=== PATIENT | female | born 1940 | race Caucasian/White ===

== ENCOUNTER → 2016-10-30 | Outpatient (CLI) | payer OTHER ==
[~2016-10-30] MED LIST: AMOX500C3 PO; CEPH500C2 PO; CHOL100027 PO; PENI-82 PO
[2016-10-30 16:42] LABS: MEAN CELL VOLUME 89.8 fL (80-100); MEAN CORPUSCULAR HEMOGLOBIN 30.1 pg (25-34); MEAN CORPUSCULAR HGB CONC 33.5 g/dl (32-36); MEAN PLATELET VOLUME 9.7 fL (7.4-10.4); PLATELET COUNT 282 K/uL (130-400); RED BLOOD COUNT 4.12 M/uL (4.2-5.4)
[2016-10-30 16:52] LABS: ALT/SGPT 29 U/L (12-78); BLOOD UREA NITROGEN 17 mg/dl (7-18); BUN/CREATININE RATIO 18.7 (10-20); CALCIUM 9.2 mg/dl (8.5-10.1); CARBON DIOXIDE 29 mmol/L (21-32); CHLORIDE 102 mmol/L (98-107); CHOLESTEROL 236 mg/dl (0-200); CREATININE 0.89 mg/dl (0.60-1.20); GLUCOSE 103 mg/dl (70-99); POTASSIUM 4.1 mmol/L (3.5-5.1); SODIUM 140 mmol/L (136-145); TRIGLYCERIDES 131 mg/dl (0-150); VERY LOW DENSITY LIPOPROT CALC 26 mg/dl
[2016-10-30 16:54] LABS: ALB/GLOB RATIO 0.9 (0.9-2); ALKALINE PHOSPHATASE 83 U/L (45-117); AST/SGOT 24 U/L (15-37); CHOLESTEROL/HDL RATIO 4.4; HDL CHOLESTEROL 54 mg/dl; LDL CHOLESTEROL CALCULATED 156 mg/dl
== END | disposition home or self-care (01) ==
LOC: C.LAB1850 15:43
PROVIDERS: ATTEND Physician Assistant
DX: E78.5 Hyperlipidemia, unspecified (principal); E55.9 Vitamin D deficiency, unspecified

== ENCOUNTER 2017-02-13 06:06 | Day surgery (SDC) | payer OTHER ==
[2017-02-07 09:35] LABS: HEMATOCRIT 38.9 % (37-47); MEAN CORPUSCULAR HEMOGLOBIN 29.2 pg (25-34); MEAN CORPUSCULAR HGB CONC 32.4 g/dl (32-36); PLATELET COUNT 261 K/uL (130-400); RED BLOOD COUNT 4.32 M/uL (4.2-5.4); WHITE BLOOD COUNT 4.82 K/uL (4.8-10.8)
[2017-02-07 09:50] LABS: BLOOD UREA NITROGEN 19 mg/dl (7-18); BUN/CREATININE RATIO 22.7 (10-20); CALCIUM 9.4 mg/dl (8.5-10.1); CARBON DIOXIDE 27 mmol/L (21-32); CHLORIDE 105 mmol/L (98-107); CREATININE 0.84 mg/dl (0.60-1.20); GLUCOSE 91 mg/dl (70-99); POTASSIUM 4.4 mmol/L (3.5-5.1); SODIUM 140 mmol/L (136-145)
[~2017-02-13] VITALS: Ht 160 cm; Wt 66.3 kg
[~2017-02-13 06:06] MED LIST changes: -AMOX500C3 PO; -CEPH500C2 PO; -PENI-82 PO; +SODIUM CHLORIDE 0.9% 1000ML 1,000 ML IV SCH
[2017-02-13 06:26] VITALS: BP 154/65; PULSE 88; TEMP 36.4; O2SAT 95; Ht 160 cm; Wt 66.3 kg
[2017-02-13] MEDS ORDERED: LIDOCAINE HCL 1% 20 ML VIAL ONE (07:28)
[2017-02-13] MEDS ORDERED: SODIUM BICARB 8.4% INJ 50 MEQ/50 ML SYR IV ONE (07:36)
[2017-02-13] MEDS ORDERED: LIDOCAINE/EPINEPHRINE 1% INJ 50 ML VIAL ONE (07:36)
[2017-02-13] MEDS ORDERED: FENTANYL CITRATE INJ 50 MCG/1 ML 2 ML VIAL ONE (07:37)
[2017-02-13] MEDS ORDERED: MIDAZOLAM HCL 1 MG/ML 2ML VIAL ONE (07:37)
[2017-02-13 07:39] VITALS: BP 154/65; PULSE 88; TEMP 36.4; O2SAT 96
--- NOTE | 2017-02-13 07:52 | Procedure Note ---
Pre-Mod Sedation Assessment General Date of Moderate Sedation: Feb 13, 2017. Vital Signs: Vital Signs Past 12 Hours Date Time Temp Pulse Resp B/P (MAP) Pulse Ox O2 Delivery O2 Flow Rate FiO2 02/13/17 07:39 36.4 88 18 154/65 96 Room Air 02/13/17 06:26 36.4 88 18 154/65 (94) 95 Room Air Review Cardiovascular: regular rate, rhythm, no JVD Abdomen: normal bowel sounds, soft Lungs: chest non-tender, lungs clear Airway Class: II Pre-Sedation Airway Assessment Oral Cavity: Dentures Short Thick Neck: No Hx of Sleep Apnea: No Smoking Status: Former Smoker Mallampati Classification: Class II ASA Classification: Class II Procedure Planning Contraindications-for Mod Sed: None Yes Notes The planned sedation has been discussed with the patient and consent obtained. I have identified the patient, determined the appropriateness of sedation and have assessed the patient immediately prior to the procedure. All medicine(s) and interventions are by my order.
--- NOTE | 2017-02-13 07:56 | History and Physical ---
History & Physical Date Feb 13, 2017. Chief Complaint Healing LE ulcer History of Present Illness Ms. Arriola is a 76-year-old woman with a history of recently diagnosed chronic venous insufficiency with venous ulcerations here for Left GSV RF ablation. The patient has had venous ulcerations for months which have been slow healing but have been improved as of late. She reports longstanding mild lower extremity edema and has had no prior ulcerations, no history of prior blood clots, no history of ulcerations on her other extremity. Due to symptoms she recently had a lower extremity venous duplex ultrasound which showed a dilated right GSV with reflux, a left GSV that was dilated with reflux and superficial and varicose at the level of the knee. Past Medical/Surgical History Chronic venous insufficiency Additional History Hepatic Disease: No Endocrine Disorder: No Kidney Disease: No Hypertension: No Heart Disease: No Bleeding Tendencies: No Infectious Diseases: No Allergies Coded Allergies: BEE STING (Verified Allergy, Severe, SHORTNESS OF BREATH, 02/13/17) Swelling,tachycardia Home Medications Scheduled Cholecalciferol (Vitamin D 1000 Unit), 2,000 INTER.UNIT PO DAILY Physical Examination Skin: warm/dry Eyes: normal inspection ENT: normal ENT inspection Neck: supple Respiratory/Chest: lungs clear, normal breath sounds Cardiovascular: regular rate, rhythm, no murmur Abdomen / GI: normal bowel sounds Extremities: + pertinent finding (healed left LE ulceration) Neurologic/Psych: no motor/sensory deficits, alert Diagnosis Chronic venous insufficiency ASA Classification: ASA Class II Plan of Treatment Proceed with Left GSV ablation
[2017-02-13] MEDS ORDERED: ORM MISCELLANEOUS MED XX ONE (09:12)
[2017-02-13] MEDS ORDERED: LIDOCAINE HCL 1% 20 ML VIAL SQ ONE (09:12)
[2017-02-13 09:25] VITALS: BP 172/74; PULSE 67; TEMP 36.8; O2SAT 95
--- NOTE | 2017-02-13 09:26 | Procedure Note ---
Post-Mod Sedation Assessment General Date of Moderate Sedation Feb 13, 2017. Vital Signs: Vital Signs Past 12 Hours Date Time Temp Pulse Resp B/P (MAP) Pulse Ox O2 Delivery O2 Flow Rate FiO2 02/13/17 07:39 36.4 88 18 154/65 96 Room Air 02/13/17 06:26 36.4 88 18 154/65 (94) 95 Room Air Review - Discharge Criteria Vital Signs Stable: Yes Alert/Oriented/Conversant: Yes Returned to Baseline Mental St: Yes Nausea Absent/Minimal: Yes Pain/Discomfort/Absent/Minimal: Yes Normal/Baseline Respirations: Yes Active Bleeding?: No Pt Received D/C Instructions: Yes Prescriptions Given: None Specific Proced. D/C Criteria Distal Pulses Present (Cardiac: Yes Groin site assessed-Card Cath: N/A Voided Prior To Discharge: N/A Discharged Patients Adult Escort/Transportation: Yes
--- NOTE | 2017-02-13 09:32 | [facility] Operative Report ---
Operative Report Operative Date Feb 13, 2017. Pre-Operative Diagnosis Venous Insufficiency Post-Operative Diagnosis Same Procedure(s) Performed Left Leg Greater Saphenous Vein Radiofrequency Ablation Surgeon Dr. Brunner Marketing Strategist Surgeon(s) None Estimated Blood Loss 4 Findings Dilated Left GSV with varicosities Specimens None Anesthesia Local lidocaine Complication(s) None Disposition Recovery Room / PACU Description of Procedure US guided access Left GSV below the knee. Catheter inserted to knee varicosities US guided access of Left GSV above the knee Tumescent injected to segment below the knee First treatment 1:40 min for 5 cycles Sheath/catheter placed in above knee segment US confirmed not in deep system. Catheter inserted, 2.75 cm from SFJ. Tumescent injected to segment above the knee 2:20, 7 cycles of LFA right GSV. No complications. Patient tolerated well. US confirmed no DVT post procedure. I attest to the content of the Intraoperative Record and any orders documented therein. Any exceptions are noted below.
--- NOTE | 2017-02-13 09:34 | Discharge Instructions ---
Discharge Instructions Procedure Procedure Date: Feb 13, 2017. Reason for Visit: Venous Insufficiency. Discharge Discharge Date: Feb 13, 2017. Discharge Diagnosis: Venous insufficiency Last Recorded Wt (Kilograms): 66.3 Anesthesia Post Anesthesia Instructions: If you have had General Anesthesia or IV Sedation: * Do not drive today. * Resume driving when surgeon permits. * Do not make important decisions or sign legal documents today. * Call surgeon for: 1. Temperature elevations greater than 101 degrees F. 2. Uncontrollable pain. 3. Excessive bleeding. 4. Persistent nausea and vomiting. 5. Medication intolerance (nausea, vomiting or rash). * For nausea and vomiting use only clear liquids such as: tea, soda, bouillon until nausea subsides, then gradually increase diet as tolerated. * If you have any concerns or questions, call your surgeon's office. If physician is unavailable and it is an emergency, call 911 or go to the nearest emergency room. Instructions Activity Recommendations: limitations as noted below (As discussed on paperwork from office) Recommended Home Diet: resume previous diet Allergies: Coded Allergies: BEE STING (Verified Allergy, Severe, SHORTNESS OF BREATH, 02/13/17) Swelling,tachycardia Follow Up Follow-up with: As scheduled Rebecca Dorsey Recommendations: Call your doctor if: * Temperature above 101 degrees * Pain not relieved by pain medicine ordered * There is increased drainage or redness from any incision * You have any unanswered questions or concerns. Your Doctors Instructions noted above were prepared by provider Manolo Brunner. Patient Signature Section: Patient Instructions Signature Page Ghazal Arriola Patient (or Guardian) Signature/Date: I have read and understand the instructions given to me by my caregivers. Caregiver/RN/Doctor Signature/Date: The above-named patient and/or guardian has received patient instructions on this date. + Original Patient Signature Page (only) stays with chart. Please make copy for patient.
[2017-02-13 09:55] VITALS: BP 145/66; PULSE 70; TEMP 36.8; O2SAT 96
== END 2017-02-13 09:55 | disposition home or self-care (01) ==
LOC: C.ACU 06:06
PROVIDERS: ATTEND Internal Medicine Interventional Cardiology
DX: L97.909 Non-pressure chronic ulcer of unspecified part of unspecified lower leg with unspecified severity (principal); I87.2 Venous insufficiency (chronic) (peripheral)

== ENCOUNTER → 2017-08-12 | Outpatient (CLI) | payer OTHER ==
[~2017-08-12] MED LIST changes: +PENI-82 PO; -SODIUM CHLORIDE 0.9% 1000ML 1,000 ML IV SCH
[2017-08-12 10:17] LABS: HEMATOCRIT 38.9 % (37-47); HEMOGLOBIN 12.7 g/dL (12.0-16.0); MEAN CELL VOLUME 92.2 fL (80-100); MEAN CORPUSCULAR HEMOGLOBIN 30.1 pg (25-34); MEAN CORPUSCULAR HGB CONC 32.6 g/dl (32-36); MEAN PLATELET VOLUME 9.6 fL (7.4-10.4); PLATELET COUNT 281 K/uL (130-400); RED CELL DISTRIBUTION WIDTH CV 14.4 % (11.5-14.5); RED CELL DISTRIBUTION WIDTH SD 48.6 fL (36.4-46.3); WHITE BLOOD COUNT 4.85 K/uL (4.8-10.8)
[2017-08-12 10:23] LABS: PTT PATIENT 23.6 SECONDS (21.0-31.0)
[2017-08-12 10:48] LABS: BLOOD UREA NITROGEN 15 mg/dl (7-18); CALCIUM 9.4 mg/dl (8.5-10.1); CARBON DIOXIDE 29 mmol/L (21-32); GLUCOSE 85 mg/dl (70-99); SODIUM 139 mmol/L (136-145)
== END | disposition home or self-care (01) ==
LOC: C.LAB1850 09:35
PROVIDERS: ATTEND Internal Medicine Interventional Cardiology
DX: Z01.818 Encounter for other preprocedural examination (principal)

== ENCOUNTER → 2017-09-05 | Day surgery (SDC) | payer OTHER ==
[~2017-09-05] VITALS: Ht 162.6 cm; Wt 66.5 kg
[~2017-09-05] MED LIST changes: +FENTANYL CITRATE INJ 50 MCG/1 ML 2 ML VIAL ONE; +LIDOCAINE HCL 1% 20 ML VIAL INJ ONE; +LIDOCAINE/EPINEPHRINE 1% 20 ML VIAL ONE; +LIDOCAINE/EPINEPHRINE 1% INJ 50 ML VIAL ONE; +MIDAZOLAM HCL 1 MG/ML 2ML VIAL ONE; +ORM MISCELLANEOUS MED XX ONE; +SODIUM BICARB 8.4% INJ 50 MEQ/50 ML SYR IV ONE
[2017-09-05 07:39] VITALS: BP 179/80; PULSE 92; TEMP 36.6; O2SAT 97; Ht 162.6 cm; Wt 66.5 kg
--- NOTE | 2017-09-05 09:03 | History and Physical ---
History & Physical Date Sep 05, 2017. Chief Complaint Venous insufficiency History of Present Illness Ms. Arriola is a 76-year-old woman with a history of chronic venous insufficiency and venous ulcerations post left GSV radiofrequency ablation back in January 2017, who returned to the wound care center in May of 2016 in the setting of right lower extremity ulceration. The patient had done well following successful left GSV radiofrequency ablation with improvement in symptoms and wound healing, has been wearing compression stockings. Right lower extremity wound slow to heal despite standard wound care and compressive therapy with Unna boot in place. Previous ultrasound has demonstrated right GSV reflux and dilation. Additional History Hepatic Disease: No Endocrine Disorder: No Kidney Disease: No Hypertension: No Heart Disease: No Bleeding Tendencies: No Infectious Diseases: No Allergies Coded Allergies: BEE STING (Verified Allergy, Severe, SHORTNESS OF BREATH, 09/05/17) Swelling,tachycardia Home Medications Scheduled Cholecalciferol (Vitamin D 1000 Unit), 2,000 INTER.UNIT PO DAILY Physical Examination Skin: warm/dry Eyes: normal inspection ENT: normal ENT inspection Respiratory/Chest: lungs clear, normal breath sounds Cardiovascular: regular rate, rhythm, no edema Abdomen / GI: normal bowel sounds Extremities: + pertinent finding (edema, healed prior ulcerations) Neurologic/Psych: no motor/sensory deficits, alert Diagnosis Chronic venous insufficiency ASA Classification: ASA Class II Plan of Treatment Right GSV RF ablation.
--- NOTE | 2017-09-05 09:04 | Pre Sedation Assessment ---
Pre Sedation Assessment General Date of Sedation: Sep 05, 2017. Vital Signs Past 12 Hours Date Time Temp Pulse Resp B/P (MAP) Pulse Ox O2 Delivery O2 Flow Rate FiO2 09/05/17 07:39 36.6 92 20 179/80 (113) 97 Room Air Review Cardiovascular: regular rate, rhythm, no edema Lungs: chest non-tender, lungs clear Pre-Sedation Airway Assessment Smoking Status: Former Smoker Hx of Sleep Apnea: No Hx of difficult intubation: No Short Thick Neck: No Thyro-mental Distance: > 3 Finger Breadths Oral Cavity: Dentures Mallampati Classification: Class II ASA Classification: Class II NPO Status Date of Last Intake of Fluids: Sep 05, 2017 Time of Last Intake of Fluids: 0500 Date of Last Intake of Solids: Sep 05, 2017 Time of Last Intake of Solids: 0600 Procedure Planning Contraindications for Sedation: None Current Medications Reviewed: Yes Notes The planned sedation has been discussed with the patient. Informed Consent was obtained. I have identified the patient, determined the appropriateness of sedation and have assessed the patient immediately prior to the procedure. All medicine(s) and interventions are by my order.
--- NOTE | 2017-09-05 09:59 | Post Sedation Assessment ---
Post Sedation Assessment General Date of Sedation Sep 05, 2017. Vital Signs: Vital Signs Past 12 Hours Date Time Temp Pulse Resp B/P (MAP) Pulse Ox O2 Delivery O2 Flow Rate FiO2 09/05/17 07:39 36.6 92 20 179/80 (113) 97 Room Air Post Procedure Recovery Score Activity: (2) Moves 4 extremities * Respiration: (2) Deep breath/cough Circulation: (2) +/-20% PreAnes Value Consciousness: (2) Fully Awake Oxygen Saturation: (2) > 92% On Room Air Discharge Sedation Level of Care: Phase I Post Sedation Plan On clinical assessment, the patient appears to have tolerated the sedation without complications. Patient is recovering as anticipated. Patient will continue to be monitored by nursing and may be discharged when sedation discharge criteria are met per below protocol. Upon Completions of procedure and additional 15 minutes continue every 5 minute vital signs and the P.A.R. score; then discharge to a Phase I or Fast Track to Phase II per the following guidelines: * Discharge Patient to appropriate Phase II area if PAR is 8 or greater or return to pre- procedure baseline. The post - procedure orders will be as directed. * If PAR score is less than 8 or not return to pre-procedure baseline then patient will follow Phase I monitoring till PAR is reached for Phase II. The Phase I may be done in procedure room or may call to secure a Phase I area. * If naloxone or flumazenil are used for reversal, hold in Phase I for an additional 60 -120 minutes before discharge to Phase II. Please call the Sedation Physician to re-evaluate and complete post-note for discharge to Phase II area. Do NOT discharge from procedure sedation or Phase 1 until post- sedation evaluation note is complete by procedure /sedation MD Sedation Discharge Instructions to be given to the patient at discharge to home.
--- NOTE | 2017-09-05 10:01 | [facility] Operative Report ---
Operative Report Operative Date Sep 05, 2017. Pre-Operative Diagnosis Chronic venous insufficiency Post-Operative Diagnosis Chronic venous insufficiency Procedure(s) Performed Right GSV Radiofrequency Ablation Surgeon Kannan [employer] System Engineer Surgeon(s) Mylene Estimated Blood Loss 5 Findings Dilated right GSV Fluids None Specimens None Drains None Anesthesia Type Local Complication(s) none Disposition yes Recovery Room / PACU Indications CVI (CEAP class 5 disease) Description of Procedure US guided access Right GSV below the knee. Catheter inserted, 2.5 cm from SFJ. Tumescent injected. US confirmed not in deep system. 3:40, 11 cycles of RFA right GSV. No complications. Patient tolerated well. US confirmed no DVT post procedure. I attest to the content of the Intraoperative Record and any orders documented therein. Any exceptions are noted below.
--- NOTE | 2017-09-05 10:05 | Discharge Instructions ---
Discharge Instructions Procedure Procedure Date: Sep 05, 2017. Reason for Visit: Chronic Venous Insufficiency. Discharge Discharge Date: Sep 05, 2017. Discharge Diagnosis: Chronic venous insufficiency Last Recorded Wt (Kilograms): 66.5 Anesthesia Post Anesthesia Instructions: If you have had General Anesthesia or IV Sedation: * Do not drive today. * Resume driving when surgeon permits. * Do not make important decisions or sign legal documents today. * Call surgeon for: 1. Temperature elevations greater than 101 degrees F. 2. Uncontrollable pain. 3. Excessive bleeding. 4. Persistent nausea and vomiting. 5. Medication intolerance (nausea, vomiting or rash). * For nausea and vomiting use only clear liquids such as: tea, soda, bouillon until nausea subsides, then gradually increase diet as tolerated. * If you have any concerns or questions, call your surgeon's office. If physician is unavailable and it is an emergency, call 911 or go to the nearest emergency room. Instructions Activity Recommendations: limitations as noted below Recommended Home Diet: resume previous diet Allergies: Coded Allergies: BEE STING (Verified Allergy, Severe, SHORTNESS OF BREATH, 09/05/17) Swelling,tachycardia Follow Up Additional Instructions: Follow instructions as outlined in paperwork from Dr. Brunner' office. Up walking today. Follow up Ultrasound as scheduled. TAIWO wrap until scheduled ultrasound Post ultrasound wear compression stockings indefinitely. Any severe pain, present to the emergency room for evaluation for DVT. Follow-up with: As scheduled Rebecca Dorsey Recommendations: Call your doctor if: * Temperature above 101 degrees * Pain not relieved by pain medicine ordered * There is increased drainage or redness from any incision * You have any unanswered questions or concerns. Your Doctors Instructions noted above were prepared by provider Manolo Brunner. Patient Signature Section: Patient Instructions Signature Page Ghazal Arriola Patient (or Guardian) Signature/Date: I have read and understand the instructions given to me by my caregivers. Caregiver/RN/Doctor Signature/Date: The above-named patient and/or guardian has received patient instructions on this date. + Original Patient Signature Page (only) stays with chart. Please make copy for patient.
[2017-09-05 10:12] VITALS: BP 173/62; PULSE 76; TEMP 36.9; O2SAT 98
[2017-09-05 10:40] VITALS: BP 131/82; PULSE 75; TEMP 36.9; O2SAT 98
== END | disposition home or self-care (01) ==
LOC: C.ACU 07:20
PROVIDERS: ATTEND Internal Medicine Interventional Cardiology
DX: I87.2 Venous insufficiency (chronic) (peripheral) (principal); Z91.030 Bee allergy status

== ENCOUNTER → 2018-03-05 | Outpatient (CLI) | payer OTHER ==
[~2018-03-05] MED LIST changes: -FENTANYL CITRATE INJ 50 MCG/1 ML 2 ML VIAL ONE; -LIDOCAINE HCL 1% 20 ML VIAL INJ ONE; -LIDOCAINE/EPINEPHRINE 1% 20 ML VIAL ONE; -LIDOCAINE/EPINEPHRINE 1% INJ 50 ML VIAL ONE; -MIDAZOLAM HCL 1 MG/ML 2ML VIAL ONE; -ORM MISCELLANEOUS MED XX ONE; -PENI-82 PO; -SODIUM BICARB 8.4% INJ 50 MEQ/50 ML SYR IV ONE
== END | disposition home or self-care (01) ==
LOC: C.LAB1850 07:53
PROVIDERS: ATTEND Physician Assistant
DX: Z13.220 Encounter for screening for lipoid disorders (principal); E55.9 Vitamin D deficiency, unspecified

== ENCOUNTER 2022-11-21 18:07 | Inpatient (IN) ==
--- NOTE | 2022-11-21 18:19 | Emergency Department Note ---
Impression & Plan Status epilepticus ED Provider Note INFORMANT: EMS ED PROVIDER(S): Anthony Valdivia DO CHIEF COMPLAINT: Stroke/status epilepticus PLAN: Disposition: Admission Outpatient prescription management: none Discussion with: I spoke with the hospitalist, who will see the patient for admission/observation and further evaluation and consultation. I spoke with Dr. Schwarz from [facility]. Patient does not need to be evaluated by him as the patient is on Xarelto and had a seizure and therefore does not qualify for thrombolytics MEDICAL DECISION MAKING: This is a 82-year-old female who presents to the ED via ambulance. The patient's last known well was 4 PM. She was seen by family around that time. About 6 PM today the patient briefly had an unresponsive episode and was flaccid on the right side. She had a brief seizure as well. The patient was flaccid for EMS on the right arm and right leg. She would not answer any questions or speak but she does track with her eyes. 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 Some mild residual right-sided weakness. Her vital signs for EMS showed a blood sugar of 117, blood pressure 152/62, heart rate of 77, respiratory rate of 24 and a saturation of 94% on room air. She is chronically on Eliquis and aspirin. On my exam the patient has a flexed right arm that might be contractured. She seems to have weakness in both lower extremities and does not follow any commands. The left arm localizes pain. The patient does have a small amount of foaming at the mouth. Seems to have a preferred gaze to the right. Not following any commands at this time. EKG shows sinus rhythm. The patient CBC did not show leukocytosis or concerning anemia. Chemistry panel showed no severe electrolyte abnormalities. Kidney function was normal. COVID test was negative. CT scan of the head did not show intracranial hemorrhage. CT angio of the head showed no significant vessel occlusion. CT scan of the carotids and neck shows a 80% stenosis of the proximal right internal carotid artery. A chest x-ray shows no acute disease. During the patient's ED stay, the patient did have a brief hypoxic episode. This was likely related to a seizure. A short while later, the patient had a tonic-clonic seizure that I visualized. She was hypoxic with this. She was loaded with IV Keppra 3 g. The patient had another seizure a couple of hours into her stay after the Keppra and she was given IV Ativan. 2 mg IV Ativan was given. After extensive discussion with the family, the state the patient would not want to be a placed on a ventilator and the patient is DNR. She was DNR after her previous stroke as well. The patient was on facemask oxygen to maintain saturations. This was especially pertinent during the seizures at which time the saturation dropped about 80% briefly during the 1 to 2-minute seizures. The patient will be seen by the hospitalist for further evaluation and care Triage Nursing notes reviewed. Vital Signs: reviewed Prior /Outside records reviewed: none Differential diagnosis: Stroke, hemorrhage, other Diagnostics, as interpreted by me: 12 lead ECG: Normal sinus rhythm rate of 75. No ST elevation. T wave inversions laterally. No segment change from previous Cardiac Monitoring ordered: Sinus rhythm in the 70s to 80s. Medical decision rules: [none] Imaging studies: Chest x-ray: No acute disease. CT scan of the brain: No acute hemorrhage. Procedures: none. Critical care: I have personally spent 60 minutes of critical care time in the direct management of this patient. This includes bedside care, interpretation of diagnostic studies, and testing, discussion with consultants, patient, and family members, and other required patient management activities. This 30 minutes is in excess of all separately billable procedures. HPI: See MDM above. PAST MEDICAL HISTORY: See Below PAST SURGICAL HISTORY: See Below SOCIAL HISTORY: See Below HOME MEDICATIONS: See Below ALLERGIES: See Below VITALS: See Below PHYSICAL EXAMINATION: See MDM for positive findings otherwise unremarkable. CONSTITUTIONAL/VITAL SIGNS: Reviewed GENERAL:done as appropriate INTEGUMENTARY: done as appropriate HEAD: done as appropriate EYES: done as appropriate RESPIRATORY: done as appropriate CARDIOVASCULAR:done as appropriate GI/ABDOMEN:done as appropriate EXTREMITIES: done as appropriate NEUROLOGICAL: done as appropriate PSYCHIATRIC:done as appropriate MUSCULOSKELETAL:done as appropriate TRIAGE NURSING DOCUMENTATION REVIEWED. Past Med/Surg History Medical History Cataract Chronic venous insufficiency Elevated BP without diagnosis of hypertension Hemangioma Herpes zoster Hyperlipidemia Seborrheic keratosis Venous ulcer Vitamin D deficiency Surgical History S/P tooth extraction Family History Sister Atrial fibrillation Stroke Muscular dystrophy Mother Diabetes Father Lung cancer Denies family history of Ovarian cancer Prostate cancer Myocardial infarction Breast cancer Colorectal cancer Social History Smoking Status: Unknown if ever smoked Tobacco Type: Cigarettes Age Started Using Tobacco: 22; Age Quit Using Tobacco: 53; packs per day: 0.5; Second Hand Exposure: No; Hx Alcohol Use: No Hx Substance Use: No Preferred Language: Algerian Visual Impairment: No Limitations Hearing Ability: Normal Beliefs That Will Affect Care: Spiritual marital status: / Current Living Situation: Alone and Spouse current occupational status: retired Feels Safe at Home: Yes Childhood Exposure to Second-Hand Smoke: No Dental Care, Regularly: No Physical Activity Frequency: Daily Physical Activity Frequency Comment: bird watching, puzzles and walking Seatbelt Use: always Sunscreen Use: No Allergies Allergies Allergy/AdvReac Type Severity Reaction Status Date / Time bee venom protein (honey bee) Allergy Severe SHORTNESS Verified 11/21/22 21:23 OF BREATH No Known Drug Allergies Allergy NKDA Verified 11/21/22 21:23 Home Meds Home Medications Medication Instructions Recorded Confirmed cholecalciferol (vitamin D3) 50 2,000 mcg PO DAILY 01/13/19 11/21/22 mcg (2,000 unit) tablet Previous Rx's Medication Instructions Recorded epinephrine 0.3 mg/0.3 mL 0.3 mg (0.3 mL) subcut ONCE PRN 03/16/21 injection, auto-injector anaphylaxis #1 ea apixaban 2.5 mg tablet (Eliquis) 2.5 mg PO BID #180 tabs 08/30/22 aspirin 81 mg tablet,delayed 81 mg PO DAILY #90 tabs 08/30/22 release atorvastatin 20 mg tablet 20 mg PO DAILY #90 tabs 08/30/22 metoprolol tartrate 37.5 mg tablet 37.5 mg PO BID #180 tabs 08/30/22 Results & Data (ED) Vital Signs Vital Signs - 24 hr 11/21/22 18:34 11/21/22 18:34 11/21/22 18:48 Temperature 36.4 C L Temperature Source Axillary Pulse Rate 77 65 Pulse Rate [Apical] 77 Pulse Rhythm Regular Pulse Rhythm [Apical] Regular Pulse Strength Normal Pulse Strength [Apical] Normal Respiratory Rate 22 22 Respiratory Effort / Characteristics Non-Labored Non-Labored Respiratory Depth Normal Normal Respiratory Pattern Regular Regular Blood Pressure 152/107 H Blood Pressure [Left Arm] 152/107 H Blood Pressure Mean 122 Blood Pressure Mean [Left Arm] 122 Pulse Oximetry 97 97 Oxygen Delivery Method Room Air Room Air Oxygen Flow Rate Sepsis Recent Fever Within 48 Hours No Sepsis New/Unexplained Change in Mental Status N/A Sepsis Action Taken by Nursing No Action Required 11/21/22 18:49 11/21/22 18:50 11/21/22 19:00 Temperature Temperature Source Pulse Rate 73 69 69 Pulse Rate [Apical] Pulse Rhythm Pulse Rhythm [Apical] Pulse Strength Pulse Strength [Apical] Respiratory Rate 20 21 22 Respiratory Effort / Characteristics Respiratory Depth Respiratory Pattern Blood Pressure 133/88 Blood Pressure [Left Arm] Blood Pressure Mean 103 Blood Pressure Mean [Left Arm] Pulse Oximetry 100 Oxygen Delivery Method Non-rebreather Oxygen Flow Rate 15 15 15 Sepsis Recent Fever Within 48 Hours Sepsis New/Unexplained Change in Mental Status Sepsis Action Taken by Nursing 11/21/22 19:10 11/21/22 19:20 11/21/22 19:30 Temperature Temperature Source Pulse Rate 69 84 88 Pulse Rate [Apical] Pulse Rhythm Pulse Rhythm [Apical] Pulse Strength Pulse Strength [Apical] Respiratory Rate 19 21 21 Respiratory Effort / Characteristics Respiratory Depth Respiratory Pattern Blood Pressure Blood Pressure [Left Arm] Blood Pressure Mean Blood Pressure Mean [Left Arm] Pulse Oximetry 100 100 100 Oxygen Delivery Method Non-rebreather Non-rebreather Non-rebreather Oxygen Flow Rate 15 15 15 Sepsis Recent Fever Within 48 Hours Sepsis New/Unexplained Change in Mental Status Sepsis Action Taken by Nursing 11/21/22 19:40 11/21/22 19:43 11/21/22 19:45 Temperature Temperature Source Pulse Rate 86 86 85 Pulse Rate [Apical] Pulse Rhythm Pulse Rhythm [Apical] Pulse Strength Pulse Strength [Apical] Respiratory Rate 21 19 20 Respiratory Effort / Characteristics Respiratory Depth Respiratory Pattern Blood Pressure 181/109 H 176/128 H Blood Pressure [Left Arm] Blood Pressure Mean 133 144 Blood Pressure Mean [Left Arm] Pulse Oximetry 100 100 100 Oxygen Delivery Method Non-rebreather Non-rebreather Non-rebreather Oxygen Flow Rate 15 15 15 Sepsis Recent Fever Within 48 Hours Sepsis New/Unexplained Change in Mental Status Sepsis Action Taken by Nursing 11/21/22 19:50 11/21/22 20:00 11/21/22 20:02 Temperature Temperature Source Pulse Rate 86 87 90 Pulse Rate [Apical] Pulse Rhythm Pulse Rhythm [Apical] Pulse Strength Pulse Strength [Apical] Respiratory Rate 20 19 30 H Respiratory Effort / Characteristics Respiratory Depth Respiratory Pattern Blood Pressure 214/88 H Blood Pressure [Left Arm] Blood Pressure Mean 130 Blood Pressure Mean [Left Arm] Pulse Oximetry 100 96 95 Oxygen Delivery Method Non-rebreather Non-rebreather Non-rebreather Oxygen Flow Rate 15 15 15 Sepsis Recent Fever Within 48 Hours Sepsis New/Unexplained Change in Mental Status Sepsis Action Taken by Nursing 11/21/22 20:10 11/21/22 20:17 11/21/22 20:20 Temperature Temperature Source Pulse Rate 92 H 86 84 Pulse Rate [Apical] Pulse Rhythm Pulse Rhythm [Apical] Pulse Strength Pulse Strength [Apical] Respiratory Rate 19 21 17 Respiratory Effort / Characteristics Respiratory Depth Respiratory Pattern Blood Pressure 196/71 H Blood Pressure [Left Arm] Blood Pressure Mean 112 Blood Pressure Mean [Left Arm] Pulse Oximetry 100 100 97 Oxygen Delivery Method Non-rebreather Non-rebreather Non-rebreather Oxygen Flow Rate 15 15 15 Sepsis Recent Fever Within 48 Hours Sepsis New/Unexplained Change in Mental Status Sepsis Action Taken by Nursing 11/21/22 20:30 11/21/22 20:31 11/21/22 20:40 Temperature Temperature Source Pulse Rate 82 88 84 Pulse Rate [Apical] Pulse Rhythm Pulse Rhythm [Apical] Pulse Strength Pulse Strength [Apical] Respiratory Rate 20 22 28 H Respiratory Effort / Characteristics Respiratory Depth Respiratory Pattern Blood Pressure 175/133 H Blood Pressure [Left Arm] Blood Pressure Mean 147 Blood Pressure Mean [Left Arm] Pulse Oximetry 100 100 94 Oxygen Delivery Method Non-rebreather Non-rebreather Non-rebreather Oxygen Flow Rate 15 15 15 Sepsis Recent Fever Within 48 Hours Sepsis New/Unexplained Change in Mental Status Sepsis Action Taken by Nursing 11/21/22 20:46 11/21/22 20:50 11/21/22 21:00 Temperature Temperature Source Pulse Rate 85 84 85 Pulse Rate [Apical] Pulse Rhythm Pulse Rhythm [Apical] Pulse Strength Pulse Strength [Apical] Respiratory Rate 20 19 20 Respiratory Effort / Characteristics Respiratory Depth Respiratory Pattern Blood Pressure 170/91 H 189/95 H Blood Pressure [Left Arm] Blood Pressure Mean 117 126 Blood Pressure Mean [Left Arm] Pulse Oximetry 100 100 100 Oxygen Delivery Method Non-rebreather Non-rebreather Non-rebreather Oxygen Flow Rate 15 15 15 Sepsis Recent Fever Within 48 Hours Sepsis New/Unexplained Change in Mental Status Sepsis Action Taken by Nursing 11/21/22 21:10 11/21/22 21:15 11/21/22 21:20 Temperature Temperature Source Pulse Rate 88 89 89 Pulse Rate [Apical] Pulse Rhythm Pulse Rhythm [Apical] Pulse Strength Pulse Strength [Apical] Respiratory Rate 22 22 22 Respiratory Effort / Characteristics Respiratory Depth Respiratory Pattern Blood Pressure 187/89 H Blood Pressure [Left Arm] Blood Pressure Mean 121 Blood Pressure Mean [Left Arm] Pulse Oximetry 100 100 100 Oxygen Delivery Method Non-rebreather Non-rebreather Non-rebreather Oxygen Flow Rate 15 15 15 Sepsis Recent Fever Within 48 Hours Sepsis New/Unexplained Change in Mental Status Sepsis Action Taken by Nursing 11/21/22 21:30 Temperature Temperature Source Pulse Rate 86 Pulse Rate [Apical] Pulse Rhythm Pulse Rhythm [Apical] Pulse Strength Pulse Strength [Apical] Respiratory Rate 20 Respiratory Effort / Characteristics Respiratory Depth Respiratory Pattern Blood Pressure 185/81 H Blood Pressure [Left Arm] Blood Pressure Mean 115 Blood Pressure Mean [Left Arm] Pulse Oximetry 100 Oxygen Delivery Method Non-rebreather Oxygen Flow Rate 15 Sepsis Recent Fever Within 48 Hours Sepsis New/Unexplained Change in Mental Status Sepsis Action Taken by Nursing Laboratory Data 11/21/22 18:43 11/21/22 18:43 Lab Results 11/21/22 11/21/22 11/21/22 Range/Units 18:43 18:43 18:43 WBC 6.02 (4.8-10.8) K/ul RBC 3.75 L (4.20-5.40) M/uL Hgb 11.3 L (12.0-16.0) g/dl Hct 34.2 L (37.0-47.0) % MCV 91.2 (80.0-100.0) fL MCH 30.1 (25.0-34.0) pg MCHC 33.0 (32.0-36.0) g/dL RDW Std Deviation 47.5 H (36.4-46.3) fL RDW Coeff of Rosa Elena 14.2 (11.5-14.5) % Plt Count 198 (130-400) K/uL MPV 9.8 (9.4-12.4) fL Immature Gran % (Auto) 0.3 % Neut % (Auto) 57.3 % Lymph % (Auto) 30.9 % [place] % (Auto) 8.0 % Eos % (Auto) 2.8 % Baso % (Auto) 0.7 % Neut # (Auto) 3.45 (1.40-6.50) K/uL Lymph # (Auto) 1.86 (1.2-3.4) K/uL [place] # (Auto) 0.48 (0.11-0.59) K/uL Eos # (Auto) 0.17 (0-0.50) K/uL Baso # (Auto) 0.04 (0-0.2) K/uL Immature Gran # (Auto) 0.02 (0.01-0.20) K/uL PT 11.6 (9.0-12.0) Seconds INR 1.1 (0.9-1.1) APTT 24.5 (21.0-31.0) Seconds PTT Ratio 0.9 Sodium (136-145) mmol/L Potassium (3.5-5.1) mmol/L Chloride (98-107) mmol/L Carbon Dioxide (21-32) mmol/L Anion Gap (3-11) BUN (6-23) mg/dl Creatinine (0.6-1.2) mg/dl Est Cr Clr Drug Dosing ml/min Est GFR ( Amer) ml/min Est GFR (Non-Af Amer) ml/min BUN/Creatinine Ratio (10-20) Glucose (70-99(Fasting)) mg/dl Calcium (8.6-10.3) mg/dl Magnesium (1.7-2.4) mg/dl Total Bilirubin (0.2-1.0) mg/dl AST (13-39) U/L ALT (7-52) U/L Alkaline Phosphatase (34-104) U/L Troponin I High Sens (0-14) pg/ml Total Protein (6.0-8.3) gm/dl Albumin (3.4-5.0) gm/dl Globulin (2.5-4.0) gm/dl Albumin/Globulin Ratio (0.9-2) SARS-CoV-2, RNA, NAAT (NEGATIVE) Blood Type A Positive Antibody Screen NEGATIVE 11/21/22 11/21/22 Range/Units 18:43 20:35 WBC (4.8-10.8) K/ul RBC (4.20-5.40) M/uL Hgb (12.0-16.0) g/dl Hct (37.0-47.0) % MCV (80.0-100.0) fL MCH (25.0-34.0) pg MCHC (32.0-36.0) g/dL RDW Std Deviation (36.4-46.3) fL RDW Coeff of Rosa Elena (11.5-14.5) % Plt Count (130-400) K/uL MPV (9.4-12.4) fL Immature Gran % (Auto) % Neut % (Auto) % Lymph % (Auto) % [place] % (Auto) % Eos % (Auto) % Baso % (Auto) % Neut # (Auto) (1.40-6.50) K/uL Lymph # (Auto) (1.2-3.4) K/uL [place] # (Auto) (0.11-0.59) K/uL Eos # (Auto) (0-0.50) K/uL Baso # (Auto) (0-0.2) K/uL Immature Gran # (Auto) (0.01-0.20) K/uL PT (9.0-12.0) Seconds INR (0.9-1.1) APTT (21.0-31.0) Seconds PTT Ratio Sodium 135 L (136-145) mmol/L Potassium 4.4 (3.5-5.1) mmol/L Chloride 104 (98-107) mmol/L Carbon Dioxide 23 (21-32) mmol/L Anion Gap 8 (3-11) BUN 19 (6-23) mg/dl Creatinine 0.79 (0.6-1.2) mg/dl Est Cr Clr Drug Dosing 52.7 ml/min Est GFR ( Amer) 81.9 ml/min Est GFR (Non-Af Amer) 70.7 ml/min BUN/Creatinine Ratio 24.1 H (10-20) Glucose 116 H (70-99(Fasting)) mg/dl Calcium 8.6 (8.6-10.3) mg/dl Magnesium 1.9 (1.7-2.4) mg/dl Total Bilirubin 0.5 (0.2-1.0) mg/dl AST 21 (13-39) U/L ALT 15 (7-52) U/L Alkaline Phosphatase 66 (34-104) U/L Troponin I High Sens 7.5 (0-14) pg/ml Total Protein 6.6 (6.0-8.3) gm/dl Albumin 3.3 L (3.4-5.0) gm/dl Globulin 3.3 (2.5-4.0) gm/dl Albumin/Globulin Ratio 1.0 (0.9-2) SARS-CoV-2, RNA, NAAT NEGATIVE (NEGATIVE) Blood Type Antibody Screen Administered Medications Discontinued Medications Levetiracetam 2,000 mg/ Sodium (Chloride) 270 mls @ 999 mls/hr IV NOW STA Stop: 11/21/22 18:47 Last Infusion: 11/21/22 19:32 Dose: 0 mls/hr Documented By: Admin: 11/21/22 19:10 Dose: 999 mls/hr Documented By: ELIZABET Levetiracetam 1,000 mg/ Sodium (Chloride) 110 mls @ 440 mls/hr IV NOW STA Stop: 11/21/22 19:05 Last Infusion: 11/21/22 19:48 Dose: 0 mls/hr Documented By: Admin: 11/21/22 19:32 Dose: 440 mls/hr Documented By: ELIZABET Ioversol (Optiray 320 500ml) 105 ml IV ONCE ONE Stop: 11/21/22 18:32 Last Admin: 11/21/22 18:31 Dose: 105 ml Documented By: KELLY Lorazepam (Lorazepam 2 Mg/1 Ml Vial) Confirm Administered Dose 2 mg .ROUTE .STK- MED ONE Stop: 11/21/22 19:15 Last Admin: 11/21/22 19:23 Dose: Not Given Documented By: ELIZABET Lorazepam (Lorazepam 2 Mg/1 Ml Vial) Confirm Administered Dose 2 mg .ROUTE .STK- MED ONE Stop: 11/21/22 20:05 Last Admin: 11/21/22 20:10 Dose: 2 mg Documented By: ELIZABET Lorazepam (Lorazepam 2 Mg/1 Ml Vial) 2 mg IV NOW STA Stop: 11/21/22 20:10 Last Admin: 11/21/22 20:10 Dose: Not Given Documented By: KMB Imaging Data Radiologist's Impression: Chest X-Ray 11/21/22 18:10 XR chest 1V portable CLINICAL HISTORY: neuro deficit, acute stroke suspected COMPARISON STUDY: No previous studies for comparison. FINDINGS: There is mild elevation of the right hemidiaphragm. Cardiomegaly is noted. Interstitial thickening is present. This may be chronic. There is suspected biapical scarring. There is no definite consolidation. IMPRESSION: No definite acute cardiopulmonary findings. Cardiomegaly. Interstitial thickening, likely chronic. ACT 112: Negative or not required by law. Electronically signed by: Kehinde Brewer M.D. 11/21/2022 6:[address] 11/21/22 18:10 CT OF THE HEAD WITHOUT CONTRAST CLINICAL HISTORY: neuro deficit, acute stroke suspected COMPARISON STUDY: Head CT, CTA of the head and MRI of the brain September 28, 2022. CT DOSE: 1704.21 mGy.cm TECHNIQUE: Helical axial images of the head were obtained without IV contrast. Automated exposure control was utilized for the study. A dose lowering technique was utilized adhering to the principles of ALARA. FINDINGS: No acute intracranial hemorrhage, midline shift or mass effect is present. The ventricular system is stable. Encephalomalacia within left MCA distribution is unchanged and represents an old infarct. The appearance of the brain is unchanged. The basal cisterns are patent. No extra-axial collections are present. There are no findings to suggest acute dural sinus thrombosis or acute territorial infarct. No significant calvarial abnormalities are present. Visualized portions of the sinuses and mastoid air cells are clear. IMPRESSION: 1. No acute intracranial findings. 2. No change in appearance of the brain. Old left MCA territory infarct. ACT 112: Negative or not required by law. Electronically signed by: Kehinde Brewer M.D. 11/21/2022 6:33 PM Head CTA 11/21/22 18:10 CTA ANGIOGRAPHY OF THE HEAD CLINICAL HISTORY: neuro deficit, acute stroke suspected COMPARISON STUDY: CTA of the head September 28, 2022. TECHNIQUE: Helical axial images of the head were obtained following uneventful intravenous administration of 105 cc of Optiray. Sagittal and coronal reconstructions were viewed as well as maximal intensity projections on an independent 3-D workstation. Automated exposure control was utilized for the study. A dose lowering technique was utilized adhering to the principles of ALARA. FINDINGS: No acute intracranial hemorrhage was identified on the head CT which will be reported separately. Old left MCA territory infarct is again noted. The appearance of the brain is unchanged. The bilateral M1, M2, A1 and A2 segments are patent. There is slight asymmetric decreased caliber of the left cavernous carotid which is unchanged. No central vessel occlusion is identified. There is no intracranial aneurysm. The posterior circulation is intact. IMPRESSION: 1. No central vessel occlusion. No intracranial aneurysm. No significant change since CTA of September 28, 2022. 2. Old left MCA territory infarct. ACT 112: Negative or not required by law. Electronically signed by: Kehinde Brewer M.D. 11/21/2022 6:48 PM Neck CTA 11/21/22 18:10 CT ANGIOGRAPHY OF THE NECK WITH CONTRAST CLINICAL HISTORY: neuro deficit, acute stroke suspected COMPARISON STUDY: CTA of the neck September 28, 2022. Technique: CT angiography of the carotid and vertebral arteries was obtained using Optiray and 3D reconstruction on an independent workstation. NASCET criteria was utilized. Automated exposure control was utilized for the study. A dose lowering technique was utilized adhering to the principles of ALARA. Findings: Biapical scarring is noted. A 9 mm left upper lobe nodule on axial image [address] of July 04, 2022. There is no cervical lymphadenopathy. There is no cervical spine fracture. Extensive calcified plaque within the proximal right internal carotid artery results in severe stenosis of approximately 80%. There is moderate plaque within the left common carotid artery without stenosis. There is no stenosis within the left internal carotid artery. Vertebral arteries are patent. IMPRESSION: 1. Severe (80%) stenosis of the proximal right internal carotid artery due to extensive calcified plaque. 2. No additional stenoses within the major vessels of the neck. ACT 112: Negative or not required by law. Electronically signed by: Kehinde Brewer M.D. 11/21/2022 6:42 PM Discharge Plan Visit Data Chief Complaint: Stroke Alert ED Provider: Anthony Valdivia Discharge Problem: Status epilepticus Patient Disposition: Being Evaluated by Hospitalist Forms Stand Alone Forms: [facility] [employer] Prescriptions Prescriptions: No Action Eliquis 2.5 mg tablet 2.5 mg PO BID Qty: 180 3RF aspirin 81 mg tablet,delayed release (DR/EC) 81 mg PO DAILY Qty: 90 3RF atorvastatin 20 mg tablet 20 mg PO DAILY Qty: 90 3RF metoprolol tartrate 37.5 mg tablet 37.5 mg PO BID Qty: 180 3RF epinephrine 0.3 mg/0.3 mL auto-injector 0.3 mg subcut ONCE PRN (Reason: anaphylaxis) Qty: 1 3RF cholecalciferol (vitamin D3) 2,000 unit tablet 2,000 mcg PO DAILY Referrals Referrals: Pro,Kevin Lyn MD [Primary Care Provider] -
[2022-11-21] MEDS ORDERED: OPTIRAY 320 500ml IV ONE (18:31)
--- NOTE | 2022-11-21 18:35 | CT Scan Report ---
CT OF THE HEAD WITHOUT CONTRAST CLINICAL HISTORY: neuro deficit, acute stroke suspected COMPARISON STUDY: Head CT, CTA of the head and MRI of the brain September 28, 2022. CT DOSE: 1704.21 mGy.cm TECHNIQUE: Helical axial images of the head were obtained without IV contrast. Automated exposure con trol was utilized for the study. A dose lowering technique was utilized adhering to the principles o f ALARA. FINDINGS: No acute intracranial hemorrhage, midline shift or mass effect is present. The ventricular system is stable. Encephalomalacia within left MCA distribution is unchanged and represents an old in farct. The appearance of the brain is unchanged. The basal cisterns are patent. No extra-axial collec tions are present. There are no findings to suggest acute dural sinus thrombosis or acute territorial infarct. No significant calvarial abnormalities are present. Visualized portions of the sinuses and mastoid air cells are clear. IMPRESSION: 1. No acute intracranial findings. 2. No change in appearance of the brain. Old left MCA territory infarct. ACT 112: Negative or not required by law. Electronically signed by: Kehinde Brewer M.D. 11/21/2022 6:33 PM
--- NOTE | 2022-11-21 18:45 | CT Scan Report ---
CT ANGIOGRAPHY OF THE NECK WITH CONTRAST CLINICAL HISTORY: neuro deficit, acute stroke suspected COMPARISON STUDY: CTA of the neck September 28, 2022. Technique: CT angiography of the carotid and vertebral arteries was obtained using Optiray and 3D rec onstruction on an independent workstation. NASCET criteria was utilized. Automated exposure control was utilized for the study. A dose lowering technique was utilized adhering to the principles of ALA RA. Findings: Biapical scarring is noted. A 9 mm left upper lobe nodule on axial image 120 435 is unchang ed since CT of July 04, 2022. There is no cervical lymphadenopathy. There is no cervical spine fra cture. Extensive calcified plaque within the proximal right internal carotid artery results in severe stenosis of approximately 80%. There is moderate plaque within the left common carotid artery withou t stenosis. There is no stenosis within the left internal carotid artery. Vertebral arteries are diallo nt. IMPRESSION: 1. Severe (80%) stenosis of the proximal right internal carotid artery due to extensive calcified ja que. 2. No additional stenoses within the major vessels of the neck. ACT 112: Negative or not required by law. Electronically signed by: Kehinde Brewer M.D. 11/21/2022 6:42 PM
--- NOTE | 2022-11-21 18:49 | CT Scan Report ---
CTA ANGIOGRAPHY OF THE HEAD CLINICAL HISTORY: neuro deficit, acute stroke suspected COMPARISON STUDY: CTA of the head September 28, 2022. TECHNIQUE: Helical axial images of the head were obtained following uneventful intravenous administr ation of 105 cc of Optiray. Sagittal and coronal reconstructions were viewed as well as maximal inten sity projections on an independent 3-D workstation. Automated exposure control was utilized for the study. A dose lowering technique was utilized adhering to the principles of ALARA. FINDINGS: No acute intracranial hemorrhage was identified on the head CT which will be reported separ ately. Old left MCA territory infarct is again noted. The appearance of the brain is unchanged. The b ilateral M1, M2, A1 and A2 segments are patent. There is slight asymmetric decreased caliber of the l eft cavernous carotid which is unchanged. No central vessel occlusion is identified. There is no intr acranial aneurysm. The posterior circulation is intact. IMPRESSION: 1. No central vessel occlusion. No intracranial aneurysm. No significant change since CTA of September 28, 2022. 2. Old left MCA territory infarct. ACT 112: Negative or not required by law. Electronically signed by: Kehinde Brewer M.D. 11/21/2022 6:48 PM
[2022-11-21] MEDS ORDERED: levETIRAcetam 1,000 MG in 0.9 % SODIUM CHLORIDE 100 ML IV STA (18:51)
--- NOTE | 2022-11-21 18:59 | XRay Report ---
XR chest 1V portable CLINICAL HISTORY: neuro deficit, acute stroke suspected COMPARISON STUDY: No previous studies for comparison. FINDINGS: There is mild elevation of the right hemidiaphragm. Cardiomegaly is noted. Interstitial thi ckening is present. This may be chronic. There is suspected biapical scarring. There is no definite c onsolidation. IMPRESSION: No definite acute cardiopulmonary findings. Cardiomegaly. Interstitial thickening, likely chronic. ACT 112: Negative or not required by law. Electronically signed by: Kehinde Brewer M.D. 11/21/2022 6:57 PM
[2022-11-21 19:12] LABS: Basophils # (auto) 0.04 K/uL (0-0.2); Basophils % (auto) 0.7 %; Eosinophils # (auto) 0.17 K/uL (0-0.50); Eosinophils % (auto) 2.8 %; Hematocrit (blood only) 34.2 % (37.0-47.0); Hemoglobin 11.3 g/dl (12.0-16.0); Immature Granulocytes # (auto) 0.02 K/uL (0.01-0.20); Immature Granulocytes % (auto) 0.3 %; Lymphocytes # (auto) 1.86 K/uL (1.2-3.4); Lymphocytes % (auto) 30.9 %; Mean Corpuscular Hemoglobin 30.1 pg (25.0-34.0); Mean Corpuscular Volume 91.2 fL (80.0-100.0); Mean Platelet Volume 9.8 fL (9.4-12.4); Monocytes # (auto) 0.48 K/uL (0.11-0.59); Neutrophils # (auto) 3.45 K/uL (1.40-6.50); Neutrophils % (auto) 57.3 %; Platelet Count 198 K/uL (130-400); RDW Coefficient of Variation 14.2 % (11.5-14.5); RDW Standard Deviation 47.5 fL (36.4-46.3); Red Blood Count 3.75 M/uL (4.20-5.40); White Blood Count 6.02 K/ul (4.8-10.8)
[2022-11-21] MEDS ORDERED: LORazepam 2 MG/1 ML VIAL ONE ×2 (19:14→20:04)
[2022-11-21 19:22] LABS: Albumin Level 3.3 gm/dl (3.4-5.0); BUN Creatinine Ratio 24.1 (10-20); Bilirubin,Total 0.5 mg/dl (0.2-1.0); Calcium 8.6 mg/dl (8.6-10.3); Creatinine Clr Calc Pharmacy 52.7 ml/min; Est GFR (African American) 81.9 ml/min; Est GFR (Non-African American) 70.7 ml/min; Globulin 3.3 gm/dl (2.5-4.0); Magnesium 1.9 mg/dl (1.7-2.4); Potassium 4.4 mmol/L (3.5-5.1); Total Protein 6.6 gm/dl (6.0-8.3)
[2022-11-21 19:28] LABS: Troponin I High Sensitivity 7.5 pg/ml (0-14)
[2022-11-21 19:33] LABS: INR 1.1 (0.9-1.1); Partial Thromboplastin Ratio 0.9; Partial Thromboplastin Time 24.5 Seconds (21.0-31.0); Prothrombin Time 11.6 Seconds (9.0-12.0)
[2022-11-21] MEDS ORDERED: LORazepam 2 MG/1 ML VIAL IV STA (20:09)
--- NOTE | 2022-11-21 21:26 | History & Physical Report ---
Date of Service November 21, 2022 Assessment & Plan (1) Seizure-like activity: Plan: 82 y/o F w/ PmHx notable for recent L MCA territory stroke in June of 2022 admitted for new onset seizure like activity and stroke like symptoms. Seizure-like activity/Concern for stroke: -New onset seizure-like activity without prior history of seizures. -Prior to MCA stroke in June patient was not on any medications per family. -CT head, CTA head without acute findings. CTA neck with 80% stenosis R proximal internal carotid artery. -CBC, CMP, troponin unremarkable. -Given 3g Keppra in ED, 2mg IV ativan to break seizure. -Ordered 2mg IV Ativan PRN for seizure like activity. -Ordered Brain MRI w/o contrast, EEG. -Consulted neurology, appreciate recs. -Holding anticoagulation at current time given new stroke and seizure like activity. -Continue to monitor on PCU with q2h neuro checks. A fib: -Hx a fib from hospitalization in June. -Holding oral metoprolol while unconscious/unable to swallow. -Holding Eliquis, SCDs for DVT prophylaxis. HLD: -Holding atorvastatin while unable to swallow. F/E/N/GI: NPO. DVT Prophylaxis: SCDs. Code status: DNR/DNI. Dispo: PCU. (2) Acute ischemic left MCA stroke: (3) Atrial fibrillation: (4) Hyperlipidemia: History of Present Illness Chief Complaint: New stroke symptoms and new seizures Primary Care Provider: Kevin Fitzgerald MD Ghazal (Mya) is a 82 year old female w/ PmHx Acute ischemic L MCA stroke in June of 2022, HLD, chronic venous insufficiency coming to the ED after an episode of seizure like activity at home. Patient is unable to respond, family members at the bedside relay events. Patient perviously had a stroke in June for which she went to [facility] for and had been [facility] and PT at home, which she "graduated" per family. At the time of stroke her dysfunction was mainly with R sided weakness, dysphagia. She had been recovering pretty well up to this point. She had an episode of dizziness and gait imbalance in early September for which she was evaluated with MRI with no significant changes from prior L MCA stroke. Earlier in the day patient had not been herself with family saying around noon she started to become more irritable, seemed off, and had more difficulty with using her computer. Around 5 or 6PM today she had an unresponsive episode where she was found on the couch unresponsive. She had a witnessed seizure like activity episode followed by unresponsiveness and family said she had been clenching her jaw as well. She was brought to the hospital by EMS, in hospital she had 3 seizure like activity episodes of tonic clonic behavior half hour to hour apart. Family denies patient having any fevers, upper respiratory symptoms, urinary symptom complaints, or diarrhea prior to events. Over the course of her ED visit today since talking with family she has had slightly increased activity with some movements of the head or eyelids. In the ED she was given 3g Keppra IV as well as 2mg IV Ativan to break a seizure. Her last seizure broke before Ativan was able to be given. EKG was NSR without acute changes, CBC, CMP, troponin unremarkable. CXR negative for acute cardiopulmonary findings. Head CT, head CTA did not show any new changes, just old L MCA territory infarct. 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 Allergies Allergy/AdvReac Type Severity Reaction Status Date / Time bee venom protein (honey bee) Allergy Severe SHORTNESS Verified 11/21/22 21:23 OF BREATH No Known Drug Allergies Allergy NKDA Verified 11/21/22 21:23 Home Medications Medication Instructions Recorded Confirmed Type cholecalciferol (vitamin D3) 50 2,000 mcg PO DAILY 01/13/19 11/21/22 History mcg (2,000 unit) tablet epinephrine 0.3 mg/0.3 mL 0.3 mg (0.3 mL) subcut ONCE PRN 03/16/21 11/21/22 Rx injection, auto-injector anaphylaxis #1 ea aspirin 81 mg tablet,delayed 81 mg PO DAILY #90 tabs 08/30/22 11/21/22 Rx release atorvastatin 20 mg tablet 20 mg PO DAILY #90 tabs 08/30/22 11/21/22 Rx metoprolol tartrate 37.5 mg tablet 37.5 mg PO BID #180 tabs 08/30/22 11/21/22 Rx apixaban 5 mg tablet (Eliquis) 5 mg PO BID 11/21/22 11/21/22 History Past Med/Surg History Medical History Cataract Chronic venous insufficiency Elevated BP without diagnosis of hypertension Hemangioma Herpes zoster Hyperlipidemia Seborrheic keratosis Venous ulcer Vitamin D deficiency Surgical History S/P tooth extraction Family History Sister Atrial fibrillation Stroke Muscular dystrophy Mother Diabetes Father Lung cancer Denies family history of Ovarian cancer Prostate cancer Myocardial infarction Breast cancer Colorectal cancer Social History Smoking Status: Former smoker Tobacco Type: Cigarettes Age Started Using Tobacco: 22; Age Quit Using Tobacco: 53; packs per day: 0.5; Second Hand Exposure: No; Do You Dip or Chew Tobacco: No; Tobacco Cessation Education Requested by Patient: No Hx Alcohol Use: No Hx Substance Use: No Preferred Language: Guatemalan Communication Ability: Impaired Visual Impairment: No Limitations Hearing Ability: Normal Beliefs That Will Affect Care: None marital status: / Current Living Situation: Family current occupational status: retired Other Information That Helps Us Care for You: No Feels Safe at Home: Yes Safety Concerns: Feels Safe At This Time Childhood Exposure to Second-Hand Smoke: No Dental Care, Regularly: No Physical Activity Frequency: Daily Physical Activity Frequency Comment: bird watching, puzzles and walking Seatbelt Use: always Sunscreen Use: No Assistive Devices: Walker Review of Systems Review of Systems: As per HPI. Physical Exam Constitutional: Patient lying in bed unresponsive to verbal stimuli. Eyes: Pupils constricted, R deviated gaze. ENMT: external ear and nose normal, oropharynx normal Respiratory: CTA bilaterally. Cardiovascular: Rate/Rhythm: + tachycardic Heart Sounds: normal S1 and normal S2 No peripheral edema. Gastrointestinal (Abdomen): normal bowel sounds, soft, nontender, no hepatosplenomegaly Musculoskeletal: R arm contracted and stiff, L arm with no difficulty to passive movement. Neurologic: Patellar reflexes 1+ bilaterally. Unable to asses for cranial nerves 2-12. Psychiatric: Unresponsive to verbal stimuli. Results & Data Results & Data Vital Signs (Past 12 Hours) Vital Signs Temp Pulse Pulse Resp BP BP Pulse Ox 11/21/22 21:15 89 22 187/89 H 100 11/21/22 21:10 88 22 100 11/21/22 21:00 85 20 189/95 H 100 11/21/22 20:50 84 19 100 11/21/22 20:46 85 20 170/91 H 100 11/21/22 20:40 84 28 H 94 11/21/22 20:31 88 22 175/133 H 100 11/21/22 20:30 82 20 100 11/21/22 20:20 84 17 97 11/21/22 20:17 86 21 196/71 H 100 11/21/22 20:10 92 H 19 100 11/21/22 20:02 90 30 H 214/88 H 95 11/21/22 20:00 87 19 96 11/21/22 19:50 86 20 100 11/21/22 19:45 85 20 176/128 H 100 11/21/22 19:43 86 19 181/109 H 100 11/21/22 19:40 86 21 100 11/21/22 19:30 88 21 100 11/21/22 19:20 84 21 100 11/21/22 19:10 69 19 100 11/21/22 19:00 69 22 133/88 100 11/21/22 18:50 69 21 11/21/22 18:49 73 20 11/21/22 18:48 65 11/21/22 18:34 77 22 152/107 H 97 11/21/22 18:34 36.4 C L 77 22 152/107 H 97 O2 Del Method O2 Flow Rate 11/21/22 21:15 Non-rebreather 15 11/21/22 21:10 Non-rebreather 15 11/21/22 21:00 Non-rebreather 15 11/21/22 20:50 Non-rebreather 15 11/21/22 20:46 Non-rebreather 15 11/21/22 20:40 Non-rebreather 15 11/21/22 20:31 Non-rebreather 15 11/21/22 20:30 Non-rebreather 15 11/21/22 20:20 Non-rebreather 15 11/21/22 20:17 Non-rebreather 15 11/21/22 20:10 Non-rebreather 15 11/21/22 20:02 Non-rebreather 15 11/21/22 20:00 Non-rebreather 15 11/21/22 19:50 Non-rebreather 15 11/21/22 19:45 Non-rebreather 15 11/21/22 19:43 Non-rebreather 15 11/21/22 19:40 Non-rebreather 15 11/21/22 19:30 Non-rebreather 15 11/21/22 19:20 Non-rebreather 15 11/21/22 19:10 Non-rebreather 15 11/21/22 19:00 Non-rebreather 15 11/21/22 18:50 15 11/21/22 18:49 15 11/21/22 18:48 11/21/22 18:34 Room Air 11/21/22 18:34 Room Air Supervising Physician Co-Signing Physician Notes Attending addendum: I have physically seen this patient, have supervised the medical residents activities, and agree with the H&P unless as otherwise noted. Assessment and Plan: Seizure-like activity- New onset Admit to monitored bed Laboratories normal CT head with old left MCA infarct CTA head with old left MCA infarct CT angiography neck with 80% right ICA stenosis EKG with T wave inversions in V5 and 6 From the ED patient received Keppra 2000 mg then 1000 mg IV and lorazepam 2 mg IV Order MRI brain without contrast Order EEG Neurology consult Atrial fibrillation/hypertension- Continue metoprolol tartrate, aspirin and apixaban Hyperlipidemia- Continue atorvastatin Check a fasting lipid panel and hemoglobin A1c Remaining orders and notations as noted Resident Activity Tracking Resident Involvement: Resident Care Provided Care Provided: Adult [facility]
[2022-11-21] MEDS ORDERED: PHARMACIST DISCHARGE MED REC CONSULT PRN (22:58)
[2022-11-21] MEDS ORDERED: ACETAMINOPHEN 1,000 MG/100 ML VIAL IV PRN (22:58)
[2022-11-21] MEDS ORDERED: LORazepam 2 MG/1 ML VIAL IV PRN (23:08)
[2022-11-22 08:02] LABS: Basophils # (auto) 0.02 K/uL (0-0.2); Basophils % (auto) 0.2 %; Hematocrit (blood only) 36.5 % (37.0-47.0); Hemoglobin 12.1 g/dl (12.0-16.0); Immature Granulocytes # (auto) 0.05 K/uL (0.01-0.20); Immature Granulocytes % (auto) 0.5 %; Lymphocytes # (auto) 2.18 K/uL (1.2-3.4); Lymphocytes % (auto) 22.9 %; Mean Corpuscular Hgb Conc 33.2 g/dL (32.0-36.0); Mean Corpuscular Volume 90.6 fL (80.0-100.0); Mean Platelet Volume 10.3 fL (9.4-12.4); Monocytes # (auto) 0.94 K/uL (0.11-0.59); Monocytes % (auto) 9.9 %; Neutrophils # (auto) 6.34 K/uL (1.40-6.50); Neutrophils % (auto) 66.5 %; Platelet Count 197 K/uL (130-400); RDW Coefficient of Variation 14.5 % (11.5-14.5); RDW Standard Deviation 47.8 fL (36.4-46.3); Red Blood Count 4.03 M/uL (4.20-5.40); White Blood Count 9.53 K/ul (4.8-10.8)
[2022-11-22] MEDS: ASPIRIN 81 MG ECTAB PO SCH (08:06)
[2022-11-22 08:22] LABS: BUN Creatinine Ratio 20.5 (10-20); Chol HDL Ratio 2.4 (0-5); Creatinine Clr Calc Pharmacy 55.3 ml/min; Est GFR (African American) 90.2 ml/min; Est GFR (Non-African American) 77.8 ml/min
[2022-11-22] MEDS ORDERED: ATORVASTATIN 40 MG TAB PO SCH (09:00)
[2022-11-22 09:19] LABS: iSTAT Blood Urea Nitrogen 18 mg/dl (7-18); iSTAT Carbon Dioxide 24 mmol/L (24-31); iSTAT Chloride 101 mmol/L (101-112); iSTAT Creatinine 0.8 mg/dl (0.6-1.3); iSTAT Hematocrit 34 % (37-47); iSTAT Hemoglobin 11.6 g/dl (12.0-16.0); iSTAT Ionized Calcium 1.15 mmol/l (1.12-1.32); iSTAT Potassium 4.4 mmol/L (3.3-5.0); iSTAT Sodium 137 mmol/L (135-144)
--- NOTE | 2022-11-22 11:04 | Magnetic Resonance Report ---
Brain MRI WITHOUT CONTRAST HISTORY: New stroke symptoms, seizure TECHNIQUE: Multiplanar multisequence MRI of the brain was performed without the use of contrast. COMPARISON STUDY: Head CT 11/21/2022. Brain MRI 09/28/2022. FINDINGS: No areas of restricted diffusion to suggest acute infarction. Increased signal within the D WI sequences surrounding the old left MCA territory infarct favor T2 shine through. Foci susceptibili ty again noted within the old left MCA territory infarct consistent with old hemorrhage. No acute hem orrhage identified. The midline structures are intact. Mild ex vacuo dilatation of the left lateral v entricle, unchanged. The paranasal sinuses and mastoid air cells are clear. The major vascular flow-v oids at the skull base are well-maintained. Prior bilateral lens replacement. Serpiginous T1 hyperint ense foci within the old left MCA territory infarct have improved and favor cortical laminar necrosis . T2 hyperintensity surrounding the left MCA territory infarct likely represents gliosis/post infarct changes. This is similar to the prior study. IMPRESSION: 1. No acute infarct or intracranial hemorrhage. 2. Old left MCA territory infarct again noted. ACT 112: Negative or not required by law. Electronically signed by: Danie Mcneil M.D. 11/22/2022 11:03 AM
--- NOTE | 2022-11-22 11:26 | Neurology Consultation ---
Date of Consultation November 22, 2022 Assessment & Plan (1) Seizure: (2) Confusion: (3) H/O: stroke with residual effects: (4) Aphasia as late effect of cerebrovascular accident: (5) Hemiparesis affecting dominant side as late effect of cerebrovascular accident: Plan 82-year-old female with history of large left middle cerebral artery territory stroke diagnosed this past June, in the context of atrial fibrillation, associated proximal left MCA thrombus, transferred to [facility] for thrombectomy. Has residual aphasia and right hemiparesis. Patient now admitted with seizures likely related to her chronic infarct. No acute or subacute stroke identified on this morning's MRI. CT angiography of the head and neck completed yesterday revealed no new thrombus. She does have an 80% stenosis of the proximal right internal carotid artery that was identified on CT angiography done this past June as well. Patient has been loaded with 3 g of levetiracetam. She remains confused and modestly encephalopathic this morning, probably postictal. I would recommend continuing with anticonvulsant therapy going forward. She was given a relatively large loading dose of levetiracetam. Would recommend levetiracetam 750 mg IV every 12 hours for the time being, can restart tonight. When patient able to tolerate oral medications, would transition to tablets at that time, same dose. Because there is no evidence of hemorrhage on her recent CT of the head and brain MRI, she may continue with Eliquis in light of her history of atrial fibrillation. May continue with daily low-dose aspirin as well. I see that her dosage of atorvastatin was increased from 20 mg/day to 80 mg/day. This is a large dosage increase. I also see that her LDL was 66 on a lipid panel this morning. Her LDL does appear to be optimal, probably does not require the 80 mg atorvastatin dosage. Would not be unreasonable to reduce the dosage back down to 20 or 40 mg/day. Follow-up with results of EEG to be completed this morning. It may take a few days for patient's mental status to get back to baseline. Again, she is currently postictal. If, however, her mental status does not improve significantly over the next day, would consider obtaining a repeat noncontrast CT of the head to further exclude hemorrhage. History of Present Illness Reason for Consultation: Stroke symptoms, seizure activity Requesting Physician: Dr. Garcia Attending Physician: Bin Germain MD History of Present Illness The patient is an 82-year-old female with a history of left middle cerebral artery territory stroke occurring in June 2022 with associated proximal left MCA thrombus and element of stroke associated hemorrhage. Patient was transferred from [facility] to [facility] at that time. She underwent thrombectomy. She has a residual aphasia and right hemiparesis but has been able to ambulate with a walker. She was diagnosed with atrial fibrillation as well and is currently taking Eliquis and daily low-dose a spirin. She is also on atorvastatin. I had interpreted an EEG that was completed September 04, 2022 in the context of seizure-like activity at that time. The study revealed focal slowing localizing to the left temporal and left parietal regions but was otherwise negative for epileptiform abnormalities. She was seen in the emergency department on September 28, 2022 for difficulty with gait, balance, weakness, change in mentation. She presented again to the emergency department on November 21, 2022 after a probable seizure. She was apparently found unresponsive with right-sided flaccidity. She had an observed seizure episode as well. She does have chronic right hemiplegia, aphasia, dysphagia, related to her stroke. She was given 3 g of IV levetiracetam during her initial assessment in the emergency department. Her aspirin and atorvastatin have been continued although I see the atorvastatin dosage has been increased to 80 mg/day. Her metoprolol is on hold. The Eliquis is on hold as well currently. Initial CT of the head completed during her ED assessment was negative for hemorrhage or acute process, the chronic left MCA territory infarct was again observed. CT angiography of the neck revealed a severe 80% stenosis of the proximal right internal carotid artery. CTA of the head revealed no central vessel occlusion, no aneurysm. A follow-up brain MRI was completed this morning as well. I independently reviewed these images. No evidence for acute or subacute infarct. No evidence of hemorrhage. The chronic left MCA infarct was again noted. I independently reviewed the images pertaining to these tests. An EEG has been ordered, to be completed this morning. Patient is obtunded and is unable to provide any information pertaining to her history of present illness. Allergies Allergy/AdvReac Type Severity Reaction Status Date / Time bee venom protein (honey bee) Allergy Severe SHORTNESS Verified 11/21/22 21:23 OF BREATH No Known Drug Allergies Allergy NKDA Verified 11/21/22 21:23 Home Medications Medication Instructions Recorded Confirmed Type cholecalciferol (vitamin D3) 50 2,000 mcg PO DAILY 01/13/19 11/21/22 History mcg (2,000 unit) tablet epinephrine 0.3 mg/0.3 mL 0.3 mg (0.3 mL) subcut ONCE PRN 03/16/21 11/21/22 Rx injection, auto-injector anaphylaxis #1 ea aspirin 81 mg tablet,delayed 81 mg PO DAILY #90 tabs 08/30/22 11/21/22 Rx release atorvastatin 20 mg tablet 20 mg PO DAILY #90 tabs 08/30/22 11/21/22 Rx metoprolol tartrate 37.5 mg tablet 37.5 mg PO BID #180 tabs 08/30/22 11/21/22 Rx apixaban 5 mg tablet (Eliquis) 5 mg PO BID 11/21/22 11/21/22 History Patient History Medical History Cataract Chronic venous insufficiency Elevated BP without diagnosis of hypertension Hemangioma Herpes zoster Hyperlipidemia Seborrheic keratosis Venous ulcer Vitamin D deficiency Surgical History S/P tooth extraction Family History Sister Atrial fibrillation Stroke Muscular dystrophy Mother Diabetes Father Lung cancer Denies family history of Ovarian cancer Prostate cancer Myocardial infarction Breast cancer Colorectal cancer Social History Smoking Status: Former smoker Tobacco Type: Cigarettes Age Started Using Tobacco: 22; Age Quit Using Tobacco: 53; packs per day: 0.5; Second Hand Exposure: No; Do You Dip or Chew Tobacco: No; Tobacco Cessation Education Requested by Patient: No Hx Alcohol Use: No Hx Substance Use: No Preferred Language: Lithuanian Communication Ability: Unable Visual Impairment: No Limitations Hearing Ability: Normal Beliefs That Will Affect Care: None marital status: / Current Living Situation: Family current occupational status: retired Other Information That Helps Us Care for You: No Feels Safe at Home: Yes Safety Concerns: Feels Safe At This Time Childhood Exposure to Second-Hand Smoke: No Dental Care, Regularly: No Physical Activity Frequency: Daily Physical Activity Frequency Comment: bird watching, puzzles and walking Seatbelt Use: always Sunscreen Use: No Assistive Devices: None Review of Systems Review of Systems: Unobtainable due to cognitive status and Unobtainable due to reduced consciousness Exam (Neuro) Constitutional: well developed and + altered mental status Eyes: PERRL and EOM intact bilaterally; no nystagmus Cardiovascular: Vessels: no carotid bruit Neurologic: Oriented to:: negative Person, Place or Time Memory: negative Short Term Intact or Remote Intact Attention: negative Span Intact or Concentration Intact Language: negative Naming Objects or Repeating Phrases Speech Fluency: Other (Patient obtunded, nonverbal) Fund of Knowledge: negative Current Events, Past History or Vocabulary Cranial Nerves: Normal II, III, IV, , V, VIII, IX, X, XI and XII; Abnorm VII (Right lower facial droop noted) Motor Strength: Hemiplegia Laterality: Left; negative Normal Lower Extremities or Normal Upper Extremities Hypertonicity: Arms Laterality: Right Muscle Bulk/Involuntary Movements: No Involuntary Movements; negative Muscle Atrophy Sensation: negative Light Touch Intact, Pain/Temperature Intact, Vibration Intact or Proprioception Intact Coordination: Finger-Nose Abnormal Laterality: Right and Heel-Escalera Abnormal Deep Tendon Reflexes: Rt Triceps: 3+, Lt Triceps: 2+, Rt Biceps: 3+, Lt Biceps: 2+, Rt Brachioradialis: 3+, Lt Brachioradialis: 2+, Rt Patellar: 3+, Lt Patellar: 2+, Rt Ankle: 2+ and Lt Ankle: 1+ Special Tests: Babinski Present (Right) Details: Gait cannot be tested. Somewhat limited examination due to reduced alertness, aphasia, confusion. Results & Data Vital Signs (Past 12 Hours) Vital Signs Temp Pulse Pulse Resp BP Pulse Ox O2 Del Method 11/22/22 08:00 72 11/22/22 08:00 Nasal Cannula 11/22/22 07:30 36.7 C 76 18 136/51 L 97 Nasal Cannula 11/22/22 03:32 37.7 C H 78 19 130/64 98 Nasal Cannula 11/22/22 00:41 94 H 11/21/22 23:16 36.3 C L 86 22 172/88 H 98 Non-rebreather O2 Flow Rate 11/22/22 08:00 11/22/22 08:00 2 11/22/22 07:30 2.0 11/22/22 03:32 11/22/22 00:41 11/21/22 23:16 15 Laboratory Results WBC 9.53, hemoglobin 12.1, hematocrit 36.5, platelet count 197, sodium 140, potassium 4.0, BUN 15, creatinine 0.73, glucose 93, AST 21, ALT 15, triglycerides 55, cholesterol 134, LDL 66, VLDL 11, HDL [address] of the head, CTA of the head and neck, and brain MRI are as described in the HPI, I independently reviewed these images. Electrocardiogram completed yesterday revealed a normal sinus rhythm, possible left atrial enlargement. PG Care Time/CCT Total # of Minutes Spent Total Time Spent with Patient: Total time spent is greater than 50% in coordination of care (as documented) at patient's floor/unit and/or counseling patient: 80 minutes Coding Level of Care Code 06023 INT INP/OBS CARE 3/75MIN Diagnoses Seizure R56.9 Confusion R41.0 H/O: stroke with residual effects I69.30 Aphasia as late effect of cerebrovascular accident I69.320 Hemiparesis affecting dominant side as late effect of cerebrovascular accident I69.359
[2022-11-22 11:34] LABS: Estimated Average Glucose 128 mg/dl; Hemoglobin A1C 6.1 % (4.5-5.6)
--- NOTE | 2022-11-22 12:02 | Electroencephalogram ---
EEG Procedure Note Date of Service November 22, 2022 Start / End Times Start Time: 11:28 AM End Time: 11:[address] Garcia History New onset seizures, history of left MCA stroke Home Medication List Medication Instructions Recorded Confirmed Type cholecalciferol (vitamin D3) 50 2,000 mcg PO DAILY 01/13/19 11/21/22 History mcg (2,000 unit) tablet epinephrine 0.3 mg/0.3 mL 0.3 mg (0.3 mL) subcut ONCE PRN 03/16/21 11/21/22 Rx injection, auto-injector anaphylaxis #1 ea aspirin 81 mg tablet,delayed 81 mg PO DAILY #90 tabs 08/30/22 11/21/22 Rx release atorvastatin 20 mg tablet 20 mg PO DAILY #90 tabs 08/30/22 11/21/22 Rx metoprolol tartrate 37.5 mg tablet 37.5 mg PO BID #180 tabs 08/30/22 11/21/22 Rx apixaban 5 mg tablet (Eliquis) 5 mg PO BID 11/21/22 11/21/22 History Inpatient Medication List Aspirin (Aspirin 81 Mg Ectab) 81 mg PO [facility] Stop: 12/22/22 08:59 Last Admin: 11/22/22 08:06 Dose: Not Given Documented By: GLORY Atorvastatin Calcium (Atorvastatin 40 Mg Tab) 80 mg PO [facility] Stop: 12/22/22 08:59 Last Admin: 11/22/22 08:06 Dose: Not Given Documented By: GOLRY Discontinued Medications Levetiracetam 2,000 mg/ Sodium (Chloride) 270 mls @ 999 mls/hr IV NOW STA Stop: 11/21/22 18:47 Last Infusion: 11/21/22 19:32 Dose: 0 mls/hr Documented By: Admin: 11/21/22 19:10 Dose: 999 mls/hr Documented By: ELIZABET Levetiracetam 1,000 mg/ Sodium (Chloride) 110 mls @ 440 mls/hr IV NOW STA Stop: 11/21/22 19:05 Last Infusion: 11/21/22 19:48 Dose: 0 mls/hr Documented By: Admin: 11/21/22 19:32 Dose: 440 mls/hr Documented By: ELIZABET Ioversol (Optiray 320 500ml) 105 ml IV ONCE ONE Stop: 11/21/22 18:32 Last Admin: 11/21/22 18:31 Dose: 105 ml Documented By: KELLY Lorazepam (Lorazepam 2 Mg/1 Ml Vial) Confirm Administered Dose 2 mg .ROUTE .STK- MED ONE Stop: 11/21/22 19:15 Last Admin: 11/21/22 19:23 Dose: Not Given Documented By: ELIZABET Lorazepam (Lorazepam 2 Mg/1 Ml Vial) Confirm Administered Dose 2 mg .ROUTE .STK- MED ONE Stop: 11/21/22 20:05 Last Admin: 11/21/22 20:10 Dose: 2 mg Documented By: ELIZABET Lorazepam (Lorazepam 2 Mg/1 Ml Vial) 2 mg IV NOW STA Stop: 11/21/22 20:10 Last Admin: 11/21/22 20:10 Dose: Not Given Documented By: ELIZABET Description This is a 21 electrode EEG with a single channel dedicated to limited EKG. The electrodes were placed in accordance with the International 10-20 system. There is a posterior dominant rhythm of 9 Hz which is symmetrically distributed and attenuates with eye opening. There is a normal anterior to posterior organization. Photic stimulation is unremarkable. Hyperventilation is not performed. There is a symmetric frontal beta rhythm. There is admixed generalized theta slowing throughout the study. No epileptiform abnormalities observed. No sleep changes. Interpretation Fairly normal-appearing awake/drowsy EEG. There is a minimal degree of admixed theta activity that may suggest a mild nonspecific encephalopathy. No epileptiform abnormalities observed. [facility] EEG Procedure Codes Indication for Procedure (1) Seizure: Neurology Neurology: [id number] EEG include record awake & drowsy
--- NOTE | 2022-11-22 12:25 | XRay Report ---
XR chest 1V portable HISTORY: LOW GRADE FEVER, hypoxia COMPARISON: Chest 11/21/2022. FINDINGS: There are low lung volumes with mild elevation the right hemidiaphragm. This remains unchan ged. The heart remains mildly enlarged. Mild diffuse interstitial thickening, unchanged. This is like ly chronic. No new focal lung consolidations to suggest a pneumonia. No evidence for pulmonary edema. IMPRESSION: No significant change compared to the prior study. No acute process. ACT 112: Negative or not required by law. Electronically signed by: Danie Mcneil M.D. 11/22/2022 12:23 PM
[2022-11-22 13:15] LABS: Appearance Urine Cloudy (Clear); Bacteria Urine Automated 4+ (Negative); Bilirubin Urine Negative (Negative); Blood Urine Trace (Negative); Color Urine Yellow; Epithelial Cell Urine Auto 0-5 /lpf (0-5); Glucose Urine UA Negative (Negative); Ketones Urine Trace (Negative); Leukocyte Esterase Urine 1+ (Negative); Nitrite Urine Negative (Negative); Protein Urine Negative (Negative); Specific Gravity Urine 1.041 (1.000-1.030); Urobilinogen Urine Negative (Negative); WBC Urine Automated >30 /hpf (0-5); pH Urine 5.5 (4.5-7.5)
[2022-11-22 13:36] LABS: RBC Urine Automated 0-4 /hpf (0-4)
[2022-11-22] MEDS ORDERED: ACETAMINOPHEN 325 MG TAB PO PRN (14:55)
[2022-11-22] MEDS: cefTRIAXone SODIUM 1,000 MG in DEXTROSE 5% AD-VAN 50 ML IV SCH (15:53)
[2022-11-22] MEDS ORDERED: SODIUM CHLORIDE 0.9% 1000ML 1,000 ML IV SCH (18:30)
--- NOTE | 2022-11-22 19:32 | Billing Data ---
Date of Service November 22, 2022 Coding Level of Care Code 93233 INT INP/OBS CARE
--- NOTE | 2022-11-22 19:42 | Hospitalist Progress Note ---
Date of Service November 22, 2022 Assessment & Plan (1) Seizure: Plan: History highly suggestive of seizure activity yesterday s/p ativan with keppra loading. No seizure activity since then. Seizure likely due to prior left sided MCA territory stroke. ?UTI may have lowered the seizure threshold as well. MRI brain without acute CVA or ICH. EEG without seizure focus. [id number] keppra to be continued. [place] [facility] [place] [facility] [place] keppra 750mg IV q12h starting this evening. Continue seizure precautions. Continue telemetry. (2) Atrial fibrillation: Plan: History of such. Was discovered about the time of her CVA in 06/2022. Presented in NSR yesterday, then converted to a.fib this afternoon. Resume metoprolol 25mg BID. If patient remains stable from [employer] standpoint over next 1-2 days then resume Eliquis 5mg BID. (3) Hyperlipidemia: Plan: Cont statin. (4) H/O: stroke with residual effects: Plan: Large left-sided MCA territory stroke 06/2022. Has made remarkable recovery per the pt's daughter. Prior to yesterday's events she was able to carry out most ADLS and speech was relatively normal (clear, fluent per daughter). Continue aspirin. See above re: Eliquis. (5) Acute metabolic encephalopathy: Plan: 2nd to #1, 2nd to #6. Supportive care. Can't rule out toxic effects from ativan/Keppra but less likely. (6) UTI (urinary tract infection): Plan: U/a suspicious for such. Start rocephin 1gm IV daily. Follow culture. Low-grade fevers likely due to such. CXR x 2 without pneumonia. COVID testing negative. Plan FEN - Resume fluids - 75cc/hr x 1 liter. BMP am. Daughter updated at bedside. Admission and Anticipated Discharge Date Admission Date: November 21, 2022 Subjective during my visit pt's daughter was at bedside pt's daughter reports that her mother had recovered very well from her large L sided MCA territory stroke in 06/2022 had regained the ability to speak, walk, and perform most ADLs since having the seizure(s) yesterday her mother's speech has gone back to a significant global aphasia throughout the day today patient has slept most of the time she was able to eat some lunch without difficulty able to take her pills without difficulty this afternoon converted from NSR to a.fib Review of Systems Review of Systems: Unobtainable due to cognitive status Physical Exam Physical Exam: gen - eyes open, significant aphasia (likely global) mouth - MM slightly dry neck - no JVD heart - irregularly irregular, s1 s2, no murmur lungs - CTA b/l abd - soft NT ND BS+ ext - no edema, pulses 2+ b/l psych - unable to assess due to aphasia Results & Data Results & Data Vital Signs (Past 12 Hours) Vital Signs Temp Pulse Pulse Resp BP Pulse Ox O2 Del Method 11/22/22 19:23 36.8 C 96 H 16 120/66 96 Room Air 11/22/22 16:26 37.6 C H 83 16 127/59 L 99 Nasal Cannula 11/22/22 11:00 37 C 68 15 148/68 H 96 Room Air 11/22/22 08:00 72 11/22/22 08:00 Nasal Cannula O2 Flow Rate 11/22/22 19:23 11/22/22 16:26 2 11/22/22 11:00 2 11/22/22 08:00 11/22/22 08:00 2 Laboratory Results Laboratory Results - last 24 hr 11/21/22 11/21/22 11/22/22 18:46 20:35 06:42 WBC 9.53 RBC 4.03 L Hgb 12.1 POC Hgb 11.6 L Hct 36.5 L POC Hct 34 L MCV 90.6 MCH 30.0 MCHC 33.2 RDW Std Deviation 47.8 H RDW Coeff of Rosa Elena 14.5 Plt Count 197 MPV 10.3 Immature Gran % (Auto) 0.5 Neut % (Auto) 66.5 Lymph % (Auto) 22.9 [place] % (Auto) 9.9 Eos % (Auto) 0.0 Baso % (Auto) 0.2 Neut # (Auto) 6.34 Lymph # (Auto) 2.18 [place] # (Auto) 0.94 H Eos # (Auto) 0.00 Baso # (Auto) 0.02 Immature Gran # (Auto) 0.05 POC Sodium 137 Sodium POC Potassium 4.4 Potassium POC Chloride 101 Chloride Carbon Dioxide POC Total CO2 24 Anion Gap POC Anion Gap 17.0 POC BUN 18 BUN Creatinine POC Creatinine 0.8 Est Cr Clr Drug Dosing Est GFR ( Amer) Est GFR (Non-Af Amer) BUN/Creatinine Ratio Glucose POC Glucose (other) TNP Estimat Average Glucose Hemoglobin A1c Calcium POC Ioniz Calcium Desirae 1.15 Triglycerides Cholesterol LDL Cholesterol, Calc VLDL Cholesterol, Calc HDL Cholesterol Cholesterol/HDL Ratio Urine Color Urine Appearance Urine pH Ur Specific [place] Urine Protein Urine Glucose (UA) Urine Ketones Urine Blood Urine Nitrite Urine Bilirubin Urine Urobilinogen Ur Leukocyte Esterase Urine WBC (Auto) Urine RBC (Auto) U Hyaline Cast (Auto) U Epithel Cells (Auto) Urine Bacteria (Auto) SARS-CoV-2, RNA, NAAT NEGATIVE 11/22/22 11/22/22 11/22/22 06:42 06:42 12:55 WBC RBC Hgb POC Hgb Hct POC Hct MCV MCH MCHC RDW Std Deviation RDW Coeff of Rosa Elena Plt Count MPV Immature Gran % (Auto) Neut % (Auto) Lymph % (Auto) [place] % (Auto) Eos % (Auto) Baso % (Auto) Neut # (Auto) Lymph # (Auto) [place] # (Auto) Eos # (Auto) Baso # (Auto) Immature Gran # (Auto) POC Sodium Sodium 140 POC Potassium Potassium 4.0 POC Chloride Chloride 104 Carbon Dioxide 28 POC Total CO2 Anion Gap 8 POC Anion Gap POC BUN BUN 15 Creatinine 0.73 POC Creatinine Est Cr Clr Drug Dosing 55.3 Est GFR ( Amer) 90.2 Est GFR (Non-Af Amer) 77.8 BUN/Creatinine Ratio 20.5 H Glucose 93 POC Glucose (other) Estimat Average Glucose 128 Hemoglobin A1c 6.1 H Calcium 9.0 POC Ioniz Calcium Desirae Triglycerides 55 Cholesterol 134 LDL Cholesterol, Calc 66 VLDL Cholesterol, Calc 11 HDL Cholesterol 57 Cholesterol/HDL Ratio 2.4 Urine Color Yellow Urine Appearance Cloudy A Urine pH 5.5 Ur Specific [place] 1.041 H Urine Protein Negative Urine Glucose (UA) Negative Urine Ketones Trace H Urine Blood Trace H Urine Nitrite Negative Urine Bilirubin Negative Urine Urobilinogen Negative Ur Leukocyte Esterase 1+ H Urine WBC (Auto) >30 H Urine RBC (Auto) 0-4 U Hyaline Cast (Auto) 1-5 U Epithel Cells (Auto) 0-5 Urine Bacteria (Auto) 4+ H SARS-CoV-2, RNA, NAAT Diagnostic Findings Brain MRI 11/22/22 00:40 Brain MRI WITHOUT CONTRAST HISTORY: New stroke symptoms, seizure TECHNIQUE: Multiplanar multisequence MRI of the brain was performed without the use of contrast. COMPARISON STUDY: Head CT 11/21/2022. Brain MRI 09/28/2022. FINDINGS: No areas of restricted diffusion to suggest acute infarction. Increased signal within the DWI sequences surrounding the old left MCA territory infarct favor T2 shine through. Foci susceptibility again noted within the old left MCA territory infarct consistent with old hemorrhage. No acute hemorrhage identified. The midline structures are intact. Mild ex vacuo dilatation of the left lateral ventricle, unchanged. The paranasal sinuses and mastoid air cells are clear. The major vascular flow-voids at the skull base are well-maintained. Prior bilateral lens replacement. Serpiginous T1 hyperintense foci within the old left MCA territory infarct have improved and favor cortical laminar necrosis. T2 hyperintensity surrounding the left MCA territory infarct likely represents gliosis/post infarct changes. This is similar to the prior study. IMPRESSION: 1. No acute infarct or intracranial hemorrhage. 2. Old left MCA territory infarct again noted. ACT 112: Negative or not required by law. Electronically signed by: Danie Mcneil M.D. 11/22/2022 11:03 AM Chest X-Ray 11/22/22 08:23 XR chest 1V portable HISTORY: LOW GRADE FEVER, hypoxia COMPARISON: Chest 11/21/2022. FINDINGS: There are low lung volumes with mild elevation the right hemidiaphragm. This remains unchanged. The heart remains mildly enlarged. Mild diffuse interstitial thickening, unchanged. This is likely chronic. No new focal lung consolidations to suggest a pneumonia. No evidence for pulmonary edema. IMPRESSION: No significant change compared to the prior study. No acute process. ACT 112: Negative or not required by law. Electronically signed by: Danie Mcneil M.D. 11/22/2022 12:23 PM EKG - my reading - a.fib, rate <100 PG Care Time/CCT Total # of Minutes Spent Total Time Spent with Patient: Total time spent is greater than 50% in coordination of care (as documented) at patient's floor/unit and/or counseling patient: Coding Level of Care Code 19410 SUB INP/OBS CARE 2/35MIN Diagnoses Seizure R56.9 Atrial fibrillation I48.91 Hyperlipidemia E78.5 H/O: stroke with residual effects I69.30 Acute metabolic encephalopathy G93.41 UTI (urinary tract infection) N39.0
[2022-11-22] MEDS: METOPROLOL TARTRATE 25 MG TAB PO SCH (20:03)
[2022-11-22] MEDS: levETIRAcetam 750 MG in 0.9 % SODIUM CHLORIDE 100 ML IV SCH (21:39)
--- NOTE | 2022-11-22 22:46 | Electrocardiogram Report ---
Test Reason : Blood Pressure : / mmHG Vent. Rate : 075 BPM Atrial Rate : 075 BPM P-R Int : 194 ms QRS Dur : 088 ms QT Int : 426 ms P-R-T Axes : 078 016 042 degrees QTc Int : 475 ms Normal sinus rhythm Possible Left atrial enlargement T wave abnormality, consider anterolateral ischemia Abnormal ECG When compared with ECG of 28-SEP-2022 10:08, T wave inversion no longer evident in Inferior leads T wave inversion more evident in Anterolateral leads QT has lengthened Confirmed by Osman Sepulveda ([id number]) on 11/22/2022 10:45:42 PM Referred By: REFERRED SELF Confirmed By:Osman Sepulveda
--- NOTE | 2022-11-23 05:32 | Electrocardiogram Report ---
Test Reason : Blood Pressure : / mmHG Vent. Rate : 092 BPM Atrial Rate : 068 BPM P-R Int : 000 ms QRS Dur : 084 ms QT Int : 380 ms P-R-T Axes : 000 005 025 degrees QTc Int : 469 ms Atrial fibrillation Abnormal ECG When compared with ECG of 21-NOV-2022 18:33, Atrial fibrillation has replaced Sinus rhythm T wave inversion no longer evident in Anterolateral leads Confirmed by Osman Sepulveda ([id number]) on 11/23/2022 5:32:16 AM Referred By: REFERRED SELF Confirmed By:Osman Sepulveda
[2022-11-23 06:33] LABS: BUN Creatinine Ratio 22.7 (10-20); Calcium 8.8 mg/dl (8.6-10.3); Creatinine Clr Calc Pharmacy 53.8 ml/min; Est GFR (African American) 87.3 ml/min; Est GFR (Non-African American) 75.3 ml/min; Potassium 3.8 mmol/L (3.5-5.1)
[2022-11-23] MEDS: METOPROLOL TARTRATE 25 MG TAB PO SCH ×2 (09:15→20:21)
[2022-11-23] MEDS: ASPIRIN 81 MG ECTAB PO SCH (09:15)
[2022-11-23] MEDS: ATORVASTATIN 20 MG TAB PO SCH (09:15)
[2022-11-23] MEDS: levETIRAcetam 750 MG in 0.9 % SODIUM CHLORIDE 100 ML IV SCH ×2 (10:29→23:00)
[2022-11-23] MEDS: cefTRIAXone SODIUM 1,000 MG in DEXTROSE 5% AD-VAN 50 ML IV SCH (15:19)
--- NOTE | 2022-11-23 19:25 | Hospitalist Progress Note ---
Date of Service November 23, 2022 Assessment & Plan (1) Seizure: Plan: History highly suggestive of seizure activity at her home. s/p ativan with keppra loading in the ER No seizure activity since then. Seizure likely due to prior left sided MCA territory stroke. ?UTI may have lowered the seizure threshold as well. Family also reports she was sleep deprived 1-2 nights prior to the seizure event. MRI brain without acute CVA or ICH. EEG without seizure focus. Wjnci-zgl-isor keppra to be continued. Cont keppra 750mg IV q12h; can convert to PO tomorrow. Continue seizure precautions. Continue telemetry. (2) Atrial fibrillation: Plan: History of such. Was discovered about the time of her CVA in 06/2022. Presented in NSR, then converted to a.fib yesterday. Remains in a.fib/flutter with good rate control. Cont metoprolol 25mg BID. Pt is stable from [employer] standpoint - thus, resume Eliquis 5mg BID. (3) Hyperlipidemia: Plan: Cont statin. (4) H/O: stroke with residual effects: Plan: Large left-sided MCA territory stroke 06/2022. Has made remarkable recovery per the pt's daughter. Prior to yesterday's events she was able to carry out most ADLS and speech was relatively normal (clear, fluent per daughter). Continue aspirin. See above re: Eliquis. Patient's current global aphasia should improve over the next few days. (5) Acute metabolic encephalopathy: Plan: 2nd to #1, 2nd to #6. IMPROVING> Cont supportive care. Can't rule out toxic effects from ativan/Keppra but less likely. (6) UTI (urinary tract infection): Plan: 2nd to GNR. Cont rocephin. Follow culture. CXR x 2 without pneumonia. COVID testing negative. Plan speech eval appreciated daughter updated at bedside once again today cont PT/OT Admission and Anticipated Discharge Date Admission Date: November 21, 2022 Subjective tele - remains in a.fib/flutter - rates <100 patient more awake/alert today speech - still with global aphasia but speaking a few more words today than yesterday eating well no dysphagia no seizures per staff worked with PT today patient able to feed herself today with right arm Review of Systems Review of Systems: Unobtainable due to cognitive status patient sneezed and a small amount of blood came out on her hand Physical Exam Physical Exam: gen - looks better today; awake, alert; global aphasia; NAD mouth - MMM; tongue bite nayeli tip of tongue nose/mouth - no bleeding noted neck - no JVD heart - irregularly irregular, s1 s2, no murmur lungs - CTA b/l abd - soft NT ND BS+ ext - no edema, pulses 2+ b/l Results & Data Results & Data Vital Signs (Past 12 Hours) Vital Signs Temp Pulse Pulse Resp BP Pulse Ox O2 Del Method 11/23/22 14:39 36.7 C 79 16 102/62 93 Room Air 11/23/22 14:55 73 11/23/22 11:50 36.9 C 88 16 125/62 97 Room Air 11/23/22 10:48 Room Air 11/23/22 08:02 36.8 C 85 22 122/72 94 Room Air Laboratory Results Laboratory Results - last 24 hr 11/23/22 05:52 Sodium 141 Potassium 3.8 Chloride 107 Carbon Dioxide 27 Anion Gap 7 BUN 17 Creatinine 0.75 Est Cr Clr Drug Dosing 53.8 Est GFR ( Amer) 87.3 Est GFR (Non-Af Amer) 75.3 BUN/Creatinine Ratio 22.7 H Glucose 98 Calcium 8.8 Diagnostic Findings Urine Cx - GNR, 100,000 PG Care Time/CCT Total # of Minutes Spent Total Time Spent with Patient: Total time spent is greater than 50% in coordination of care (as documented) at patient's floor/unit and/or counseling patient: Coding Level of Care Code 03530 SUB INP/OBS CARE 2/35MIN Diagnoses Seizure R56.9 Atrial fibrillation I48.91 Hyperlipidemia E78.5 H/O: stroke with residual effects I69.30 Acute metabolic encephalopathy G93.41 UTI (urinary tract infection) N39.0
[2022-11-23] MEDS: APIXABAN 5 MG TABLET PO SCH (20:21)
--- NOTE | 2022-11-24 08:57 | Neurology Progress Note ---
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 She went to [facility] and had a thrombectomy. Clinically she has residual expressive aphasia and right hemiparesis. She was admitted November 21 with seizures, likely secondary to the previous large stroke. She had some postictal encephalopathy / confusion from this this has largely improved. She also has a UTI which is being treated. 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 She was loaded with levetiracetam on the day of admission and placed on 750 mg twice a day. She has had no seizures since. EEG showed some postictal slowing but no other focal abnormalities or potentially epileptogenic discharges repeat MRI of the brain showed the old left middle cerebral artery territory infarct with no new changes. Apparently there is an interaction between levetiracetam and Eliquis which gives potential to decrease the effectiveness of Eliquis. Since there is no way to monitor Eliquis we will likely have to change anticonvulsants. After researching and speaking with pharmacy, lamotrigine and lacosamide have no interaction with Eliquis or other blood thinners. Recommendations: 1. initiate lamotrigine 25 mg p.o. twice daily. Increase lamotrigine by 25 mg twice a day each week until up to 100 mg twice daily. 2. decrease levetiracetam to 500 mg twice a day for 1 week, then 250 mg twice a day for 1 week, then discontinue. 3. call if worse otherwise follow-up with Dr. Crane in Neurology as an outpatient. This should be about 3-4 weeks after discharge. Overall, I spent a total of 35 minutes with this case, including review of records, review of MRI films, direct evaluation of the patient at bedside, and discussion of the case with Dr. Germain and the pharmacist regarding differential diagnosis and treatment options. Admission and Anticipated Discharge Date Admission Date: November 21, 2022 Subjective Patient has no complaint of pain or headache. she still has trouble expressing herself ( motor aphasia ) but seems to understand and follow one-step Commands. Apparently pharmacy has flagged interaction between levetiracetam and apixaban. Levetiracetam can, in some instances, lower the effectiveness of apixaban. Patient has had no seizures since admission. Chem profile yesterday was unremarkable. Today is pending. She has urinary tract infection being treated With ceftriaxone. Blood pressure is 138/58, she is afebrile, pulse is 70s and regular. Results & Data Vital Signs (Past 12 Hours) Vital Signs Temp Pulse Pulse Resp BP Pulse Ox O2 Del Method 11/24/22 07:36 36.5 C 77 17 138/58 L 92 Room Air 11/23/22 22:00 70 11/24/22 03:20 36.6 C 76 16 106/46 L 93 Room Air 11/23/22 23:12 36.5 C 85 16 111/58 L 93 Room Air Exam (Neuro) Physical Exam: Patient is awake and alert. She answers with yes and no but is not speaking in sentences or say much other words. She is attentive and cooperative and follows one-step commands. Extraocular eye muscles are intact without nystagmus. There is a very mild right lower facial droop noted. She has weakness in the right arm and leg with the left arm and leg being 5/diffusely. 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
[2022-11-24] MEDS ORDERED: levETIRAcetam 250 MG TAB PO SCH (09:00)
[2022-11-24] MEDS: CIPROFLOXACIN / D5W 400 MG/200 ML BAG IV SCH ×2 (09:26→20:30)
[2022-11-24] MEDS: METOPROLOL TARTRATE 25 MG TAB PO SCH ×2 (09:29→21:28)
[2022-11-24] MEDS: ASPIRIN 81 MG ECTAB PO SCH (09:29)
[2022-11-24] MEDS: APIXABAN 5 MG TABLET PO SCH ×2 (09:29→21:28)
[2022-11-24] MEDS: levETIRAcetam 500 MG TAB PO SCH ×2 (09:42→21:28)
[2022-11-24] MEDS: lamoTRIgine 25 MG TAB PO SCH ×2 (09:42→21:28)
[2022-11-24 10:47] LABS: Calcium 8.9 mg/dl (8.6-10.3); Potassium 4.1 mmol/L (3.5-5.1)
[2022-11-24 10:53] LABS: BUN Creatinine Ratio 24.6 (10-20); Creatinine Clr Calc Pharmacy 58.5 ml/min; Est GFR (African American) 95.3 ml/min; Est GFR (Non-African American) 82.2 ml/min
--- NOTE | 2022-11-24 15:31 | Hospitalist Progress Note ---
Date of Service November 24, 2022 Assessment & Plan (1) Seizure: Plan: Generalized tonic-clonic by report. s/p ativan with keppra loading in the ER No seizure activity since then. Seizure likely due to prior left sided MCA territory stroke. ?UTI may have lowered the seizure threshold as well. Family also reports she was sleep deprived 1-2 nights prior to the seizure event. MRI brain without acute CVA or ICH. EEG without seizure focus. Unfortunately keppra and Eliquis interact, with keppra potentially lowering the effectiveness of Eliquis. I spoke with pharmacy and neurology, Dr Jhonathan Epperson, re: this dilemma. Plan - * leave Eliquis as is * plan to wean Keppra off over 2 weeks - 500mg BID x 1 week, then 250mg BID x 1 week, then off * start lamictal 25mg BID x 1 week, then 50mg BID x 1 week, then 75mg BID x 1 week, then 100mg BID thereafter * lamictal does NOT interact with Eliquis Cont seizure precautions. (2) UTI (urinary tract infection): Plan: 2nd to e.coli. Unfortunately this pathogen is resistant to most PCN's and cephalosporins including rocephin. Stop rocephin. Start cipro 400mg IV BID. (3) Atrial fibrillation: Plan: History of such. Was discovered about the time of her CVA in 06/2022. Presented in NSR, then converted to a.fib early in the stay. Converted back to NSR late last pm. Cont metoprolol 25mg BID. Cont Eliquis 5mg BID. (4) Hyperlipidemia: Plan: Hold statin while on cipro. 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 Has made remarkable recovery per the pt's daughter. Prior to her seizure event she was able to carry out most ADLS and speech was relatively normal (clear, fluent per daughter). Continue aspirin. Continue Eliquis. Patient's current global aphasia should improve over the next few days as UTI clears and she gets further away from the seizures. (6) Acute metabolic encephalopathy: Plan: 2nd to UTI & Seizures - IMPROVING. Cont supportive care. Plan cont PT/OT making good progress overall care d/w pharmacy & neurology Admission and Anticipated Discharge Date Admission Date: November 21, 2022 Subjective patient converted from a.fib/flutter to NSR late last pm (2300) NSR since that time during the visit patient was resting comfortably in bed family was present at bedside patient was trying to verbalize her thoughts & needs more so than yesterday she apparently did say the name of her great grandson who was present she was putting words together a little better than yesterday still with significant global aphasia, however per staff eating well no seizures Review of Systems Review of Systems: Other (global aphasia ) Physical Exam Physical Exam: gen - looks well; talking a bit more than yesterday, but still with global aphasia; NAD mouth - MMM neck - no JVD heart - RRR, s1 s2, no murmur lungs - CTA b/l abd - soft NT ND BS+ ext - no edema, pulses 2+ b/l neuro - global aphasia, moving R arm/leg better than previous visits Results & Data Results & Data Vital Signs (Past 12 Hours) Vital Signs Temp Pulse Pulse Resp BP Pulse Ox O2 Del Method 11/24/22 15:26 71 11/24/22 15:13 36.8 C 66 16 111/47 L 94 Room Air 11/24/22 11:26 36.8 C 68 17 118/53 L 95 Room Air 11/24/22 08:00 Room Air 11/24/22 07:00 72 11/24/22 07:36 36.5 C 77 17 138/58 L 92 Room Air Laboratory Results Laboratory Results - last 24 hr 11/24/22 05:55 Sodium 141 Potassium 4.1 Chloride 105 Carbon Dioxide 26 Anion Gap 10 BUN 17 Creatinine 0.69 Est Cr Clr Drug Dosing 58.5 Est GFR ( Amer) 95.3 Est GFR (Non-Af Amer) 82.2 BUN/Creatinine Ratio 24.6 H Glucose 88 Calcium 8.9 Diagnostic Findings Urine Culture Final 11/24/22-1026 Organism 1 Escherichia coli Edson Count >100,000 CFU/ml Sens Sensitivities to Follow E coli RX M.I.C. --- --------- Amox/Clav R >16/8 Ampicillin R >16 Amp/Sul S <=8/4 Cefazolin R >16 Cefepime S <=2 Ceftriaxone R >2 Ciprofloxacin S <=0.25 Ertapenem S <=0.5 Gentamicin S <=4 Levofloxacin S <=0.5 Meropenem S <=1 Nitrofurantoin S <=32 Tobramycin S <=4 Trimeth/Sulfa S <=2/38 Pip/Tazo S <=16 S = SENSITIVE I = INTERMEDIATE R = RESISTANT PG Care Time/CCT Total # of Minutes Spent Total Time Spent with Patient: Total time spent is greater than 50% in coordination of care (as documented) at patient's floor/unit and/or counseling patient: Coding Level of Care Code 57674 SUB INP/OBS CARE 2/35MIN Diagnoses Seizure R56.9 UTI (urinary tract infection) N39.0 Atrial fibrillation I48.91 Hyperlipidemia E78.5 H/O: stroke with residual effects I69.30 Acute metabolic encephalopathy G93.41
[2022-11-24] MEDS ORDERED: HYDROCORTISONE 1% OINT 30 GM TUBE EXT PRN (19:59)
[2022-11-25] MEDS: CIPROFLOXACIN / D5W 400 MG/200 ML BAG IV SCH ×2 (08:06→20:08)
[2022-11-25] MEDS: ASPIRIN 81 MG ECTAB PO SCH (08:14)
[2022-11-25] MEDS: APIXABAN 5 MG TABLET PO SCH ×2 (08:14→20:09)
[2022-11-25] MEDS: lamoTRIgine 25 MG TAB PO SCH ×2 (08:14→20:10)
[2022-11-25] MEDS: levETIRAcetam 500 MG TAB PO SCH ×2 (08:14→20:10)
[2022-11-25] MEDS: METOPROLOL TARTRATE 25 MG TAB PO SCH ×2 (08:14→20:09)
--- NOTE | 2022-11-25 11:23 | Hospitalist Progress Note ---
Date of Service November 25, 2022 Assessment & Plan (1) Seizure: Plan: Present on admission. Generalized tonic-clonic by report. s/p ativan with keppra loading in the ER No seizure activity since then. Seizure likely due to prior left sided MCA territory stroke. ?UTI may have lowered the seizure threshold as well. Family also reports she was sleep deprived 1-2 nights prior to the seizure event. MRI brain without acute CVA or ICH. EEG without seizure focus. Unfortunately keppra and Eliquis interact, with keppra potentially lowering the effectiveness of Eliquis. I spoke with pharmacy and neurology, Dr Jhonathan Epperson, re: this dilemma. Plan - * leave Eliquis as is * plan to wean Keppra off over 2 weeks - 500mg BID x 1 week, then 250mg BID x 1 week, then off * start lamictal 25mg BID x 1 week, then 50mg BID x 1 week, then 75mg BID x 1 week, then 100mg BID thereafter * lamictal does NOT interact with Eliquis Thus far tolerating both seizure meds as above. Cont seizure precautions. (2) UTI (urinary tract infection): Plan: 2nd to e.coli. Unfortunately this pathogen is resistant to most PCN's and cephalosporins including rocephin. Stopped rocephin - started cipro 400mg IV BID on 11/24. Thus, day #2 of such. plan 7 day course of cipro. (3) Atrial fibrillation: Plan: History of such. Was discovered about the time of her CVA in 06/2022. Presented in NSR, then converted to a.fib early in the stay. Converted back to NSR 11/23/22. Cont metoprolol 25mg BID. Cont Eliquis 5mg BID. (4) Hyperlipidemia: Plan: Hold statin while on cipro. 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 Made remarkable recovery per the pt's daughter in the months following the stroke. Prior to her seizure event she was able to carry out most ADLS and speech was relatively normal (clear, fluent per daughter). Continue aspirin. Continue Eliquis. Patient's current global aphasia should cont to improve over the next few days as UTI clears and she gets further away from the seizures. (6) Acute metabolic encephalopathy: Plan: 2nd to UTI & Seizures - continues to IMPROVE. Cont supportive care. (7) Contact dermatitis: Plan: 2nd to exposure to medical tape, etc - left arm triamcinolone cream 0.1% TID in thin amounts claritin 10mg daily for itching (8) DVT prophylaxis: Plan: Eliquis BID Plan cont PT/OT inpatient rehab advised post-discharge making good progress however overall with mentation, aphasia, etc. will update family today check labs in am Admission and Anticipated Discharge Date Admission Date: November 21, 2022 Subjective no events overnight patient very awake/alert today following commands more easily comprehending our discussion more easily saying "thank you" she even asked a couple of questions tele wnl no seizures by report ate <50% of lunch Review of Systems Review of Systems: cv - denies chest pain (says "no") GI - denies abd pain and nausea (says "no") neuro - no seizures by report Physical Exam Physical Exam: gen - looks well; improvement in expressive AND receptive aphasia; NAD mouth - MMM; tongue bite ventura improving skin - contact dermatitis of left forearm - multiple areas of erythema/nearly urticarial like (raised) in linear fashion (where ever tape was placed on skin); right arm, both legs, torso, abd wall, back - no rash neck - no JVD heart - RRR, s1 s2, no murmur lungs - CTA b/l abd - soft NT ND BS+ ext - no edema, pulses 2+ b/l neuro - global aphasia improved; strength nearly normal RUE and RLE; strength normal LUE/LLE Results & Data Results & Data Vital Signs (Past 12 Hours) Vital Signs Temp Pulse Pulse Resp BP Pulse Ox O2 Del Method 11/25/22 07:45 Room Air 11/25/22 07:00 60 11/25/22 08:10 36 C L 68 18 138/64 94 Room Air 11/25/22 03:11 36.4 C L 60 16 124/59 L 94 Room Air PG Care Time/CCT Total # of Minutes Spent Total Time Spent with Patient: Total time spent is greater than 50% in coordination of care (as documented) at patient's floor/unit and/or counseling patient: Coding Level of Care Code 47506 SUB INP/OBS CARE 2/35MIN Diagnoses Seizure R56.9 UTI (urinary tract infection) N39.0 Atrial fibrillation I48.91 Hyperlipidemia E78.5 H/O: stroke with residual effects I69.30 Acute metabolic encephalopathy G93.41 Contact dermatitis L25.9 DVT prophylaxis Z29.9
[2022-11-25] MEDS: LORATADINE 10 MG TAB PO SCH (13:56)
[2022-11-25] MEDS: TRIAMCINOLONE ACET 0.1% CR 80 GM TUBE EXT SCH ×2 (13:57→20:10)
[2022-11-26 06:15] LABS: BUN Creatinine Ratio 22.4 (10-20); Creatinine Clr Calc Pharmacy 53.1 ml/min; Est GFR (African American) 85.9 ml/min; Est GFR (Non-African American) 74.1 ml/min; Potassium 4.5 mmol/L (3.5-5.1)
[2022-11-26] MEDS: CIPROFLOXACIN / D5W 400 MG/200 ML BAG IV SCH (07:52)
[2022-11-26] MEDS: TRIAMCINOLONE ACET 0.1% CR 80 GM TUBE EXT SCH ×3 (07:58→21:06)
[2022-11-26] MEDS: levETIRAcetam 500 MG TAB PO SCH ×2 (07:59→21:06)
[2022-11-26] MEDS: APIXABAN 5 MG TABLET PO SCH ×2 (08:00→21:04)
[2022-11-26] MEDS: ASPIRIN 81 MG ECTAB PO SCH (08:00)
[2022-11-26] MEDS: METOPROLOL TARTRATE 25 MG TAB PO SCH ×2 (08:00→21:06)
[2022-11-26] MEDS: lamoTRIgine 25 MG TAB PO SCH ×2 (08:01→21:05)
[2022-11-26] MEDS: LORATADINE 10 MG TAB PO SCH (08:01)
--- NOTE | 2022-11-26 10:38 | Hospitalist Progress Note ---
Date of Service November 26, 2022 Assessment & Plan (1) Seizure: Plan: Present on admission. Generalized tonic-clonic by report. s/p keppra loading in the ER No seizure activity since then. Seizure likely due to prior left sided MCA territory stroke. ?UTI may have lowered the seizure threshold as well. Family also reports she was sleep deprived 1-2 nights prior to the seizure event. MRI brain without acute CVA or ICH. EEG without seizure focus. Unfortunately keppra and Eliquis interact, with keppra potentially lowering the effectiveness of Eliquis. Thus, plan is as follows - * leave Eliquis as is * plan to wean Keppra off over 2 weeks - 500mg BID x 1 week, then 250mg BID x 1 week, then off * start lamictal 25mg BID x 1 week, then 50mg BID x 1 week, then 75mg BID x 1 week, then 100mg BID thereafter * lamictal does NOT interact with Eliquis Thus far tolerating both seizure meds as above. Cont seizure precautions. f/u [facility] 1 month post-discharge. (2) Seizure as late effect of cerebrovascular accident (CVA): Plan: seizure due to prior MCA territory stroke on left (3) UTI (urinary tract infection): Plan: 2nd to e.coli. Unfortunately this pathogen is resistant to most PCN's and cephalosporins including rocephin. Stopped rocephin - started cipro 400mg IV BID on 11/24. Thus, day #3 of cipro. plan 7 day course of cipro. Change to PO cipro later tonight. (4) Atrial fibrillation: Plan: History of such. Was discovered about the time of her CVA in 06/2022. Presented in NSR at time of admission, then converted to a.fib while here for about 24 hours, then converted back to NSR. Converted back to NSR 11/23/22. Cont metoprolol 25mg BID. Cont Eliquis 5mg BID. (5) Hyperlipidemia: Plan: Hold statin while on cipro. (6) H/O: stroke with residual effects: Plan: Large left-sided MCA territory stroke 06/2022. Made remarkable recovery per the pt's daughter in the months following the stro ke. Prior to her seizure event she was able to carry out most ADLS and speech was relatively normal (clear, fluent per daughter). Continue aspirin. Continue Eliquis. Patient's current global aphasia should cont to improve over the next few days as UTI clears and she gets further away from the seizures. (7) Acute metabolic encephalopathy: Plan: 2nd to UTI & Seizures - continues to IMPROVE. Cont supportive care. (8) Contact dermatitis: Plan: 2nd to exposure to medical tape, etc - left arm triamcinolone cream 0.1% TID in thin amounts claritin 10mg daily for itching (9) DVT prophylaxis: Plan: Eliquis BID (10) Constipation: Plan: cont miralax dulcolax x 1 by mouth Plan cont PT/OT inpatient rehab advised post-discharge to [facility] on Saturday? other date? daughter updated at bedside today Admission and Anticipated Discharge Date Admission Date: November 21, 2022 Subjective tele wnl overnight - NSR no seizure activity eating well ?had a BM today? during the visit the pt's daughter was at bedside patient was able to follow commands albeit with some difficulty expressive aphasia still present she gets easily frustrated when the words don't come out normally daughter asks about rehab finally, pt's daughter reports that when the patient first arrived to [facility] she was on a nonrebreather mask and she has sneezing the mask caused a red ring on her face that persisted for a period of time left arm rash improving Review of Systems Review of Systems: patient denies - neuro - headache cv - chest pain pulm - dyspnea GI - abd pain Physical Exam Physical Exam: gen - looks well; expressive and receptive aphasia similar to yesterday; NAD mouth - MMM skin - contact dermatitis of left forearm - multiple areas of erythema - improv ed neck - no JVD heart - RRR, s1 s2, no murmur lungs - CTA b/l abd - soft NT ND BS+ ext - no edema, pulses 2+ b/l neuro - global aphasia same as yesterday; strength 4/5 RUE/RLE; strength 5/5l LUE/LLE Results & Data Results & Data Vital Signs (Past 12 Hours) Vital Signs Temp Pulse Pulse Resp BP Pulse Ox O2 Del Method 11/26/22 08:58 69 11/26/22 07:15 36.7 C 75 18 107/57 L 91 Room Air 11/26/22 02:40 36.7 C 64 18 134/70 93 Room Air 11/26/22 00:55 66 11/25/22 22:51 36.7 C 64 18 142/71 H 94 Room Air Laboratory Results Laboratory Results - last 24 hr 11/26/22 05:45 Sodium 139 Potassium 4.5 Chloride 105 Carbon Dioxide 28 Anion Gap 6 BUN 17 Creatinine 0.76 Est Cr Clr Drug Dosing 53.1 Est GFR ( Amer) 85.9 Est GFR (Non-Af Amer) 74.1 BUN/Creatinine Ratio 22.4 H Glucose 95 Calcium 9.0 PG Care Time/CCT Total # of Minutes Spent Total Time Spent with Patient: Total time spent is greater than 50% in coordination of care (as documented) at patient's floor/unit and/or counseling patient: Coding Level of Care Code 88419 SUB INP/OBS CARE 2/35MIN Diagnoses Seizure R56.9 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
[2022-11-26] MEDS ORDERED: bisacodyL 10 MG SUPP PR STA (14:42)
[2022-11-26] MEDS ORDERED: bisacodyL 5 MG TABEC PO ONE (18:12)
[2022-11-26] MEDS: POLYETHYLENE (MIRALAX) 17 GM PACK PO SCH (19:15)
[2022-11-26] MEDS: CIPROFLOXACIN 500 MG TAB PO SCH (21:05)
[2022-11-27] MEDS: APIXABAN 5 MG TABLET PO SCH ×2 (09:06→20:01)
[2022-11-27] MEDS: ASPIRIN 81 MG ECTAB PO SCH (09:06)
[2022-11-27] MEDS: CIPROFLOXACIN 500 MG TAB PO SCH ×2 (09:06→20:02)
[2022-11-27] MEDS: levETIRAcetam 500 MG TAB PO SCH ×2 (09:07→20:02)
[2022-11-27] MEDS: LORATADINE 10 MG TAB PO SCH (09:07)
[2022-11-27] MEDS: lamoTRIgine 25 MG TAB PO SCH ×2 (09:07→20:02)
[2022-11-27] MEDS: METOPROLOL TARTRATE 25 MG TAB PO SCH ×2 (09:08→20:01)
[2022-11-27] MEDS: POLYETHYLENE (MIRALAX) 17 GM PACK PO SCH (09:08)
[2022-11-27] MEDS: TRIAMCINOLONE ACET 0.1% CR 80 GM TUBE EXT SCH ×3 (09:08→20:02)
--- NOTE | 2022-11-27 21:28 | Hospitalist Progress Note ---
Date of Service November 27, 2022 Assessment & Plan (1) Seizure: Plan: Present on admission. Generalized tonic-clonic by report. s/p keppra loading in the ER No seizure activity since then. Seizure likely due to prior left sided MCA territory stroke. ?UTI may have lowered the seizure threshold as well. Family also reports she was sleep deprived 1-2 nights prior to the seizure event. MRI brain without acute CVA or ICH. EEG without seizure focus. Unfortunately keppra and Eliquis interact, with keppra potentially lowering the effectiveness of Eliquis. Thus, plan is as follows - * leave Eliquis as is * plan to wean Keppra off over 2 weeks - 500mg BID x 1 week, then 250mg BID x 1 week, then off * start lamictal 25mg BID x 1 week, then 50mg BID x 1 week, then 75mg BID x 1 week, then 100mg BID thereafter * lamictal does NOT interact with Eliquis Thus far tolerating both seizure meds as above. Cont seizure precautions. f/[facility] 1 month post-discharge. (2) Seizure as late effect of cerebrovascular accident (CVA): Plan: seizure due to prior MCA territory stroke on left (3) UTI (urinary tract infection): Plan: 2nd to e.coli. Unfortunately this pathogen is resistant to most PCN's and cephalosporins including rocephin. Stopped rocephin - started cipro 400mg IV BID on 11/24. Thus, day #4 of cipro. plan 7 day course of cipro. Change to PO cipro later tonight. (4) Atrial fibrillation: Plan: History of such. Was discovered about the time of her CVA in 06/2022. Presented in NSR at time of admission, then converted to a.fib while here for about 24 hours, then converted back to NSR. Converted back to NSR 11/23/22. Cont metoprolol 25mg BID. Cont Eliquis 5mg BID. (5) Hyperlipidemia: Plan: Hold statin while on cipro. (6) H/O: stroke with residual effects: Plan: Large left-sided MCA territory stroke 06/2022. Made remarkable recovery per the pt's daughter in the months following the stro ke. Prior to her seizure event she was able to carry out most ADLS and speech was relatively normal (clear, fluent per daughter). Continue aspirin. Continue Eliquis. Patient's current global aphasia should cont to improve over the next few days as UTI clears and she gets further away from the seizures. (7) Acute metabolic encephalopathy: Plan: 2nd to UTI & Seizures - continues to IMPROVE. Cont supportive care. (8) Contact dermatitis: Plan: 2nd to exposure to medical tape, etc - left arm triamcinolone cream 0.1% TID in thin amounts claritin 10mg daily for itching (9) DVT prophylaxis: Plan: Eliquis BID (10) Constipation: Plan: cont miralax dulcolax x 1 by mouth Plan cont PT/OT inpatient rehab advised post-discharge awaiting placement. daughter updated at bedside today Admission and Anticipated Discharge Date Admission Date: November 21, 2022 Subjective Patient appears comfortable. Review of Systems Review of Systems: All systems reviewed & are unremarkable except as noted in HPI & below Physical Exam Physical Exam: gen - looks well; expressive and receptive aphasia similar to yesterday; NAD mouth - MMM skin - contact dermatitis of left forearm - multiple areas of erythema - improved neck - no JVD heart - RRR, s1 s2, no murmur lungs - CTA b/l abd - soft NT ND BS+ ext - no edema, pulses 2+ b/l neuro - global aphasia same as yesterday; strength 4/5 RUE/RLE; strength 5/5l LUE/LLE Results & Data Results & Data Vital Signs (Past 12 Hours) Vital Signs Temp Pulse Pulse Resp BP Pulse Ox O2 Del Method 11/27/22 19:57 Room Air 11/27/22 19:02 36.4 C L 69 18 135/61 97 Room Air 11/27/22 17:25 75 11/27/22 15:08 36.4 C L 77 19 100/74 92 Room Air 11/27/22 13:58 61 11/27/22 11:11 36.7 C 68 18 96/55 L 93 Room Air PG Care Time/CCT Total # of Minutes Spent Total Time Spent with Patient: Total time spent is greater than 50% in coordination of care (as documented) at patient's floor/unit and/or counseling patient: Coding Level of Care Code 82094 SUB INP/OBS CARE 2/35MIN Diagnoses Seizure R56.9 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
[2022-11-28 06:30] LABS: Hematocrit (blood only) 35.6 % (37.0-47.0); Hemoglobin 11.8 g/dl (12.0-16.0); Mean Corpuscular Hgb Conc 33.1 g/dL (32.0-36.0); Mean Corpuscular Volume 90.6 fL (80.0-100.0); Mean Platelet Volume 9.5 fL (9.4-12.4); Platelet Count 227 K/uL (130-400); RDW Coefficient of Variation 13.7 % (11.5-14.5); RDW Standard Deviation 46.1 fL (36.4-46.3); Red Blood Count 3.93 M/uL (4.20-5.40); White Blood Count 5.36 K/ul (4.8-10.8)
[2022-11-28 06:50] LABS: Creatinine Clr Calc Pharmacy 50.5 ml/min; Est GFR (African American) 80.7 ml/min; Est GFR (Non-African American) 69.6 ml/min; Potassium 4.6 mmol/L (3.5-5.1)
[2022-11-28] MEDS: levETIRAcetam 500 MG TAB PO SCH ×2 (07:57→20:06)
[2022-11-28] MEDS: lamoTRIgine 25 MG TAB PO SCH ×2 (07:57→20:06)
[2022-11-28] MEDS: METOPROLOL TARTRATE 25 MG TAB PO SCH ×2 (07:58→20:06)
[2022-11-28] MEDS: ASPIRIN 81 MG ECTAB PO SCH (07:58)
[2022-11-28] MEDS: APIXABAN 5 MG TABLET PO SCH ×2 (07:58→20:06)
[2022-11-28] MEDS: CIPROFLOXACIN 500 MG TAB PO SCH (07:58)
[2022-11-28] MEDS: LORATADINE 10 MG TAB PO SCH (07:58)
[2022-11-28] MEDS: POLYETHYLENE (MIRALAX) 17 GM PACK PO SCH (07:58)
[2022-11-28] MEDS: TRIAMCINOLONE ACET 0.1% CR 80 GM TUBE EXT SCH ×3 (07:58→20:07)
--- NOTE | 2022-11-28 18:40 | Hospitalist Progress Note ---
Date of Service November 28, 2022 Assessment & Plan (1) Seizure: Plan: Present on admission. Generalized tonic-clonic by report. s/p keppra loading in the ER No seizure activity since then. Seizure likely due to prior left sided MCA territory stroke. ?UTI may have lowered the seizure threshold as well. Family also reports she was sleep deprived 1-2 nights prior to the seizure event. MRI brain without acute CVA or ICH. EEG without seizure focus. Unfortunately keppra and Eliquis interact, with keppra potentially lowering the effectiveness of Eliquis. Thus, plan is as follows - * leave Eliquis as is * plan to wean Keppra off over 2 weeks - 500mg BID x 1 week, then 250mg BID x 1 week, then off * start lamictal 25mg BID x 1 week, then 50mg BID x 1 week, then 75mg BID x 1 week, then 100mg BID thereafter * lamictal does NOT interact with Eliquis Thus far tolerating both seizure meds as above. Cont seizure precautions. [place] [facility] 1 [place] post-dis[place]. (2) Seizure as late effect of cerebrovascular accident (CVA): Plan: seizure due to prior MCA territory stroke on left (3) UTI (urinary tract infection): Plan: 2nd to e.coli. Unfortunately this pathogen is resistant to most PCN's and cephalosporins including rocephin. Stopped rocephin - started cipro 400mg IV BID on 11/24. Thus, day #5 of cipro and can now STOP (4) Atrial fibrillation: Plan: History of such. Was discovered about the time of her CVA in 06/2022. Presented in NSR at time of admission, then converted to a.fib while here for about 24 hours, then converted back to NSR. Converted back to NSR 11/23/22. Cont metoprolol 25mg BID. Cont Eliquis 5mg BID. (5) Hyperlipidemia: Plan: restart statin (6) H/O: stroke with residual effects: Plan: Large left-sided MCA territory stroke 06/2022. Made remarkable recovery per the pt's daughter in the months following the stroke. Prior to her seizure event she was able to carry out most ADLS and speech was relatively normal (clear, fluent per daughter). Continue aspirin. Continue Eliquis. Patient's current global aphasia should cont to improve over the next few days as UTI clears and she gets further away from the seizures. (7) Acute metabolic encephalopathy: Plan: 2nd to UTI & Seizures - continues to IMPROVE. Cont supportive care. (8) Contact dermatitis: Plan: 2nd to exposure to medical tape, etc - left arm triamcinolone cream 0.1% TID in thin amounts claritin 10mg daily for itching (9) DVT prophylaxis: Plan: Eliquis BID (10) Constipation: Plan: cont miralax dulcolax x 1 given Plan cont PT/OT inpatient rehab advised post-discharge awaiting placement. Admission and Anticipated Discharge Date Admission Date: November 21, 2022 Subjective No complaints. Answers questions with yes and no answers, has trouble with speaking. Denies pain. Tele with NSR rates 60-70s Physical Exam Constitutional: WD/WN, vitals as above Respiratory: normal respiratory effort, lungs clear to auscultation Cardiovascular: RRR, no murmur, no edema Gastrointestinal (Abdomen): normal bowel sounds, soft, nontender, no hepatosplenomegaly Results & Data Results & Data Vital Signs (Past 12 Hours) Vital Signs Temp Pulse Pulse Resp BP Pulse Ox O2 Del Method 11/28/22 16:45 36.7 C 80 18 146/86 H 95 Room Air 11/28/22 15:47 67 11/28/22 08:30 Room Air 11/28/22 11:55 36.6 C 70 18 102/52 L 97 Room Air 11/28/22 08:00 60 11/28/22 07:56 36.6 C 71 18 124/60 97 Room Air Laboratory Results CBC, BMP reviewed PG Care Time/CCT Total # of Minutes Spent Total Time Spent with Patient: Total time spent is greater than 50% in coordination of care (as documented) at patient's floor/unit and/or counseling patient: Coding Level of Care Code 15144 SUB INP/OBS CARE 08/22MIN Diagnoses Seizure R56.9 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
[2022-11-29] MEDS: APIXABAN 5 MG TABLET PO SCH ×2 (09:12→21:29)
[2022-11-29] MEDS: LORATADINE 10 MG TAB PO SCH (09:12)
[2022-11-29] MEDS: METOPROLOL TARTRATE 25 MG TAB PO SCH ×2 (09:12→21:29)
[2022-11-29] MEDS: ASPIRIN 81 MG ECTAB PO SCH (09:12)
[2022-11-29] MEDS: ATORVASTATIN 20 MG TAB PO SCH (09:12)
[2022-11-29] MEDS: lamoTRIgine 25 MG TAB PO SCH ×2 (09:12→21:29)
[2022-11-29] MEDS: levETIRAcetam 500 MG TAB PO SCH ×2 (09:12→21:29)
[2022-11-29] MEDS: TRIAMCINOLONE ACET 0.1% CR 80 GM TUBE EXT SCH ×3 (09:13→21:29)
[2022-11-29] MEDS: POLYETHYLENE (MIRALAX) 17 GM PACK PO SCH (09:13)
--- NOTE | 2022-11-29 17:08 | Hospitalist Progress Note ---
Date of Service November 29, 2022 Assessment & Plan (1) Seizure: Plan: Present on admission. Generalized tonic-clonic by report. s/p keppra loading in the ER No seizure activity since then. Seizure likely due to prior left sided MCA territory stroke. ?UTI may have lowered the seizure threshold as well. Family also reports she was sleep deprived 1-2 nights prior to the seizure event. MRI brain without acute CVA or ICH. EEG without seizure focus. Unfortunately keppra and Eliquis interact, with keppra potentially lowering the effectiveness of Eliquis. Thus, plan is as follows - * leave Eliquis as is * plan to wean Keppra off over 2 weeks - 500mg BID x 1 week, then 250mg BID x 1 week, then off * start lamictal 25mg BID x 1 week, then 50mg BID x 1 week, then 75mg BID x 1 week, then 100mg BID thereafter * lamictal does NOT interact with Eliquis Thus far tolerating both seizure meds as above. Cont seizure precautions. f/u [facility] 1 month post-discharge. (2) Seizure as late effect of cerebrovascular accident (CVA): Plan: seizure due to prior MCA territory stroke on left (3) UTI (urinary tract infection): Plan: 2nd to e.coli. completed 5 days of Cipro (4) Atrial fibrillation: Plan: History of such. Was discovered about the time of her CVA in 06/2022. Presented in NSR at time of admission, then converted to a.fib while here for about 24 hours, then converted back to NSR. Converted back to NSR 11/23/22 and remains in such Cont metoprolol 25mg BID. Cont Eliquis 5mg BID. (5) Hyperlipidemia: Plan: continue statin (6) H/O: stroke with residual effects: Plan: Large left-sided MCA territory stroke 06/2022. Made remarkable recovery per the pt's daughter in the months following the stroke. Prior to her seizure event she was able to carry out most ADLS and speech was relatively normal (clear, fluent per daughter). Continue aspirin. Continue Eliquis. Patient's current global aphasia should cont to improve over the next few days as UTI clears and she gets further away from the seizures. Does seem a bit better today than previous (7) Acute metabolic encephalopathy: Plan: 2nd to UTI & Seizures - resolved (8) Contact dermatitis: Plan: 2nd to exposure to medical tape, etc - left arm triamcinolone cream 0.1% TID in thin amounts claritin 10mg daily for itching (9) DVT prophylaxis: Plan: Eliquis BID (10) Constipation: Plan: cont miralax dulcolax x 1 given now resolved Plan cont PT/OT inpatient rehab advised [id number] denied--> I called and left a on 11/29 for peer to peer review to call me back Admission and Anticipated Discharge Date Admission Date: November 21, 2022 Subjective No complaints. Says she does not want to go to rehab and prefers to go home. Family wants her to go to rehab so she is agreeable to try for this. No pain, no headache, no seizure activity. Is moving bowels and eating Tele with NSR and normal rates Physical Exam Constitutional: WD/WN, vitals as above Respiratory: normal respiratory effort, lungs clear to auscultation Cardiovascular: RRR, no murmur, no edema Gastrointestinal (Abdomen): normal bowel sounds, soft, nontender, no hepatosplenomegaly Neurologic: right hemiparesis-4/5 strength throughout, +expressive aphasia fairly significant Results & Data Results & Data Vital Signs (Past 12 Hours) Vital Signs Temp Pulse Pulse Resp BP Pulse Ox O2 Del Method 11/29/22 15:00 36.7 C 68 18 104/46 L 94 Room Air 11/29/22 11:29 36.8 C 56 L 18 117/55 L 96 Room Air 11/29/22 08:00 65 11/29/22 07:10 36.8 C 66 18 107/58 L 95 Room Air Laboratory Results no labs PG Care Time/CCT Total # of Minutes Spent Total Time Spent with Patient: Total time spent is greater than 50% in coordination of care (as documented) at patient's floor/unit and/or counseling patient: Coding Level of Care Code 50797 SUB INP/OBS CARE 1/MIN Diagnoses Seizure R56.9 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
[2022-11-30 06:55] LABS: Basophils # (auto) 0.04 K/uL (0-0.2); Basophils % (auto) 0.7 %; Eosinophils # (auto) 0.24 K/uL (0-0.50); Eosinophils % (auto) 4.2 %; Hemoglobin 11.8 g/dl (12.0-16.0); Immature Granulocytes # (auto) 0.03 K/uL (0.01-0.20); Immature Granulocytes % (auto) 0.5 %; Lymphocytes # (auto) 2.08 K/uL (1.2-3.4); Mean Corpuscular Hemoglobin 29.7 pg (25.0-34.0); Mean Corpuscular Hgb Conc 32.8 g/dL (32.0-36.0); Mean Corpuscular Volume 90.7 fL (80.0-100.0); Mean Platelet Volume 9.3 fL (9.4-12.4); Monocytes # (auto) 0.61 K/uL (0.11-0.59); Monocytes % (auto) 10.6 %; Neutrophils # (auto) 2.77 K/uL (1.40-6.50); Platelet Count 246 K/uL (130-400); RDW Coefficient of Variation 13.9 % (11.5-14.5); RDW Standard Deviation 46.5 fL (36.4-46.3); Red Blood Count 3.97 M/uL (4.20-5.40); White Blood Count 5.77 K/ul (4.8-10.8)
[2022-11-30 07:18] LABS: BUN Creatinine Ratio 26.3 (10-20); Calcium 9.1 mg/dl (8.6-10.3); Creatinine Clr Calc Pharmacy 50.5 ml/min; Est GFR (African American) 80.7 ml/min; Est GFR (Non-African American) 69.6 ml/min; Potassium 4.6 mmol/L (3.5-5.1)
[2022-11-30] MEDS: levETIRAcetam 500 MG TAB PO SCH (09:45)
[2022-11-30] MEDS: ASPIRIN 81 MG ECTAB PO SCH (09:45)
[2022-11-30] MEDS: ATORVASTATIN 20 MG TAB PO SCH (09:45)
[2022-11-30] MEDS: METOPROLOL TARTRATE 25 MG TAB PO SCH (09:45)
[2022-11-30] MEDS: lamoTRIgine 25 MG TAB PO SCH (09:45)
[2022-11-30] MEDS: APIXABAN 5 MG TABLET PO SCH (09:45)
[2022-11-30] MEDS: POLYETHYLENE (MIRALAX) 17 GM PACK PO SCH (09:46)
[2022-11-30] MEDS: TRIAMCINOLONE ACET 0.1% CR 80 GM TUBE EXT SCH ×2 (09:46→15:32)
[2022-11-30] MEDS: LORATADINE 10 MG TAB PO SCH (09:46)
--- NOTE | 2022-11-30 14:37 | Discharge Summary ---
Date of Service November 30, 2022 Admission HPI Per Admitting Provider Ghazal Plascencia) is a 82 year old female w/ PmHx Acute ischemic L MCA stroke in June of 2022, HLD, chronic venous insufficiency coming to the ED after an episode of seizure like activity at home. Patient is unable to respond, family members at the bedside relay events. Patient perviously had a stroke in June for which she went to [place] [facility], which she "graduated" per family. At the time of stroke her dysfunction was mainly with R sided weakness, dysphagia. She had been recovering pretty well up to this point. She had an episode of dizziness and gait imbalance in early September for which she was evaluated with MRI with no significant changes from prior L MCA stroke. Earlier in the day patient had not been herself with family saying around noon she started to become more irritable, seemed off, and had more difficulty with using her computer. Around 5 or 6PM today she had an unresponsive episode where she was found on the couch unresponsive. She had a witnessed seizure like activity episode followed by unresponsiveness and family said she had been clenching her jaw as well. She was brought to the hospital by EMS, in hospital she had 3 seizure like activity episodes of tonic clonic behavior half hour to hour apart. Family denies patient having any fevers, upper respiratory symptoms, urinary symptom complaints, or diarrhea prior to events. Over the course of her ED visit today since talking with family she has had slightly increased activity with some movements of the head or eyelids. In the ED she was given 3g Keppra IV as well as 2mg IV Ativan to break a seizure. Her last seizure broke before Ativan was able to be given. EKG was NSR without acute changes, CBC, CMP, troponin unremarkable. CXR negative for acute cardiopulmonary findings. Head CT, head CTA did not show any new changes, just old L MCA territory infarct. 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 Principal Diagnosis Seizure UTI Acute metabolic encephalopthy Discharge Exam Constitutional WD/WN, vitals as above Respiratory normal respiratory effort, lungs clear to auscultation Cardiovascular RRR, no murmur, no edema Gastrointestinal (Abdomen) normal bowel sounds, soft, nontender, no hepatosplenomegaly Neurologic right hemiparesis 4/5, +expressive aphasia Discharge Data Allergies Allergy/AdvReac Type Severity Reaction Status Date / Time bee venom protein (honey bee) Allergy Severe SHORTNESS Verified 11/21/22 21:23 OF BREATH No Known Drug Allergies Allergy NKDA Verified 11/21/22 21:23 Consultations 11/21/22 20:38 ED Decision to Admit Stat 11/21/22 22:58 Consult Neurology Routine Ordered Studies 11/21/22 18:10 CT angio head w con Stat CT angio neck with con Stat CT head/brain wo con Stat 11/22/22 00:40 MR brain wo con Routine Hospital Course (1) Seizure: Present on admission. Generalized tonic-clonic by report. s/p keppra loading in the ER No seizure activity since then. Seizure likely due to prior left sided MCA territory stroke. ?UTI may have lowered the seizure threshold as well. Family also reports she was sleep deprived 1-2 nights prior to the seizure event. MRI brain without acute CVA or ICH. EEG without seizure focus. Unfortunately keppra and Eliquis interact, with keppra potentially lowering the effectiveness of Eliquis. Thus, plan is as follows - * leave Eliquis as is * plan to wean Keppra off over 2 weeks - 500mg BID x 1 week, then 250mg BID x 1 week, then off * start lamictal 25mg BID x 1 week, then 50mg BID x 1 week, then 75mg BID x 1 week, then 100mg BID thereafter * lamictal does NOT interact with Eliquis Thus far tolerating both seizure meds as above. Cont seizure precautions. f/u [facility] 1 month post-discharge. (2) Seizure as late effect of cerebrovascular accident (CVA): seizure due to prior MCA territory stroke on left (3) UTI (urinary tract infection): 2nd to e.coli. completed 5 days of Cipro (4) Atrial fibrillation: History of such. Was discovered about the time of her CVA in 06/2022. Presented in NSR at time of admission, then converted to a.fib while here for about 24 hours, then converted back to NSR. Converted back to NSR 11/23/22 and remains in such Cont metoprolol 25mg BID. Cont Eliquis 5mg BID. (5) Hyperlipidemia: continue statin (6) H/O: stroke with residual effects: Large left-sided MCA territory stroke 06/2022. Made remarkable recovery per the pt's daughter in the months following the stroke. Prior to her seizure event she was able to carry out most ADLS and speech was relatively normal (clear, fluent per daughter). Continue aspirin. Continue Eliquis. Patient's current global aphasia should cont to improve over the next few days as UTI clears and she gets further away from the seizures. Does seem a bit better today than previous (7) Acute metabolic encephalopathy: 2nd to UTI & Seizures - resolved (8) Contact dermatitis: 2nd to exposure to medical tape, etc - left arm triamcinolone cream 0.1% TID in thin amounts claritin 10mg daily for itching was given and this has resolved (9) DVT prophylaxis: Eliquis BID (10) Constipation: cont miralax dulcolax x 1 given now resolved Plan Dispo-dc to home with [facility], rehab denied, SNF approved but pt and family prefer to go home Discussed care with daughter Melvi on phone on day of discharge Total Time Total Time Spent Total Time Spent (In Minutes): 35 min Discharge Plan Discharge Items Patient Disposition: Home - Home Health Services Reason For Visit: STROKE LIKE SYMPTOMS, SEIZURES Discharge Diagnosis: Seizure UTI Condition on Discharge: Fair Activity: Resume your previous activity Non-emergency contact: Primary Care Provider and Neurologist Call non-emergency contact if: you have any medication questions and your symptoms worsen Follow-up/Referrals: Mohit Crane MD [Physician] - (Follow up in 3-4 weeks.) Kevin Fitzgerald MD [Primary Care Provider] - (Follow up within 1-2 weeks.) Diet: Heart Healthy Addtl Attending Provider Instructions: You were admitted with a seizure and started on seizure medications. You are being transitioned to Lamictal after starting on Keppra. Please take the Lamictal 25mg twice a day for 1 more day, then increase to 50mg twice a day x 1 week, then increase to 75mg twice a day x 1 week, then increase to 100mg twice a day. The Keppra can be taken at 250mg twice a day x 7 days and then STOP. Please follow up with the neurologist in 3-4 weeks. You were treated for a UTI and have already finished out all the antibiotics. Your metoprolol dose was lowered to 25mg twice a day because of some lower blood pressures. Pending Studies at Discharge: No Stand-Alone Forms: My [facility] [address], Smoking Cessation Medications and DC Order Prescriptions: New metoprolol tartrate 25 mg Tablet 25 mg PO BID Qty: 60 0RF lamotrigine [Lamictal] 25 mg Tablet 25 mg PO BID Qty: 128 0RF Rx Instructions: x 1 day then increase to 50mg bid x 1 week,then 75mg po bid x 1 week, then 100mg po bid levetiracetam 250 mg tablet 250 mg PO BID 7 Days Qty: 14 0RF Continued aspirin 81 mg tablet,delayed release (DR/EC) 81 mg PO DAILY Qty: 90 3RF atorvastatin 20 mg tablet 20 mg PO DAILY Qty: 90 3RF epinephrine 0.3 mg/0.3 mL auto-injector 0.3 mg subcut ONCE PRN (Reason: anaphylaxis) Qty: 1 3RF cholecalciferol (vitamin D3) 2,000 unit tablet 2,000 mcg PO DAILY Eliquis 5 mg tablet 5 mg PO BID Discontinued metoprolol tartrate 37.5 mg tablet 37.5 mg PO BID Qty: 180 3RF Discharge Orders: Discharge Order (Routine); Ordered 11/30/22 Ordered By: Helene Phan Admission Data Admit Date/Time: 11/21/22 21:25 Attending Provider: Helene Phan Admit Provider: Jorge Garcia Primary Care Provider: Kevin Fitzgerald Other Providers: Tariq West ; Mohit Crane ; [facility] Coding Level of Care Code 60022 INP/OBS DISCH >30 MIN Diagnoses Seizure R56.9 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
== END 2022-11-30 17:32 | disposition home health service (06) | DRG 56 ==
LOC: ED 18:07 → 2E 21:25 → SUATTDRO 21:25 → 2E 22:38

== ENCOUNTER 2023-08-02 17:11 | Inpatient (IN) ==
--- NOTE | 2023-08-02 17:26 | ED Triage Note ---
Date of Service August 02, 2023 Provider in Triage Author: Bere Blum History of Present Illness This patient was briefly evaluated while in triage. An abbreviated physical exam was performed. This patient is a 82-year-old Female who presents to the ED for evaluation of a low hemoglobin. She was seen by Dr. Fitzgerald today and had blood work done which showed a low hemoglobin. She has had balance problems, pallor, vomiting, and diarrhea. She has been weak. Physical Exam VITALS: Vitals are noted on the nurse's note and reviewed by myself. GENERAL: This is an 82-year-old female, sitting up in a wheelchair in triage, pale HEART: Regular rate and rhythm without murmurs gallops or rubs. LUNGS: Clear to auscultation bilaterally without wheezes, rales or rhonchi. NEURO: Patient was alert and oriented to person place and time. Initial orders for labs and / or imaging were placed and patient was placed in the waiting area until a bed is available. Please see further documentation for the full ED course.
[2023-08-02] MEDS ORDERED: SODIUM CHLORIDE 0.9% 250 ML IV PRN ×2 (17:27→18:53)
--- NOTE | 2023-08-02 17:42 | Emergency Department Note ---
Impression & Plan Symptomatic anemia, Weakness ED Provider Note NAME: CORNELL DE PAZ AGE: 82 SEX: F : 1940 ARRIVES VIA: Walk-In INFORMANT: Patient, the patient's family member ED PROVIDER(S): Kevin Pate DO CHIEF COMPLAINT: Weakness HPI: The patient is an 82-year-old female who presented to the emergency department for weakness. The patient has been having problems over the course of the last few weeks. Over the holiday she was noted to have some nausea vomiting and diarrhea. She seemed to recover from this but her family thought that she looked very pale. She was having trouble ambulating. She also was noted to have some shortness of breath with exertion. She went to see her family doctor today. She was found to have laboratory studies which revealed significant anemia. She was sent to the emergency department for further evaluation. ROS: See above HPI for pertinent positives & negatives. A total of 10 systems reviewed and were otherwise negative. PAST MEDICAL HISTORY: See Below PAST SURGICAL HISTORY: See Below FAMILY HISTORY: See Below SOCIAL HISTORY: See Below HOME MEDICATIONS: See Below ALLERGIES: See Below VITALS: See Below PHYSICAL EXAMINATION: GENERAL: Patient is awake alert in no acute distress patient is resting comfortably and showing no signs of anxiety EYES: The conjunctivae are pale. The pupils are round and reactive. EARS, NOSE, MOUTH AND THROAT: The nose is without any evidence of any deformity. NECK: The neck is nontender and supple. RESPIRATORY: Normal respiratory effort is noted there is no evidence of wheezing rhonchi or rales CARDIOVASCULAR: Regular rate and rhythm noted there no murmurs rubs or gallops normal S1 normal S2. GASTROINTESTINAL: The abdomen is soft. Abdomen is nontender. Rectal exam revealed brown stool which was heme-negative. d MUSCULOSKELETAL/EXTREMITIES: There is no evidence of gross deformity full range of motion is noted in the hips and shoulders. SKIN: Skin is warm and dry. There is trace pedal edema bilaterally. NEUROLOGIC: Patient is awake alert and oriented to person place and situation. The patient recognize her family member. MEDICAL DECISION MAKING: The patient is an 82-year-old female who presented to the emergency department at the request of her primary care physician who did outpatient laboratory studies and found the patient to be anemic. The patient's been complaining of symptoms over the last few weeks. She has been weak and appears to be off balance. The patient's primary care physician ordered laboratory studies and told her to go to the emergency department after hemoglobin was found to be very low. I discussed the patient's laboratory and radiographic studies with her. I discussed this case with the on-call [facility]. They have agreed to evaluate the patient in the emergency department for further management and disposition. Triage Nursing notes reviewed. Prior medical records reviewed Vital Signs: reviewed and remarkable for elevated blood pressure. Differential diagnosis: Infection, dehydration, metabolic abnormality, hypo/hyperglycemia, electrolyte disturbance, anemia, hypoxia, cardiac sources, intracerebral event, toxicologic, neurologic, as well as other pathologies. ER treatment provided: See below Diagnostics interpreted by me: ECG: EKG was obtained in the emergency department. My interpretation is normal sinus rhythm at 78 bpm. There is no ectopy. There is no acute ST segment abnormalities noted. This was compared to a tracing from April 21, 2023. No changes were noted Cardiac Monitoring: An order was placed for continuous cardiac monitoring. The monitor shows a rate of 71 bpm with sinus rhythm. Laboratory studies: As stated above and show below. Imaging studies: See below. Radiographic imaging was reviewed by myself Consultation(s): I discussed this case with Dr. Claros who is on-call for the [facility] group ED COURSE: Procedures: none Critical Care: I have personally spent greater than 35 minutes of critical care time in the direct management of this patient. This includes bedside care, interpretation of diagnostic studies, and testing, discussion with consultants, patient, and family members, and other required patient management activities. This 35 minutes is in excess of all separately billable procedures. 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 per neuro, likely 2/2 previous CVA. no recurrence since. Follows with [facility]. 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 s/p mechanical thrombectomy (cause felt to be cardioembolic and pt had newly dx afib at the time). imaging of carotids at this time found R ICA stenosis Atrial fibrillation dx at time of CVA 06/2022; follows with Dr. Guajardo; on Eliquis and BB Vitamin D deficiency Hyperlipidemia Chronic venous insufficiency Surgical History History of [place] [facility] [place]A History of eye surgery laser eye surgery BL S/P tooth extraction Family History Sister Atrial fibrillation Stroke Muscular dystrophy Mother Diabetes Father Lung cancer Denies family history of Ovarian cancer Prostate cancer Myocardial infarction Breast cancer Colorectal cancer Social History Smoking Status: Former smoker Tobacco Type: Cigarettes Age Started Using Tobacco: 22; Age Quit Using Tobacco: 53; packs per day: 0.5; Second Hand Exposure: No; Do You Dip or Chew Tobacco: No; Hx Alcohol Use: No Hx Substance Use: No Preferred Language: Syriac Communication Ability: Effective Communication Ability Comment: expressive asphasia Visual Impairment: No Limitations Hearing Ability: Normal Technology Analyst Required: No Beliefs That Will Affect Care: None marital status: / Current Living Situation: Family Current Living Situation Comment: lives with her son and DIL current occupational status: retired Feels Safe at Home: Yes Childhood Exposure to Second-Hand Smoke: Yes Diet: regular caffeine: Yes Dental Care, Regularly: No Physical Activity Frequency: 1-2 Times per Week Physical Activity Frequency Comment: bird watching, puzzles and walking Seatbelt Use: always Sunscreen Use: No Assistive Devices: Cane and Walker Allergies Allergies Allergy/AdvReac Type Severity Reaction Status Date / Time bee venom protein (honey bee) Allergy Severe SHORTNESS Verified 08/02/23 18:27 OF BREATH latex Allergy Mild Redness of Verified 08/02/23 18:27 Skin Home Meds Home Medications Medication Instructions Recorded Confirmed aspirin 81 mg tablet,delayed 81 mg PO QAM 04/04/23 08/02/23 release cholecalciferol (vitamin D3) 125 125 mcg PO QAM 04/04/23 08/02/23 mcg (5,000 unit) tablet (Vitamin D3) clopidogrel 75 mg tablet (Plavix) 75 mg PO QDL 04/04/23 08/02/23 Uqora-Part 2 Tablets 2 tab PO QAM 08/02/23 08/02/23 Uqora-Part 3 Tablet 10 billion cells PO QAM 08/02/23 08/02/23 atorvastatin 20 mg tablet 20 mg PO DAILY 08/02/23 08/02/23 Previous Rx's Medication Instructions Recorded lamotrigine 100 mg tablet 100 mg PO BID #60 tabs 06/17/23 amlodipine 2.5 mg tablet 2.5 mg PO DAILY #90 tabs 08/02/23 apixaban 5 mg tablet (Eliquis) 5 mg PO BID #180 tabs 08/02/23 duloxetine 30 mg capsule,delayed 30 mg PO QAM #90 caps 08/02/23 release (Cymbalta) epinephrine 0.3 mg/0.3 mL 0.3 mg (0.3 mL) subcut ONCE PRN 08/02/23 injection, auto-injector anaphylaxis #1 ea metoprolol tartrate 25 mg tablet 25 mg PO BID #180 tabs 08/02/23 omeprazole 20 mg capsule,delayed 20 mg PO DAILY #30 caps 08/02/23 release Results & Data (ED) Vital Signs Vital Signs - 24 hr 08/02/23 17:22 08/02/23 17:58 08/02/23 18:00 Temperature 36.6 C Temperature Source Temporal Artery Scan Pulse Rate 88 75 Pulse Rate [Apical] 75 Respiratory Rate 18 20 Respiratory Effort / Characteristics Non-Labored Spontaneous Non-Labored Respiratory Depth Normal Normal Respiratory Pattern Regular Blood Pressure 125/55 L Blood Pressure [Left Arm] 116/94 Blood Pressure Mean 78 Blood Pressure Mean [Left Arm] 101 Blood Pressure Position Blood Pressure Position [Left Arm] Semi-fowlers Pulse Oximetry 97 99 Oxygen Delivery Method Room Air Room Air Sepsis Recent Fever Within 48 Hours No Sepsis New/Unexplained Change in Mental Status No Sepsis Action Taken by Nursing No Action Required 08/02/23 19:25 08/02/23 19:40 08/02/23 19:55 Temperature 36.8 C 36.8 C 36.9 C Temperature Source Oral Oral Oral Pulse Rate 69 69 66 Pulse Rate [Apical] Respiratory Rate 18 18 18 Respiratory Effort / Characteristics Respiratory Depth Respiratory Pattern Blood Pressure 144/64 H 159/72 H 126/71 Blood Pressure [Left Arm] Blood Pressure Mean 90 101 89 Blood Pressure Mean [Left Arm] Blood Pressure Position Lying Blood Pressure Position [Left Arm] Pulse Oximetry 100 98 97 Oxygen Delivery Method Sepsis Recent Fever Within 48 Hours Sepsis New/Unexplained Change in Mental Status Sepsis Action Taken by Nursing 08/02/23 20:25 Temperature 36.8 C Temperature Source Oral Pulse Rate 71 Pulse Rate [Apical] Respiratory Rate 18 Respiratory Effort / Characteristics Respiratory Depth Respiratory Pattern Blood Pressure 169/95 H Blood Pressure [Left Arm] Blood Pressure Mean 119 Blood Pressure Mean [Left Arm] Blood Pressure Position Blood Pressure Position [Left Arm] Pulse Oximetry 96 Oxygen Delivery Method Sepsis Recent Fever Within 48 Hours Sepsis New/Unexplained Change in Mental Status Sepsis Action Taken by Jail Medications Current Medication List: was personally reviewed by me Laboratory Data Attestation: I reviewed the patient's lab results. 08/02/23 22:37 08/02/23 17:45 Lab Results 08/02/23 08/02/23 Range/Units 17:45 17:46 WBC 5.83 (4.8-10.8) K/ul RBC 2.84 L (4.20-5.40) M/uL Hgb 6.4 L* (12.0-16.0) g/dl Hct 21.3 L (37.0-47.0) % MCV 75.0 L (80.0-100.0) fL MCH 22.5 L (25.0-34.0) pg MCHC 30.0 L (32.0-36.0) g/dL RDW Std Deviation 55.4 H (36.4-46.3) fL RDW Coeff of Rosa Elena 20.2 H (11.5-14.5) % Plt Count 468 H (130-400) K/uL MPV 9.3 L (9.4-12.4) fL Immature Gran % (Auto) 1.9 % Neut % (Auto) 57.0 % Lymph % (Auto) 25.9 % [place] % (Auto) 11.7 % Eos % (Auto) 2.6 % Baso % (Auto) 0.9 % Reticulocyte % (Auto) 1.2 (0.5-2.0) % Neut # (Auto) 3.33 (1.40-6.50) K/uL Lymph # (Auto) 1.51 (1.20-3.40) K/uL [place] # (Auto) 0.68 H (0.11-0.59) K/uL Eos # (Auto) 0.15 (0.00-0.50) K/uL Baso # (Auto) 0.05 (0.00-0.20) K/uL Reticulocyte # 0.03 (0.02-0.10) 10^6/uL Immature Gran # (Auto) 0.11 (0.01-0.20) K/uL Absolute Nucleated RBC 0.02 (0.00-0.12) K/uL Nucleated RBC % (auto) 0.3 % Polychromasia 1+ Hypochromasia Present Tear Drop Cells 1+ Ovalocytes 1+ PT 11.4 (9.0-12.0) Seconds INR 1.0 (0.9-1.1) APTT 25 (21-31) Seconds PTT Ratio 0.9 Sodium 136 (136-145) mmol/L Potassium 4.9 (3.5-5.1) mmol/L Chloride 100 (98-107) mmol/L Carbon Dioxide 28 (21-32) mmol/L Anion Gap 8 (3-11) BUN 21 (6-23) mg/dl Creatinine 1.14 (0.6-1.2) mg/dl Est Cr Clr Drug Dosing 35.4 ml/min Est GFR ( Amer) 52.6 ml/min Est GFR (Non-Af Amer) 45.4 ml/min BUN/Creatinine Ratio 18.4 (10-20) Glucose 112 H (70-99(Fasting)) mg/dl Calcium 9.5 (8.6-10.3) mg/dl Iron 17 L (35-150) mcg/dl TIBC 402 (250-450) mcg/dl Unsaturated IBC 385 H (155-355) mcg/dl Transferrin % Sat 4 L (15-50) % Total Bilirubin 0.2 (0.2-1.0) mg/dl AST 20 (13-39) U/L ALT 14 (7-52) U/L Alkaline Phosphatase 85 (34-104) U/L Total Protein 7.3 (6.0-8.3) gm/dl Albumin 3.9 (3.4-5.0) gm/dl Globulin 3.4 (2.5-4.0) gm/dl Albumin/Globulin Ratio 1.1 (0.9-2) Folate 20.95 (>5.38) ng/ml Blood Type A Positive Antibody Screen NEGATIVE Crossmatch See Detail Imaging Data Attestation: I personally reviewed and interpreted this imaging study as follows: My Impression: 1 view chest x-ray was obtained in the emergency department. My interpretation is no free air or definite infiltrate, final report below Radiologist's Impression: Chest X-Ray 08/02/23 19:03 SINGLE VIEW CHEST CLINICAL HISTORY: Generalized weakness. FINDINGS: An AP, portable, upright chest radiograph is compared to study dated 04/21/2023 correlation is made with chest CT performed the same day 08/02/2023.. The heart is mildly enlarged but noting atherosclerotic calcification of the thoracic aorta. The pulmonary vasculature is noncongested. There is chronic elevation of the right hemidiaphragm. Scarring/atelectasis is noted at both lung bases. Chronic interstitial thickening and nodularity is similar to previous. No airspace consolidation or pleural effusion is identified. No pneumothorax is seen. The skeletal structures are osteopenic. The bony thorax is grossly intact. IMPRESSION: Cardiomegaly with no active disease in the chest. ACT 112: Negative or not required by law. Electronically signed by: Ramesh Price M.D. 08/02/2023 8:05 PM Discharge Plan Visit Data Chief Complaint: Abnormal Labs/Diagnostic Testing Stated Complaint: RED BLOOD COUNT CRIT LOW ED Provider: Kevin Pate Discharge Problem: Symptomatic anemia, Weakness Patient Disposition: Admitted As Inpatient Discharge Instructions Interventions: ED Discharge Assessment Last Done: 08/02/23 22:43
[2023-08-02 18:15] LABS: Hematocrit (blood only) 21.3 % (37.0-47.0); Hemoglobin 6.4 g/dl (12.0-16.0); Mean Corpuscular Hemoglobin 22.5 pg (25.0-34.0); Mean Platelet Volume 9.3 fL (9.4-12.4); Nucleated RBC # (auto) 0.02 K/uL (0.00-0.12); Nucleated RBC % (auto) 0.3 %; Platelet Count 468 K/uL (130-400); RDW Coefficient of Variation 20.2 % (11.5-14.5); RDW Standard Deviation 55.4 fL (36.4-46.3); Red Blood Count 2.84 M/uL (4.20-5.40); White Blood Count 5.83 K/ul (4.8-10.8)
[2023-08-02 18:20] LABS: Albumin Globulin Ratio 1.1 (0.9-2); Albumin Level 3.9 gm/dl (3.4-5.0); BUN Creatinine Ratio 18.4 (10-20); Bilirubin,Total 0.2 mg/dl (0.2-1.0); Calcium 9.5 mg/dl (8.6-10.3); Creatinine Clr Calc Pharmacy 35.4 ml/min; Est GFR (African American) 52.6 ml/min; Est GFR (Non-African American) 45.4 ml/min; Globulin 3.4 gm/dl (2.5-4.0); Potassium 4.9 mmol/L (3.5-5.1); Total Protein 7.3 gm/dl (6.0-8.3)
[2023-08-02 18:43] LABS: Basophils # (auto) 0.05 K/uL (0.00-0.20); Basophils % (auto) 0.9 %; Eosinophils # (auto) 0.15 K/uL (0.00-0.50); Eosinophils % (auto) 2.6 %; Hypochromasia Present; Immature Granulocytes # (auto) 0.11 K/uL (0.01-0.20); Immature Granulocytes % (auto) 1.9 %; Lymphocytes # (auto) 1.51 K/uL (1.20-3.40); Lymphocytes % (auto) 25.9 %; Monocytes # (auto) 0.68 K/uL (0.11-0.59); Monocytes % (auto) 11.7 %; Neutrophils # (auto) 3.33 K/uL (1.40-6.50); Ovalocytes 1+; Polychromasia 1+; Tear Drop Cells 1+
[2023-08-02 18:58] LABS: Partial Thromboplastin Ratio 0.9; Partial Thromboplastin Time 25 Seconds (21-31); Prothrombin Time 11.4 Seconds (9.0-12.0)
--- NOTE | 2023-08-02 19:04 | History & Physical Report ---
Date of Service August 02, 2023 Assessment & Plan (1) Anemia: Plan: Unsteady gait, SOSA, and weakness x 2 weeks Hgb 6.4 and HCT 21.3 on arrival No signs of active bleeding on physical exam Patient denies any recent falls or trauma Patient denies hemoptysis, blood in urine or stool, or melena MCV 75.0 Vitamin B12 WNL Folate ordered, pending Iron panel ordered, pending Reticulocyte count ordered, pending Fecal occult blood ordered, pending Unclear etiology, but may be chronic; ?nutritional Recommend outpatient colonoscopy 4 units of PRBCs ordered in the ED; 2 units ordered to be transfused H&H ordered for 1 hour after first unit transfused Monitor for signs of transfusion reaction A.m. 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 Seizure-like activity at [facility] on 11/21/2022 Residual expressive aphasia and difficulty with word finding (3) Atrial fibrillation: Plan: EKG revealed NSR at 78 bpm; QTc 428 Continue metoprolol, Eliquis (4) Aphasia as late effect of cerebrovascular accident: Plan Disposition: Admit to [facility] telemetry DNR/DNI AHA diet VTE PPx: On Eliquis History of Present Illness Chief Complaint: Weakness, unsteady gait, SOSA Primary Care Provider: Kevin Fitzgerald MD Ghazal is an 82-year-old female with PMH of HLD, CVA (with residual effects), at [facility] fibrillation, HTN. Patient presented at the behest of her PCP for unsteady gait, SOSA, and weakness over the last 2 weeks. She also exhibited N/V/D during the holidays. History of anemia. Of note, patient had a left MCA CVA in June 2022, and has had residual symptoms including right arm and leg weakness, as well as expressive aphasia; she was also at [facility] for seizure-like activity on 11/21/2022. Patient has some difficulty providing an accurate history given her expressive aphasia and word finding difficulty. She was also recently ill with a holiday season with N/V/D, however this resolved prior to new years. Patient took all of her regular morning medications; she is on Eliquis. No sick contacts. She denies alcohol, tobacco, and recreational drug use. She denies recent change in medications. She denies any recent injuries, falls, or traumas; she denies any recent head strikes. No fainting. She ambulates with a walker at baseline. Vital stable at time of admission. ED course: NSS 250 mL x 2 4 units pRBCs ordered with 1st unit started in the ED ROS: Patient endorses fatigue, dry cough (x2 weeks), amb dysfunction, nausea, and SOSA (ongoing x 2weeks). Patient denies fever ,chills, nightsweats, CHOWDARY, rashes, brusing on body, hemoptysis, dizziness, lightheadedness, chest pain, SOB, abd pain, vomiting, diarrhea, dysuria, burning with urination, blood in the urine or stool, dark/tarry stools, or numbness/tingling going down arms or legs. Allergies Allergy/AdvReac Type Severity Reaction Status Date / Time bee venom protein (honey bee) Allergy Severe SHORTNESS Verified 08/02/23 18:27 OF BREATH latex Allergy Mild Redness of Verified 08/02/23 18:27 Skin Home Medications Medication Instructions Recorded Confirmed Type aspirin 81 mg tablet,delayed 81 mg PO QAM 04/04/23 08/02/23 History release cholecalciferol (vitamin D3) 125 125 mcg PO QAM 04/04/23 08/02/23 History mcg (5,000 unit) tablet (Vitamin D3) clopidogrel 75 mg tablet (Plavix) 75 mg PO QDL 04/04/23 08/02/23 History lamotrigine 100 mg tablet 100 mg PO BID #60 tabs 06/17/23 08/02/23 Rx Uqora-Part 2 Tablets 2 tab PO QAM 08/02/23 08/02/23 History Uqora-Part 3 Tablet 10 billion cells PO QAM 08/02/23 08/02/23 History amlodipine 2.5 mg tablet 2.5 mg PO DAILY #90 tabs 08/02/23 08/02/23 Rx apixaban 5 mg tablet (Eliquis) 5 mg PO BID #180 tabs 08/02/23 08/02/23 Rx atorvastatin 20 mg tablet 20 mg PO DAILY 08/02/23 08/02/23 History duloxetine 30 mg capsule,delayed 30 mg PO QAM #90 caps 01/05/24 01/05/24 Rx release (Cymbalta) epinephrine 0.3 mg/0.3 mL 0.3 mg (0.3 mL) subcut ONCE PRN 08/02/23 08/02/23 Rx injection, auto-injector anaphylaxis #1 ea metoprolol tartrate 25 mg tablet 25 mg PO BID #180 tabs 08/02/23 08/02/23 Rx omeprazole 20 mg capsule,delayed 20 mg PO DAILY #30 caps 08/02/23 08/02/23 Rx release Past Med/Surg History Medical History 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 per neuro, likely 2/2 previous CVA. no recurrence since. Follows with [facility]. 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 s/p mechanical thrombectomy (cause felt to be cardioembolic and pt had newly dx afib at the time). imaging of carotids at this time found R ICA stenosis Atrial fibrillation dx at time of CVA 06/2022; follows with Dr. Guajardo; on Eliquis and BB Vitamin D deficiency Hyperlipidemia Chronic venous insufficiency Surgical History History of surgery thrombectomy [facility] [place] CVA History of eye surgery laser eye surgery BL S/P tooth extraction Family History Sister Atrial fibrillation Stroke Muscular dystrophy Mother Diabetes Father Lung cancer Denies family history of Ovarian cancer Prostate cancer Myocardial infarction Breast cancer Colorectal cancer Social History Smoking Status: Former smoker Tobacco Type: Cigarettes Age Started Using Tobacco: 22; Age Quit Using Tobacco: 53; packs per day: 0.5; Second Hand Exposure: No; Do You Dip or Chew Tobacco: No; Hx Alcohol Use: No Hx Substance Use: No Preferred Language: Liberian Communication Ability: Effective Communication Ability Comment: expressive asphasia Visual Impairment: No Limitations Hearing Ability: Normal Cotton Broker Required: No Beliefs That Will Affect Care: None marital status: / Current Living Situation: Family Current Living Situation Comment: lives with her son and DIL current occupational status: retired Feels Safe at Home: Yes Childhood Exposure to Second-Hand Smoke: Yes Diet: regular caffeine: Yes Dental Care, Regularly: No Physical Activity Frequency: 1-2 Times per Week Physical Activity Frequency Comment: bird watching, puzzles and walking Seatbelt Use: always Sunscreen Use: No Assistive Devices: Cane and Walker Review of Systems Review of Systems: See HPI above Physical Exam Physical Exam: General: no acute distress; anxious; pallor; non-toxic appearing; frail appearing; cooperative HEENT: normocephalic, atraumatic; no scleral icterus; PERRLA w/ EOMs intact; moist mucus membrane; vision and hearing grossly intact Neck: supple; no JVD; no lymphadenopathy; trachea midline Skin: warm, dry without signs of tenting; no cyanosis; no rashes, bruising, lesions, or erythema noted CV: chest wall NTP; RRR; split S1/S2 heart sounds; no murmurs/rubs/gallops; pulses intact and symmetric at radial, DP, and PT Lungs: no acute respiratory distress; symmetrical chest wall expansion; clear breath sounds across all lung z[place] w/o adventitious sounds; no wheezing ABD: Soft, NTP; BS present; no rebound/guarding; no ascites; no distention; negative CVA tenderness MSK: no tics or fasciculations; +1 pitting edema in LEs around the ankles B/L Neuro: Expressive aphasia; unable to provide name or date of , which patient believes is due to her word finding difficulty; normal mood and affect; fluent speech; CN2-12 intact; no focal deficits; sensation grossly intact in LEs B/L Results & Data Results & Data Vital Signs (Past 12 Hours) Vital Signs Temp Pulse Pulse Resp BP BP Pulse Ox 08/02/23 18:00 75 20 116/94 99 08/02/23 17:58 75 08/02/23 17:22 36.6 C 88 18 125/55 L 97 O2 Del Method 08/02/23 18:00 Room Air 08/02/23 17:58 08/02/23 17:22 Room Air Laboratory Results Abnormal lab results 08/02/23 Range/Units 17:45 RBC 2.84 L (4.20-5.40) M/uL Hgb 6.4 L* (12.0-16.0) g/dl Hct 21.3 L (37.0-47.0) % MCV 75.0 L (80.0-100.0) fL MCH 22.5 L (25.0-34.0) pg MCHC 30.0 L (32.0-36.0) g/dL RDW Std Deviation 55.4 H (36.4-46.3) fL RDW Coeff of Rosa Elena 20.2 H (11.5-14.5) % Plt Count 468 H (130-400) K/uL MPV 9.3 L (9.4-12.4) fL [place] # (Auto) 0.68 H (0.11-0.59) K/uL Glucose 112 H (70-99(Fasting)) mg/dl Crossmatch See Detail Code Status & VTE Plan Code Status DNR/DNI VTE Prophylaxis Plan VTE Prophylaxis will be ordered: Yes Supervising Physician Co-Signing Physician Notes Patient seen and examined, chart reviewed, case discussed with Danie Muro PA-C and I agree with the assessment and plan as above except as otherwise noted Labs and images reviewed Patient presents with global weakness and unsteady gait and lightheadedness for 2 weeks. Limited historian. Denies hx of colonoscpoy/colon cancer. She has microcytic and severely anemic with hemoglobin 6.4 on admission. Patient was ordered 2 units with H&H check after 1 unit. Second unit is to be determined based on repeat hemoglobin/symptoms. 2 additional units are on hold but not ordered for transfusion hx afib on apixaban. Hx of CVA on asa/plaavix. N/V/D 1 week ago, weakness pallor after. No melena/hematochezia. No epigastric pain. No hx of colonoscopy. BUN is not elevated and without acute gastric pain do not suspect upper GI source. She has not had large-volume bleeding enough to notice, colon cancer is not ruled can f/u colonoscopy as outpatient alternatively Cologuard. Iron panel is pending, she is microcytic and likely iron deficient. If iron deficiency is seen then can transfuse Venofer 300mg daily up to 1g total during hospitalization. Do not infuse same day as blood. No acute upper or lower bleed appreciated may be nutritional versus malignant. Eliquis and antiplatelet. Continue; if clinical evidence of bleeding develops hold this PG Care Time/CCT Total # of Minutes Spent Total Time Spent with Patient: Total time spent is greater than 50% in coordination of care (as documented) at patient's floor/unit and/or counseling patient: C[place] [address] INT INP/OBS CARE 2/55MIN Patient Type Established History Comprehensive Exam Comprehensive Medical Decision Making Moderate Complexity Diagnoses Anemia D64.9 History of stroke Z86.73 Atrial fibrillation I48.91 Aphasia as late effect of cerebrovascular accident I69.320
--- NOTE | 2023-08-02 20:06 | XRay Report ---
SINGLE VIEW CHEST CLINICAL HISTORY: Generalized weakness. FINDINGS: An AP, portable, upright chest radiograph is compared to study dated 04/21/2023 correlation is made with chest CT performed the same day 08/02/2023.. The heart is mildly enlarged but noting ather osclerotic calcification of the thoracic aorta. The pulmonary vasculature is noncongested. There is c hronic elevation of the right hemidiaphragm. Scarring/atelectasis is noted at both lung bases. Chroni c interstitial thickening and nodularity is similar to previous. No airspace consolidation or pleural effusion is identified. No pneumothorax is seen. The skeletal structures are osteopenic. The bony th orax is grossly intact. IMPRESSION: Cardiomegaly with no active disease in the chest. ACT 112: Negative or not required by law. Electronically signed by: Ramesh Price M.D. 08/02/2023 8:05 PM
[2023-08-02 21:24] LABS: Reticulocyte % 1.2 % (0.5-2.0); Reticulocytes # 0.03 10^6/uL (0.02-0.10)
[2023-08-02] MEDS ORDERED: ACETAMINOPHEN 325 MG TAB PO PRN (22:44)
[2023-08-02] MEDS ORDERED: EPINEPHrine INJ 1 MG/ML AMP IM PRN (22:52)
[2023-08-02 23:03] LABS: Hematocrit (blood only) 25.9 % (37.0-47.0); Hemoglobin 7.8 g/dl (12.0-16.0)
[2023-08-02] MEDS: lamoTRIgine 100 MG TAB PO SCH (23:44)
[2023-08-02] MEDS: METOPROLOL TARTRATE 25 MG TAB PO SCH (23:45)
[2023-08-03 07:19] LABS: Basophils # (auto) 0.04 K/uL (0.00-0.20); Basophils % (auto) 0.7 %; Eosinophils # (auto) 0.24 K/uL (0.00-0.50); Eosinophils % (auto) 4.3 %; Hemoglobin 7.6 g/dl (12.0-16.0); Immature Granulocytes # (auto) 0.06 K/uL (0.01-0.20); Immature Granulocytes % (auto) 1.1 %; Lymphocytes % (auto) 26.6 %; Mean Corpuscular Hemoglobin 23.2 pg (25.0-34.0); Mean Corpuscular Hgb Conc 30.4 g/dL (32.0-36.0); Mean Corpuscular Volume 76.2 fL (80.0-100.0); Monocytes # (auto) 0.63 K/uL (0.11-0.59); Monocytes % (auto) 11.2 %; Neutrophils # (auto) 3.17 K/uL (1.40-6.50); Neutrophils % (auto) 56.1 %; Platelet Count 425 K/uL (130-400); RDW Coefficient of Variation 18.9 % (11.5-14.5); RDW Standard Deviation 52.9 fL (36.4-46.3); Red Blood Count 3.28 M/uL (4.20-5.40); White Blood Count 5.64 K/ul (4.8-10.8)
[2023-08-03 07:34] LABS: BUN Creatinine Ratio 18.1 (10-20); Calcium 8.9 mg/dl (8.6-10.3); Creatinine Clr Calc Pharmacy 42.7 ml/min; Est GFR (African American) 66.4 ml/min; Est GFR (Non-African American) 57.3 ml/min
[2023-08-03 08:03] LABS: Microcytosis Present; Polychromasia 1+
[2023-08-03] MEDS ORDERED: APIXABAN 5 MG TABLET PO SCH (09:00)
[2023-08-03] MEDS: METOPROLOL TARTRATE 25 MG TAB PO SCH ×2 (10:20→19:48)
[2023-08-03] MEDS: lamoTRIgine 100 MG TAB PO SCH ×2 (10:21→19:47)
[2023-08-03] MEDS: ATORVASTATIN 20 MG TAB PO SCH (10:21)
[2023-08-03] MEDS: PANTOprazole 40 MG TAB PO SCH (10:22)
[2023-08-03] MEDS: amLODIPine BESYLATE 5 MG TAB PO SCH (10:22)
[2023-08-03] MEDS: ASPIRIN 81 MG ECTAB PO SCH (10:23)
[2023-08-03] MEDS: DULoxetine HCL 30 MG CAP PO SCH (10:24)
[2023-08-03] MEDS: CLOPIDOGREL BISULFATE 75 MG TAB PO SCH (12:43)
--- NOTE | 2023-08-03 13:41 | Hospitalist Progress Note ---
Date of Service August 03, 2023 Assessment & Plan (1) Anemia: Plan: Unsteady gait, SOSA, and weakness x 2 weeks Hgb 6.4 and HCT 21.3 on arrival No signs of active bleeding on physical exam Patient denies any recent falls or trauma Patient denies hemoptysis, blood in urine or stool, or melena MCV 75.0 Vitamin B12 WNL Folate normal Iron panel suggestive of iron deficiency anemia. Family states that she is a picky eater and does not have a balanced diet. Family did not notice any blood in stools or bloody vomiting even though lately she had nausea vomiting and diarrhea. Reticulocyte count was normal Fecal occult blood ordered, pending Unclear etiology, but may be chronic; ?nutritional Recommend outpatient colonoscopy Patient received blood transfusion H&H every 8 ordered Discontinue p.o. Eliquis for the time being A.m. 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 Denies chest pain or shortness of breath. She has not had any bowel movement since admission. Stool occult blood test has been ordered but was not collected since she has not had any bowel movement. I personally spoke to the son and his who stated that she had nausea, vomiting and diarrhea around [place]. They do not know if she had any blood in vomitus or stool. Since then, she has never recovered. Has been sleeping more, very fatigued, having balance issues. Review of Systems Review of Systems: All systems reviewed & are unremarkable except as noted in Subjective Physical Exam Physical Exam: Abnormal lab results 08/02/23 08/02/23 08/03/23 Range/Units 17:45 22:37 05:54 RBC 2.84 L 3.28 L (4.20-5.40) M/uL Hgb 6.4 L* 7.8 L 7.6 L (12.0-16.0) g/dl Hct 21.3 L 25.9 L 25.0 L (37.0-47.0) % MCV 75.0 L 76.2 L (80.0-100.0) fL MCH 22.5 L 23.2 L (25.0-34.0) pg MCHC 30.0 L 30.4 L (32.0-36.0) g/dL RDW Std Deviation 55.4 H 52.9 H (36.4-46.3) fL RDW Coeff of Rosa Elena 20.2 H 18.9 H (11.5-14.5) % Plt Count 468 H 425 H (130-400) K/uL MPV 9.3 L 9.0 L (9.4-12.4) fL [place] # (Auto) 0.68 H 0.63 H (0.11-0.59) K/uL Glucose 112 H (70-99(Fasting)) mg/dl Iron 17 L (35-150) mcg/dl Unsaturated IBC 385 H (155-355) mcg/dl Transferrin % Sat 4 L (15-50) % Crossmatch See Detail Results & Data Results & Data Vital Signs (Past 12 Hours) Vital Signs Temp Pulse Pulse Resp BP Pulse Ox O2 Del Method 08/03/23 11:46 36.6 C 58 L 18 118/62 93 Room Air 08/03/23 07:51 36.5 C 68 18 150/87 H 93 Room Air 08/03/23 07:13 68 08/03/23 04:00 36.6 C 63 18 112/65 95 Room Air Laboratory Results Abnormal lab results 08/02/23 08/02/23 08/03/23 Range/Units 17:45 22:37 05:54 RBC 2.84 L 3.28 L (4.20-5.40) M/uL Hgb 6.4 L* 7.8 L 7.6 L (12.0-16.0) g/dl Hct 21.3 L 25.9 L 25.0 L (37.0-47.0) % MCV 75.0 L 76.2 L (80.0-100.0) fL MCH 22.5 L 23.2 L (25.0-34.0) pg MCHC 30.0 L 30.4 L (32.0-36.0) g/dL RDW Std Deviation 55.4 H 52.9 H (36.4-46.3) fL RDW Coeff of Rosa Elena 20.2 H 18.9 H (11.5-14.5) % Plt Count 468 H 425 H (130-400) K/uL MPV 9.3 L 9.0 L (9.4-12.4) fL [place] # (Auto) 0.68 H 0.63 H (0.11-0.59) K/uL Glucose 112 H (70-99(Fasting)) mg/dl Iron 17 L (35-150) mcg/dl Unsaturated IBC 385 H (155-355) mcg/dl Transferrin % Sat 4 L (15-50) % Crossmatch See Detail Diagnostic Findings Chest X-Ray 08/02/23 19:03 SINGLE VIEW CHEST CLINICAL HISTORY: Generalized weakness. FINDINGS: An AP, portable, upright chest radiograph is compared to study dated 04/21/2023 correlation is made with chest CT performed the same day 08/02/2023.. The heart is mildly enlarged but noting atherosclerotic calcification of the thoracic aorta. The pulmonary vasculature is noncongested. There is chronic elevation of the right hemidiaphragm. Scarring/atelectasis is noted at both lung bases. Chronic interstitial thickening and nodularity is similar to previous. No airspace consolidation or pleural effusion is identified. No pneumothorax is seen. The skeletal structures are osteopenic. The bony thorax is grossly intact. IMPRESSION: Cardiomegaly with no active disease in the chest. ACT 112: Negative or not required by law. Electronically signed by: Ramesh Price M.D. 08/02/2023 8:05 PM PG Care Time/CCT Total # of Minutes Spent Total Time Spent with Patient: Total time spent is greater than 50% in coordination of care (as documented) at patient's floor/unit and/or counseling patient: Coding Level of Care Code 60335 SUB INP/OBS CARE 2/35MIN Diagnoses Anemia D64.9 History of stroke Z86.73 Atrial fibrillation I48.91 Aphasia as late effect of cerebrovascular accident I69.320
[2023-08-03 14:39] LABS: Hematocrit (blood only) 26.8 % (37.0-47.0); Hemoglobin 8.1 g/dl (12.0-16.0)
[2023-08-03 23:14] LABS: Hematocrit (blood only) 26.2 % (37.0-47.0); Hemoglobin 7.9 g/dl (12.0-16.0)
[2023-08-04 05:56] LABS: Basophils # (auto) 0.05 K/uL (0.00-0.20); Basophils % (auto) 0.8 %; Eosinophils # (auto) 0.28 K/uL (0.00-0.50); Eosinophils % (auto) 4.6 %; Hematocrit (blood only) 26.1 % (37.0-47.0); Hemoglobin 8.1 g/dl (12.0-16.0); Immature Granulocytes # (auto) 0.06 K/uL (0.01-0.20); Lymphocytes # (auto) 1.36 K/uL (1.20-3.40); Lymphocytes % (auto) 22.3 %; Mean Corpuscular Hemoglobin 23.7 pg (25.0-34.0); Mean Corpuscular Volume 76.3 fL (80.0-100.0); Mean Platelet Volume 8.7 fL (9.4-12.4); Monocytes # (auto) 0.65 K/uL (0.11-0.59); Monocytes % (auto) 10.6 %; Neutrophils # (auto) 3.71 K/uL (1.40-6.50); Neutrophils % (auto) 60.7 %; Platelet Count 429 K/uL (130-400); RDW Coefficient of Variation 19.4 % (11.5-14.5); RDW Standard Deviation 53.5 fL (36.4-46.3); Red Blood Count 3.42 M/uL (4.20-5.40); White Blood Count 6.11 K/ul (4.8-10.8)
[2023-08-04 06:07] LABS: BUN Creatinine Ratio 22.8 (10-20); Calcium 8.8 mg/dl (8.6-10.3); Creatinine Clr Calc Pharmacy 43.7 ml/min; Est GFR (African American) 68.2 ml/min; Est GFR (Non-African American) 58.8 ml/min; Potassium 4.3 mmol/L (3.5-5.1)
[2023-08-04] MEDS: PANTOprazole 40 MG TAB PO SCH (09:02)
[2023-08-04] MEDS: ASPIRIN 81 MG ECTAB PO SCH (09:02)
[2023-08-04] MEDS: METOPROLOL TARTRATE 25 MG TAB PO SCH ×2 (09:03→20:53)
[2023-08-04] MEDS: DULoxetine HCL 30 MG CAP PO SCH (09:03)
[2023-08-04] MEDS: amLODIPine BESYLATE 5 MG TAB PO SCH (09:03)
[2023-08-04] MEDS: ATORVASTATIN 20 MG TAB PO SCH (09:03)
[2023-08-04] MEDS: lamoTRIgine 100 MG TAB PO SCH ×2 (09:03→20:52)
[2023-08-04] MEDS: CLOPIDOGREL BISULFATE 75 MG TAB PO SCH (12:07)
--- NOTE | 2023-08-04 13:42 | Hospitalist Progress Note ---
Date of Service August 04, 2023 Assessment & Plan (1) Anemia: Plan: Unsteady gait, SOSA, and weakness x 2 weeks Hgb 6.4 and HCT 21.3 on arrival No signs of active bleeding on physical exam Patient denies any recent falls or trauma Patient denies hemoptysis, blood in urine or stool, or melena MCV 75.0 Vitamin B12 WNL Folate normal Iron panel suggestive of iron deficiency anemia. Family states that she is a picky eater and does not have a balanced diet. Family did not notice any blood in stools or bloody vomiting even though lately she had nausea vomiting and diarrhea. Reticulocyte count was normal Fecal occult blood was negative Unclear etiology, but may be chronic; ?nutritional Recommend outpatient colonoscopy Patient received blood transfusion H&H every 8 ordered Patient was on triple therapy with aspirin, Plavix, Eliquis. I decided to resume Eliquis now that I know that her fecal occult blood test was negative which means she is not actively bleeding at this time. But it remains unknown as to whether she bled previously. I will discontinue aspirin. Will continue Plavix and Eliquis Monitor H&H while on Plavix and Eliquis. If H&H stable and no bleeding, will discharge tomorrow. A.m. 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 Seizure-like activity at [facility] on 11/21/2022 Residual expressive aphasia and difficulty with word finding Continue Plavix and Eliquis Discontinue aspirin in the face of symptomatic anemia (3) Atrial fibrillation: Plan: EKG revealed NSR at 78 bpm; QTc 428 Continue metoprolol Resume Eliquis, now that we know stool guaiac is negative and she is not actively bleeding (4) Aphasia as late effect of cerebrovascular accident: Plan DNR/DNI AHA diet VTE PPx: On Eliquis Admission and Anticipated Discharge Date Admission Date: August 02, 2023 Subjective Patient had a few bowel movement today and finally had stool guaiac done. She denies chest pain or shortness of breath. Review of Systems Review of Systems: All systems reviewed & are unremarkable except as noted in Subjective Physical Exam Physical Exam: General: Awake. Unable to hold a conversation because of her significant exp ressive aphasia Heart: S1, S2/regular rate and rhythm, no murmur rubs or gallops Lungs: Clear to auscultation bilaterally. Normal effort Abdomen: Soft/nontender/nondistended. No hepatosplenomegaly Extremities: No clubbing/cyanosis. No edema Behavior: Appropriate, cooperative Results & Data Results & Data Vital Signs (Past 12 Hours) Vital Signs Temp Pulse Pulse Resp BP Pulse Ox O2 Del Method 08/04/23 11:28 36.5 C 61 18 123/64 94 Room Air 08/04/23 07:43 36.4 C L 64 18 124/72 95 Room Air 08/04/23 07:24 58 L 08/04/23 02:59 36.3 C L 59 L 16 123/72 95 Room Air Laboratory Results Abnormal lab results 08/03/23 08/03/23 08/04/23 Range/Units 14:24 22:38 05:30 RBC 3.42 L (4.20-5.40) M/uL Hgb 8.1 L 7.9 L 8.1 L (12.0-16.0) g/dl Hct 26.8 L 26.2 L 26.1 L (37.0-47.0) % MCV 76.3 L (80.0-100.0) fL MCH 23.7 L (25.0-34.0) pg MCHC 31.0 L (32.0-36.0) g/dL RDW Std Deviation 53.5 H (36.4-46.3) fL RDW Coeff of Rosa Elena 19.4 H (11.5-14.5) % Plt Count 429 H (130-400) K/uL MPV 8.7 L (9.4-12.4) fL [place] # (Auto) 0.65 H (0.11-0.59) K/uL BUN/Creatinine Ratio 22.8 H (10-20) Glucose 101 H (70-99(Fasting)) mg/dl PG Care Time/CCT Total # of Minutes Spent Total Time Spent with Patient: Total time spent is greater than 50% in coordination of care (as documented) at patient's floor/unit and/or counseling patient: Coding Level of Care Code 57168 SUB INP/OBS CARE 2/35MIN Diagnoses Anemia D64.9 History of stroke Z86.73 Atrial fibrillation I48.91 Aphasia as late effect of cerebrovascular accident I69.320
[2023-08-04] MEDS: APIXABAN 5 MG TABLET PO SCH (21:10)
--- NOTE | 2023-08-04 21:25 | Electrocardiogram Report ---
Test Reason : Blood Pressure : / mmHG Vent. Rate : 078 BPM Atrial Rate : 078 BPM P-R Int : 168 ms QRS Dur : 082 ms QT Int : 376 ms P-R-T Axes : 075 030 056 degrees QTc Int : 428 ms Normal sinus rhythm Normal ECG When compared with ECG of 21-APR-2023 11:02, T wave inversion no longer evident in Anterolateral leads Confirmed by Osman Sepulveda ([id number]) on 08/04/2023 9:25:10 PM Referred By: Kevin Fitzgerald Confirmed By:Osman Sepulveda
[2023-08-05 06:22] LABS: Basophils # (auto) 0.05 K/uL (0.00-0.20); Eosinophils # (auto) 0.28 K/uL (0.00-0.50); Eosinophils % (auto) 5.7 %; Hematocrit (blood only) 26.8 % (37.0-47.0); Hemoglobin 8.2 g/dl (12.0-16.0); Immature Granulocytes # (auto) 0.04 K/uL (0.01-0.20); Immature Granulocytes % (auto) 0.8 %; Lymphocytes # (auto) 1.43 K/uL (1.20-3.40); Lymphocytes % (auto) 28.9 %; Mean Corpuscular Hemoglobin 23.2 pg (25.0-34.0); Mean Corpuscular Hgb Conc 30.6 g/dL (32.0-36.0); Mean Corpuscular Volume 75.7 fL (80.0-100.0); Mean Platelet Volume 8.8 fL (9.4-12.4); Monocytes # (auto) 0.52 K/uL (0.11-0.59); Monocytes % (auto) 10.5 %; Neutrophils # (auto) 2.63 K/uL (1.40-6.50); Neutrophils % (auto) 53.1 %; Platelet Count 476 K/uL (130-400); RDW Coefficient of Variation 19.6 % (11.5-14.5); RDW Standard Deviation 54.1 fL (36.4-46.3); Red Blood Count 3.54 M/uL (4.20-5.40); White Blood Count 4.95 K/ul (4.8-10.8)
[2023-08-05 06:45] LABS: BUN Creatinine Ratio 16.5 (10-20); Calcium 9.2 mg/dl (8.6-10.3); Creatinine Clr Calc Pharmacy 32.3 ml/min; Est GFR (Non-African American) 44.9 ml/min; Potassium 4.3 mmol/L (3.5-5.1)
[2023-08-05] MEDS: amLODIPine BESYLATE 5 MG TAB PO SCH (08:02)
[2023-08-05] MEDS: DULoxetine HCL 30 MG CAP PO SCH (08:02)
[2023-08-05] MEDS: PANTOprazole 40 MG TAB PO SCH (08:02)
[2023-08-05] MEDS: lamoTRIgine 100 MG TAB PO SCH (08:03)
[2023-08-05] MEDS: METOPROLOL TARTRATE 25 MG TAB PO SCH (08:03)
[2023-08-05] MEDS: ATORVASTATIN 20 MG TAB PO SCH (08:03)
[2023-08-05] MEDS: APIXABAN 5 MG TABLET PO SCH (08:04)
[2023-08-05] MEDS: CLOPIDOGREL BISULFATE 75 MG TAB PO SCH (10:45)
--- NOTE | 2023-08-05 13:21 | Discharge Summary ---
Date of Service August 05, 2023 Admission HPI Per Admitting Provider Ghazal is an 82-year-old female with PMH of HLD, CVA (with residual effects), atrial fibrillation, HTN. Patient presented at the behest of her PCP for unsteady gait, SOSA, and weakness over the last 2 weeks. She also exhibited N/V/D during the holidays. History of anemia. Of note, patient had a left MCA CVA in June 2022, and has had residual symptoms including right arm and leg weakness, as well as expressive aphasia; she was also at [facility] for seizure-like activity on 11/21/2022. Patient has some difficulty providing an accurate history given her expressive aphasia and word finding difficulty. She was also recently ill with a holiday season with N/V/D, however this resolved prior to new years. Patient took all of her regular morning medications; she is on Eliquis. No sick contacts. She denies alcohol, tobacco, and recreational drug use. She denies recent change in medications. She denies any recent injuries, falls, or traumas; she denies any recent head strikes. No fainting. She ambulates with a walker at baseline. Vital stable at time of admission. ED course: NSS 250 mL x 2 4 units pRBCs ordered with 1st unit started in the ED ROS: Patient endorses fatigue, dry cough (x2 weeks), amb dysfunction, nausea, and SOSA (ongoing x 2weeks). Patient denies fever ,chills, nightsweats, CHODWARY, rashes, brusing on body, hemoptysis, dizziness, lightheadedness, chest pain, SOB, abd pain, vomiting, diarrhea, dysuria, burning with urination, blood in the urine or stool, dark/tarry stools, or numbness/tingling going down arms or legs. Admission Exam Per Admitting Provider General: no acute distress; anxious; pallor; non-toxic appearing; frail appearing; cooperative HEENT: normocephalic, atraumatic; no scleral icterus; PERRLA w/ EOMs intact; moist mucus membrane; vision and hearing grossly intact Neck: supple; no JVD; no lymphadenopathy; trachea midline Skin: warm, dry without signs of tenting; no cyanosis; no rashes, bruising, lesions, or erythema noted CV: chest wall NTP; RRR; split S1/S2 heart sounds; no murmurs/rubs/gallops; pulses intact and symmetric at radial, DP, and PT Lungs: no acute respiratory distress; symmetrical chest wall expansion; clear breath sounds across all lung [place] w/o adventitious sounds; no wheezing ABD: Soft, NTP; BS present; no rebound/guarding; no ascites; no distention; nega tive CVA tenderness MSK: no tics or fasciculations; +1 pitting edema in LEs around the ankles B/L Neuro: Expressive aphasia; unable to provide name or date of , which patient believes is due to her word finding difficulty; normal mood and affect; fluent speech; CN2-12 intact; no focal deficits; sensation grossly intact in LEs B/L Principal Diagnosis Profound symptomatic anemia Likely iron deficiency anemia Probable recent blood loss with vomiting and diarrhea versus nutritional deficiencies Discharge Exam General: Awake. Unable to hold a conversation because of her significant expressive aphasia Heart: S1, S2/regular rate and rhythm, no murmur rubs or gallops Lungs: Clear to auscultation bilaterally. Normal effort Abdomen: Soft/nontender/nondistended. No hepatosplenomegaly Extremities: No clubbing/cyanosis. No edema Behavior: Appropriate, cooperative Discharge Data Allergies Allergy/AdvReac Type Severity Reaction Status Date / Time bee venom protein (honey bee) Allergy Severe SHORTNESS Verified 08/02/23 18:27 OF BREATH latex Allergy Mild Redness of Verified 08/02/23 18:27 Skin Consultations 08/02/23 18:53 ED Decision to Admit Stat Hospital Course (1) Anemia: Unsteady gait, SOSA, and weakness x 2 weeks Hgb 6.4 and HCT 21.3 on arrival No signs of active bleeding on physical exam Patient denies any recent falls or trauma Patient denies hemoptysis, blood in urine or stool, or melena MCV 75.0 Vitamin B12 WNL Folate normal Iron panel suggestive of iron deficiency anemia. Family states that she is a picky eater and does not have a balanced diet. Family did not notice any blood in stools or bloody vomiting even though lately she had nausea vomiting and diarrhea. Reticulocyte count was normal Fecal occult blood was negative Unclear etiology, but may be chronic; ?nutritional Recommend outpatient colonoscopy Patient received blood transfusion H&H stable on Plavix and Eliquis Patient was on triple therapy with aspirin, Plavix, Eliquis. I decided to resume Eliquis now that I know that her fecal occult blood test was negative which means she is not actively bleeding at this time. But it remains unknown as to whether she bled previously. I will discontinue aspirin. 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 Seizure-like activity at [facility] on 11/21/2022 Residual expressive aphasia and difficulty with word finding Continue Plavix and Eliquis Discontinue aspirin in the face of symptomatic anemia (3) Atrial fibrillation: EKG revealed NSR at 78 bpm; QTc 428 Continue metoprolol Resume Eliquis, now that we know stool guaiac is negative and she is not actively bleeding (4) Aphasia as late effect of cerebrovascular accident: Plan DNR/DNI AHA diet VTE PPx: On Eliquis Total Time Total Time Spent Total Time Spent (In Minutes): 35 Discharge Plan Discharge Items Patient Disposition: Home - Self-Care Reason For Visit: ANEMIA, SOSA, WEAKNESS Discharge Diagnosis: Profound symptomatic anemia Likely iron deficiency anemia Probable recent blood loss with vomiting and diarrhea versus nutritional deficiencies Activity: Resume your previous activity Non-emergency contact: Primary Care Provider Call non-emergency contact if: you have any medication questions and your symptoms worsen Follow-up/Referrals: Kevin Fitzgerald MD [Primary Care Provider] - 08/14/23 3:00 pm Diet: Heart Healthy Addtl Attending Provider Instructions: Advised to follow-up with PCP in 1 week Advised to note that you were on triple blood thinners including aspirin, Plavix, Eliquis and you came with severe symptomatic anemia. Your stool occult blood test was negative which tells me that you are not actively bleeding from your gut. However, with being on 3 blood thinners, you are at risk of GI bleeding. I thus decided to stop the aspirin. You can continue the Plavix and Eliquis for now. You may also have some nutritional deficiencies with iron deficiency leading to the anemia. Pending Studies at Discharge: No Stand-Alone Forms: My [facility] AskforTask, Smoking Cessation Medications and DC Order Prescriptions: New ferrous sulfate [FeroSul] 325 mg (65 mg iron) tablet 325 mg PO DAILY Qty: 30 0RF Continued lamotrigine 100 mg tablet 100 mg PO BID Qty: 60 2RF duloxetine [Cymbalta] 30 mg capsule,delayed release(DR/EC) 30 mg PO QAM Qty: 90 1RF amlodipine 2.5 mg tablet 2.5 mg PO DAILY Qty: 90 3RF Eliquis 5 mg tablet 5 mg PO BID Qty: 180 1RF epinephrine 0.3 mg/0.3 mL auto-injector 0.3 mg subcut ONCE PRN (Reason: anaphylaxis) Qty: 1 3RF metoprolol tartrate 25 mg tablet 25 mg PO BID Qty: 180 1RF omeprazole 20 mg capsule,delayed release(DR/EC) 20 mg PO DAILY Qty: 30 2RF clopidogrel [Plavix] 75 mg Tablet 75 mg PO QDL cholecalciferol (vitamin D3) [Vitamin D3] 125 mcg (5,000 unit) Tablet 125 mcg PO QAM [place]-Part 2 Tablets 2 tab PO QAM Rx Instructions: EACH TABLET CONTAINS--VITAMIN D-1,500 UNITS, E-GGXFAED-610 MG, TURMERIC ROOT- 200 MG, GREEEN LEAF-200 MG, & BLACK PEPPER FRUIT POWDER-10 MG. [place]-Part 3 Tablet 10 billion cells PO QAM Rx Instructions: PROBIOTIC-LACTOBACILLUS atorvastatin 20 mg tablet 20 mg PO DAILY Rx Instructions: TAKE 1 TABLET BY MOUTH ONCE DAILY Discontinued aspirin 81 mg tablet,delayed release (DR/EC) 81 mg PO QAM Discharge Orders: Discharge Order (Routine); Ordered 08/05/23 Ordered By: Yeimy Greene Admission Data Admit Date/Time: 08/02/23 20:52 Attending Provider: Yeimy Greene Admit Provider: Charlie Cardenas Primary Care Provider: Kevin Fitzgerald Other Providers: Charlie Cardenas Other Interventions: Discharge Summary Assessment (RN) Last Done: 08/05/23 14:39 Coding Level of Care Code 50381 INP/OBS DISCH >30 MIN Diagnoses Anemia D64.9 History of stroke Z86.73 Atrial fibrillation I48.91 Aphasia as late effect of cerebrovascular accident I69.320
== END 2023-08-05 18:36 | disposition home or self-care (01) | DRG 812 ==
LOC: ED 17:11 → SUATTDRO 20:52 → EDINP 20:52 → 2N 22:43

== ENCOUNTER 2023-09-16 10:56 | Inpatient (IN) ==
[2023-09-16 12:55] LABS: Basophils # (auto) 0.03 K/uL (0.00-0.20); Basophils % (auto) 0.4 %; Eosinophils # (auto) 0.02 K/uL (0.00-0.50); Eosinophils % (auto) 0.3 %; Hemoglobin 11.1 g/dl (12.0-16.0); Immature Granulocytes # (auto) 0.04 K/uL (0.01-0.20); Immature Granulocytes % (auto) 0.6 %; Lymphocytes # (auto) 1.12 K/uL (1.20-3.40); Lymphocytes % (auto) 15.9 %; Mean Corpuscular Hemoglobin 24.2 pg (25.0-34.0); Mean Corpuscular Hgb Conc 31.7 g/dL (32.0-36.0); Mean Corpuscular Volume 76.3 fL (80.0-100.0); Mean Platelet Volume 8.8 fL (9.4-12.4); Monocytes # (auto) 0.67 K/uL (0.11-0.59); Monocytes % (auto) 9.5 %; Neutrophils # (auto) 5.17 K/uL (1.40-6.50); Neutrophils % (auto) 73.3 %; Platelet Count 420 K/uL (130-400); RDW Coefficient of Variation 24.1 % (11.5-14.5); RDW Standard Deviation 66.2 fL (36.4-46.3); Red Blood Count 4.59 M/uL (4.20-5.40); White Blood Count 7.05 K/ul (4.8-10.8)
[2023-09-16 13:10] LABS: Alanine Aminotransferase 13 U/L (7-52); Albumin Globulin Ratio 0.9 (0.9-2); Albumin Level 3.8 gm/dl (3.4-5.0); Alkaline Phosphatase 85 U/L (34-104); Anion Gap 9 (3-11); Aspartate Aminotransferase 19 U/L (13-39); BUN Creatinine Ratio 10.1 (10-20); Bilirubin,Total 0.5 mg/dl (0.2-1.0); Blood Urea Nitrogen 11 mg/dl (6-23); Calcium 9.6 mg/dl (8.6-10.3); Carbon Dioxide 28 mmol/L (21-32); Chloride 97 mmol/L (98-107); Est GFR (African American) 55.5 ml/min; Est GFR (Non-African American) 47.9 ml/min; Globulin 4.1 gm/dl (2.5-4.0); Glucose 111 mg/dl (70-99(Fasting)); Potassium 3.9 mmol/L (3.5-5.1); Sodium 134 mmol/L (136-145); Total Protein 7.9 gm/dl (6.0-8.3)
[2023-09-16 13:11] LABS: INR 1.1 (0.9-1.1); Partial Thromboplastin Ratio 1.1; Partial Thromboplastin Time 31 Seconds (21-31); Prothrombin Time 11.9 Seconds (9.0-12.0)
--- NOTE | 2023-09-16 13:19 | CT Scan Report ---
CT cervical spine wo con CLINICAL HISTORY: fall TECHNIQUE: Multidetector row helical CT of the cervical spine was performed without administration of intravenous contrast. Coronal and sagittal reformations were obtained. Automated dose lowering techn iques and/or adjustment according to patient size were utilized for this exam. Comparison: Comparison is made to CTA neck 04/21/2023 FINDINGS: No acute fractures or subluxations are identified. Degenerative changes are seen in the visualized sp ine. The alignment is normal. Biapical scarring is seen in the lungs. Partial visualization of a righ t carotid stent. IMPRESSION: Degenerative changes without evidence of acute bony injury. ACT 112: Negative or not required by law. Electronically signed by: Desean Alanis M.D. 09/16/2023 1:17 PM
--- NOTE | 2023-09-16 13:24 | CT Scan Report ---
HEAD CT NONCONTRAST CT DOSE: HISTORY: fall TECHNIQUE: Multiaxial CT images of the head were performed without the use of intravenous contrast. A utomated exposure control was utilized for this study. A dose lowering technique was utilized adheri ng to the principles of ALARA. Comparison: Head CT 04/21/2023. Findings: The paranasal sinuses and mastoid air cells are clear. The calvarium and skull base are int act. There is no mass, hematoma, midline shift, acute infarct. White matter hypodensity is nonspecifi c but suggestive of microvascular ischemic change. The ventricles and sulci demonstrate mild age-rela gustavo involutional changes. There is an old left MCA territory infarct again noted. This remains unchan ged. Impression: No significant change compared to the prior study. No acute intracranial abnormality. ACT 112: Negative or not required by law. Electronically signed by: Danie Mcneil M.D. 09/16/2023 1:23 PM
[2023-09-16 13:35] LABS: Anisocytosis Present
--- NOTE | 2023-09-16 13:59 | Emergency Department Note ---
Impression & Plan Weakness, Fall, Vomiting, Acute UTI, Atrial fibrillation ED Provider Note NAME: CORNELL DE PAZ AGE: 82 SEX: F : 1940 ARRIVES VIA: Walk-In INFORMANT: [Patient][family] ED PROVIDER(S): [Raemsh Freeman MD] CHIEF COMPLAINT: Fall HISTORY OF PRESENT ILLNESS: The patient is an 82-year-old female who had an unwitnessed fall today in the bathroom. As per family, the patient has been unwell for around a week and a 1/2 to 2 weeks. She has been nauseated with a poor appetite. She has been weaker. She has had a cough. She has vomited a few times. Today, she fell in the bathroom, this was not witnessed. There has been no documented fever. The urine has been darker in color but there has been no burning to urinate. No diarrhea. She has complained occasionally of some upper abdominal pain. Of note, patient has a history of A-fib and is on Eliquis. PMHx/PSHx/Social Hx: See Below PHYSICAL EXAM: GENERAL: Patient is in no acute distress. HEENT: No acute trauma, normocephalic atraumatic, mucous membranes moist, no nasal congestion. NECK: No stridor, no adenopathy, no meningismus, trachea is midline. LUNGS: Clear to auscultation bilaterally, no wheeze, no rhonchi, breath sounds equal. HEART: Normal rate, no obvious murmur, irregular rhythm. ABDOMEN: Soft, nontender, no peritonitis. EXTREMITIES: No cyanosis, full range of motion of all the joints without pain or difficulty. NEUROLOGIC: Awake and alert, no acute motor or sensory deficits, no focal weakness. SKIN: No jaundice, no diaphoresis. DIFFERENTIAL DIAGNOSIS: Dehydration, ulcer, gastritis, pancreatitis, biliary colic, UTI, intracranial bleeding, cervical spine injury, viral illness, among others. EMERGENCY DEPARTMENT PROCEDURES: MEDICAL DECISION MAKING: There is no leukocytosis or worrisome anemia. Platelet count slightly elevated. No coagulopathy. No renal failure or significant electrolyte abnormality. No concerning liver enzyme elevation. The patient appears to be in a euthyroid state. ECG shows atrial fibrillation, no obvious acute ischemia. Cardiac enzyme testing x 1 is not consistent with acute cardiac injury. COVID, influenza and RSV test were negative. Urinalysis result is pending. Chest x- ray did not show pneumonia or CHF. Brain CT showed no acute bleed or mass effect. C-spine CT showed no acute fracture. Abdominal and pelvis CT did not show any obvious acute solid organ injury, pyelonephritis was suspected. On exam the patient was awake and interactive. She was not febrile or toxic. The patient received IV saline, 500 cc. She received IV cefepime as empiric antibiotic coverage. She was given IV Zofran. I did speak with the patient and the family. The patient is weak and not doing well and is not able to be discharged home. She has fallen. She very well may require a rehab stay. For now, the patient will be hospitalized at our facility. We will treat for the possibility of UTI/pyelonephritis. We await the urinalysis and urine culture results. I did speak with case management, the on-call hospitalist was consulted. Prior/Outside records/notes reviewed: Family practice note from 09/04/2023 discussing her presentation for acute bronchitis and the plan moving forward. ECG per my interpretation: Indication was weakness. The ECG shows atrial fibrillation with a rate of 74. There is some diffuse nonspecific ST change. No ST elevation, no PVCs. Continuous Cardiac Monitoring per my interpretation: An order was placed for continuous cardiac monitoring. The monitor shows a rate of 79 with atrial fibrillation. Imaging/x-ray results per my interpretation: Chest x-ray does not show mediastinal widening, pneumonia or pneumothorax. Chronic Medical/Social conditions affecting care: Advanced age. Care/Management discussed with: Case management, the on-call hospitalist. 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 per neuro, likely 2/2 previous CVA. no recurrence since. Follows with [facility]. 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 s/p mechanical thrombectomy (cause felt to be cardioembolic and pt had newly dx afib at the time). imaging of carotids at this time found R ICA stenosis Atrial fibrillation dx at time of CVA 06/2022; follows with Dr. Guajardo; on Eliquis and BB Vitamin D deficiency Hyperlipidemia Chronic venous insufficiency Surgical History History of surgery History of eye surgery S/P tooth extraction Family History Sister Atrial fibrillation Stroke Muscular dystrophy Mother Diabetes Father Lung cancer Denies family history of Ovarian cancer Prostate cancer Myocardial infarction Breast cancer Colorectal cancer Social History Smoking Status: Former smoker Tobacco Type: Cigarettes Age Started Using Tobacco: 22; Age Quit Using Tobacco: 53; packs per day: 0.5; Second Hand Exposure: No; Do You Dip or Chew Tobacco: No; Hx Alcohol Use: No Hx Substance Use: No Preferred Language: Guinean Communication Ability: Effective Communication Ability Comment: stroke defecits Visual Impairment: No Limitations Hearing Ability: Normal Supervisor Fine Grading Required: No Beliefs That Will Affect Care: None marital status: / Current Living Situation: Family Current Living Situation Comment: lives with her son and DIL current occupational status: retired Feels Safe at Home: Yes Childhood Exposure to Second-Hand Smoke: Yes Diet: regular caffeine: Yes Dental Care, Regularly: No Physical Activity Frequency: 1-2 Times per Week Physical Activity Frequency Comment: bird watching, puzzles and walking Seatbelt Use: always Sunscreen Use: No Assistive Devices: Cane and Walker Allergies Allergies Allergy/AdvReac Type Severity Reaction Status Date / Time bee venom protein (honey bee) Allergy Severe SHORTNESS Verified 09/16/23 15:48 OF BREATH latex Allergy Mild Redness of Verified 09/16/23 15:48 Skin Home Meds Home Medications Medication Instructions Recorded Confirmed cholecalciferol (vitamin D3) 125 125 mcg PO QAM 04/04/23 09/16/23 mcg (5,000 unit) tablet (Vitamin D3) clopidogrel 75 mg tablet (Plavix) 75 mg PO QDL 04/04/23 09/16/23 Uqora-Part 2 Tablets 2 tab PO QAM 08/02/23 09/16/23 Uqora-Part 3 Tablet 10 billion cells PO QAM 08/02/23 09/16/23 atorvastatin 20 mg tablet 20 mg PO DAILY 08/02/23 09/16/23 Previous Rx's Medication Instructions Recorded apixaban 5 mg tablet (Eliquis) 5 mg PO BID #180 tabs 08/02/23 duloxetine 30 mg capsule,delayed 30 mg PO QAM #90 caps 08/02/23 release (Cymbalta) epinephrine 0.3 mg/0.3 mL 0.3 mg (0.3 mL) subcut ONCE PRN 08/02/23 injection, auto-injector anaphylaxis #1 ea metoprolol tartrate 25 mg tablet 25 mg PO BID #180 tabs 08/02/23 amlodipine 2.5 mg tablet 2.5 mg PO DAILY #90 tabs 08/22/23 ferrous sulfate 325 mg (65 mg 650 mg (2 x 325 mg (65 mg iron)) 08/22/23 iron) tablet (FeroSul) PO DAILY #180 tabs lamotrigine 100 mg tablet 100 mg PO BID 90 days #180 tabs 08/22/23 omeprazole 20 mg capsule,delayed 20 mg PO DAILY #90 caps 08/22/23 release Results & Data (ED) Vital Signs Vital Signs - 24 hr 09/16/23 11:26 09/16/23 14:12 09/16/23 14:40 Temperature 36.1 C L Temperature Source Temporal Artery Scan Pulse Rate 94 H 79 Pulse Rate [Apical] 79 Respiratory Rate 18 17 Respiratory Effort / Characteristics Non-Labored Respiratory Depth Normal Respiratory Pattern Regular Blood Pressure 150/113 H Blood Pressure [Right Arm] 156/70 H Blood Pressure Mean 125 Blood Pressure Mean [Right Arm] 98 Pulse Oximetry 97 97 Oxygen Delivery Method Room Air Room Air Sepsis New/Unexplained Change in Mental Status No Sepsis Action Taken by Nursing No Action Required Home Medications Current Medication List: was personally reviewed by me Laboratory Data Attestation: I reviewed the patient's lab results. 09/16/23 12:25 09/16/23 12:25 Lab Results 09/16/23 09/16/23 Range/Units 12:25 14:19 WBC 7.05 (4.8-10.8) K/ul RBC 4.59 (4.20-5.40) M/uL Hgb 11.1 L (12.0-16.0) g/dl Hct 35.0 L (37.0-47.0) % MCV 76.3 L (80.0-100.0) fL MCH 24.2 L (25.0-34.0) pg MCHC 31.7 L (32.0-36.0) g/dL RDW Std Deviation 66.2 H (36.4-46.3) fL RDW Coeff of Rosa Elena 24.1 H (11.5-14.5) % Plt Count 420 H (130-400) K/uL MPV 8.8 L (9.4-12.4) fL Immature Gran % (Auto) 0.6 % Neut % (Auto) 73.3 % Lymph % (Auto) 15.9 % Noble % (Auto) 9.5 % Eos % (Auto) 0.3 % Baso % (Auto) 0.4 % Neut # (Auto) 5.17 (1.40-6.50) K/uL Lymph # (Auto) 1.12 L (1.20-3.40) K/uL Noble # (Auto) 0.67 H (0.11-0.59) K/uL Eos # (Auto) 0.02 (0.00-0.50) K/uL Baso # (Auto) 0.03 (0.00-0.20) K/uL Immature Gran # (Auto) 0.04 (0.01-0.20) K/uL Anisocytosis Present PT 11.9 (9.0-12.0) Seconds INR 1.1 (0.9-1.1) APTT 31 (21-31) Seconds PTT Ratio 1.1 Sodium 134 L (136-145) mmol/L Potassium 3.9 (3.5-5.1) mmol/L Chloride 97 L (98-107) mmol/L Carbon Dioxide 28 (21-32) mmol/L Anion Gap 9 (3-11) BUN 11 (6-23) mg/dl Creatinine 1.09 (0.6-1.2) mg/dl Est Cr Clr Drug Dosing Not Reportable Est GFR ( Amer) 55.5 ml/min Est GFR (Non-Af Amer) 47.9 ml/min BUN/Creatinine Ratio 10.1 (10-20) Glucose 111 H (70-99(Fasting)) mg/dl Calcium 9.6 (8.6-10.3) mg/dl Magnesium 1.9 (1.7-2.4) mg/dl Total Bilirubin 0.5 (0.2-1.0) mg/dl AST 19 (13-39) U/L ALT 13 (7-52) U/L Alkaline Phosphatase 85 (34-104) U/L Creatine Kinase Cancelled Total Creatine Kinase 60 (26-192) U/L CK-MM (CK-3) Cancelled CK-MB (CK-2) Cancelled CK-BB (CK-1) Cancelled Creatine Kinase Interp Cancelled Troponin I High Sens 9.1 (0-14) pg/ml Total Protein 7.9 (6.0-8.3) gm/dl Albumin 3.8 (3.4-5.0) gm/dl Globulin 4.1 H (2.5-4.0) gm/dl Albumin/Globulin Ratio 0.9 (0.9-2) TSH 1.615 (0.300-4.500) uIu/ml SARS-CoV-2 (PCR) NEGATIVE (Negative) Influenza Type A (PCR) Negative (Neg) Influenza Type B (PCR) Negative (Neg) RSV (RT-PCR) Negative (Neg) Administered Medications Discontinued Medications Sodium Chloride (Nss) 500 mls @ 999 mls/hr IV .Q31M ONE Stop: 09/16/23 14:10 Last Infusion: 09/16/23 14:50 Dose: Infused Documented By: Admin: 09/16/23 14:16 Dose: 999 mls/hr Documented By: KYLEIGH Cefepime HCl (Maxipime) 2,000 mg in 20 mls @ 5 mls/min IV NOW STA; Protocol Stop: 09/16/23 15:36 Last Admin: 09/16/23 15:57 Dose: 5 mls/min Documented By: DONAVAN Ioversol (Optiray 320 500ml) 88 ml IV ONCE ONE Stop: 09/16/23 15:02 Last Admin: 09/16/23 15:02 Dose: 88 ml Documented By: MIKE Ondansetron HCl (Ondansetron Inj 2 Mg/Ml 2 Ml Vial) 4 mg IV NOW STA Stop: 09/16/23 13:49 Last Admin: 09/16/23 14:17 Dose: Not Given Documented By: KYLEIGH Imaging Data Radiologist's Impression: Cervical Spine CT 09/16/23 11:38 CT cervical spine wo con CLINICAL HISTORY: fall TECHNIQUE: Multidetector row helical CT of the cervical spine was performed without administration of intravenous contrast. Coronal and sagittal reformations were obtained. Automated dose lowering techniques and/or adjustment according to patient size were utilized for this exam. Comparison: Comparison is made to CTA neck 04/21/2023 FINDINGS: No acute fractures or subluxations are identified. Degenerative changes are seen in the visualized spine. The alignment is normal. Biapical scarring is seen in the lungs. Partial visualization of a right carotid stent. IMPRESSION: Degenerative changes without evidence of acute bony injury. ACT 112: Negative or not required by law. Electronically signed by: Dseean Alanis M.D. 09/16/2023 1:[address] 09/16/23 11:[address] DOSE: HISTORY: fall TECHNIQUE: Multiaxial CT images of the head were performed without the use of intravenous contrast. Automated exposure control was utilized for this study. A dose lowering technique was utilized adhering to the principles of ALARA. Comparison: Head CT 04/21/2023. Findings: The paranasal sinuses and mastoid air cells are clear. The calvarium and skull base are intact. There is no mass, hematoma, midline shift, acute infarct. White matter hypodensity is nonspecific but suggestive of microvascular ischemic change. The ventricles and sulci demonstrate mild age-related involutional changes. There is an old left MCA territory infarct again noted. This remains unchanged. Impression: No significant change compared to the prior study. No acute intracranial abnormality. ACT 112: Negative or not required by law. Electronically signed by: Danie Mcneil M.D. 09/16/2023 1:23 PM Abdomen/Pelvis CT 09/16/23 13:[address] WITH IV CONTRAST CT DOSE: 840.02 mGy.cm HISTORY: upper pain, vomiting TECHNIQUE: Multiaxial CT images of the abdomen and pelvis were performed following the use of intravenous contrast. A dose lowering technique was utilized adhering to the principles of ALARA. COMPARISON STUDY: None. FINDINGS: Patchy densities within the lungs posteriorly favor dependent change/atelectasis. A pneumonia is considered less likely but not entirely excluded. No pneumoperitoneum. No pneumatosis. There is an old mild superior endplate compression deformity at L2. No acute fractures identified. The heart is mildly enlarged. Coronary artery calcifications are noted. A few mildly enlarged periportal lymph nodes are noted. The main portal vein is patent. The gallbladder, pancreas, spleen, adrenal glands, liver unremarkable. Calcified plaque within the normal caliber abdominal aorta. No retroperitoneal or pelvic lymphadenopathy. No pelvic free fluid. Uterus and bilateral adnexa are unremarkable. Colonic diverticulosis. No evidence for acute diverticulitis. No bowel wall thickening or obstruction. Visualized appendix appears unremarkable. There is mild bladder wall thickening and mild urothelial thickening within the bilateral renal collecting systems. There is heterogeneous enhancement within the kidneys with mild right perinephric fat stranding. This favors a bilateral pyelonephritis/pyelitis. No hydronephrosis. IMPRESSION: 1. Heterogeneous enhancement within the bilateral kidneys with mild right perinephric fat stranding. There is also mild urothelial thickening within the bilateral renal collecting systems. Therefore, this favors a bilateral pyelonephritis/pyelitis. 2. Mild bladder wall thickening which favors a cystitis. 3. No bowel wall thickening or obstruction. 4. Colonic diverticulosis. No evidence for acute diverticulitis. 5. Additional findings as described above. ACT 112: Negative or not required by law. Electronically signed by: Danie Mcneil M.D. 09/16/2023 3:27 PM Chest X-Ray 09/16/23 14:24 XR chest 1V portable CLINICAL HISTORY: weakness TECHNIQUE: Single frontal radiograph of the chest was obtained. Comparison: Comparison is made to chest radiograph 09/05/2023 FINDINGS: No lines and tubes are seen. Calcified aortic knob is seen. The lungs are clear. No evidence of pleural effusion or pneumothorax. IMPRESSION: No acute chest disease. ACT 112: Negative or not required by law. Electronically signed by: Desean Alanis M.D. 09/16/2023 3:03 PM Discharge Plan Visit Data Chief Complaint: Fall Stated Complaint: FELL/NOT FILLING WELL ED Provider: Ramesh Freeman Discharge Problem: Weakness, Fall, Vomiting, Acute UTI, Atrial fibrillation Patient Disposition: Admitted As Inpatient Condition: Fair Forms Stand Alone Forms: [facility] Prescriptions Prescriptions: No Action duloxetine [Cymbalta] 30 mg capsule,delayed release(DR/EC) 30 mg PO QAM Qty: 90 1RF omeprazole 20 mg capsule,delayed release(DR/EC) 20 mg PO DAILY Qty: 90 3RF amlodipine 2.5 mg tablet 2.5 mg PO DAILY Qty: 90 3RF ferrous sulfate [FeroSul] 325 mg (65 mg iron) tablet 650 mg PO DAILY Qty: 180 3RF lamotrigine 100 mg tablet 100 mg PO BID 90 Days Qty: 180 3RF Eliquis 5 mg tablet 5 mg PO BID Qty: 180 1RF epinephrine 0.3 mg/0.3 mL auto-injector 0.3 mg subcut ONCE PRN (Reason: anaphylaxis) Qty: 1 3RF metoprolol tartrate 25 mg tablet 25 mg PO BID Qty: 180 1RF clopidogrel [Plavix] 75 mg Tablet 75 mg PO QDL cholecalciferol (vitamin D3) [Vitamin D3] 125 mcg (5,000 unit) Tablet 125 mcg PO QAM Uqora-Part 2 Tablets 2 tab PO QAM Rx Instructions: EACH TABLET CONTAINS--VITAMIN D-1,500 UNITS, J-[id number]-114 MG, TURMERIC ROOT- 200 MG, GREEEN LEAF-200 MG, & BLACK PEPPER FRUIT POWDER-10 MG. Uqora-Part 3 Tablet 10 billion cells PO QAM Rx Instructions: PROBIOTIC-LACTOBACILLUS atorvastatin 20 mg tablet 20 mg PO DAILY Rx Instructions: TAKE 1 TABLET BY MOUTH ONCE DAILY Referrals Referrals: ProKevin MD [Primary Care Provider] - Discharge Problem: Fall Qualifiers: Encounter type: initial encounter Qualified Code(s): W19.XXXA - Unspecified fall, initial encounter Vomiting Qualifiers: Vomiting type: unspecified Nausea presence: with nausea Qualified Code(s): R 11.2 - Nausea with vomiting, unspecified Atrial fibrillation Qualifiers: Atrial fibrillation type: unspecified Qualified Code(s): I48.91 - Unspecified atrial fibrillation
--- NOTE | 2023-09-16 14:09 | Electrocardiogram Report ---
Test Reason : Blood Pressure : / mmHG Vent. Rate : 074 BPM Atrial Rate : 000 BPM P-R Int : 000 ms QRS Dur : 084 ms QT Int : 382 ms P-R-T Axes : 000 190 185 degrees QTc Int : 424 ms Atrial fibrillation Right superior axis deviation T wave abnormality, consider inferior ischemia T wave abnormality, consider anterolateral ischemia Abnormal ECG When compared with ECG of 02-AUG-2023 17:41, Atrial fibrillation has replaced Sinus rhythm Non-specific change in ST segment in Inferior leads T wave inversion now evident in Inferior leads Confirmed by Michael Nevarez ([id number]) on 09/16/2023 2:09:02 PM Referred By: Kevin Fitzgerald Confirmed By:Medardo Nevarez
[2023-09-16] MEDS: SODIUM CHLORIDE 0.9% 500 ML IV ONE (14:16)
[2023-09-16] MEDS: ONDANSETRON INJ 2 MG/ML 2 ML VIAL IV STA (14:17)
[2023-09-16 14:25] LABS: Creatine Kinase 60 U/L (26-192); Magnesium 1.9 mg/dl (1.7-2.4)
[2023-09-16 14:32] LABS: Troponin I High Sensitivity 9.1 pg/ml (0-14)
[2023-09-16 14:41] LABS: Thyroid Stimulating Hormone 1.615 uIu/ml (0.300-4.500)
[2023-09-16] MEDS: OPTIRAY 320 500ml IV ONE (15:02)
--- NOTE | 2023-09-16 15:05 | XRay Report ---
XR chest 1V portable CLINICAL HISTORY: weakness TECHNIQUE: Single frontal radiograph of the chest was obtained. Comparison: Comparison is made to chest radiograph 09/05/2023 FINDINGS: No lines and tubes are seen. Calcified aortic knob is seen. The lungs are clear. No evidence of pleur al effusion or pneumothorax. IMPRESSION: No acute chest disease. ACT 112: Negative or not required by law. Electronically signed by: Desean Alanis M.D. 09/16/2023 3:03 PM
[2023-09-16 15:15] LABS: Influenza A virus by PCR Negative (Neg); Influenza B virus by PCR Negative (Neg); RSV by PCR Negative (Neg); SARS CoV2 RNA(COVID-19) Ceph NEGATIVE (Negative)
--- NOTE | 2023-09-16 15:29 | CT Scan Report ---
ABDOMEN AND PELVIS CT WITH IV CONTRAST CT DOSE: 840.02 mGy.cm HISTORY: upper pain, vomiting TECHNIQUE: Multiaxial CT images of the abdomen and pelvis were performed following the use of intrave nous contrast. A dose lowering technique was utilized adhering to the principles of ALARA. COMPARISON STUDY: None. FINDINGS: Patchy densities within the lungs posteriorly favor dependent change/atelectasis. A pneumon ia is considered less likely but not entirely excluded. No pneumoperitoneum. No pneumatosis. There is an old mild superior endplate compression deformity at L2. No acute fractures identified. The heart is mildly enlarged. Coronary artery calcifications are noted. A few mildly enlarged periportal lymph nodes are noted. The main portal vein is patent. The gallbladder, pancreas, spleen, adrenal glands, l iver unremarkable. Calcified plaque within the normal caliber abdominal aorta. No retroperitoneal or pelvic lymphadenopathy. No pelvic free fluid. Uterus and bilateral adnexa are unremarkable. Colonic d iverticulosis. No evidence for acute diverticulitis. No bowel wall thickening or obstruction. Visuali zed appendix appears unremarkable. There is mild bladder wall thickening and mild urothelial thickeni ng within the bilateral renal collecting systems. There is heterogeneous enhancement within the kidne ys with mild right perinephric fat stranding. This favors a bilateral pyelonephritis/pyelitis. No hyd ronephrosis. IMPRESSION: 1. Heterogeneous enhancement within the bilateral kidneys with mild right perinephric fat stranding. There is also mild urothelial thickening within the bilateral renal collecting systems. Therefore, th is favors a bilateral pyelonephritis/pyelitis. 2. Mild bladder wall thickening which favors a cystitis. 3. No bowel wall thickening or obstruction. 4. Colonic diverticulosis. No evidence for acute diverticulitis. 5. Additional findings as described above. ACT 112: Negative or not required by law. Electronically signed by: Danie Mcneil M.D. 09/16/2023 3:27 PM
[2023-09-16] MEDS: CEFEPIME 2,000 MG/20 ML VIAL IV STA (15:57)
--- NOTE | 2023-09-16 15:57 | History & Physical Report ---
Date of Service September 16, 2023 Assessment & Plan (1) Acute UTI: Plan: Complicated UTI - CT-A/P with evidence of bilateral pyelo - UA infected appearing. UC pending. Pt volume contracted and with difficulty voiding. - s/p NSS 500cc in the ER. No leukocytosis. No history of CHF. Clinically volume contracted, additional 500 cc LR + maintenance until PO improves ordered. Patient does not appear septic on admitting assessment - Cefepime continued, narrow based on cx (2) Atrial fibrillation: Plan: History of A-fib Rate controlled A-fib on admission Continue apixaban/Plavix Continue MTP (3) Anemia: Plan: History of iron deficiency anemia Hemoglobin 11.1 without active bleeding on admission Remains microcytic at 76.3 Venofer deferred in the setting of acute infection Hemoglobin trended, no signs of hemodynamic instability Apixaban continued for A-fib stroke prophylaxis (4) H/O: stroke with residual effects: Plan: History of CVA, weakness - Rehab candidate once infectious concerns are addressed. CM following - PT/OT pending Continues to have residual right arm >> right leg weakness compared to the left without focal change, globally has been more weak with multiple falls. Denies new strokelike symptoms Plavix continued Plan DVT PPx: Eliquis CODE:" DNR Diet: HH Dispo: M/S History of Present Illness Primary Care Provider: Kevin Fitzgerald MD Ghazal is an 82-year-old female with a past medical history of hyperlipidemia, CVA with right arm and right leg residual weakness and some aphasia, unsteady gait, A-fib, hypertension who was last admitted 08/02/2023 - 08/05/2023 due to worsened gait and weakness and he was found to have iron deficiency anemia with hemoglobin less than 7 did not show evidence of active GI bleed and was transition from aspirin/Plavix/Eliquis to Plavix/Eliquis on discharge who presents to the ER after she had a fall while in the bathroom. Family reports that she has been more weak, with poor appetite, nauseous for 1-2 weeks, has had upper abdominal pain, and was seen approximately 10 days ago for suspected viral bronchitis with wheezing which was treated with low-dose prednisone for 5 days. On ER evaluation she is with no leukocytosis, hemoglobin is 11.1 and microcytic, she does not have an PAM, TSH is normal, quad screen is normal. Chest x-ray is with no acute finding, CTA/P is with evidence of acute bilateral pyelonephritis and with bladder wall thickening consistent with cystitis. CThead is without acute findings, and CT of the C-spine does not show any fracture or subluxation. UA is pending, with evidence of bilateral Tim on CT patient has been admitted on empiric cefepime. Past urine cultures for E. coli with ampicillin and Unasyn resistance, cephalosporin sensitive. Due to increased risk factors including recent hospitalization, recurrent illness, and bilateral hydro will continue cefepime until cultures are available. Pt seen with her daughter present. Weak and fatigued last week or two. Was seen as outpatient and had felt slightly short of breath, was not put on Abx but was trialed on steroids for the shortness of breath. History somewhat limited by confusion and attention. Denies chest pain or chest pressure. Denies dyspnea. Endorses nonfocal abdominal discomfort. Endorses nausea, denies vomiting. No diarrhea/constipatoin. Medical History: Reviewed Medications: Reviewed Surgical History: Reviewed Family history: Reviewed Allergies: Reviewed Social History: Reviewed Code Status: DNR/DNI Allergies Allergy/AdvReac Type Severity Reaction Status Date / Time bee venom protein (honey bee) Allergy Severe SHORTNESS Verified 09/16/23 15:48 OF BREATH latex Allergy Mild Redness of Verified 09/16/23 15:48 Skin Home Medications Medication Instructions Recorded Confirmed Type cholecalciferol (vitamin D3) 125 125 mcg PO QAM 04/04/23 09/16/23 History mcg (5,000 unit) tablet (Vitamin D3) clopidogrel 75 mg tablet (Plavix) 75 mg PO QDL 04/04/23 09/16/23 History Uqora-Part 2 Tablets 2 tab PO QAM 08/02/23 09/16/23 History Uqora-Part 3 Tablet 10 billion cells PO QAM 08/02/23 09/16/23 History apixaban 5 mg tablet (Eliquis) 5 mg PO BID #180 tabs 08/02/23 09/16/23 Rx atorvastatin 20 mg tablet 20 mg PO DAILY 08/02/23 09/16/23 History duloxetine 30 mg capsule,delayed 30 mg PO QAM #90 caps 08/02/23 09/16/23 Rx release (Cymbalta) epinephrine 0.3 mg/0.3 mL 0.3 mg (0.3 mL) subcut ONCE PRN 08/02/23 09/16/23 Rx injection, auto-injector anaphylaxis #1 ea metoprolol tartrate 25 mg tablet 25 mg PO BID #180 tabs 08/02/23 09/16/23 Rx amlodipine 2.5 mg tablet 2.5 mg PO DAILY #90 tabs 08/22/23 09/16/23 Rx ferrous sulfate 325 mg (65 mg 650 mg (2 x 325 mg (65 mg iron)) 08/22/23 09/16/23 Rx iron) tablet (FeroSul) PO DAILY #180 tabs lamotrigine 100 mg tablet 100 mg PO BID 90 days #180 tabs 08/22/23 09/16/23 Rx omeprazole 20 mg capsule,delayed 20 mg PO DAILY #90 caps 08/22/23 09/16/23 Rx release Past Med/Surg History Medical History Heart valve disease Smoking greater than 40 pack years Carotid stenosis, right Expressive aphasia Receptive aphasia History of bladder infections HTN (hypertension) History of seizures History of TIA (transient ischemic attack) History of CVA (cerebrovascular accident) Atrial fibrillation Vitamin D deficiency Hyperlipidemia Chronic venous insufficiency Surgical History History of surgery History of eye surgery S/P tooth extraction Family History Sister Atrial fibrillation Stroke Muscular dystrophy Mother Diabetes Father Lung cancer Denies family history of Ovarian cancer Prostate cancer Myocardial infarction Breast cancer Colorectal cancer Social History (Updated 09/05/23 @ 10:14 by Alison Escoto) Smoking Status: Former smoker Tobacco Type: Cigarettes Age Started Using Tobacco: 22; Age Quit Using Tobacco: 53; packs per day: 0.5; Second Hand Exposure: No; Do You Dip or Chew Tobacco: No; Hx Alcohol Use: No Hx Substance Use: No Preferred Language: Indonesian Communication Ability: Effective Communication Ability Comment: stroke defecits Visual Impairment: No Limitations Hearing Ability: Normal 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 Intermittently confused and somewhat limited her story HEENT: Atraumatic, normocephalic. Vision and hearing grossly intact Pulm: CTAB A&P. -wheezes, -rales, -rhonchi. Symmetrical chest rise. No increased work of breathing. No respiratory distress. Cardiac: RRR, -mrg. Radial pulses intact and symmetrical. Abdominal: Denies CVA tenderness on exam, endorses nonfocal abdominal tenderness without rebound/guarding Extremities: Warm, dry. RUE 3/5 shoulder flexion and abduction, 4 -/5 elbow flexion and manager battery strength, right lower extremity with 4 -/5 hip flexion. 5/5 manager battery strength, elbow flexion, left hip flexion at the bedside. Sensation testing somewhat limited by attention but endorses in response to soft touch in the hands and feet bilaterally Results & Data Results & Data Vital Signs (Past 12 Hours) Vital Signs Temp Pulse Pulse Resp BP BP Pulse Ox 09/16/23 14:40 79 09/16/23 14:12 79 17 156/70 H 97 09/16/23 11:26 36.1 C L 94 H 18 150/113 H 97 O2 Del Method 09/16/23 14:40 09/16/23 14:12 Room Air 09/16/23 11:26 Room Air PG Care Time/CCT Total # of Minutes Spent Total Time Spent with Patient: Total time spent is greater than 50% in coordination of care (as documented) at patient's floor/unit and/or counseling patient: Coding Level of Care Code 88752 INT INP/OBS CARE 3/75MIN Diagnoses Acute UTI N39.0 Atrial fibrillation I48.91 Atrial fibrillation type: unspecified Iron deficiency anemia, unspecified iron deficiency anemia type D50.9 Anemia type: iron deficiency Iron deficiency anemia type: unspecified iron deficiency H/O: stroke with residual effects I69.30 (2) Atrial fibrillation Atrial fibrillation type: unspecified Qualified Code(s): I48.91 - Unspecified atrial fibrillation (3) Anemia Anemia type: iron deficiency Iron deficiency anemia type: unspecified iron deficiency Qualified Code(s): D50.9 - Iron deficiency anemia, unspecified
[2023-09-16 16:14] LABS: Appearance Urine Cloudy (Clear); Bacteria Urine Automated 4+ (Negative); Bilirubin Urine Negative (Negative); Blood Urine 3+ (Negative); Color Urine Yellow; Epithelial Cell Urine Auto 0-5 /lpf (0-5); Glucose Urine UA Negative (Negative); Ketones Urine Trace (Negative); Leukocyte Esterase Urine 1+ (Negative); Nitrite Urine Positive (Negative); Protein Urine 1+ (Negative); RBC Urine Automated >30 /hpf (0-4); Specific Gravity Urine 1.033 (1.000-1.030); Urobilinogen Urine Negative (Negative); WBC Urine Automated >30 /hpf (0-5)
[2023-09-16] MEDS: LACTATED RINGER'S 500 ML IV ONE (17:06)
[2023-09-16] MEDS ORDERED: ONDANSETRON INJ 2 MG/ML 2 ML VIAL IV PRN (17:27)
[2023-09-16] MEDS: LACTATED RINGER'S 1,000 ML IV SCH (17:48)
[2023-09-16] MEDS: APIXABAN 5 MG TABLET PO SCH (19:58)
[2023-09-16] MEDS: lamoTRIgine 100 MG TAB PO SCH (19:58)
[2023-09-16] MEDS: METOPROLOL TARTRATE 25 MG TAB PO SCH (19:58)
[2023-09-16] MEDS: CLOPIDOGREL BISULFATE 75 MG TAB PO SCH (19:58)
[2023-09-16] MEDS: amLODIPine BESYLATE 5 MG TAB PO SCH (19:59)
[2023-09-16] MEDS: PANTOprazole 40 MG TAB PO SCH (19:59)
[2023-09-16] MEDS: DULoxetine HCL 30 MG CAP PO SCH (22:24)
[2023-09-17] MEDS: CEFEPIME 1,000 MG in SYRINGE 0 ML IV SCH (04:58)
--- NOTE | 2023-09-17 07:29 | Hospitalist Progress Note ---
Date of Service September 17, 2023 Assessment & Plan (1) Acute UTI: Plan: Complicated UTI, metabolic encephalopathy poa with mechanical fall, no injury negative CT head and neck - CT-A/P with evidence of bilateral pyelo - UA infected appearing. UC pending. Pt volume contracted and with difficulty voiding. - volume resuscitated with crystalloid - Cefepime continued, narrow based on cx, curently gram neg bacilli (2) Atrial fibrillation: Plan: History of A-fib Rate controlled A-fib on admission Continue apixaban/Plavix Continue Metoprolol (3) Anemia: Plan: History of iron deficiency anemia Hemoglobin 11.1 without active bleeding on admission Remains microcytic at 76.3 Apixaban continued for A-fib stroke prophylaxis (4) H/O: stroke with residual effects: Plan: History of CVA, remains on plavix - Rehab candidate once infectious concerns are addressed. CM following - PT/OT pending Continues to have residual right arm >> right leg weakness compared to the left without focal change, globally has been more weak with multiple falls. De nies new strokelike symptoms Plavix continued Plan DVT PPx: Eliquis CODE:" DNR Admission and Anticipated Discharge Date Admission Date: September 16, 2023 Subjective pt is with pre existing hemiparesis and expressive aphasia clinically has non complaints family concerned about need for more supportive enviornment Physical Exam Physical Exam: Pleasant one word answers cardiac is irreg rate controlled lungs are clear right hemiplegia Results & Data Results & Data Vital Signs (Past 12 Hours) Vital Signs Pulse Pulse Resp BP BP Pulse Ox O2 Del Method 09/17/23 04:00 69 24 133/78 93 09/17/23 03:55 Room Air 09/17/23 02:00 70 14 137/96 96 09/17/23 01:03 70 10 L 98 09/17/23 00:20 75 18 158/71 H 96 Room Air 09/16/23 23:30 72 09/16/23 22:50 70 94 09/16/23 22:40 69 24 96 09/16/23 22:30 71 99 09/16/23 22:20 69 96 09/16/23 22:10 70 96 09/16/23 22:00 70 99 09/16/23 22:00 157/90 H 09/16/23 21:50 70 93 09/16/23 21:40 70 96 09/16/23 21:30 70 23 95 09/16/23 21:20 70 94 09/16/23 21:10 69 93 09/16/23 21:00 69 94 09/16/23 21:00 160/71 H 09/16/23 20:50 69 20 95 09/16/23 20:40 72 23 93 09/16/23 20:30 75 15 100 09/16/23 20:20 78 99 09/16/23 20:10 80 98 09/16/23 20:00 82 100 09/16/23 20:00 176/91 H 09/16/23 19:50 84 17 100 09/16/23 19:40 79 19 98 09/16/23 19:30 80 24 99 PG Care Time/CCT Total # of Minutes Spent Total Time Spent with Patient: Total time spent is greater than 50% in coordination of care (as documented) at patient's floor/unit and/or counseling patient: Coding Level of Care Code 10453 SUB INP/OBS CARE 3/50MIN Diagnoses Acute UTI N39.0 Atrial fibrillation I48.91 Atrial fibrillation type: unspecified Iron deficiency anemia, unspecified iron deficiency anemia type D50.9 Anemia type: iron deficiency Iron deficiency anemia type: unspecified iron deficiency H/O: stroke with residual effects I69.30 (2) Atrial fibrillation Atrial fibrillation type: unspecified Qualified Code(s): I48.91 - Unspecified atrial fibrillation (3) Anemia Anemia type: iron deficiency Iron deficiency anemia type: unspecified iron deficiency Qualified Code(s): D50.9 - Iron deficiency anemia, unspecified
[2023-09-17] MEDS: ATORVASTATIN 20 MG TAB PO SCH (08:38)
--- NOTE | 2023-09-18 08:10 | Hospitalist Progress Note ---
Date of Service September 18, 2023 Assessment & Plan (1) Acute UTI: Plan: Complicated UTI, metabolic encephalopathy poa with mechanical fall, no injury negative CT head and neck - CT-A/P with evidence of bilateral pyelo - UA infected appearing. UCx shows E coli, can downgrade to ceftrixone - volume resuscitated with crystalloid Encephalopathy is improved with treatment of urinary tract infection (2) Atrial fibrillation: Plan: History of A-fib Rate controlled A-fib on admission Continue apixaban/Plavix Continue Metoprolol (3) Anemia: Plan: History of iron deficiency anemia Hemoglobin 11.1 without active bleeding on admission Remains microcytic at 76.3 Apixaban continued for A-fib stroke prophylaxis (4) H/O: stroke with residual effects: Plan: History of CVA, remains on plavix - Rehab candidate. CM following - PT/OT pending Continues to have residual but improved right arm >> right leg weakness compared to the left without focal change, globally has been more weak with multiple falls. Denies new strokelike symptoms Plavix continued Plan DVT PPx: Eliquis CODE:" DNR Admission and Anticipated Discharge Date Admission Date: September 16, 2023 Subjective Patient looks much improved and actually has increased movement of her right arm despite her persistent hemiplegia. She still has expressive aphasia only can offer short words for answers to questions. She appears to be in no particular focal distress Physical Exam Physical Exam: Awake smiling at times to be conversant Right arm is much stronger than it was 1 day prior Cardiac exam is regular Lungs are clear without wheezes or crackles Results & Data Results & Data Vital Signs (Past 12 Hours) Vital Signs Temp Pulse Resp BP Pulse Ox O2 Del Method 09/18/23 07:17 98.2 F 65 18 126/68 97 Room Air 09/17/23 20:09 98.4 F 69 18 127/80 96 Room Air Laboratory Results Ordered CBC and PRP for 09/19/2023 PG Care Time/CCT Total # of Minutes Spent Total Time Spent with Patient: Total time spent is greater than 50% in coordination of care (as documented) at patient's floor/unit and/or counseling patient: Coding Level of Care Code 16324 SUB INP/OBS CARE 3/50MIN Diagnoses Acute UTI N39.0 Atrial fibrillation I48.91 Atrial fibrillation type: unspecified Iron deficiency anemia, unspecified iron deficiency anemia type D50.9 Anemia type: iron deficiency Iron deficiency anemia type: unspecified iron deficiency H/O: stroke with residual effects I69.30 (2) Atrial fibrillation Atrial fibrillation type: unspecified Qualified Code(s): I48.91 - Unspecified atrial fibrillation (3) Anemia Anemia type: iron deficiency Iron deficiency anemia type: unspecified iron deficiency Qualified Code(s): D50.9 - Iron deficiency anemia, unspecified
[2023-09-18] MEDS: cefTRIAXone SODIUM 2,000 MG in DEXTROSE 5 % MINI-B 50 ML IV SCH (09:44)
[2023-09-19 06:07] LABS: Hematocrit (blood only) 31.6 % (37.0-47.0); Hemoglobin 9.7 g/dl (12.0-16.0); Mean Corpuscular Hemoglobin 23.8 pg (25.0-34.0); Mean Corpuscular Hgb Conc 30.7 g/dL (32.0-36.0); Mean Corpuscular Volume 77.5 fL (80.0-100.0); Mean Platelet Volume 8.7 fL (9.4-12.4); Platelet Count 369 K/uL (130-400); RDW Standard Deviation 67.2 fL (36.4-46.3); Red Blood Count 4.08 M/uL (4.20-5.40); White Blood Count 5.41 K/ul (4.8-10.8)
[2023-09-19 06:22] LABS: Creatinine Clr Calc Pharmacy 50.5 ml/min; Est GFR (African American) 80.7 ml/min; Est GFR (Non-African American) 69.6 ml/min; Potassium 3.9 mmol/L (3.5-5.1)
--- NOTE | 2023-09-19 11:24 | Hospitalist Progress Note ---
Date of Service September 19, 2023 Assessment & Plan (1) Acute UTI: Plan: Complicated UTI, metabolic encephalopathy poa with mechanical fall, no injury negative CT head and neck - CT-A/P with evidence of bilateral pyelo - UA infected appearing. UCx shows E coli, can downgrade to ceftriaxone - volume resuscitated with crystalloid Encephalopathy appears improved with treatment of urinary tract infection howevr, this is difficult to ascertain given this is my first meeting with her. She was calm during the visit. (2) Atrial fibrillation: Plan: History of A-fib Rate controlled A-fib on admission Continue apixaban/Plavix Continue Metoprolol (3) Anemia: Plan: History of iron deficiency anemia Hemoglobin 11.1 without active bleeding on admission Remains microcytic at 76.3 Apixaban continued for A-fib stroke prophylaxis (4) H/O: stroke with residual effects: Plan: History of CVA, remains on plavix - Rehab candidate. CM following - PT/OT pending Continues to have residual but improved right arm >> right leg weakness compared to the left without focal change, globally has been more weak with multiple falls. Denies new strokelike symptoms Plavix continued Plan DVT PPx: Eliquis CODE:" DNR Admission and Anticipated Discharge Date Admission Date: September 16, 2023 Subjective Patient with expressive aphasia, ablle to answer questions with yes and no. She did report no pain. Patient though having difficulty with orientation, are you home, she responded y es. Review of Systems Review of Systems: All systems reviewed & are unremarkable except as noted in HPI & below Physical Exam Physical Exam: Awake Right arm is much stronger than it was 1 day prior Cardiac exam is regular Lungs are clear without wheezes or crackles Results & Data Results & Data Vital Signs (Past 12 Hours) Vital Signs Temp Pulse Resp BP Pulse Ox O2 Del Method 09/19/23 07:02 36.8 C 67 16 115/59 L 93 Room Air PG Care Time/CCT Total # of Minutes Spent Total Time Spent with Patient: Total time spent is greater than 50% in coordination of care (as documented) at patient's floor/unit and/or counseling patient: Coding Level of Care Code 09161 SUB INP/OBS CARE 2/35MIN Diagnoses Acute UTI N39.0 Atrial fibrillation I48.91 Atrial fibrillation type: unspecified Iron deficiency anemia, unspecified iron deficiency anemia type D50.9 Anemia type: iron deficiency Iron deficiency anemia type: unspecified iron deficiency H/O: stroke with residual effects I69.30 (2) Atrial fibrillation Atrial fibrillation type: unspecified Qualified Code(s): I48.91 - Unspecified atrial fibrillation (3) Anemia Anemia type: iron deficiency Iron deficiency anemia type: unspecified iron deficiency Qualified Code(s): D50.9 - Iron deficiency anemia, unspecified
[2023-09-20 06:26] LABS: BUN Creatinine Ratio 9.9 (10-20); Creatinine Clr Calc Pharmacy 49.8 ml/min; Est GFR (African American) 79.5 ml/min; Est GFR (Non-African American) 68.6 ml/min; Potassium 3.9 mmol/L (3.5-5.1)
[2023-09-20 06:28] LABS: Hematocrit (blood only) 30.6 % (37.0-47.0); Hemoglobin 9.7 g/dl (12.0-16.0); Mean Corpuscular Hemoglobin 24.2 pg (25.0-34.0); Mean Corpuscular Hgb Conc 31.7 g/dL (32.0-36.0); Mean Corpuscular Volume 76.3 fL (80.0-100.0); Mean Platelet Volume 8.5 fL (9.4-12.4); Platelet Count 379 K/uL (130-400); RDW Coefficient of Variation 23.6 % (11.5-14.5); Red Blood Count 4.01 M/uL (4.20-5.40); White Blood Count 4.93 K/ul (4.8-10.8)
[2023-09-20] MEDS: POLYETHYLENE (MIRALAX) 17 GM PACK PO PRN (09:01)
[2023-09-20] MEDS: ACETAMINOPHEN 325 MG TAB PO PRN (20:11)
--- NOTE | 2023-09-20 21:54 | Hospitalist Progress Note ---
Date of Service September 20, 2023 Assessment & Plan (1) Acute UTI: Plan: Complicated UTI, metabolic encephalopathy poa with mechanical fall, no injury negative CT head and neck - CT-A/P with evidence of bilateral pyelo - UA infected appearing. UCx shows E coli, can downgrade to ceftriaxone - volume resuscitated with crystalloid Encephalopathy appears improved with treatment of urinary tract infection howevr, this is difficult to ascertain given this is my first meeting with her. She was calm during the visit. (2) Atrial fibrillation: Plan: History of A-fib Rate controlled A-fib on admission Continue apixaban/Plavix Continue Metoprolol (3) Anemia: Plan: History of iron deficiency anemia Hemoglobin 11.1 without active bleeding on admission Remains microcytic at 76.3 Apixaban continued for A-fib stroke prophylaxis (4) H/O: stroke with residual effects: Plan: History of CVA, remains on plavix - Rehab candidate. CM following - PT/OT pending Continues to have residual but improved right arm >> right leg weakness compared to the left without focal change, globally has been more weak with multiple falls. Denies new strokelike symptoms Plavix continued Plan DVT PPx: Eliquis CODE:" DNR Admission and Anticipated Discharge Date Admission Date: September 16, 2023 Subjective Patient is smiling. Review of Systems Review of Systems: All systems reviewed & are unremarkable except as noted in HPI & below Physical Exam Physical Exam: Awake Right arm is much stronger than it was 1 day prior Cardiac exam is regular Lungs are clear without wheezes or crackles Results & Data Results & Data Vital Signs (Past 12 Hours) Vital Signs Temp Pulse Pulse Resp BP Pulse Ox O2 Del Method 09/20/23 19:39 36.7 C 66 16 120/69 94 Room Air 09/20/23 14:39 36.5 C 68 16 111/58 L 93 Room Air 09/20/23 11:43 36.8 C 62 16 137/80 95 PG Care Time/CCT Total # of Minutes Spent Total Time Spent with Patient: Total time spent is greater than 50% in coordination of care (as documented) at patient's floor/unit and/or counseling patient: Coding Level of Care Code 28907 SUB INP/OBS CARE 08/22MIN Diagnoses Acute UTI N39.0 Atrial fibrillation I48.91 Atrial fibrillation type: unspecified Iron deficiency anemia, unspecified iron deficiency anemia type D50.9 Anemia type: iron deficiency Iron deficiency anemia type: unspecified iron deficiency H/O: stroke with residual effects I69.30 (2) Atrial fibrillation Atrial fibrillation type: unspecified Qualified Code(s): I48.91 - Unspecified atrial fibrillation (3) Anemia Anemia type: iron deficiency Iron deficiency anemia type: unspecified iron deficiency Qualified Code(s): D50.9 - Iron deficiency anemia, unspecified
--- NOTE | 2023-09-21 21:55 | Hospitalist Progress Note ---
Date of Service September 21, 2023 Assessment & Plan (1) Acute UTI: Plan: Complicated UTI, metabolic encephalopathy poa with mechanical fall, no injury negative CT head and neck - CT-A/P with evidence of bilateral pyelo - UA infected appearing. UCx shows E coli, can downgrade to ceftriaxone - volume resuscitated with crystalloid Encephalopathy appears improved with treatment of urinary tract infection howevr, this is difficult to ascertain given this is my first meeting with her. She was calm during the visit. (2) Atrial fibrillation: Plan: History of A-fib Rate controlled A-fib on admission Continue apixaban/Plavix Continue Metoprolol (3) Anemia: Plan: History of iron deficiency anemia Hemoglobin 11.1 without active bleeding on admission Remains microcytic at 76.3 Apixaban continued for A-fib stroke prophylaxis (4) H/O: stroke with residual effects: Plan: History of CVA, remains on plavix - Rehab candidate. CM following - PT/OT pending Continues to have residual but improved right arm >> right leg weakness compared to the left without focal change, globally has been more weak with multiple falls. Denies new strokelike symptoms Plavix continued Plan DVT PPx: Eliquis CODE:" DNR Admission and Anticipated Discharge Date Admission Date: September 16, 2023 Subjective Patient reports no new symptoms. Review of Systems Review of Systems: All systems reviewed & are unremarkable except as noted in HPI & below Physical Exam Physical Exam: Awake Right arm is much stronger than it was 1 day prior Cardiac exam is regular Lungs are clear without wheezes or crackles Results & Data Results & Data Vital Signs (Past 12 Hours) Vital Signs Temp Pulse Resp BP Pulse Ox O2 Del Method 09/21/23 20:48 36.7 C 70 18 167/65 H 95 Room Air 09/21/23 20:40 Room Air 09/21/23 15:24 37.2 C 70 18 134/67 97 Room Air PG Care Time/CCT Total # of Minutes Spent Total Time Spent with Patient: Total time spent is greater than 50% in coordination of care (as documented) at patient's floor/unit and/or counseling patient: Coding Level of Care Code 84274 SUB INP/OBS CARE 1/25MIN Diagnoses Acute UTI N39.0 Atrial fibrillation I48.91 Atrial fibrillation type: unspecified Iron deficiency anemia, unspecified iron deficiency anemia type D50.9 Anemia type: iron deficiency Iron deficiency anemia type: unspecified iron deficiency H/O: stroke with residual effects I69.30 (2) Atrial fibrillation Atrial fibrillation type: unspecified Qualified Code(s): I48.91 - Unspecified atrial fibrillation (3) Anemia Anemia type: iron deficiency Iron deficiency anemia type: unspecified iron deficiency Qualified Code(s): D50.9 - Iron deficiency anemia, unspecified
[2023-09-22 06:36] LABS: Hematocrit (blood only) 31.6 % (37.0-47.0); Hemoglobin 9.8 g/dl (12.0-16.0); Mean Corpuscular Volume 77.5 fL (80.0-100.0); Mean Platelet Volume 8.7 fL (9.4-12.4); Platelet Count 385 K/uL (130-400); RDW Coefficient of Variation 24.2 % (11.5-14.5); RDW Standard Deviation 67.6 fL (36.4-46.3); Red Blood Count 4.08 M/uL (4.20-5.40); White Blood Count 4.45 K/ul (4.8-10.8)
[2023-09-22 06:53] LABS: BUN Creatinine Ratio 14.5 (10-20); Calcium 9.4 mg/dl (8.6-10.3); Creatinine Clr Calc Pharmacy 53.1 ml/min; Est GFR (African American) 85.9 ml/min; Est GFR (Non-African American) 74.1 ml/min; Potassium 4.1 mmol/L (3.5-5.1)
--- NOTE | 2023-09-22 22:57 | Hospitalist Progress Note ---
Date of Service September 22, 2023 Assessment & Plan (1) Acute UTI: Plan: Complicated UTI, metabolic encephalopathy poa with mechanical fall, no injury negative CT head and neck - CT-A/P with evidence of bilateral pyelo - UA infected appearing. UCx shows E coli, can downgrade to ceftriaxone - volume resuscitated with crystalloid Encephalopathy appears improved with treatment of urinary tract infection She was calm during the visit awaiting placement. (2) Atrial fibrillation: Plan: History of A-fib Rate controlled A-fib on admission Continue apixaban/Plavix Continue Metoprolol (3) Anemia: Plan: History of iron deficiency anemia Hemoglobin 11.1 without active bleeding on admission Remains microcytic at 76.3 Apixaban continued for A-fib stroke prophylaxis (4) H/O: stroke with residual effects: Plan: History of CVA, remains on plavix - Rehab candidate. CM following - PT/OT pending Continues to have residual but improved right arm >> right leg weakness compared to the left without focal change, globally has been more weak with multiple falls. Denies new strokelike symptoms Plavix continued Plan DVT PPx: Eliquis CODE:" DNR Admission and Anticipated Discharge Date Admission Date: September 16, 2023 Subjective 82 yo female reports no new symptoms. Review of Systems Review of Systems: All systems reviewed & are unremarkable except as noted in HPI & below Physical Exam Physical Exam: Awake Cardiac exam is regular Lungs are clear without wheezes or crackles Results & Data Results & Data Vital Signs (Past 12 Hours) Vital Signs Temp Pulse Resp BP Pulse Ox O2 Del Method 09/22/23 20:32 Room Air 09/22/23 19:51 36.5 C 66 14 126/64 97 Room Air 09/22/23 14:57 36.7 C 62 16 119/59 L 97 Room Air PG Care Time/CCT Total # of Minutes Spent Total Time Spent with Patient: Total time spent is greater than 50% in coordination of care (as documented) at patient's floor/unit and/or counseling patient: Coding Level of Care Code 57983 SUB INP/OBS CARE 08/22MIN Diagnoses Acute UTI N39.0 Atrial fibrillation I48.91 Atrial fibrillation type: unspecified Iron deficiency anemia, unspecified iron deficiency anemia type D50.9 Anemia type: iron deficiency Iron deficiency anemia type: unspecified iron deficiency H/O: stroke with residual effects I69.30 (2) Atrial fibrillation Atrial fibrillation type: unspecified Qualified Code(s): I48.91 - Unspecified atrial fibrillation (3) Anemia Anemia type: iron deficiency Iron deficiency anemia type: unspecified iron deficiency Qualified Code(s): D50.9 - Iron deficiency anemia, unspecified
[2023-09-23 07:27] LABS: Hematocrit (blood only) 34.8 % (37.0-47.0); Hemoglobin 10.5 g/dl (12.0-16.0); Mean Corpuscular Hemoglobin 23.9 pg (25.0-34.0); Mean Corpuscular Hgb Conc 30.2 g/dL (32.0-36.0); Mean Corpuscular Volume 79.3 fL (80.0-100.0); Mean Platelet Volume 8.6 fL (9.4-12.4); Platelet Count 390 K/uL (130-400); RDW Coefficient of Variation 24.5 % (11.5-14.5); RDW Standard Deviation 70.2 fL (36.4-46.3); Red Blood Count 4.39 M/uL (4.20-5.40); White Blood Count 4.88 K/ul (4.8-10.8)
[2023-09-23 07:45] LABS: BUN Creatinine Ratio 14.4 (10-20); Calcium 9.5 mg/dl (8.6-10.3); Creatinine Clr Calc Pharmacy 41.6 ml/min; Est GFR (African American) 63.9 ml/min; Est GFR (Non-African American) 55.2 ml/min; Potassium 4.3 mmol/L (3.5-5.1)
--- NOTE | 2023-09-23 20:49 | Hospitalist Progress Note ---
Date of Service September 23, 2023 Assessment & Plan (1) Acute UTI: Plan: Complicated UTI, metabolic encephalopathy poa with mechanical fall, no injury negative CT head and neck - CT-A/P with evidence of bilateral pyelo - UA infected appearing. UCx shows E coli, can downgrade to ceftriaxone - volume resuscitated with crystalloid Encephalopathy appears improved with treatment of urinary tract infection She was calm during the visit awaiting placement. reviewed blood work cbc and bmp on 09/23 (2) Atrial fibrillation: Plan: History of A-fib Rate controlled A-fib on admission Continue apixaban/Plavix Continue Metoprolol (3) Anemia: Plan: History of iron deficiency anemia Hemoglobin 11.1 without active bleeding on admission Remains microcytic at 76.3 Apixaban continued for A-fib stroke prophylaxis (4) H/O: stroke with residual effects: Plan: History of CVA, remains on plavix - Rehab candidate. CM following - PT/OT pending Continues to have residual but improved right arm >> right leg weakness compared to the left without focal change, globally has been more weak with multiple falls. Denies new strokelike symptoms Plavix continued Plan DVT PPx: Eliquis CODE:" DNR Admission and Anticipated Discharge Date Admission Date: September 16, 2023 Subjective Patient is non verbal, calm. Review of Systems Review of Systems: All systems reviewed & are unremarkable except as noted in HPI & below Physical Exam Physical Exam: Awake Cardiac exam is regular Lungs are clear without wheezes or crackles Results & Data Results & Data Vital Signs (Past 12 Hours) Vital Signs Temp Pulse Pulse Resp BP Pulse Ox O2 Del Method 09/23/23 15:09 36.4 C L 64 16 107/63 95 Room Air 09/23/23 11:58 36.7 C 82 14 138/70 96 Room Air 09/23/23 09:10 Room Air PG Care Time/CCT Total # of Minutes Spent Total Time Spent with Patient: Total time spent is greater than 50% in coordination of care (as documented) at patient's floor/unit and/or counseling patient: Coding Level of Care Code 65764 SUB INP/OBS CARE 2MIN Diagnoses Acute UTI N39.0 Atrial fibrillation I48.91 Atrial fibrillation type: unspecified Iron deficiency anemia, unspecified iron deficiency anemia type D50.9 Anemia type: iron deficiency Iron deficiency anemia type: unspecified iron deficiency H/O: stroke with residual effects I69.30 (2) Atrial fibrillation Atrial fibrillation type: unspecified Qualified Code(s): I48.91 - Unspecified atrial fibrillation (3) Anemia Anemia type: iron deficiency Iron deficiency anemia type: unspecified iron deficiency Qualified Code(s): D50.9 - Iron deficiency anemia, unspecified
[2023-09-24 06:05] LABS: Hematocrit (blood only) 32.9 % (37.0-47.0); Mean Corpuscular Hemoglobin 24.2 pg (25.0-34.0); Mean Corpuscular Hgb Conc 30.4 g/dL (32.0-36.0); Mean Corpuscular Volume 79.7 fL (80.0-100.0); Mean Platelet Volume 8.5 fL (9.4-12.4); Platelet Count 369 K/uL (130-400); RDW Coefficient of Variation 24.9 % (11.5-14.5); RDW Standard Deviation 71.7 fL (36.4-46.3); Red Blood Count 4.13 M/uL (4.20-5.40); White Blood Count 4.96 K/ul (4.8-10.8)
[2023-09-24 06:07] LABS: BUN Creatinine Ratio 16.2 (10-20); Calcium 9.6 mg/dl (8.6-10.3); Creatinine Clr Calc Pharmacy 36.4 ml/min; Est GFR (African American) 54.3 ml/min; Est GFR (Non-African American) 46.9 ml/min; Potassium 4.6 mmol/L (3.5-5.1)
[2023-09-24 07:13] VITALS: RESP 16
[2023-09-25 07:14] VITALS: BP 124/66; PULSE 65; TEMP 98.4; O2SAT 95
--- NOTE | 2023-09-25 07:33 | Hospitalist Progress Note ---
Date of Service September 24, 2023 Assessment & Plan (1) Acute UTI: Plan: Complicated UTI, metabolic encephalopathy poa with mechanical fall, no injury negative CT head and neck - CT-A/P with evidence of bilateral pyelo - UA infected appearing. UCx shows E coli, can downgrade to ceftriaxone - volume resuscitated with crystalloid Encephalopathy appears improved with treatment of urinary tract infection She was calm during the visit awaiting placement. reviewed blood work cbc and bmp on 09/24 (2) Atrial fibrillation: Plan: History of A-fib Rate controlled A-fib on admission Continue apixaban/Plavix Continue Metoprolol (3) Anemia: Plan: History of iron deficiency anemia Hemoglobin 11.1 without active bleeding on admission Remains microcytic at 76.3 Apixaban continued for A-fib stroke prophylaxis (4) H/O: stroke with residual effects: Plan: History of CVA, remains on plavix - Rehab candidate. CM following - PT/OT pending Continues to have residual but improved right arm >> right leg weakness compared to the left without focal change, globally has been more weak with multiple falls. Denies new strokelike symptoms Plavix continued Plan DVT PPx: Eliquis CODE:" DNR Admission and Anticipated Discharge Date Admission Date: September 16, 2023 Subjective Patient is calm. No agitation Review of Systems Review of Systems: All systems reviewed & are unremarkable except as noted in HPI & below Physical Exam Physical Exam: Awake Cardiac exam is regular Lungs are clear without wheezes or crackles Results & Data Results & Data Vital Signs (Past 12 Hours) Vital Signs Temp Pulse Resp BP Pulse Ox O2 Del Method 09/25/23 07:14 36.9 C 65 16 124/66 95 Room Air 09/24/23 20:10 Room Air 09/24/23 20:03 36.5 C 68 16 124/74 94 Room Air PG Care Time/CCT Total # of Minutes Spent Total Time Spent with Patient: Total time spent is greater than 50% in coordination of care (as documented) at patient's floor/unit and/or counseling patient: Coding Level of Care Code 54442 SUB INP/OBS CARE 2/35MIN Diagnoses Acute UTI N39.0 Atrial fibrillation I48.91 Atrial fibrillation type: unspecified Iron deficiency anemia, unspecified iron deficiency anemia type D50.9 Anemia type: iron deficiency Iron deficiency anemia type: unspecified iron deficiency H/O: stroke with residual effects I69.30 (2) Atrial fibrillation Atrial fibrillation type: unspecified Qualified Code(s): I48.91 - Unspecified atrial fibrillation (3) Anemia Anemia type: iron deficiency Iron deficiency anemia type: unspecified iron deficiency Qualified Code(s): D50.9 - Iron deficiency anemia, unspecified
--- NOTE | 2023-09-25 12:44 | Discharge Summary ---
Date of Service September 25, 2023 Admission HPI Per Admitting Provider Ghazal is an 82-year-old female with a past medical history of hyperlipidemia, CVA with right arm and right leg residual weakness and some aphasia, unsteady gait, A-fib, hypertension who was last admitted 08/02/2023 - 08/05/2023 due to worsened gait and weakness and he was found to have iron deficiency anemia with hemoglobin less than 7 did not show evidence of active GI bleed and was transition from aspirin/Plavix/Eliquis to Plavix/Eliquis on discharge who presents to the ER after she had a fall while in the bathroom. Family reports that she has been more weak, with poor appetite, nauseous for 1-2 weeks, has had upper abdominal pain, and was seen approximately 10 days ago for suspected viral bronchitis with wheezing which was treated with low-dose prednisone for 5 days. On ER evaluation she is with no leukocytosis, hemoglobin is 11.1 and microcytic, she does not have an PAM, TSH is normal, quad screen is normal. Chest x-ray is with no acute finding, CTA/P is with evidence of acute bilateral pyelonephritis and with bladder wall thickening consistent with cystitis. CThead is without acute findings, and CT of the C-spine does not show any fracture or subluxation. UA is pending, with evidence of bilateral Tim on CT patient has been admitted on empiric cefepime. Past urine cultures for E. coli with ampicillin and Unasyn resistance, cephalosporin sensitive. Due to increased risk factors including recent hospitalization, recurrent illness, and bilateral hydro will continue cefepime until cultures are available. Pt seen with her daughter present. Weak and fatigued last week or two. Was seen as outpatient and had felt slightly short of breath, was not put on Abx but was trialed on steroids for the shortness of breath. History somewhat limited by confusion and attention. Denies chest pain or chest pressure. Denies dyspnea. Endorses nonfocal abdominal discomfort. Endorses nausea, denies vomiting. No diarrhea/constipatoin. Medical History: Reviewed Medications: Reviewed Surgical History: Reviewed Family history: Reviewed Allergies: Reviewed Social History: Reviewed Code Status: DNR/DNI Principal Diagnosis acute UTI. Discharge Exam Awake Cardiac exam is regular Lungs are clear without wheezes or crackles Discharge Data Allergies Allergy/AdvReac Type Severity Reaction Status Date / Time bee venom protein (honey bee) Allergy Severe SHORTNESS Verified 09/16/23 15:48 OF BREATH latex Allergy Mild Redness of Verified 09/16/23 15:48 Skin Consultations 09/16/23 15:40 ED Decision to Admit Stat Ordered Studies 09/16/23 11:38 CT cervical spine wo con Stat CT head/brain wo con Stat 09/16/23 13:48 CT Abd and Pelvis [CT abd pelvis IV con only] Stat Hospital Course (1) Acute UTI: Complicated UTI, metabolic encephalopathy poa with mechanical fall, no injury negative CT head and neck - CT-A/P with evidence of bilateral pyelo - UA infected appearing. UCx shows E coli, can downgrade to ceftriaxone - volume resuscitated with crystalloid Encephalopathy appears improved with treatment of urinary tract infection She was calm during the visit. Updated family and patient. Patient completed 10 days of IV antibiotics. (2) Atrial fibrillation: History of A-fib Rate controlled A-fib on admission Continue apixaban/Plavix Continue Metoprolol (3) Anemia: History of iron deficiency anemia Hemoglobin 11.1 without active bleeding on admission Remains microcytic at 76.3 Apixaban continued for A-fib stroke prophylaxis (4) H/O: stroke with residual effects: History of CVA, remains on plavix - Rehab candidate. CM following - PT/OT pending Continues to have residual but improved right arm >> right leg weakness compared to the left without focal change, globally has been more weak with multiple falls. Denies new strokelike symptoms Plavix continued Plan \ Total Time Total Time Spent Total Time Spent (In Minutes): 32 Discharge Plan Discharge Items Patient Disposition: Transfer [facility] Fac Reason For Visit: PYELO, WEAKNESS, PLACEMENT Discharge Diagnosis: pyelo Condition on Discharge: Fair Activity: Resume your previous activity Non-emergency contact: Primary Care Provider Call non-emergency contact if: you have any medication questions Follow-up/Referrals: Pro,Kevin Lyn MD [Primary Care Provider] - Diet: Heart Healthy Diet Texture: Dental soft (bite-sized) Addtl Attending Provider Instructions: You were treated for confusion and a urinary tract infection. You were treated for 10 days worth of antibiotics. This eradicated your infection. Recommend followup with PCP in 1-2 weeks. Pending Studies at Discharge: No Stand-Alone Forms: My [facility] Skilled Items Patient informed of condition?: Yes DNR: No Discharge Level of Care: Skilled Communicable Disease: No Discharge Prognosis: Stable Lines: None Urinary Catheter: No Medications and DC Order Prescriptions: New acetaminophen 325 mg Tablet 650 mg PO Q4H PRN (Reason: fever or pain) Qty: 60 0RF polyethylene glycol 3350 [Miralax] 17 gram Powder In Packet 17 g PO DAILY PRN (Reason: constipation) Qty: 14 0RF pantoprazole 40 mg Tablet,Delayed Release (Dr/Ec) 40 mg PO DAILY 30 Days Qty: 30 0RF Continued duloxetine [Cymbalta] 30 mg capsule,delayed release(DR/EC) 30 mg PO QAM Qty: 90 1RF amlodipine 2.5 mg tablet 2.5 mg PO DAILY Qty: 90 3RF ferrous sulfate [FeroSul] 325 mg (65 mg iron) tablet 650 mg PO DAILY Qty: 180 3RF lamotrigine 100 mg tablet 100 mg PO BID 90 Days Qty: 180 3RF Eliquis 5 mg tablet 5 mg PO BID Qty: 180 1RF epinephrine 0.3 mg/0.3 mL auto-injector 0.3 mg subcut ONCE PRN (Reason: anaphylaxis) Qty: 1 3RF metoprolol tartrate 25 mg tablet 25 mg PO BID Qty: 180 1RF clopidogrel [Plavix] 75 mg Tablet 75 mg PO QDL cholecalciferol (vitamin D3) [Vitamin D3] 125 mcg (5,000 unit) Tablet 125 mcg PO QAM Uqora-Part 2 Tablets 2 tab PO QAM Rx Instructions: EACH TABLET CONTAINS--VITAMIN D-1,500 UNITS, W-FODZVEZ-030 MG, TURMERIC ROOT- 200 MG, GREEEN LEAF-200 MG, & BLACK PEPPER FRUIT POWDER-10 MG. Uqora-Part 3 Tablet 10 billion cells PO QAM Rx Instructions: PROBIOTIC-LACTOBACILLUS atorvastatin 20 mg tablet 20 mg PO DAILY Rx Instructions: TAKE 1 TABLET BY MOUTH ONCE DAILY Discontinued omeprazole 20 mg capsule,delayed release(DR/EC) 20 mg PO DAILY Qty: 90 3RF Discharge Orders: Discharge Order (Routine); Ordered 09/25/23 Ordered By: Clint Sales Admission Data Admit Date/Time: 09/16/23 16:20 Attending Provider: Clint Sales Admit Provider: Charlie Cardenas Primary Care Provider: Kevin Fitzgerald Other Providers: Charlie Cardenas; [facility]; [facility] Other Interventions: Discharge Summary Assessment (RN) Last Done: 09/25/23 12:48 Coding Level of Care Code 65456 INP/OBS DISCH >30 MIN Diagnoses Acute UTI N39.0 Atrial fibrillation I48.91 Atrial fibrillation type: unspecified Iron deficiency anemia, unspecified iron deficiency anemia type D50.9 Anemia type: iron deficiency Iron deficiency anemia type: unspecified iron deficiency H/O: stroke with residual effects I69.30
== END 2023-09-25 13:23 | DRG 689 ==
LOC: ED 10:56 → EDINP 16:20 → SUATTDRO 16:20 → 3E 17:28

== ENCOUNTER 2024-05-13 19:37 | Inpatient (IN) ==
--- NOTE | 2024-05-13 19:48 | Emergency Department Note ---
History of Present Illness General Chief complaint: TIA Symptoms Stated complaint: STROKE SYMTOMS Time Seen by Provider: 05/13/24 19:38 Source: EMS History of Present Illness Provider complaint: Strokelike symptoms 83-year-old female presents emergency department via EMS from [facility]. According to EMS the patient was last seen normal at 1730 and then when they checked up on her 1820 the patient was confused and had right-sided weakness. Patient is on Eliquis. No reported falls or traumas. Home Medications Medication Instructions Recorded Confirmed Type epinephrine 0.3 mg/0.3 mL 0.3 mg (0.3 mL) subcut ONCE PRN 08/02/23 05/13/24 Rx injection, auto-injector anaphylaxis #1 ea cholecalciferol (vitamin D3) 125 125 mcg PO QAM #30 tabs 10/21/23 05/13/24 Rx mcg (5,000 unit) tablet (Vitamin D3) acetaminophen 325 mg tablet 650 mg (2 x 325 mg) PO .COMPLEX 12/27/23 05/13/24 Rx PRN fever or pain #60 tabs apixaban 5 mg tablet (Eliquis) 5 mg PO BID #180 tabs 03/26/24 05/13/24 Rx clopidogrel 75 mg tablet (Plavix) 75 mg PO QDL #30 tabs 03/26/24 05/13/24 Rx lamotrigine 100 mg tablet 100 mg PO BID 90 days #180 tabs 03/26/24 05/13/24 Rx duloxetine 30 mg capsule,delayed 30 mg PO QAM #90 caps 04/30/24 05/13/24 Rx release (Cymbalta) Saccharomyces boulardii 250 mg 250 mg PO QAM 05/13/24 05/13/24 History capsule atorvastatin 20 mg tablet 20 mg PO HS 05/13/24 05/13/24 History cranberry extract 500 mg capsule 1,000 mg PO QAM 05/13/24 05/13/24 History (Cranberry Concentrate) ferrous sulfate 325 mg (65 mg 650 mg PO QAM 05/13/24 05/13/24 History iron) tablet (FeroSul) metoprolol succinate 25 mg 25 mg PO QAM 05/13/24 05/13/24 History tablet,extended release 24 hr mirtazapine 7.5 mg tablet 7.5 mg PO HS 05/13/24 05/13/24 History Allergies Allergy/AdvReac Type Severity Reaction Status Date / Time bee venom protein (honey bee) Allergy Severe SHORTNESS Verified 05/13/24 20:22 OF BREATH latex Allergy Mild Redness of Verified 05/13/24 20:22 Skin Past Med/Surg History Problem List (Updated 05/14/24 @ 00:56 by Theo Mckoy MD) Pneumonia (Acute) Stroke-like symptoms (Acute) Hypoxia (Acute) Elevated troponin Pneumonia Stroke-like symptoms Atrial fibrillation (Acute) Acute UTI (Acute) Vomiting (Acute) Fall (Acute) Weakness (Acute) Weakness (Acute) Symptomatic anemia (Acute) Anemia Current use of proton pump inhibitor Carotid stenosis, right R ICA stenosis Elevated BP without diagnosis of hypertension (Acute) Hemangioma (Acute) Seborrheic keratosis (Acute) Atrial fibrillation H/O: stroke with residual effects (Acute) Aphasia as late effect of cerebrovascular accident (Acute) Hemiparesis affecting dominant side as late effect of cerebrovascular accident Contact dermatitis Seizure as late effect of cerebrovascular accident (CVA) Constipation Hospital discharge follow-up History of stroke Multiple pulmonary nodules Hyperglycemia Chronic venous insufficiency (Acute) Hyperlipidemia (Acute) Vitamin D deficiency (Acute) Medical History 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 per neuro, likely 2/2 previous CVA. no recurrence since. Follows with [facility]. 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 s/p mechanical thrombectomy (cause felt to be cardioembolic and pt had newly dx afib at the time). imaging of carotids at this time found R ICA stenosis Atrial fibrillation dx at time of CVA 06/2022; follows with Dr. Guajardo; on Eliquis and BB Surgical History History of surgery thrombectomy [facility] [place] CVA History of eye surgery laser eye surgery BL S/P tooth extraction Family History Sister Atrial fibrillation Stroke Muscular dystrophy Mother Diabetes Father Lung cancer Denies family history of Ovarian cancer Prostate cancer Myocardial infarction Breast cancer Colorectal cancer Social History Smoking Status: Former smoker Tobacco Type: Cigarettes Age Started Using Tobacco: 22; Age Quit Using Tobacco: 53; packs per day: 0.5; Second Hand Exposure: No; Do You Dip or Chew Tobacco: No; Hx Alcohol Use: No Hx Substance Use: No Preferred Language: Estonian Communication Ability: Impaired Communication Ability Comment: stroke defecits Visual Impairment: No Limitations Hearing Ability: Normal Clerk Specialist Required: No Beliefs That Will Affect Care: None marital status: / Current Living Situation: Family Current Living Situation Comment: lives with her son and DIL current occupational status: retired Feels Safe at Home: Yes Childhood Exposure to Second-Hand Smoke: Yes Diet: regular caffeine: Yes Dental Care, Regularly: No Physical Activity Frequency: 1-2 Times per Week Physical Activity Frequency Comment: bird watching, puzzles and walking Seatbelt Use: always Sunscreen Use: No Assistive Devices: Walker Physical Exam Vital Signs Vital Signs - 24 hr 05/13/24 19:45 05/13/24 19:46 05/13/24 19:50 Pulse Rate 72 76 Pulse Rate [Apical] Respiratory Rate 31 H Respiratory Effort / Characteristics Blood Pressure [Right Arm] Blood Pressure Mean [Right Arm] Pulse Oximetry 94 84 L Oxygen Delivery Method Nasal Cannula Room Air Oxygen Flow Rate 4 Sepsis Recent Fever Within 48 Hours No Sepsis New/Unexplained Change in Mental Status N/A Sepsis Action Taken by Nursing No Action Required 05/13/24 20:00 05/13/24 21:13 05/13/24 23:00 Pulse Rate Pulse Rate [Apical] 68 66 Respiratory Rate 29 H Respiratory Effort / Characteristics Non-Labored Blood Pressure [Right Arm] 167/76 H 182/81 H 154/81 H Blood Pressure Mean [Right Arm] 106 114 105 Pulse Oximetry 94 94 Oxygen Delivery Method Nasal Cannula Nasal Cannula Oxygen Flow Rate 4 4 Sepsis Recent Fever Within 48 Hours Sepsis New/Unexplained Change in Mental Status Sepsis Action Taken by Nursing 05/13/24 23:49 05/14/24 00:13 Pulse Rate 66 Pulse Rate [Apical] 75 Respiratory Rate 22 Respiratory Effort / Characteristics Non-Labored Blood Pressure [Right Arm] 150/82 H Blood Pressure Mean [Right Arm] 104 Pulse Oximetry 96 Oxygen Delivery Method Nasal Cannula Oxygen Flow Rate 4 Sepsis Recent Fever Within 48 Hours Sepsis New/Unexplained Change in Mental Status Sepsis Action Taken by Nursing Physical Exam EYES: Conjunctivae and EOM are normal. Pupils are equal, round, and reactive to light. Right eye exhibits no discharge. Left eye exhibits no discharge. No scleral icterus. NECK: Normal range of motion. Neck supple. No JVD present. CV: Normal rate, regular rhythm, normal heart sounds and intact distal pulses. There is no peripheral edema. Palpable radial pulses bue. PULM/CHEST: Rhonchi bilaterally. ABD: The abdomen is soft. There is no tenderness. There is no rebound, no guarding NEURO: Patient is not oriented to person place or time. Right upper and lower extremity weakness. Right-sided facial droop. Course Course 1937: The patient was evaluated in room C5. A complete history and physical exam was performed Cardiac monitoring: An order was placed for continuous cardiac monitoring. The monitor shows a rate of 70 with sinus rhythm interpreted by me No code stroke was called as the patient is on Eliquis. 2113: Vital signs stable on supplemental oxygen via nasal cannula. On reassessment patient is now able to speak with family at bedside. She does have improvement of her strength but there is still some mild facial droop. Chest x- ray shows a right-sided infiltrate. Patient be treated with IV antibiotics. CT of the head viewed by me shows no ICH. Awaiting formal radiology results of CT scan. 2204:Vital signs stable on supplemental oxygen via nasal cannula. White blood cell count 12.68. Otherwise unremarkable. Lactic acid within normal limits. CT of the head and CT angio head and neck are unremarkable. Patient weakness significantly improved. Is unclear if the patient's neurological deficits were due to a CVA/TIA, seizure, or if her symptoms were more due to the hypoxia from her pneumonia. [facility]. Administered Medications Discontinued Medications Piperacillin Sod/Tazobactam Sod (Zosyn) 4.5 gm in 120 mls @ 240 mls/hr IV NOW ONE Stop: 05/13/24 21:37 Last Infusion: 05/13/24 22:00 Dose: Infused Documented By: Admin: 05/13/24 21:30 Dose: 240 mls/hr Documented By: GLORIA Vancomycin HCl 1,500 mg/ (Sodium Chloride) 530 mls @ 200 mls/hr IV NOW ONE Stop: 05/14/24 00:40 Last Admin: 05/13/24 23:12 Dose: 200 mls/hr Documented By: CASTRO Ioversol (Optiray 320 125ml) 117 ml IV ONCE ONE Stop: 05/13/24 20:22 Last Admin: 05/13/24 20:21 Dose: 117 ml Documented By: RONALD Critical Care Time Critical Care Time: Yes Total Critical Care Time: 53 I have personally spent greater than 53 minutes of critical care time in the direct management of this patient. This includes bedside care, interpretation of diagnostic studies, and testing, discussion with consultants, patient, and family members, and other required patient management activities. This 53 minutes is in excess of all separately billable procedures. Medical Decision Making Medical Records Attestation: I reviewed the patient's medical records. External medical records reviewed. Patient does follow with neurology at [facility]. According to the last note from neurology by Kiersten, the patient was alert and oriented x 1 and was only able to answer in short sentences. According to her note the patient had aphasia secondary to a CVA. Patient also has baseline weakness in her right side secondary to a CVA. Laboratory Data Attestation: I reviewed the patient's lab results. 05/13/24 19:55 05/13/24 21:11 Lab Results 05/13/24 05/13/24 05/13/24 Range/Units 19:55 19:57 20:01 WBC 8.45 (4.8-10.8) K/ul RBC 4.45 (4.20-5.40) M/uL Hgb 13.5 (12.0-16.0) g/dl POC Hgb 14.6 (12.0-16.0) g/dl Hct 42.2 (37.0-47.0) % POC Hct 43 (37-47) % MCV 94.8 (80.0-100.0) fL MCH 30.3 (25.0-34.0) pg MCHC 32.0 (32.0-36.0) g/dL RDW Std Deviation 48.4 H (36.4-46.3) fL RDW Coeff of Rosa Elena 13.9 (11.5-14.5) % Plt Count 207 (130-400) K/uL MPV 9.4 (9.4-12.4) fL Immature Gran % (Auto) 0.6 % Neut % (Auto) 80.7 % Lymph % (Auto) 12.3 % Roosevelt % (Auto) 4.5 % Eos % (Auto) 1.5 % Baso % (Auto) 0.4 % Neut # (Auto) 6.82 H (1.40-6.50) K/uL Lymph # (Auto) 1.04 L (1.20-3.40) K/uL [place] # (Auto) 0.38 (0.11-0.59) K/uL Eos # (Auto) 0.13 (0.00-0.50) K/uL Baso # (Auto) 0.03 (0.00-0.20) K/uL Immature Gran # (Auto) 0.05 (0.01-0.20) K/uL PT Cancelled INR Cancelled APTT Cancelled PTT Ratio Cancelled VBG pH 7.31 L (7.36-7.41) VBG pCO2 60 H (38-50) mmHg VBG pO2 21 mmHg VBG HCO3 30 mmol/L VBG O2 Saturation < 60.0 % VBG Base Excess 2.4 mEq/L POC Sodium 139 (135-144) mmol/L Sodium 138 (136-145) mmol/L POC Potassium 4.4 (3.3-5.0) mmol/L Potassium TNP POC Chloride 101 (101-112) mmol/L Chloride 102 (98-107) mmol/L Carbon Dioxide 29 (21-32) mmol/L POC Total CO2 28 (24-31) mmol/L Anion Gap 7 (3-11) POC Anion Gap 15.0 L (16-25) mmol/L POC BUN 34 H (7-18) mg/dl BUN 27 H (6-23) mg/dl Creatinine 1.12 (0.6-1.2) mg/dl POC Creatinine 1.2 (0.6-1.3) mg/dl Est Cr Clr Drug Dosing Not Reportable eGFR 49.40 BUN/Creatinine Ratio 24.1 H (10-20) Glucose 163 H (70-99(Fasting)) mg/dl POC Glucose (other) 163 H (70-99) mg/dl Lactate (0.4-2.0) mmol/L Calcium 9.5 (8.6-10.3) mg/dl POC Ioniz Calcium Desirae 1.20 (1.12-1.32) mmol/l Magnesium 2.0 (1.7-2.4) mg/dl Total Bilirubin 0.3 (0.2-1.0) mg/dl AST TNP ALT 27 (7-52) U/L Alkaline Phosphatase 89 (34-104) U/L Troponin I High Sens 29.2 H (0-14) pg/ml Total Protein 7.5 (6.0-8.3) gm/dl Albumin 4.3 (3.4-5.0) gm/dl Globulin 3.2 (2.5-4.0) gm/dl Albumin/Globulin Ratio 1.3 (0.9-2) Procalcitonin (0-0.5) ng/ml Blood Type A Positive Antibody Screen NEGATIVE 05/13/24 05/13/24 Range/Units 21:11 21:15 WBC (4.8-10.8) K/ul RBC (4.20-5.40) M/uL Hgb (12.0-16.0) g/dl POC Hgb (12.0-16.0) g/dl Hct (37.0-47.0) % POC Hct (37-47) % MCV (80.0-100.0) fL MCH (25.0-34.0) pg MCHC (32.0-36.0) g/dL RDW Std Deviation (36.4-46.3) fL RDW Coeff of Rosa Elena (11.5-14.5) % Plt Count (130-400) K/uL MPV (9.4-12.4) fL Immature Gran % (Auto) % Neut % (Auto) % Lymph % (Auto) % [place] % (Auto) % Eos % (Auto) % Baso % (Auto) % Neut # (Auto) (1.40-6.50) K/uL Lymph # (Auto) (1.20-3.40) K/uL [place] # (Auto) (0.11-0.59) K/uL Eos # (Auto) (0.00-0.50) K/uL Baso # (Auto) (0.00-0.20) K/uL Immature Gran # (Auto) (0.01-0.20) K/uL PT 10.7 INR 1.0 APTT 25 PTT Ratio 0.9 VBG pH (7.36-7.41) VBG pCO2 (38-50) mmHg VBG pO2 mmHg VBG HCO3 mmol/L VBG O2 Saturation % VBG Base Excess mEq/L POC Sodium (135-144) mmol/L Sodium (136-145) mmol/L POC Potassium (3.3-5.0) mmol/L Potassium 4.1 POC Chloride (101-112) mmol/L Chloride (98-107) mmol/L Carbon Dioxide (21-32) mmol/L POC Total CO2 (24-31) mmol/L Anion Gap (3-11) POC Anion Gap (16-25) mmol/L POC BUN (7-18) mg/dl BUN (6-23) mg/dl Creatinine (0.6-1.2) mg/dl POC Creatinine (0.6-1.3) mg/dl Est Cr Clr Drug Dosing eGFR BUN/Creatinine Ratio (10-20) Glucose (70-99(Fasting)) mg/dl POC Glucose (other) (70-99) mg/dl Lactate 1.7 (0.4-2.0) mmol/L Calcium (8.6-10.3) mg/dl POC Ioniz Calcium Desirae (1.12-1.32) mmol/l Magnesium (1.7-2.4) mg/dl Total Bilirubin (0.2-1.0) mg/dl AST 24 ALT (7-52) U/L Alkaline Phosphatase (34-104) U/L Troponin I High Sens 99.1 H* D (0-14) pg/ml Total Protein (6.0-8.3) gm/dl Albumin (3.4-5.0) gm/dl Globulin (2.5-4.0) gm/dl Albumin/Globulin Ratio (0.9-2) Procalcitonin < 0.02 (0-0.5) ng/ml Blood Type Antibody Screen Imaging Data Attestation: I personally reviewed and interpreted this imaging study as follows: My Impression: CT head: No ICH Chest x-ray: Right and left-sided infiltrate Radiologist's Impression: Head CT 05/13/24 19:39 CR Exam(s): CT HEAD Without Contrast EXAM: CT Head Without Intravenous Contrast CLINICAL HISTORY: Reason for exam: neuro deficit, acute stroke suspected. TECHNIQUE: Axial computed tomography images of the head/brain without intravenous contrast. CTDI is 30.6 mGy and DLP is 448.01 mGy-cm. Automated exposure control was utilized for the study. A dose lowering technique was utilized adhering to the principles of ALARA. COMPARISON: CT brain: 11/13/2023 FINDINGS: Motion-induced image degradation. Brain: There is no acute intracranial hemorrhage, mass-effect or midline shift. An old left MCA territory infarct again noted with a large size encephalomalacic area. Moderate cerebral atrophy with widening of the extra-axial spaces and ventricular dilatation. There are periventricular/subcortical areas of decreased attenuation, likely from chronic microvascular disease. Bones/joints: Unremarkable. No acute fracture. Soft tissues: Unremarkable. Sinuses: Unremarkable as visualized. No acute sinusitis. Mastoid air cells: Unremarkable as visualized. No mastoid effusion.. IMPRESSION: No definite acute intracranial abnormality evident Chronic involutional and ischemic changes of the brain. . Communications: Call Doctor Stroke Electronically signed by: Ирина Ventura MD, DABR 05/13/24 21:36 PM Head CTA 05/13/24 19:39 CR Exam(s): CTA HEAD With Contrast IV Amt: 117 ml optiray 320 EXAM: CT Angiography Head With Intravenous Contrast CLINICAL HISTORY: Reason for exam: neuro deficit, acute stroke suspected. TECHNIQUE: Axial computed tomographic angiography images of the head with intravenous contrast. CTDI is 30.6 mGy and DLP is 448.01 mGy-cm. Automated exposure control was utilized for the study. A dose lowering technique was utilized adhering to the principles of ALARA. MIP reconstructed images were created and reviewed. CONTRAST: Patient received 117 ml optiray 320 of IV contrast COMPARISON: CT brain: 05/13/2024 FINDINGS: Intracranial circulation: There are no large vessel occlusion. No significant stenosis or aneurysm. No vascular malformation. Diminutive right vertebral artery. Diminutive left vertebral artery. Basilar artery: Unremarkable. No occlusion or significant stenosis. No aneurysm. IMPRESSION: . [place] CTA does not demonstrate any aneurysm, significant large vessel stenosis or occlusion. Communications: Call Doctor Stroke Electronically signed by: Ирина Ventura MD, DABR 05/13/24 21:25 PM Neck CTA 05/13/24 19:39 CR Exam(s): CTA NECK With Contrast IV Amt: 117 ml optiray 320 EXAM: CT Angiography Neck With Intravenous Contrast CLINICAL HISTORY: Reason for exam: neuro deficit, acute stroke suspected. TECHNIQUE: Routine carotid CT angiography protocol was performed with intravenous contrast. NASCET criteria using the distal ICAs for comparison were used for evaluation of stenoses. CTDI is 30.6 mGy and DLP is 448.01 mGy-cm. Automated exposure control was utilized for the study. A dose lowering technique was utilized adhering to the principles of ALARA. MIP reconstructed images were created and reviewed. CONTRAST: Patient received 117 ml optiray 320 of IV contrast COMPARISON: None. FINDINGS: Motion-induced image degradation limits anatomical details. VASCULATURE: Diffusely atheromatous calcified aortic arch. Right common carotid artery: Distally mild/moderate calcified/noncalcified arterial atherosclerosis. Endovascular stent is placed at the distal right CCA, carotid bulb and proximal ICA. Right carotid bulb: High-grade/significant stenosis (series 7 image 194, series 700 image 35). No occlusion. No dissection. Right internal carotid artery: Unremarkable. Extracranial segment is patent with no occlusion or significant stenosis. No dissection. Right external carotid artery: Unremarkable. No occlusion. Right vertebral artery: Unremarkable. No occlusion or significant stenosis. No dissection. Left common carotid artery: Calcified/noncalcified atherosclerosis of the left CCA with< 50% luminal narrowing. No occlusion. No dissection. Left carotid bulb: Calcified atherosclerotic plaques. No significant stenosis. No occlusion. Left internal carotid artery: Unremarkable. Extracranial segment is patent with no occlusion or significant stenosis. No dissection. Left external carotid artery: Focal calcified plaque proximally. No occlusion. Left vertebral artery: Unremarkable. No occlusion or significant stenosis. No dissection. NECK: Bones/joints: Unremarkable. No acute fracture. Degenerative spondylitic changes of the spine. Soft tissues: Unremarkable. Lung apices: Pulmonary emphysema. Bilaterally extensive peribronchovascular patchy air space opacities are seen right side more than the left (: Series 9 image1- 6).. CAROTID STENOSIS REFERENCE USING NASCET CRITERIA: % ICA stenosis = (1 - narrowest ICA diameter/diameter of distal cervical ICA) x 100. Mild - <50% stenosis. Moderate - 50-69% stenosis. Severe - 70-94% stenosis. Near occlusion - 95-99% stenosis. Occluded - 100% stenosis. IMPRESSION: Calcified/noncalcified atherosclerosis of the distal right common carotid artery. Endovascular stent graft is seen at the distal right CCA, carotid bulb and proximal ICA. Right carotid bulb: High- grade/significant stenosis. Calcified/noncalcified atherosclerosis of the left common carotid artery with <50% luminal narrowing. Lung apices: Extensive bilateral peribronchovascular patchy air space disease, right side more than the left. Background pulmonary emphysema. Communications: 05/13/24 22:47 Call Doctor Regarding Stroke, called Dr. Mckoy on 05/13 22:47 (-04:00) Electronically signed by: Ирина Ventura MD, DABR 05/13/24 22:47 PM ECG Data Attestation: I personally reviewed and interpreted this ECG as follows: Rate (beats per minute): 74 Rhythm: + normal sinus ECG Intervals/blocks: + Normal QRS, + Normal OK and + Normal QT-c ECG ST segments: + Normal ST segments MDM Narrative 193: The patient was evaluated in room C5. A complete history and physical exam was performed Cardiac monitoring: An order was placed for continuous cardiac monitoring. The monitor shows a rate of 70 with sinus rhythm interpreted by me No code stroke was called as the patient is on Eliquis. 2113: Vital signs stable on supplemental oxygen via nasal cannula. On reassessment patient is now able to speak with family at bedside. She does have improvement of her strength but there is still some mild facial droop. Chest x- ray shows a right-sided infiltrate. Patient be treated with IV antibiotics. CT of the head viewed by me shows no ICH. Awaiting formal radiology results of CT scan. 2204:Vital signs stable on supplemental oxygen via nasal cannula. White blood cell count 12.68. Otherwise unremarkable. Lactic acid within normal limits. CT of the head and CT angio head and neck are unremarkable. Patient weakness significantly improved. Is unclear if the patient's neurological deficits were due to a CVA/TIA, seizure, or if her symptoms were more due to the hypoxia from her pneumonia. Patient will be admitted to the [place] hospitalist team. Impression & Plan Hypoxia, Stroke-like symptoms, Pneumonia Discharge Plan Visit Data Chief Complaint: TIA Symptoms Stated Complaint: STROKE SYMTOMS ED Provider: Theo Mckoy Discharge Problem: Hypoxia, Stroke-like symptoms, Pneumonia Patient Disposition: Being Evaluated by Hospitalist Forms Stand Alone Forms: [facility] Prescriptions Prescriptions: No Action cholecalciferol (vitamin D3) [Vitamin D3] 125 mcg (5,000 unit) tablet 125 mcg PO QAM Qty: 30 5RF lamotrigine 100 mg tablet 100 mg PO BID 90 Days Qty: 180 3RF Eliquis 5 mg tablet 5 mg PO BID Qty: 180 1RF clopidogrel [Plavix] 75 mg tablet 75 mg PO QDL Qty: 30 1RF Rx Instructions: take daily at lunch time duloxetine [Cymbalta] 30 mg capsule,delayed release(DR/EC) 30 mg PO QAM Qty: 90 1RF epinephrine 0.3 mg/0.3 mL auto-injector 0.3 mg subcut ONCE PRN (Reason: anaphylaxis) Qty: 1 3RF acetaminophen 325 mg tablet 650 mg PO .COMPLEX PRN (Reason: fever or pain) Qty: 60 0RF Rx Instructions: Take 2 tablets (650)mg by mouth every 6 hours as needed for temp greater than 100 or pain 1-10 Max 3GM APAP/24 HRS atorvastatin 20 mg tablet 20 mg PO HS ferrous sulfate [FeroSul] 325 mg (65 mg iron) tablet 650 mg PO QAM cranberry extract [Cranberry Concentrate] 500 mg Capsule 1,000 mg PO QAM Rx Instructions: administer with meals metoprolol succinate 25 mg tablet extended release 24 hr 25 mg PO QAM Rx Instructions: Take 1 tablet by mouth once daily for HTN Hold for SBP less than 100 or Diastolic blood pressure less than 50 Saccharomyces boulardii 250 mg capsule 250 mg PO QAM mirtazapine 7.5 mg tablet 7.5 mg PO HS Rx Instructions: Take one tablet by mouth at bedtime "mood disorder" Referrals Referrals: Kevin Fitzgerald MD [Primary Care Provider] - Discharge Problem: Pneumonia Qualifiers: Pneumonia type: due to unspecified organism Laterality: bilateral Lung location: unspecified part of lung Qualified Code(s): J18.9 - Pneumonia, unspecified organism
[2024-05-13 20:05] LABS: Base Excess VBG 2.4 mEq/L; HCO3 VBG 30 mmol/L; Oxygen Saturation VBG < 60.0 %; PCO2 VBG 60 mmHg (38-50); PO2 VBG 21 mmHg; pH VBG 7.31 (7.36-7.41)
[2024-05-13 20:12] LABS: Basophils # (auto) 0.03 K/uL (0.00-0.20); Basophils % (auto) 0.4 %; Eosinophils # (auto) 0.13 K/uL (0.00-0.50); Eosinophils % (auto) 1.5 %; Hematocrit (blood only) 42.2 % (37.0-47.0); Hemoglobin 13.5 g/dl (12.0-16.0); Immature Granulocytes # (auto) 0.05 K/uL (0.01-0.20); Immature Granulocytes % (auto) 0.6 %; Lymphocytes # (auto) 1.04 K/uL (1.20-3.40); Lymphocytes % (auto) 12.3 %; Mean Corpuscular Hemoglobin 30.3 pg (25.0-34.0); Mean Corpuscular Volume 94.8 fL (80.0-100.0); Mean Platelet Volume 9.4 fL (9.4-12.4); Monocytes # (auto) 0.38 K/uL (0.11-0.59); Monocytes % (auto) 4.5 %; Neutrophils # (auto) 6.82 K/uL (1.40-6.50); Neutrophils % (auto) 80.7 %; Platelet Count 207 K/uL (130-400); RDW Coefficient of Variation 13.9 % (11.5-14.5); RDW Standard Deviation 48.4 fL (36.4-46.3); Red Blood Count 4.45 M/uL (4.20-5.40); White Blood Count 8.45 K/ul (4.8-10.8)
[2024-05-13] MEDS: OPTIRAY 320 125ml IV ONE (20:21)
[2024-05-13 20:38] LABS: iSTAT Creatinine 1.2 mg/dl (0.6-1.3); iSTAT Hemoglobin 14.6 g/dl (12.0-16.0); iSTAT Ionized Calcium 1.2 mmol/l (1.12-1.32); iSTAT Potassium 4.4 mmol/L (3.3-5.0)
[2024-05-13 21:03] LABS: Alanine Aminotransferase 27 U/L (7-52); Albumin Globulin Ratio 1.3 (0.9-2); Albumin Level 4.3 gm/dl (3.4-5.0); Alkaline Phosphatase 89 U/L (34-104); Anion Gap 7 (3-11); BUN Creatinine Ratio 24.1 (10-20); Bilirubin,Total 0.3 mg/dl (0.2-1.0); Blood Urea Nitrogen 27 mg/dl (6-23); Calcium 9.5 mg/dl (8.6-10.3); Carbon Dioxide 29 mmol/L (21-32); Chloride 102 mmol/L (98-107); Globulin 3.2 gm/dl (2.5-4.0); Glucose 163 mg/dl (70-99(Fasting)); Sodium 138 mmol/L (136-145); Total Protein 7.5 gm/dl (6.0-8.3); Troponin I High Sensitivity 29.2 pg/ml (0-14)
--- NOTE | 2024-05-13 21:26 | CT Scan Report ---
Exam(s): CTA HEAD With Contrast IV Amt: 117 ml optiray 320 EXAM: CT Angiography Head With Intravenous Contrast CLINICAL HISTORY: Reason for exam: neuro deficit, acute stroke suspected. TECHNIQUE: Axial computed tomographic angiography images of the head with intravenous contrast. CTDI is 30.6 mGy and DLP is 448.01 mGy-cm. Automated exposure control was utilized for the study. A dose lowering technique was utilized adhering to the principles of ALARA. MIP reconstructed images were created and reviewed. CONTRAST: Patient received 117 ml optiray 320 of IV contrast COMPARISON: CT brain: 05/13/2024 FINDINGS: Intracranial circulation: There are no large vessel occlusion. No significant stenosis or aneurysm. No vascular malformation. Diminutive right vertebral artery. Diminutive left vertebral artery. Basilar artery: Unremarkable. No occlusion or significant stenosis. No aneurysm. IMPRESSION: . [place] CTA does not demonstrate any aneurysm, significant large vessel stenosis or occlusion. Communications: Call Doctor Stroke Electronically signed by: Ирина Ventura MD, DABR 05/13/24 21:25 PM
[2024-05-13] MEDS: PIPERACILLIN/TAZOBACTAM 4.5 GM/120 ML BAG IV ONE (21:30)
--- NOTE | 2024-05-13 21:38 | CT Scan Report ---
Exam(s): CT HEAD Without Contrast EXAM: CT Head Without Intravenous Contrast CLINICAL HISTORY: Reason for exam: neuro deficit, acute stroke suspected. TECHNIQUE: Axial computed tomography images of the head/brain without intravenous contrast. CTDI is 30.6 mGy and DLP is 448.01 mGy-cm. Automated exposure control was utilized for the study. A dose lowering technique was utilized adhering to the principles of ALARA. COMPARISON: CT brain: 11/13/2023 FINDINGS: Motion-induced image degradation. Brain: There is no acute intracranial hemorrhage, mass-effect or midline shift. An old left MCA territory infarct again noted with a large size encephalomalacic area. Moderate cerebral atrophy with widening of the extra-axial spaces and ventricular dilatation. There are periventricular/subcortical areas of decreased attenuation, likely from chronic microvascular disease. Bones/joints: Unremarkable. No acute fracture. Soft tissues: Unremarkable. Sinuses: Unremarkable as visualized. No acute sinusitis. Mastoid air cells: Unremarkable as visualized. No mastoid effusion.. IMPRESSION: No definite acute intracranial abnormality evident Chronic involutional and ischemic changes of the brain. . Communications: Call Doctor Stroke Electronically signed by: Ирина Ventura MD, DABR 05/13/24 21:36 PM
[2024-05-13 21:45] LABS: Potassium 4.1 mmol/L (3.5-5.1)
[2024-05-13 21:56] LABS: Partial Thromboplastin Ratio 0.9; Partial Thromboplastin Time 25 Seconds (21-31); Prothrombin Time 10.7 Seconds (9.0-12.0)
[2024-05-13] MEDS ORDERED: VANCOMYCIN CONSULT ACTIVE PRN (22:02)
[2024-05-13 22:47] LABS: Troponin I High Sensitivity 99.1 pg/ml (0-14)
--- NOTE | 2024-05-13 22:48 | CT Scan Report ---
Exam(s): CTA NECK With Contrast IV Amt: 117 ml optiray 320 EXAM: CT Angiography Neck With Intravenous Contrast CLINICAL HISTORY: Reason for exam: neuro deficit, acute stroke suspected. TECHNIQUE: Routine carotid CT angiography protocol was performed with intravenous contrast. NASCET criteria using the distal ICAs for comparison were used for evaluation of stenoses. CTDI is 30.6 mGy and DLP is 448.01 mGy-cm. Automated exposure control was utilized for the study. A dose lowering technique was utilized adhering to the principles of ALARA. MIP reconstructed images were created and reviewed. CONTRAST: Patient received 117 ml optiray 320 of IV contrast COMPARISON: None. FINDINGS: Motion-induced image degradation limits anatomical details. VASCULATURE: Diffusely atheromatous calcified aortic arch. Right common carotid artery: Distally mild/moderate calcified/noncalcified arterial atherosclerosis. Endovascular stent is placed at the distal right CCA, carotid bulb and proximal ICA. Right carotid bulb: High-grade/significant stenosis (series 7 image 194, series 700 image 35). No occlusion. No dissection. Right internal carotid artery: Unremarkable. Extracranial segment is patent with no occlusion or significant stenosis. No dissection. Right external carotid artery: Unremarkable. No occlusion. Right vertebral artery: Unremarkable. No occlusion or significant stenosis. No dissection. Left common carotid artery: Calcified/noncalcified atherosclerosis of the left CCA with< 50% luminal narrowing. No occlusion. No dissection. Left carotid bulb: Calcified atherosclerotic plaques. No significant stenosis. No occlusion. Left internal carotid artery: Unremarkable. Extracranial segment is patent with no occlusion or significant stenosis. No dissection. Left external carotid artery: Focal calcified plaque proximally. No occlusion. Left vertebral artery: Unremarkable. No occlusion or significant stenosis. No dissection. NECK: Bones/joints: Unremarkable. No acute fracture. Degenerative spondylitic changes of the spine. Soft tissues: Unremarkable. Lung apices: Pulmonary emphysema. Bilaterally extensive peribronchovascular patchy air space opacities are seen right side more than the left (: Series 9 image1- 6).. CAROTID STENOSIS REFERENCE USING NASCET CRITERIA: % ICA stenosis = (1 - narrowest ICA diameter/diameter of distal cervical ICA) x 100. Mild - <50% stenosis. Moderate - 50-69% stenosis. Severe - 70-94% stenosis. Near occlusion - 95-99% stenosis. Occluded - 100% stenosis. IMPRESSION: Calcified/noncalcified atherosclerosis of the distal right common carotid artery. Endovascular stent graft is seen at the distal right CCA, carotid bulb and proximal ICA. Right carotid bulb: High- grade/significant stenosis. Calcified/noncalcified atherosclerosis of the left common carotid artery with <50% luminal narrowing. Lung apices: Extensive bilateral peribronchovascular patchy air space disease, right side more than the left. Background pulmonary emphysema. Communications: 05/13/24 22:47 Call Doctor Regarding Stroke, called Dr. Mckoy on 05/13 22:47 (-04:00) Electronically signed by: Ирина Ventura MD, HERNÁN 05/13/24 22:47 PM
--- NOTE | 2024-05-13 22:51 | History & Physical Report ---
Date of Service May 13, 2024 Assessment & Plan (1) Stroke-like symptoms: (2) Pneumonia: (3) Atrial fibrillation: (4) Elevated troponin: Plan Ghazal Arriola is an 83yo F w PMH notable for afib on chronic DOAC and L MCA stroke (Jun 2023) w residual deficits, who presents from [facility] due to stroke-like symptoms. Stroke-like sx - LKWT 17:30. Pt found unresponsive and "foaming at the mouth" by nurse at 18:20 - Not candidate for thrombolytics d/t chronic Eliquis use - h/o CVA w residual R hemiparesis, expressive aphasia, and seizures (managed w lamictal) - Seizure vs stroke vs TIA vs recrudescence - CT and CTA head showed No definite acute intracranial abnormality [facility] w/o aneurysm, significant large vessel stenosis or occlusion Atherosclerosis of the distal b/l common carotid artery Evidence of past R TCAR Significant stenosis of R carotid bulb - MRI brain and TTE ordered - continue lamictal, plavix - permissive HTN; held home metoprolol - increased statin from 20 to 40mg - PT/OT/ST consulted - neuro checks q2h, NIHSS QS - aspiration and fall precautions, dysphagia assessment PNA - RR 31 and O2sat 84 on arrival; improved to 94% on 4L n.c. Does not req supplemental O2 at baseline - CXR showed extensive bilateral peribronchovascular patchy air space disease, R>L - Afebrile, no leukocytosis, coarse lung sounds on R, no cough or respiratory distress - Given 1500mg IV vanc & 4.5g IV Zosyn in ED - NPO, aspiration precautions, dysphagia assessment Elevated troponin - 29.2 on arrival; increased to 99.1 within 2h - trend q6h Afib - continue Eliquis - continuous cardiac monitoring Diet: NPO DVT ppx: home Eliquis Dispo: telemetry History of Present Illness Chief Complaint: stroke-like symptoms Primary Care Provider: Kevin Fitzgerald MD Staff at [facility] reported she ate dinner, was at her normal baseline at 17:30, and then they her unresponsive and "foaming at the mouth" when going to give her meds at 18:30. Son and [id number] are present at bedside. Patient does not remember what happened/cannot articulate due to expressive aphasia. Says "it" was "horrible" but cannot clarify further than she felt pain everywhere ("it happened to everybody"). DIL supplies that R leg felt tight, and provides verbal cues to prompt much of the history reported by patient. Patient denies CHOWDARY, vision or hearing changes, new weakness, abnormal sensation, SOB, chest pain, abd pain. 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 She uses a walker but is active. She has some confusion and difficulty speaking normally, and son reports she is currently at "about 70%" of her cognitive baseline. She has never required supplemental O2. She has no diet restrictions or trouble swallowing. No reported falls or trauma. Takes Eliquis regularly. Son and DIL deny any allergies other than bee venom. Patient reports feeling much better since being at the hospital. Allergies Allergy/AdvReac Type Severity Reaction Status Date / Time bee venom protein (honey bee) Allergy Severe SHORTNESS Verified 05/13/24 20:22 OF BREATH latex Allergy Mild Redness of Verified 05/13/24 20:22 Skin Home Medications Medication Instructions Recorded Confirmed Type epinephrine 0.3 mg/0.3 mL 0.3 mg (0.3 mL) subcut ONCE PRN 08/02/23 05/13/24 Rx injection, auto-injector anaphylaxis #1 ea cholecalciferol (vitamin D3) 125 125 mcg PO QAM #30 tabs 10/21/23 05/13/24 Rx mcg (5,000 unit) tablet (Vitamin D3) acetaminophen 325 mg tablet 650 mg (2 x 325 mg) PO .COMPLEX 12/27/23 05/13/24 Rx PRN fever or pain #60 tabs apixaban 5 mg tablet (Eliquis) 5 mg PO BID #180 tabs 03/26/24 05/13/24 Rx clopidogrel 75 mg tablet (Plavix) 75 mg PO QDL #30 tabs 03/26/24 05/13/24 Rx lamotrigine 100 mg tablet 100 mg PO BID 90 days #180 tabs 03/26/24 05/13/24 Rx duloxetine 30 mg capsule,delayed 30 mg PO QAM #90 caps 04/30/24 05/13/24 Rx release (Cymbalta) Saccharomyces boulardii 250 mg 250 mg PO QAM 05/13/24 05/13/24 History capsule atorvastatin 20 mg tablet 20 mg PO HS 05/13/24 05/13/24 History cranberry extract 500 mg capsule 1,000 mg PO QAM 05/13/24 05/13/24 History (Cranberry Concentrate) ferrous sulfate 325 mg (65 mg 650 mg PO QAM 05/13/24 05/13/24 History iron) tablet (FeroSul) metoprolol succinate 25 mg 25 mg PO QAM 05/13/24 05/13/24 History tablet,extended release 24 hr mirtazapine 7.5 mg tablet 7.5 mg PO HS 05/13/24 05/13/24 History Past Med/Surg History Problem List Pneumonia (Acute) Stroke-like symptoms (Acute) Hypoxia (Acute) Elevated troponin Pneumonia Stroke-like symptoms Atrial fibrillation (Acute) Acute UTI (Acute) Vomiting (Acute) Fall (Acute) Weakness (Acute) Weakness (Acute) Symptomatic anemia (Acute) Anemia Current use of proton pump inhibitor Carotid stenosis, right R ICA stenosis Elevated BP without diagnosis of hypertension (Acute) Hemangioma (Acute) Seborrheic keratosis (Acute) Atrial fibrillation H/O: stroke with residual effects (Acute) Aphasia as late effect of cerebrovascular accident (Acute) Hemiparesis affecting dominant side as late effect of cerebrovascular accident Contact dermatitis Seizure as late effect of cerebrovascular accident (CVA) Constipation Hospital discharge follow-up History of stroke Multiple pulmonary nodules Hyperglycemia Chronic venous insufficiency (Acute) Hyperlipidemia (Acute) Vitamin D deficiency (Acute) Medical History 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 per neuro, likely 2/2 previous CVA. no recurrence since. Follows with [place] [facility]. 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 s/p mechanical thrombectomy (cause felt to be cardioembolic and pt had newly dx afib at the time). imaging of carotids at this time found R ICA stenosis Atrial fibrillation dx at time of CVA 06/2022; follows with Dr. Guajardo; on Eliquis and BB Surgical History History of surgery thrombectomy [facility] [place] 06/2022 CVA History of eye surgery laser eye surgery [place] S/P tooth extraction Family History Sister Atrial fibrillation Stroke Muscular dystrophy Mother Diabetes Father Lung cancer Denies family history of Ovarian cancer Prostate cancer Myocardial infarction Breast cancer Colorectal cancer Social History Smoking Status: Former smoker Tobacco Type: Cigarettes Age Started Using Tobacco: 22; Age Quit Using Tobacco: 53; packs per day: 0.5; Second Hand Exposure: No; Do You Dip or Chew Tobacco: No; Hx Alcohol Use: No Hx Substance Use: No Preferred Language: Italian Communication Ability: Impaired Communication Ability Comment: stroke defecits Visual Impairment: No Limitations Hearing Ability: Normal [employer] Required: No Beliefs That Will Affect Care: None marital status: / Current Living Situation: Family Current Living Situation Comment: lives with her son and DIL current occupational status: retired Feels Safe at Home: Yes Childhood Exposure to Second-Hand Smoke: Yes Diet: regular caffeine: Yes Dental Care, Regularly: No Physical Activity Frequency: 1-2 Times per Week Physical Activity Frequency Comment: bird watching, puzzles and walking Seatbelt Use: always Sunscreen Use: No Assistive Devices: Walker Review of Systems Review of Systems: Constitutional: denies fever, chills HEENT: denies congestion, vision or hearing changes CV: denies chest pain, palpitations Resp: denies shortness of breath, cough GI: denies abd pain, n/v/c/d : denies dysuria Neuro: denies CHOWDARY or new or worsening numbness, tingling, weakness Physical Exam Physical Exam: Gen: Pleasant, cooperative but confused/struggling due to aphasia, NAD HEENT: NCAT, PERRL, oropharynx clear CV: RRR, no m/r/g Resp: Coarse lung sounds RUL, symmetrical chest rise, breathing non-labored Abd: Soft, NT/ND, +BS Skin: Warm, dry, pink, no rashes or lesions Neuro: Alert, oriented to person and place, PERRL, mild R lower facial droop, str equal bilaterally, further exam limited by pt's inability to follow commands Results & Data Results & Data Vital Signs (Past 12 Hours) Vital Signs Pulse Pulse Resp BP Pulse Ox O2 Del Method O2 Flow Rate 05/13/24 21:13 68 182/81 H 94 Nasal Cannula 4 05/13/24 20:00 167/76 H 05/13/24 19:50 76 05/13/24 19:46 72 31 H 84 L Room Air 05/13/24 19:45 94 Nasal Cannula 4 Laboratory Results Laboratory Results WBC 8.45 K/ul (4.8-10.8) 05/13/24 19:55 RBC 4.45 M/uL (4.20-5.40) 05/13/24 19:55 Hgb 13.5 g/dl (12.0-16.0) 05/13/24 19:55 POC Hgb 14.6 g/dl (12.0-16.0) 05/13/24 20:01 Hct 42.2 % (37.0-47.0) 05/13/24 19:55 POC Hct 43 % (37-47) 05/13/24 20:01 MCV 94.8 fL (80.0-100.0) 05/13/24 19:55 MCH 30.3 pg (25.0-34.0) 05/13/24 19:55 MCHC 32.0 g/dL (32.0-36.0) 05/13/24 19:55 RDW Std Deviation 48.4 fL (36.4-46.3) H 05/13/24 19:55 RDW Coeff of Rosa Elena 13.9 % (11.5-14.5) 05/13/24 19:55 Plt Count 207 K/uL (130-400) 05/13/24 19:55 MPV 9.4 fL (9.4-12.4) 05/13/24 19:55 Immature Gran % (Auto) 0.6 % 05/13/24 19:55 Neut % (Auto) 80.7 % 05/13/24 19:55 Lymph % (Auto) 12.3 % 05/13/24 19:55 [place] % (Auto) 4.5 % 05/13/24 19:55 Eos % (Auto) 1.5 % 05/13/24 19:55 Baso % (Auto) 0.4 % 05/13/24 19:55 Neut # (Auto) 6.82 K/uL (1.40-6.50) H 05/13/24 19:55 Lymph # (Auto) 1.04 K/uL (1.20-3.40) L 05/13/24 19:55 [place] # (Auto) 0.38 K/uL (0.11-0.59) 05/13/24 19:55 Eos # (Auto) 0.13 K/uL (0.00-0.50) 05/13/24 19:55 Baso # (Auto) 0.03 K/uL (0.00-0.20) 05/13/24 19:55 Immature Gran # (Auto) 0.05 K/uL (0.01-0.20) 05/13/24 19:55 PT 10.7 Seconds (9.0-12.0) 05/13/24 21:11 INR 1.0 (0.9-1.1) 05/13/24 21:11 APTT 25 Seconds (21-31) 05/13/24 21:11 PTT Ratio 0.9 05/13/24 21:11 VBG pH 7.31 (7.36-7.41) L 05/13/24 19:57 VBG pCO2 60 mmHg (38-50) H 05/13/24 19:57 VBG pO2 21 mmHg 05/13/24 19:57 VBG HCO3 30 mmol/L 05/13/24 19:57 VBG O2 Saturation < 60.0 % 05/13/24 19:57 VBG Base Excess 2.4 mEq/L 05/13/24 19:57 POC Sodium 139 mmol/L (135-144) 05/13/24 20:01 Sodium 138 mmol/L (136-145) 05/13/24 19:55 POC Potassium 4.4 mmol/L (3.3-5.0) 05/13/24 20:01 Potassium 4.1 mmol/L (3.5-5.1) 05/13/24 21:11 POC Chloride 101 mmol/L (101-112) 05/13/24 20:01 Chloride 102 mmol/L (98-107) 05/13/24 19:55 Carbon Dioxide 29 mmol/L (21-32) 05/13/24 19:55 POC Total CO2 28 mmol/L (24-31) 05/13/24 20:01 Anion Gap 7 (3-11) 05/13/24 19:55 POC Anion Gap 15.0 mmol/L (16-25) L 05/13/24 20:01 POC BUN 34 mg/dl (7-18) H 05/13/24 20:01 BUN 27 mg/dl (6-23) H 05/13/24 19:55 Creatinine 1.12 mg/dl (0.6-1.2) 05/13/24 19:55 POC Creatinine 1.2 mg/dl (0.6-1.3) 05/13/24 20:01 Est Cr Clr Drug Dosing Not Reportable 05/13/24 19:55 eGFR 49.40 05/13/24 19:55 BUN/Creatinine Ratio 24.1 (10-20) H 05/13/24 19:55 Glucose 163 mg/dl (70-99(Fasting)) H 05/13/24 19:55 POC Glucose (other) 163 mg/dl (70-99) H 05/13/24 20:01 Lactate 1.7 mmol/L (0.4-2.0) 05/13/24 21:15 Calcium 9.5 mg/dl (8.6-10.3) 05/13/24 19:55 POC Ioniz Calcium Desirae 1.20 mmol/l (1.12-1.32) 05/13/24 20:01 Magnesium 2.0 mg/dl (1.7-2.4) 05/13/24 19:55 Total Bilirubin 0.3 mg/dl (0.2-1.0) 05/13/24 19:55 AST 24 U/L (13-39) 05/13/24 21:11 ALT 27 U/L (7-52) 05/13/24 19:55 Alkaline Phosphatase 89 U/L (34-104) 05/13/24 19:55 Troponin I High Sens 99.1 pg/ml (0-14) H* D 05/13/24 21:11 Total Protein 7.5 gm/dl (6.0-8.3) 05/13/24 19:55 Albumin 4.3 gm/dl (3.4-5.0) 05/13/24 19:55 Globulin 3.2 gm/dl (2.5-4.0) 05/13/24 19:55 Albumin/Globulin Ratio 1.3 (0.9-2) 05/13/24 19:55 Procalcitonin < 0.02 ng/ml (0-0.5) 05/13/24 21:15 Blood Type A Positive 05/13/24 19:55 Antibody Screen NEGATIVE 05/13/24 19:[address] 05/13/24 19:39 CR Exam(s): CT HEAD Without Contrast EXAM: CT Head Without Intravenous Contrast CLINICAL HISTORY: Reason for exam: neuro deficit, acute stroke suspected. TECHNIQUE: Axial computed tomography images of the head/brain without intravenous contrast. CTDI is 30.6 mGy and DLP is 448.01 mGy-cm. Automated exposure control was utilized for the study. A dose lowering technique was utilized adhering to the principles of ALARA. COMPARISON: CT brain: 11/13/2023 FINDINGS: Motion-induced image degradation. Brain: There is no acute intracranial hemorrhage, mass-effect or midline shift. An old left MCA territory infarct again noted with a large size encephalomalacic area. Moderate cerebral atrophy with widening of the extra-axial spaces and ventricular dilatation. There are periventricular/subcortical areas of decreased attenuation, likely from chronic microvascular disease. Bones/joints: Unremarkable. No acute fracture. Soft tissues: Unremarkable. Sinuses: Unremarkable as visualized. No acute sinusitis. Mastoid air cells: Unremarkable as visualized. No mastoid effusion.. IMPRESSION: No definite acute intracranial abnormality evident Chronic involutional and ischemic changes of the brain. . Communications: Call Doctor Stroke Electronically signed by: Ирина Ventura MD, DABR 05/13/24 21:36 PM Head CTA 05/13/24 19:39 CR Exam(s): CTA HEAD With Contrast IV Amt: 117 ml optiray 320 EXAM: CT Angiography Head With Intravenous Contrast CLINICAL HISTORY: Reason for exam: neuro deficit, acute stroke suspected. TECHNIQUE: Axial computed tomographic angiography images of the head with intravenous contrast. CTDI is 30.6 mGy and DLP is 448.01 mGy-cm. Automated exposure control was utilized for the study. A dose lowering technique was utilized adhering to the principles of ALARA. MIP reconstructed images were created and reviewed. CONTRAST: Patient received 117 ml optiray 320 of IV contrast COMPARISON: CT brain: 05/13/2024 FINDINGS: Intracranial circulation: There are no large vessel occlusion. No significant stenosis or aneurysm. No vascular malformation. Diminutive right vertebral artery. Diminutive left vertebral artery. Basilar artery: Unremarkable. No occlusion or significant stenosis. No aneurysm. IMPRESSION: . [facility] CTA does not demonstrate any aneurysm, significant large vessel stenosis or occlusion. Electronically signed by: Ирина Ventura MD, DABR 05/13/24 21:25 PM Neck CTA 05/13/24 19:39 CR Exam(s): CTA NECK With Contrast IV Amt: 117 ml optiray 320 FINDINGS: Motion-induced image degradation limits anatomical details. VASCULATURE: Diffusely atheromatous calcified aortic arch. Right common carotid artery: Distally mild/moderate calcified/noncalcified arterial atherosclerosis. Endovascular stent is placed at the distal right CCA, carotid bulb and proximal ICA. Right carotid bulb: High-grade/significant stenosis (series 7 image 194, series 700 image 35). No occlusion. No dissection. Right internal carotid artery: Unremarkable. Extracranial segment is patent with no occlusion or significant stenosis. No dissection. Right external carotid artery: Unremarkable. No occlusion. Right vertebral artery: Unremarkable. No occlusion or significant stenosis. No dissection. Left common carotid artery: Calcified/noncalcified atherosclerosis of the left CCA with< 50% luminal narrowing. No occlusion. No dissection. Left carotid bulb: Calcified atherosclerotic plaques. No significant stenosis. No occlusion. Left internal carotid artery: Unremarkable. Extracranial segment is patent with no occlusion or significant stenosis. No dissection. Left external carotid artery: Focal calcified plaque proximally. No occlusion. Left vertebral artery: Unremarkable. No occlusion or significant stenosis. No dissection. NECK: Bones/joints: Unremarkable. No acute fracture. Degenerative spondylitic changes of the spine. Soft tissues: Unremarkable. Lung apices: Pulmonary emphysema. Bilaterally extensive peribronchovascular patchy air space opacities are seen right side more than the left (: Series 9 image1- 6).. CAROTID STENOSIS REFERENCE USING NASCET CRITERIA: % ICA stenosis = (1 - narrowest ICA diameter/diameter of distal cervical ICA) x 100. Mild - <50% stenosis. Moderate - 50-69% stenosis. Severe - 70-94% stenosis. Near occlusion - 95-99% stenosis. Occluded - 100% stenosis. IMPRESSION: Calcified/noncalcified atherosclerosis of the distal right common carotid artery. Endovascular stent graft is seen at the distal right CCA, carotid bulb and proximal ICA. Right carotid bulb: High- grade/significant stenosis. Calcified/noncalcified atherosclerosis of the left common carotid artery with <50% luminal narrowing. Lung apices: Extensive bilateral peribronchovascular patchy air space disease, right side more than the left. Background pulmonary emphysema. Electronically signed by: Ирина Ventura MD, DABR 05/13/24 22:47 PM Supervising Physician Co-Signing Physician Notes Patient seen and examined, chart reviewed, case discussed with Dr. Pretty and I agree with the assessment and plan as above. In brief, patient is an 83yo female with history of prior left MCA CVA with residual expressive aphasia, carotid artery disease s/p right carotid artery stenting presenting with concern for right sided weakness, facial droop. Patient last known well at 17:30, foaming at the mouth with right sided deficit noted at 18:20. Patient not a candidate for TNK given Eliquis use. Neurologic exam has improved. Still with mild right facial droop and worsening of her baseline expressive aphasia. On exam she is resting comfortably, NAD, answers questions with difficulty Skin - intact, no rash HEENT - MMM, neck supple, tongue midline, mild right facial droop Heart - +S1/S2, regular, no m/r/g Lungs - Coarse breath sounds in right lung, no wheeze Abd - +BS, soft, NT/ND Ext - no edema Labs and images reviewed CXR with diffuse airspace opacities R>L Assessment/Plan ?CVA vs seizure, likely aspiration. High grade stenosis noted at the right carotid bulb - likely present on prior imaging from 04/21/23 although imaging not as clear -Will obtain MRI brain and 2D echo -Continue home Eliquis and Plavix -Neuro checks and NIHSS per protocol -Continue Plavix -Increase Atorvastatin to 40mg po daily Likely aspiration - patient on NC at present, no respiratory distress -Will hold off on antibiotics for now. Should patient decompensate or become febrile will initiate Zosyn -Supplemental O2, wean as tolerated Elevated troponin - patient denies chest pain, unreliable historian however EKG with no acute ischemic changes -Trend troponin to peak -Check 2D echo as above as CVA workup Remainder as above Resident Activity Tracking Resident Involvement: Resident Care Provided Care Provided: Adult Hospital Medicine (3) Atrial fibrillation Atrial fibrillation type: unspecified Qualified Code(s): I48.91 - Unspecified atrial fibrillation
[2024-05-13] MEDS: VANCOMYCIN HCL 1,500 MG in SODIUM CHLORIDE 0.9% 500 ML IV ONE (23:12)
[2024-05-14] MEDS ORDERED: ONDANSETRON INJ 2 MG/ML 2 ML VIAL IV PRN (02:06)
[2024-05-14] MEDS ORDERED: ACETAMINOPHEN 325 MG TAB PO PRN (02:06)
[2024-05-14] MEDS ORDERED: PHARMACIST DISCHARGE MED REC CONSULT PRN (02:06)
--- NOTE | 2024-05-14 02:13 | Billing Data ---
Date of Service May 13, 2024 Coding Level of Care Code 87319 INT INP/OBS CARE
--- NOTE | 2024-05-14 07:05 | XRay Report ---
XR chest 1V portable CLINICAL HISTORY: neuro deficit, acute stroke suspected COMPARISON STUDY: Chest radiograph September 16, 2023. Chest CT August 02, 2023. FINDINGS: Lung volumes are mildly diminished. There is no pneumothorax. No definite pleural effusions are identified. Mild elevation of the right hemidiaphragm is unchanged. The heart is mildly enlarged . Diffuse interstitial thickening is noted. Extensive right upper lung airspace opacity is present. IMPRESSION: 1. Cardiomegaly with moderate interstitial pulmonary edema. 2. Extensive right upper lung airspace opacity. This could reflect alveolar pulmonary edema or superi mposed pneumonia. Radiographic follow-up to ensure resolution is recommended. ACT 112: Negative or not required by law. Electronically signed by: Kehinde Brewer M.D. 05/14/2024 7:04 AM
[2024-05-14 08:23] LABS: Basophils # (auto) 0.03 K/uL (0.00-0.20); Basophils % (auto) 0.3 %; Eosinophils # (auto) 0.01 K/uL (0.00-0.50); Eosinophils % (auto) 0.1 %; Hematocrit (blood only) 35.5 % (37.0-47.0); Hemoglobin 12.1 g/dl (12.0-16.0); Immature Granulocytes # (auto) 0.05 K/uL (0.01-0.20); Immature Granulocytes % (auto) 0.5 %; Lymphocytes # (auto) 0.92 K/uL (1.20-3.40); Lymphocytes % (auto) 8.7 %; Mean Corpuscular Hgb Conc 34.1 g/dL (32.0-36.0); Mean Platelet Volume 9.9 fL (9.4-12.4); Monocytes # (auto) 0.56 K/uL (0.11-0.59); Monocytes % (auto) 5.3 %; Neutrophils # (auto) 9.06 K/uL (1.40-6.50); Neutrophils % (auto) 85.1 %; Platelet Count 211 K/uL (130-400); RDW Coefficient of Variation 13.7 % (11.5-14.5); RDW Standard Deviation 45.6 fL (36.4-46.3); White Blood Count 10.63 K/ul (4.8-10.8)
[2024-05-14 08:34] LABS: BUN Creatinine Ratio 22.8 (10-20); Calcium 8.9 mg/dl (8.6-10.3); Chol HDL Ratio 2.4 (0-5); Creatinine Clr Calc Pharmacy 45.6 ml/min; Estimated Average Glucose 123 mg/dl; Hemoglobin A1C 5.9 % (4.5-5.6); Potassium 4.3 mmol/L (3.5-5.1)
--- NOTE | 2024-05-14 08:38 | Electrocardiogram Report ---
Test Reason : Blood Pressure : */* mmHG Vent. Rate : 74 BPM Atrial Rate : 74 BPM P-R Int : 180 ms QRS Dur : 84 ms QT Int : 390 ms P-R-T Axes : 75 13 68 degrees QTcB Int : 432 ms Normal sinus rhythm Left atrial enlargement Borderline ECG When compared with ECG of 13-Nov-2023 08:00, T wave inversion no longer evident in Inferior leads T wave inversion no longer evident in Lateral leads Confirmed by Nick Gonsales ([id number]) on 05/14/2024 8:38:15 AM Referred By: REFERRED SELF Confirmed By: Nick Gonsales
--- NOTE | 2024-05-14 09:04 | XCELERA ---
[id number]
[2024-05-14] MEDS ORDERED: Heparin IV Adult Wt-Based Low-Dose *NO* INITIAL Bolus Protocol IV SCH (09:19)
[2024-05-14] MEDS: APIXABAN 5 MG TABLET PO SCH (09:39)
[2024-05-14] MEDS: DULoxetine HCL 30 MG CAP PO SCH (10:23)
[2024-05-14] MEDS: lamoTRIgine 100 MG TAB PO SCH (10:23)
[2024-05-14] MEDS: ATORVASTATIN 40 MG TAB PO SCH (10:23)
[2024-05-14] MEDS: HEPARIN SODIUM/DEXTROSE 25,000 UNITS/500 ML BAG IV SCH (11:01)
--- NOTE | 2024-05-14 11:18 | Cardiology Consultation ---
Date of Consultation May 14, 2024 Assessment & Plan (1) Non-STEMI (non-ST elevated myocardial infarction): (2) Carotid stenosis, right: (3) Atrial fibrillation: (4) H/O: stroke with residual effects: (5) Seizure as late effect of cerebrovascular accident (CVA): (6) Aspiration pneumonia: Possible? Plan At this time I would continue the IV heparin that she is on not only for the non-STEMI with her troponin elevation but also because of the questionable carotid disease. I would consider consulting Dr. Duarte since she is well-known to him to review the CTA which was done to see if this questionable significant plaque seen in the right carotid bulb needs addressed. From a cardiac standpoint given her history of significant residual stroke I would consider treating her medically at this time and just for the next few days wait and see what pans out to see if she has recurrent discomfort or EKG changes or additional problems. I will treat her with aspirin beta-beto continue the heparin at this time until we can restart her NOAC for her paroxysmal atrial fibrillation. Conservative care is probably the best treatment at this time given her other comorbid medical conditions. In addition there is also concern that she may have suffered a seizure as the cause of her unresponsive episode and with that a aspiration pneumonia.. Thank you for allowing us to participate in the care of this very nice lady. We will follow-up with her in the hospital with you. If there are any other concerns please contact us. History of Present Illness Reason for Consultation: Evaluate abnormal troponin Attending Physician: Clint Sales History of Present Illness Ghazal is an 83-year-old woman, Known to Dr. Guajardo and Jyothi Lynch with a history of remote stroke back in 2021. She presented with atrial fibrillation which was thought to be the cause of her stroke however she was noted to have significant carotid artery disease as well. In the fall 2022 she underwent right carotid artery stenting with Dr. Duarte. Unfortunately from her stroke she was left with expressive aphasia. Prior to admission she was found on the floor frothing at the mouth at her personal prison and was found to be unresponsive and hypoxic. She was transported to the hospital. There was concern that she may have aspirated and potentially had a seizure. During the course of the admission her initial cardiac enzymes were normal but subsequent enzymes elevated significantly. It is difficult to get history from her and I asked her if she has had any chest pain and she says no in the front of her chest but that she has discomfort in the lateral parts of her chest bilaterally and pointing up into her shoulders. Interestingly her EKG seems to have normalized. Her prior EKG shows anterior lateral slight T wave inversions and these T waves are now upright and appear normal. She currently had no chest discomfort and appeared comfortable. She is on IV heparin. Initial evaluation included a CTA of her head and neck and there is concern about significant stenosis in the carotid bulb on the right which may be new and significant compared to when her right carotid stent was placed last year. There is also question of another stroke. Allergies Allergy/AdvReac Type Severity Reaction Status Date / Time bee venom protein (honey bee) Allergy Severe SHORTNESS Verified 05/13/24 20:22 OF BREATH latex Allergy Mild Redness of Verified 05/13/24 20:22 Skin Home Medications Medication Instructions Recorded Confirmed Type epinephrine 0.3 mg/0.3 mL 0.3 mg (0.3 mL) subcut ONCE PRN 08/02/23 05/13/24 Rx injection, auto-injector anaphylaxis #1 ea cholecalciferol (vitamin D3) 125 125 mcg PO QAM #30 tabs 10/21/23 05/13/24 Rx mcg (5,000 unit) tablet (Vitamin D3) acetaminophen 325 mg tablet 650 mg (2 x 325 mg) PO .COMPLEX 12/27/23 05/13/24 Rx PRN fever or pain #60 tabs apixaban 5 mg tablet (Eliquis) 5 mg PO BID #180 tabs 03/26/24 05/13/24 Rx clopidogrel 75 mg tablet (Plavix) 75 mg PO QDL #30 tabs 03/26/24 05/13/24 Rx lamotrigine 100 mg tablet 100 mg PO BID 90 days #180 tabs 03/26/24 05/13/24 Rx duloxetine 30 mg capsule,delayed 30 mg PO QAM #90 caps 04/30/24 05/13/24 Rx release (Cymbalta) Saccharomyces boulardii 250 mg 250 mg PO QAM 05/13/24 05/13/24 History capsule atorvastatin 20 mg tablet 20 mg PO HS 05/13/24 05/13/24 History cranberry extract 500 mg capsule 1,000 mg PO QAM 05/13/24 05/13/24 History (Cranberry Concentrate) ferrous sulfate 325 mg (65 mg 650 mg PO QAM 05/13/24 05/13/24 History iron) tablet (FeroSul) metoprolol succinate 25 mg 25 mg PO QAM 05/13/24 05/13/24 History tablet,extended release 24 hr mirtazapine 7.5 mg tablet 7.5 mg PO HS 05/13/24 05/13/24 History Patient History Medical History 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 per neuro, likely 2/2 previous CVA. no recurrence since. Follows with [place] [facility]. 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 s/p mechanical thrombectomy (cause felt to be cardioembolic and pt had newly dx afib at the time). imaging of carotids at this time found R ICA stenosis Atrial fibrillation dx at time of CVA 06/2022; follows with Dr. Guajardo; on Eliquis and BB Surgical History History of surgery thrombectomy [facility] 06/2022 CVA History of eye surgery laser eye surgery [place] S/P tooth extraction Family History Sister Atrial fibrillation Stroke Muscular dystrophy Mother Diabetes Father Lung cancer Denies family history of Ovarian cancer Prostate cancer Myocardial infarction Breast cancer Colorectal cancer Social History Smoking Status: Former smoker Tobacco Type: Cigarettes Age Started Using Tobacco: 22; Age Quit Using Tobacco: 53; packs per day: 0.5; Second Hand Exposure: No; Do You Dip or Chew Tobacco: No; Preferred Language: [place] Communication Ability: Impaired Communication Ability Comment: expressive aphasia Visual Impairment: No Limitations Hearing Ability: Normal Glazing Machine Operator Required: No Beliefs That Will Affect Care: None marital status: / Current Living Situation: Personal Care Facility Current Living Situation Comment: lives with her son and DIL current occupational status: retired Feels Safe at Home: Yes Childhood Exposure to Second-Hand Smoke: Yes Diet: regular caffeine: Yes Dental Care, Regularly: No Physical Activity Frequency: 1-2 Times per Week Physical Activity Frequency Comment: bird watching, puzzles and walking Seatbelt Use: always Sunscreen Use: No Assistive Devices: Walker Review of Systems Review of Systems: All systems reviewed & are unremarkable except as noted in HPI & below Patient has expressive aphasia which makes detailed system oriented to review difficult Physical Exam Physical Exam: Awake alert and oriented as far as I can tell in no distress Respiratory: Lungs are clear to auscultation bilaterally there are no rales Cardiovascular: Heart is regular there is a soft systolic ejection murmur at the base consistent with aortic sclerosis. There are bilateral soft bruits noted Results & Data Vital Signs (Past 12 Hours) Vital Signs Temp Pulse Pulse Pulse Resp BP BP 05/14/24 08:24 36.9 C 70 17 143/86 H 05/14/24 08:00 73 05/14/24 03:49 37.0 C 74 20 160/79 H 05/14/24 03:38 71 05/14/24 02:22 05/14/24 02:22 36.7 C 67 22 173/80 H 05/14/24 01:50 36.7 C 67 22 173/80 H 05/14/24 01:21 65 22 143/68 H 05/14/24 01:13 65 22 118/67 05/14/24 00:13 75 22 150/82 H 05/13/24 23:49 66 Pulse Ox O2 Del Method O2 Flow Rate 05/14/24 08:24 98 Nasal Cannula 4 05/14/24 08:00 05/14/24 03:49 96 Room Air 05/14/24 03:38 05/14/24 02:22 Nasal Cannula 4 05/14/24 02:22 97 Nasal Cannula 4 05/14/24 01:50 97 Nasal Cannula 4 05/14/24 01:21 98 Nasal Cannula 4 05/14/24 01:13 97 Nasal Cannula 4 05/14/24 00:13 96 Nasal Cannula 4 05/13/24 23:49 Laboratory Results Abnormal lab results 05/13/24 05/13/24 05/13/24 Range/Units 19:55 19:57 20:01 RBC (4.20-5.40) M/uL Hct (37.0-47.0) % RDW Std Deviation 48.4 H (36.4-46.3) fL Neut # (Auto) 6.82 H (1.40-6.50) K/uL Lymph # (Auto) 1.04 L (1.20-3.40) K/uL VBG pH 7.31 L (7.36-7.41) VBG pCO2 60 H (38-50) mmHg POC Anion Gap 15.0 L (16-25) mmol/L POC BUN 34 H (7-18) mg/dl BUN 27 H (6-23) mg/dl BUN/Creatinine Ratio 24.1 H (10-20) Glucose 163 H (70-99(Fasting)) mg/dl POC Glucose (other) 163 H (70-99) mg/dl Hemoglobin A1c (4.5-5.6) % Troponin I High Sens 29.2 H (0-14) pg/ml 05/13/24 05/14/24 Range/Units 21:11 07:47 RBC 3.90 L (4.20-5.40) M/uL Hct 35.5 L (37.0-47.0) % RDW Std Deviation (36.4-46.3) fL Neut # (Auto) 9.06 H (1.40-6.50) K/uL Lymph # (Auto) 0.92 L (1.20-3.40) K/uL VBG pH (7.36-7.41) VBG pCO2 (38-50) mmHg POC Anion Gap (16-25) mmol/L POC BUN (7-18) mg/dl BUN (6-23) mg/dl BUN/Creatinine Ratio 22.8 H (10-20) Glucose 125 H (70-99(Fasting)) mg/dl POC Glucose (other) (70-99) mg/dl Hemoglobin A1c 5.9 H (4.5-5.6) % Troponin I High Sens 99.1 H* D 461.4 H* D (0-14) pg/ml ECG Additional Comments: As noted above her EKG shows normal sinus rhythm at this time there is normalization of the T waves in the anterior and lateral leads which is changed compared to her prior EKG. Her EKGs from back in 2021 and 2022 did show atrial fibrillation.
[2024-05-14] MEDS: CLOPIDOGREL BISULFATE 75 MG TAB PO SCH (11:37)
[2024-05-14 12:05] LABS: Basophils # (auto) 0.02 K/uL (0.00-0.20); Basophils % (auto) 0.2 %; Eosinophils # (auto) 0.01 K/uL (0.00-0.50); Eosinophils % (auto) 0.1 %; Hematocrit (blood only) 35.6 % (37.0-47.0); Immature Granulocytes # (auto) 0.14 K/uL (0.01-0.20); Immature Granulocytes % (auto) 1.5 %; Lymphocytes # (auto) 1.36 K/uL (1.20-3.40); Lymphocytes % (auto) 14.4 %; Mean Corpuscular Hemoglobin 30.7 pg (25.0-34.0); Mean Corpuscular Hgb Conc 33.7 g/dL (32.0-36.0); Mean Platelet Volume 9.9 fL (9.4-12.4); Monocytes # (auto) 0.58 K/uL (0.11-0.59); Monocytes % (auto) 6.1 %; Neutrophils # (auto) 7.36 K/uL (1.40-6.50); Neutrophils % (auto) 77.7 %; Platelet Count 196 K/uL (130-400); RDW Coefficient of Variation 13.8 % (11.5-14.5); RDW Standard Deviation 46.2 fL (36.4-46.3); Red Blood Count 3.91 M/uL (4.20-5.40); White Blood Count 9.47 K/ul (4.8-10.8)
[2024-05-14 12:25] LABS: Partial Thromboplastin Ratio 0.9; Partial Thromboplastin Time 25 Seconds (21-31); Prothrombin Time 10.7 Seconds (9.0-12.0)
--- NOTE | 2024-05-14 14:07 | Electrocardiogram Report ---
Test Reason : Blood Pressure : */* mmHG Vent. Rate : 66 BPM Atrial Rate : 66 BPM P-R Int : 198 ms QRS Dur : 86 ms QT Int : 444 ms P-R-T Axes : 72 -13 38 degrees QTcB Int : 465 ms Normal sinus rhythm Possible Left atrial enlargement Borderline ECG When compared with ECG of 13-May-2024 19:45, Nonspecific T wave abnormality no longer evident in Lateral leads Confirmed by Veena Pino (Darrel) on 05/14/2024 2:07:17 PM Referred By: REFERRED SELF Confirmed By: Veena Pino
--- NOTE | 2024-05-14 14:07 | Electrocardiogram Report ---
Test Reason : Blood Pressure : */* mmHG Vent. Rate : 70 BPM Atrial Rate : 70 BPM P-R Int : 190 ms QRS Dur : 88 ms QT Int : 424 ms P-R-T Axes : 73 13 45 degrees QTcB Int : 457 ms Normal sinus rhythm Possible Left atrial enlargement Borderline ECG When compared with ECG of 14-May-2024 02:14, (unconfirmed) No significant change was found Confirmed by Veena Pino (Darrel) on 05/14/2024 2:07:31 PM Referred By: REFERRED SELF Confirmed By: Veena Pino
--- NOTE | 2024-05-14 14:43 | Hospitalist Progress Note ---
Date of Service May 14, 2024 Assessment & Plan (1) Stroke-like symptoms: Plan: Ghazal Arriola is an 83yo F w PMH notable for afib on chronic DOAC and L MCA stroke (Jun 2023) w residual deficits, who presents from [facility] due to stroke-like symptoms on 05/13/2024. Head CT 05/13: no definite acute intracranial abnormality evident. Chronic involutional and ischemic changes of brain. Head CTA 05/13: [place] [facility] [place] does not demonstrate any aneurysm, significant lg vessel stenosis or occlusion Neck CTA 05/13: calcified/noncalcified atherosclerosis of distal right common carotid artery. endovascular stent graft seen at distal right CCA, carotid bulb and proximal ICA. right carotid bulb high grade/significant stenosis. Calcified/noncalcified atherosclerosis of left common carotid artery with < 50% luminal narrowing. MRI brain pending BC pending Echo reviewed 05/14: LV systolic function normal. LVEF 65-70%. LV wall motion normal. RV normal in size & function. Mild mitral regurg. RV systolic pressure elevated at 40-50mmHg. Not candidate for thrombolytics due to chronic Eliquis use. Continue Lamictal and Plavix Hold Metoprolol, allow for permissive HTN. PT recommending rehab OT recommending rehab Speech cleared patient diet. Cardiology consulted for concern of NSTEMI due to elevated troponin of 461.4, recheck 427.8. Discussed case w/ Dr. Pino on phone who recommended to have vascular evaluate the high grade stenosis of right carotid artery. Consult placed. Appreciate recommendations. Continue Neurochecks. CBC/BMP reviewed 05/14: stable. AM CBC, BMP (2) Pneumonia: Plan: - RR 31 and O2sat 84 on arrival; improved to 94% on 4L n.c. Does not req supplemental O2 at baseline Likely aspiration pneumonia. - CXR showed extensive bilateral peribronchovascular patchy air space disease, R>L - Given 1500mg IV vanc & 4.5g IV Zosyn in ED. - Wean off O2 slowly as patient can tolerate back to room air. (3) Atrial fibrillation: Plan: Continue Eliquis continue cardiac monitoring (4) Elevated troponin: Plan: Troponin elevated to 461.4 --> 427.8 on 05/14 Cardiology consulted, remainder recommendations above. Plan Chronic conditions: Mental health: Cymbalta, Mirtazapine Seizure disorder: Lamictal HLD: statin Diet: easy to chew DVT ppx: home Eliquis Dispo: telemetry Code status: DNR/DNI Updated son via phone 05/14. Admission and Anticipated Discharge Date Admission Date: May 13, 2024 Subjective Patient seen and examined this afternoon at bedside. Patient w/ expressive aphasia. Patient denied any shortness of breath or chest pain. Physical Exam 2 Constitutional: WD/WN, vitals as above Eyes: PERRL, conjunctivae normal, anicteric sclerae Respiratory: normal respiratory effort, lungs clear to auscultation Cardiovascular: RRR, no murmur, no edema Psychiatric: A+Ox3, euthymic affect Results & Data Results & Data Vital Signs (Past 12 Hours) Vital Signs Temp Pulse Pulse Resp BP Pulse Ox O2 Del Method 05/14/24 11:24 36.6 C 67 17 136/59 L 98 Nasal Cannula 05/14/24 08:24 36.9 C 70 17 143/86 H 98 Nasal Cannula 05/14/24 08:00 73 05/14/24 03:49 37.0 C 74 20 160/79 H 96 Room Air 05/14/24 03:38 71 O2 Flow Rate 05/14/24 11:24 3 05/14/24 08:24 4 05/14/24 08:00 05/14/24 03:49 05/14/24 03:38 Laboratory Results 05/14/24 11:30 05/14/24 07:47 PG Care Time/CCT Total # of Minutes Spent Total Time Spent with Patient: Total time spent is greater than 50% in coordination of care (as documented) at patient's floor/unit and/or counseling patient: Coding Level of Care Code 11300 SUB INP/OBS CARE 3/50MIN Diagnoses Stroke-like symptoms R29.90 Aspiration pneumonia of right lung, unspecified aspiration pneumonia type, unspecified part of lung J69.0 Pneumonia type: aspiration pneumonia Aspiration pneumonia type: unspecified Laterality: right Lung location: unspecified part of lung Atrial fibrillation I48.91 Atrial fibrillation type: unspecified Elevated troponin R79.89 (2) Pneumonia Pneumonia type: aspiration pneumonia Aspiration pneumonia type: unspecified Laterality: right Lung location: unspecified part of lung Qualified Code(s): J 69.0 - Pneumonitis due to inhalation of food and vomit (3) Atrial fibrillation Atrial fibrillation type: unspecified Qualified Code(s): I48.91 - Unspecified atrial fibrillation
[2024-05-14 18:24] LABS: ANTI-Xa, UFH(UnfractionatedHep 0.59 IU/ml (0.3-0.7)
[2024-05-14] MEDS: MIRTAZAPINE TAB 15 MG TAB PO SCH (20:28)
[2024-05-15 04:35] LABS: Basophils # (auto) 0.02 K/uL (0.00-0.20); Basophils % (auto) 0.3 %; Eosinophils # (auto) 0.12 K/uL (0.00-0.50); Eosinophils % (auto) 1.7 %; Immature Granulocytes # (auto) 0.02 K/uL (0.01-0.20); Immature Granulocytes % (auto) 0.3 %; Lymphocytes # (auto) 1.75 K/uL (1.20-3.40); Lymphocytes % (auto) 24.4 %; Mean Corpuscular Hgb Conc 32.4 g/dL (32.0-36.0); Mean Corpuscular Volume 92.6 fL (80.0-100.0); Monocytes # (auto) 0.77 K/uL (0.11-0.59); Monocytes % (auto) 10.7 %; Neutrophils % (auto) 62.6 %; Platelet Count 177 K/uL (130-400); RDW Coefficient of Variation 13.9 % (11.5-14.5); RDW Standard Deviation 47.3 fL (36.4-46.3); Red Blood Count 3.67 M/uL (4.20-5.40); White Blood Count 7.18 K/ul (4.8-10.8)
[2024-05-15 04:53] LABS: Calcium 8.7 mg/dl (8.6-10.3); Creatinine Clr Calc Pharmacy 61.7 ml/min; Potassium 3.8 mmol/L (3.5-5.1)
[2024-05-15 05:08] LABS: ANTI-Xa, UFH(UnfractionatedHep 0.46 IU/ml (0.3-0.7)
[2024-05-15] MEDS: POTASSIUM CHLORIDE 20 MEQ/15 ML UDC PO STA (05:44)
[2024-05-15 06:08] LABS: Magnesium 1.7 mg/dl (1.7-2.4)
[2024-05-15] MEDS: MAGNESIUM SULFATE / D5W 1 GM/100 ML BAG IV SCH (08:48)
--- NOTE | 2024-05-15 09:02 | Cardiology Progress Note ---
Date of Service May 15, 2024 Assessment & Plan (1) Non-STEMI (non-ST elevated myocardial infarction): (2) Carotid stenosis, right: (3) Atrial fibrillation: (4) H/O: stroke with residual effects: (5) Seizure as late effect of cerebrovascular accident (CVA): (6) Aspiration pneumonia: Plan: Possible? Plan She continues on heparin at this time but given the downtrend in her troponin level and lack of ischemic symtpoms, her Eliquis can be resumed tonight as long as Dr. Duarte has no recommendations for impending surgery for her high grade stenosis of the right bulb. Her heart rate is a little high in afib. She has not yet taken metoprolol this morning. I don't think she will have room to increase the dose given her low normal blood pressures. Her cardiac event appears to have passed with downtrending HS troponins and no ischemic symptoms. Her echo did not show WMA or reduction in LVF. She should be continued on clopidogrel, statin and beta beto. She does not have blood pressure room for TAIWO/ARB. Conservative care is probably the best treatment at this time given her other comorbid medical conditions. In addition there is also concern that she may have suffered a seizure as the cause of her unresponsive episode and with that a aspiration pneumonia. She does have crackles to auscultation on the right but no symptoms of pneumonia. Treatment per hospitalists. Admission and Anticipated Discharge Date Admission Date: May 13, 2024 Subjective Ms. Arriola appears comfortable this morning. She has expressive aphasia but can communicate yes and no and seems to understand what I'm saying. She switched into afib on the monitor overnight. She does not feel being in afib at all. She is not having any chest pain or shortness of breath. Review of Systems Review of Systems: All systems reviewed & are unremarkable except as noted in HPI & below Physical Exam Constitutional: WD/WN, vitals as above Respiratory: normal respiratory effort Auscultation: + wheezes (right base) Cardiovascular: Rate/Rhythm: + abnormal rate and + abnormal rhythm Heart Sounds: normal S1 and normal S2 Extremities: no edema Skin: no rashes, warm and dry Neurologic: moves all extremities and awake Psychiatric: A+Ox3, euthymic affect Results & Data Vital Signs (Past 12 Hours) Vital Signs Temp Pulse Pulse Resp BP Pulse Ox O2 Del Method 05/15/24 08:04 Room Air 05/15/24 07:38 110 H 05/15/24 07:10 36.5 C 71 18 112/70 96 Nasal Cannula 05/15/24 05:08 90 05/15/24 02:07 37.1 C 69 18 113/66 94 Room Air 05/14/24 22:18 36.3 C L 69 18 157/72 H 96 Nasal Cannula O2 Flow Rate 05/15/24 08:04 05/15/24 07:38 05/15/24 07:10 2 05/15/24 05:08 05/15/24 02:07 05/14/24 22:18 2
[2024-05-15] MEDS: METOPROLOL SUCC 25MG EXT REL TAB PO SCH (09:49)
--- NOTE | 2024-05-15 10:08 | Consultation ---
Date of Consultation May 15, 2024 Assessment & Plan (1) Carotid stenosis, right: Pt is over 1 year s/p R TCAR. Post op US in office did not demonstrate any restenosis. Current admission CTA neck radiologist read indicates restenosis, however, measurements taken within the stent and the ICA distal to the stent indicate no significant stenosis. Images reviewed with Dr Duarte, no significant stenosis, therefore no indications for vascular surgical intervention. Will continue outpt surveillance as scheduled. Pt expresses understanding. Please call if needed. History of Present Illness Reason for Consultation: R ICA stenosis Attending Physician: Clint Sales History of Present Illness 83 yo f with hx of CVA, seizures, a fib on eliquis, carotid stenosis s/p R ICA TCAR, hyperlipidemia, anemia, admitted with possible seizure vs CVA, seen in consultation today for concern of R ICA restenosis. Pt known to Dr Duarte for carotid disease. Pt underwent uncomplicated R TCAR in 03/2023, she is maintained on plavix for this (in addition to her eliquis for a fib). Pt without any restenosis noted postoperatively, widely patent stent noted on imaging within past 6 months. Pt has difficulty verbalizing her sx d/t chronic aphasia from her remote CVA. SHe also has R arm and leg weakness which is chronic. She denies any worsening of this, or any new weakness on her L side. Per notes, pt was noted to be unresponsive and foaming at the mouth at her current living facility, and she was sent to [facility] for further eval. Pt denies any other complaints, including confusion, amaurosis, facial droop, new extremity weakness, CHOWDARY. CTA neck demonstrates no significant R ICA stent stenosis. Allergies Allergy/AdvReac Type Severity Reaction Status Date / Time bee venom protein (honey bee) Allergy Severe SHORTNESS Verified 05/13/24 20:22 OF BREATH latex Allergy Mild Redness of Verified 05/13/24 20:22 Skin Home Medications Medication Instructions Recorded Confirmed Type epinephrine 0.3 mg/0.3 mL 0.3 mg (0.3 mL) subcut ONCE PRN 08/02/23 05/13/24 Rx injection, auto-injector anaphylaxis #1 ea cholecalciferol (vitamin D3) 125 125 mcg PO QAM #30 tabs 10/21/23 05/13/24 Rx mcg (5,000 unit) tablet (Vitamin D3) acetaminophen 325 mg tablet 650 mg (2 x 325 mg) PO .COMPLEX 12/27/23 05/13/24 Rx PRN fever or pain #60 tabs apixaban 5 mg tablet (Eliquis) 5 mg PO BID #180 tabs 03/26/24 05/13/24 Rx clopidogrel 75 mg tablet (Plavix) 75 mg PO QDL #30 tabs 03/26/24 05/13/24 Rx lamotrigine 100 mg tablet 100 mg PO BID 90 days #180 tabs 03/26/24 05/13/24 Rx duloxetine 30 mg capsule,delayed 30 mg PO QAM #90 caps 04/30/24 05/13/24 Rx release (Cymbalta) Saccharomyces boulardii 250 mg 250 mg PO QAM 05/13/24 05/13/24 History capsule atorvastatin 20 mg tablet 20 mg PO HS 05/13/24 05/13/24 History cranberry extract 500 mg capsule 1,000 mg PO QAM 05/13/24 05/13/24 History (Cranberry Concentrate) ferrous sulfate 325 mg (65 mg 650 mg PO QAM 05/13/24 05/13/24 History iron) tablet (FeroSul) metoprolol succinate 25 mg 25 mg PO QAM 05/13/24 05/13/24 History tablet,extended release 24 hr mirtazapine 7.5 mg tablet 7.5 mg PO HS 05/13/24 05/13/24 History Patient History Medical History 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 per neuro, likely 2/2 previous CVA. no recurrence since. Follows with [place] [facility]. 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 s/p mechanical thrombectomy (cause felt to be cardioembolic and pt had newly dx afib at the time). imaging of carotids at this time found R ICA stenosis Atrial fibrillation dx at time of CVA 06/2022; follows with Dr. Guajardo; on Eliquis and BB Surgical History History of surgery [place] [facility] [place] CVA History of eye surgery laser eye surgery [place] S/P tooth extraction Family History Sister Atrial fibrillation Stroke Muscular dystrophy Mother Diabetes Father Lung cancer Denies family history of Ovarian cancer Prostate cancer Myocardial infarction Breast cancer Colorectal cancer Social History Smoking Status: Former smoker Tobacco Type: Cigarettes Age Started Using Tobacco: 22; Age Quit Using Tobacco: 53; packs per day: 0.5; Second Hand Exposure: No; Do You Dip or Chew Tobacco: No; Preferred Language: Eritrean Communication Ability: Impaired Communication Ability Comment: expressive aphasia Visual Impairment: No Limitations Hearing Ability: Normal Attending Anesthesiologist Required: No Beliefs That Will Affect Care: None marital status: / Current Living Situation: Personal Care Facility Current Living Situation Comment: lives with her son and DIL current occupational status: retired Feels Safe at Home: Yes Childhood Exposure to Second-Hand Smoke: Yes Diet: regular caffeine: Yes Dental Care, Regularly: No Physical Activity Frequency: 1-2 Times per Week Physical Activity Frequency Comment: bird watching, puzzles and walking Seatbelt Use: always Sunscreen Use: No Assistive Devices: Walker Review of Systems Review of Systems: All systems reviewed & are unremarkable except as noted in HPI & below Physical Exam Constitutional: WD/WN, vitals as above cooperative and comfortable; not in distress Respiratory: normal respiratory effort, lungs clear to auscultation Auscultation: + diminished lung sounds Cardiovascular: Rate/Rhythm: + irregularly irregular Vessels: posterior tibial pulses present, dorsalis pedis pulses present and radial pulses present; + abnormal peripheral pulses Extremities: normal capillary refill; no edema Gastrointestinal (Abdomen): Inspection/Auscultation: abdomen normal to inspection and normal bowel sounds Percussion/Palpation: abdomen soft; abdomen nontender Musculoskeletal: RUE/RLE strength 3/5, LUE/LLE 5/5 Skin: no rashes, warm and dry Neurologic: moves all extremities, + focal motor deficit (R extremity weakness) and awake; not confused Speech / Cognition: + expressive aphasia Psychiatric: A+Ox3, euthymic affect Results & Data Vital Signs (Past 12 Hours) Vital Signs Temp Pulse Pulse Resp BP Pulse Ox O2 Del Method 05/15/24 09:44 72 18 94/51 L 93 Room Air 05/15/24 08:04 Room Air 05/15/24 07:38 110 H 05/15/24 07:10 36.5 C 71 18 112/70 96 Nasal Cannula 05/15/24 05:08 90 05/15/24 02:07 37.1 C 69 18 113/66 94 Room Air 05/14/24 22:18 36.3 C L 69 18 157/72 H 96 Nasal Cannula O2 Flow Rate 05/15/24 09:44 05/15/24 08:04 05/15/24 07:38 05/15/24 07:10 2 05/15/24 05:08 05/15/24 02:07 05/14/24 22:18 2
[2024-05-15 11:43] LABS: A calco-baum cmplx NotReported Not Detected (NotDetected); Bact fragilis Not Reported Not Detected (NotDetected); Blood Culture Id Panel PCR Panel Negative (NotDetected); C auris Not Reported Not Detected (NotDetected); Calbicans Not Reported Not Detected (NotDetected); Candida glabrata Not Reported Not Detected (NotDetected); Candida krusei Not Reported Not Detected (NotDetected); Cneoformans/gatti Not Reported Not Detected (NotDetected); Cparapsilosis Not Reported Not Detected (NotDetected); E cloacae compx Not Reported Not Detected (NotDetected); Efaecalis Not Reported Not Detected (NotDetected); Efaecium Not Reported Not Detected (NotDetected); Enterobacterales Not Reported Not Detected (NotDetected); Escherichia coli Not Reported Not Detected (NotDetected); H influenzae Not Reported Not Detected (NotDetected); K aerogenes Not Reported Not Detected (NotDetected); Koxytoca Not Reported Not Detected (NotDetected); Kpneumoniae grp Not Reported Not Detected (NotDetected); Lmonocyt Not Reported Not Detected (NotDetected); N meningitidis Not Reported Not Detected (NotDetected); P aeruginosa Not Reported Not Detected (NotDetected); Proteus spp Not Reported Not Detected (NotDetected); Salmonella spp Not Reported Not Detected (NotDetected); Staph lugdunensis Not Reported Not Detected (NotDetected); Staph spp. Not Reported Not Detected (NotDetected); Staphaureus Not Reported Not Detected (NotDetected); Staphepi Not Reported Not Detected (NotDetected); Stenmaltophilia Not Reported Not Detected (NotDetected); Strep agal(GrpB) Not Reported Not Detected (NotDetected); Strep pneum Not Reported Not Detected (NotDetected); Strep pyog (GrpA) Not Reported Not Detected (NotDetected); Strep spp Not Reported Not Detected (NotDetected)
[2024-05-15] MEDS: GADOBUTROL 65ML VIAL IV ONE (11:54)
--- NOTE | 2024-05-15 12:29 | Magnetic Resonance Report ---
MR brain wo/w con CLINICAL HISTORY: ?CVA TECHNIQUE: Multiplanar and multisequence MR images of the brain were obtained prior to and following administration of gadolinium contrast. Comparison: Comparison is made to MRI brain 11/22/2022 FINDINGS: No abnormal restricted diffusion is identified. Foci of T2 and FLAIR hyperintensity are noted in the paraventricular areas consistent with chronic small vessel ischemic disease. Left MCA territory encep halomalacia is seen. Ex vacuo ventriculomegaly and sulcal enlargement is noted compatible with diffus e volume loss. No mass or abnormal enhancement is seen. There is no mass effect or midline shift. The re is no evidence of acute intraparenchymal hemorrhage. No extra axial fluid collections are seen. Th e corpus callosum, pituitary gland, and cerebellar tonsils appear grossly unremarkable. Flow voids of the major intracranial arterial vessels are identified. The imaged portions of the para nasal sinuses, mastoid air cells, and orbits are unremarkable. IMPRESSION: Encephalomalacia is seen at the site of old left MCA infarct. No acute infarct is seen. ACT 112: Negative or not required by law. Electronically signed by: Desean Alanis M.D. 05/15/2024 12:27 PM
[2024-05-15] MEDS: MIDODRINE HCL 2.5 MG TAB PO SCH (13:49)
[2024-05-15] MEDS: ceFAZolin 2000MG 2,000 MG/15 ML SYR IV SCH (13:50)
[2024-05-15 14:38] LABS: Appearance Urine Clear (Clear); Bilirubin Urine Negative (Negative); Blood Urine Negative (Negative); Color Urine Yellow; Glucose Urine UA Negative (Negative); Ketones Urine Negative (Negative); Leukocyte Esterase Urine Negative (Negative); Nitrite Urine Negative (Negative); Protein Urine Negative (Negative); Specific Gravity Urine 1.023 (1.000-1.030); Urobilinogen Urine Negative (Negative); pH Urine 5.5 (4.5-7.5)
--- NOTE | 2024-05-15 16:14 | Hospitalist Progress Note ---
Date of Service May 15, 2024 Assessment & Plan (1) Stroke-like symptoms: Plan: Ghazal Arriola is an 83yo F w PMH notable for afib on chronic DOAC and L MCA stroke (Jun 2023) w residual deficits, who presents from [facility] due to stroke-like symptoms on 05/13/2024. Head CT 05/13: no definite acute intracranial abnormality evident. Chronic involutional and ischemic changes of brain. Head CTA 05/13: [place] [facility] does not demonstrate any aneurysm, significant lg vessel stenosis or occlusion Neck CTA 05/13: calcified/noncalcified atherosclerosis of distal right common carotid artery. endovascular stent graft seen at distal right CCA, carotid bulb and proximal ICA. right carotid bulb high grade/significant stenosis. Calcified/noncalcified atherosclerosis of left common carotid artery with < 50% luminal narrowing. MRI brain reviewed 05/15: no acute infarct. encephalomalacia seen at old MCA infarct. BC + for gram cocci clusters. - await sensitivities. added IV Cefazolin q8h 05/15 Echo reviewed 05/14: LV systolic function normal. LVEF 65-70%. LV wall motion normal. RV normal in size & function. Mild mitral regurg. RV systolic pressure elevated at 40-50mmHg. Continue Lamictal and Plavix PT/OT recommending rehab. Speech cleared patient diet. Cardiology consulted for concern of NSTEMI due to elevated troponin of 461.4, recheck 427.8. -> 287.5 Cardiology note reviewed 05/15 - patient can be placed back on Eliquis w/ heparin stopped this evening. Patient converted to A fib overnight, unable to have BB due to low BP. Added Midodrine BID so BB can be given. Continue conservative care. Vascular surged consult reviewed 05/15: per their review no evidence of stenosis at the right carotid artery. She can continue to follow up outpatient, no acute surgical intervention warranted. CBC/BMP reviewed 05/15: stable. AM CBC, BMP (2) Pneumonia: Plan: - RR 31 and O2sat 84 on arrival; improved to 94% on 4L n.c. Does not req supplemental O2 at baseline Likely aspiration pneumonia. - CXR showed extensive bilateral peribronchovascular patchy air space disease, R>L - Given 1500mg IV vanc & 4.5g IV Zosyn in ED. -started IV Cefazolin 05/15 due to gram + cocci on BC. follow up on sensitivities. (3) Atrial fibrillation: Plan: Continue Eliquis Remainder of plan as above. (4) Elevated troponin: Plan: Troponin elevated to 461.4 --> 427.8 on 05/14 decreased to 287.5 on 05/15 Cardiology consulted, remainder recommendations above. Plan Chronic conditions: Mental health: Cymbalta, Mirtazapine Seizure disorder: Lamictal HLD: statin Diet: easy to chew DVT ppx: home Eliquis Dispo: telemetry Code status: DNR/DNI Updated son via phone extensively 05/15. Admission and Anticipated Discharge Date Admission Date: May 13, 2024 Subjective Patient seen and examined this afternoon. Patient reports to be feeling okay today. She is able to verbalize yes and no to questions. She denied chest pain, shortness of breath. Physical Exam 2 Constitutional: WD/WN, vitals as above Respiratory: normal respiratory effort, lungs clear to auscultation Cardiovascular: RRR, no murmur, no edema Skin: no rashes, warm and dry Results & Data Results & Data Vital Signs (Past 12 Hours) Vital Signs Temp Pulse Pulse Resp BP Pulse Ox O2 Del Method 05/15/24 15:11 36.6 C 75 18 132/74 91 Room Air 05/15/24 14:21 76 05/15/24 09:44 72 18 94/51 L 93 Room Air 05/15/24 08:04 Room Air 05/15/24 07:38 110 H 05/15/24 07:10 36.5 C 71 18 112/70 96 Nasal Cannula 05/15/24 05:08 90 O2 Flow Rate 05/15/24 15:11 05/15/24 14:21 05/15/24 09:44 05/15/24 08:04 05/15/24 07:38 05/15/24 07:10 2 05/15/24 05:08 Laboratory Results 05/15/24 03:56 05/15/24 03:56 PG Care Time/CCT Total # of Minutes Spent Total Time Spent with Patient: Total time spent is greater than 50% in coordination of care (as documented) at patient's floor/unit and/or counseling patient: Coding Level of Care Code 08210 SUB INP/OBS CARE 3/50MIN Diagnoses Stroke-like symptoms R29.90 Aspiration pneumonia of right lung, unspecified aspiration pneumonia type, unspecified part of lung J69.0 Pneumonia type: aspiration pneumonia Aspiration pneumonia type: unspecified Laterality: right Lung location: unspecified part of lung Atrial fibrillation I48.91 Atrial fibrillation type: unspecified Elevated troponin R79.89 (2) Pneumonia Pneumonia type: aspiration pneumonia Aspiration pneumonia type: unspecified Laterality: right Lung location: unspecified part of lung Qualified Code(s): J 69.0 - Pneumonitis due to inhalation of food and vomit (3) Atrial fibrillation Atrial fibrillation type: unspecified Qualified Code(s): I48.91 - Unspecified atrial fibrillation
--- NOTE | 2024-05-15 16:36 | Electrocardiogram Report ---
Test Reason : Blood Pressure : */* mmHG Vent. Rate : 76 BPM Atrial Rate : 76 BPM P-R Int : 164 ms QRS Dur : 86 ms QT Int : 420 ms P-R-T Axes : 68 5 24 degrees QTcB Int : 472 ms Normal sinus rhythm Normal ECG When compared with ECG of 14-May-2024 09:51, No significant change was found Confirmed by Nick Gonsales ([id number]) on 05/15/2024 4:36:30 PM Referred By: REFERRED SELF Confirmed By: Nick Gonsales
[2024-05-16] MEDS: MIDODRINE HCL 2.5 MG TAB PO SCH (06:19)
[2024-05-16 06:31] LABS: Basophils # (auto) 0.03 K/uL (0.00-0.20); Basophils % (auto) 0.5 %; Eosinophils % (auto) 3.5 %; Hematocrit (blood only) 32.2 % (37.0-47.0); Hemoglobin 10.3 g/dl (12.0-16.0); Immature Granulocytes # (auto) 0.02 K/uL (0.01-0.20); Immature Granulocytes % (auto) 0.4 %; Lymphocytes # (auto) 1.59 K/uL (1.20-3.40); Lymphocytes % (auto) 28.1 %; Mean Corpuscular Hemoglobin 30.4 pg (25.0-34.0); Monocytes # (auto) 0.57 K/uL (0.11-0.59); Monocytes % (auto) 10.1 %; Neutrophils # (auto) 3.24 K/uL (1.40-6.50); Neutrophils % (auto) 57.4 %; Platelet Count 171 K/uL (130-400); RDW Coefficient of Variation 14.2 % (11.5-14.5); RDW Standard Deviation 49.7 fL (36.4-46.3); Red Blood Count 3.39 M/uL (4.20-5.40); White Blood Count 5.65 K/ul (4.8-10.8)
[2024-05-16 07:04] LABS: BUN Creatinine Ratio 20.7 (10-20); Calcium 8.5 mg/dl (8.6-10.3); Creatinine Clr Calc Pharmacy 45.4 ml/min
[2024-05-16 07:49] LABS: ANTI-Xa, UFH(UnfractionatedHep 1.17 IU/ml (0.3-0.7)
--- NOTE | 2024-05-16 15:26 | Hospitalist Progress Note ---
Date of Service May 16, 2024 Assessment & Plan (1) Stroke-like symptoms: Plan: Ghazal Arriola is an 83yo F w PMH notable for afib on chronic DOAC and L MCA stroke (Jun 2023) w residual deficits, who presents from [facility] due to stroke-like symptoms on 05/13/2024. Head CT 05/13: no definite acute intracranial abnormality evident. Chronic involutional and ischemic changes of brain. Head CTA 05/13: [place] [facility] does not demonstrate any aneurysm, significant lg vessel stenosis or occlusion Neck CTA 05/13: calcified/noncalcified atherosclerosis of distal right common carotid artery. endovascular stent graft seen at distal right CCA, carotid bulb and proximal ICA. right carotid bulb high grade/significant stenosis. Calcified/noncalcified atherosclerosis of left common carotid artery with < 50% luminal narrowing. MRI brain reviewed 05/15: no acute infarct. encephalomalacia seen at old MCA infarct. BC + for gram cocci clusters. - await sensitivities. added IV Cefazolin q8h 05/15 BC final results came back w/ micrococcus species, contaminated. abx discontinued 05/16 Echo reviewed 05/14: LV systolic function normal. LVEF 65-70%. LV wall motion normal. RV normal in size & function. Mild mitral regurg. RV systolic pressure elevated at 40-50mmHg. Continue Lamictal and Plavix PT/OT recommending rehab. asked PT to re-eval patient on 05/17 as she is doing well and may not require rehab anymore. Patient and family agreeable to re-evaluation. Speech cleared patient diet. Cardiology consulted for concern of NSTEMI due to elevated troponin of 461.4, recheck 427.8. -> 287.5 Cardiology note reviewed 05/15 - patient can be placed back on Eliquis w/ heparin stopped this evening. Patient converted to A fib overnight, unable to have BB due to low BP. Added Midodrine BID so BB can be given. - still held last two days for low BP. Continue conservative care. Vascular surged consult reviewed 05/15: per their review no evidence of stenosis at the right carotid artery. She can continue to follow up outpatient, no acute surgical intervention warranted. CBC/BMP reviewed 05/16: stable. AM CBC, BMP (2) Pneumonia: Plan: - RR 31 and O2sat 84 on arrival; improved to 94% on 4L n.c. Does not req supplemental O2 at baseline Likely aspiration pneumonia. - CXR showed extensive bilateral peribronchovascular patchy air space disease, R>L - Given 1500mg IV vanc & 4.5g IV Zosyn in ED. -started IV Cefazolin 05/15 due to gram + cocci on BC. follow up on sensitivities. discontinued abx - contaminated specimen. (3) Atrial fibrillation: Plan: Continue Eliquis Remainder of plan as above. (4) Elevated troponin: Plan: Troponin elevated to 461.4 --> 427.8 on 05/14 decreased to 287.5 on 05/15 Cardiology consulted, remainder recommendations above. Plan Chronic conditions: Mental health: Cymbalta, Mirtazapine Seizure disorder: Lamictal HLD: statin Diet: easy to chew DVT ppx: home Eliquis Dispo: telemetry Code status: DNR/DNI Updated son via phone 05/16. Admission and Anticipated Discharge Date Admission Date: May 13, 2024 Subjective patient seen and examined today. patient anxiously waiting to be discharged. she denied any complaints. Able to answer yes or no to questions and form additional words. She states she wants to "go home" today. Physical Exam 2 Constitutional: WD/WN, vitals as above Eyes: PERRL, conjunctivae normal, anicteric sclerae Respiratory: breathing unlabored Cardiovascular: well perfused Skin: no rashes, warm and dry Psychiatric: A+Ox3, euthymic affect Results & Data Results & Data Vital Signs (Past 12 Hours) Vital Signs Temp Pulse Pulse Resp BP Pulse Ox O2 Del Method 05/16/24 15:13 36.8 C 90 20 121/84 92 Room Air 05/16/24 11:15 36.6 C 68 18 116/65 91 Room Air 05/16/24 09:07 60 95/54 L 05/16/24 08:00 Room Air, Nasal Cannula 05/16/24 07:25 62 05/16/24 07:08 36.2 C L 64 18 112/58 L 96 Nasal Cannula O2 Flow Rate 05/16/24 15:13 05/16/24 11:15 05/16/24 09:07 05/16/24 08:00 1 05/16/24 07:25 05/16/24 07:08 1 Laboratory Results 05/16/24 05:30 05/16/24 05:30 PG Care Time/CCT Total # of Minutes Spent Total Time Spent with Patient: Total time spent is greater than 50% in coordination of care (as documented) at patient's floor/unit and/or counseling patient: Coding Level of Care Code 50300 SUB INP/OBS CARE 2/35MIN Diagnoses Stroke-like symptoms R29.90 Aspiration pneumonia of right lung, unspecified aspiration pneumonia type, unspecified part of lung J69.0 Pneumonia type: aspiration pneumonia Aspiration pneumonia type: unspecified Laterality: right Lung location: unspecified part of lung Atrial fibrillation I48.91 Atrial fibrillation type: unspecified Elevated troponin R79.89 (2) Pneumonia Pneumonia type: aspiration pneumonia Aspiration pneumonia type: unspecified Laterality: right Lung location: unspecified part of lung Qualified Code(s): J 69.0 - Pneumonitis due to inhalation of food and vomit (3) Atrial fibrillation Atrial fibrillation type: unspecified Qualified Code(s): I48.91 - Unspecified atrial fibrillation
[2024-05-17 11:06] VITALS: TEMP 98.2
[2024-05-17 15:11] VITALS: BP 120/75; RESP 19; O2SAT 94
--- NOTE | 2024-05-17 15:29 | Discharge Summary ---
Discharge Summary Date of Service May 17, 2024 Principal Dx & Hospital Course #1 = Principal Diagnosis (1) Stroke-like symptoms: Ghazal Arriola is an 83yo F w PMH notable for afib on chronic DOAC and L MCA stroke (Jun 2023) w residual deficits, who presents from [facility] due to stroke-like symptoms on 05/13/2024. Head CT 05/13: no definite acute intracranial abnormality evident. Chronic involutional and ischemic changes of brain. Head CTA 05/13: [place] does not demonstrate any aneurysm, significant lg vessel stenosis or occlusion Neck CTA 05/13: calcified/noncalcified atherosclerosis of distal right common carotid artery. endovascular stent graft seen at distal right CCA, carotid bulb and proximal ICA. right carotid bulb high grade/significant stenosis. Calcified/noncalcified atherosclerosis of left common carotid artery with < 50% luminal narrowing. MRI brain reviewed 05/15: no acute infarct. encephalomalacia seen at old MCA infarct. BC + for gram cocci clusters. - await sensitivities. added IV Cefazolin q8h 05/15 BC final results came back w/ micrococcus species, contaminated. abx discontinued 05/16 Echo reviewed 05/14: LV systolic function normal. LVEF 65-70%. LV wall motion normal. RV normal in size & function. Mild mitral regurg. RV systolic pressure elevated at 40-50mmHg. Cardiology consulted for concern of NSTEMI due to elevated troponin of 461.4, recheck 427.8. -> 287.5 Added Midodrine BID so patient can still receive her metoprolol for A fib Eliquis continued. Vascular surged consult reviewed 05/15: per their review no evidence of stenosis at the right carotid artery. She can continue to follow up outpatient, no acute surgical intervention warranted. CBC/BMP stable. PT re-evaluated patient on 05/17 who deemed her back to baseline and stable to return to her personal care facility. (2) Pneumonia: - RR 31 and O2sat 84 on arrival; improved to 94% on 4L n.c. Does not req supplemental O2 at baseline Likely aspiration pneumonia. - CXR showed extensive bilateral peribronchovascular patchy air space disease, R>L - Given 1500mg IV vanc & 4.5g IV Zosyn in ED. -started IV Cefazolin 05/15 due to gram + cocci on BC. follow up on sensitivities. discontinued abx - contaminated specimen on 05/16 (3) Atrial fibrillation: Continue Eliquis Remainder of plan as above. (4) Elevated troponin: Troponin elevated to 461.4 --> 427.8 on 05/14 decreased to 287.5 on 05/15 Cardiology consulted, remainder recommendations above. Plan Chronic conditions: Mental health: Cymbalta, Mirtazapine Seizure disorder: Lamictal HLD: statin Admission HPI Per Admitting Provider Staff at [facility] reported she ate dinner, was at her normal baseline at 17:30, and then they her unresponsive and "foaming at the mouth" when going to give her meds at 18:30. Son and [id number] are present at bedside. Patient does not remember what happened/cannot articulate due to expressive aphasia. Says "it" was "horrible" but cannot clarify further than she felt pain everywhere ("it happened to everybody"). DIL supplies that R leg felt tight, and provides verbal cues to prompt much of the history reported by patient. Patient denies CHOWDARY, vision or hearing changes, new weakness, abnormal sensation, SOB, chest pain, abd pain. 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 She uses a walker but is active. She has some confusion and difficulty speaking normally, and son reports she is currently at "about 70%" of her cognitive baseline. She has never required supplemental O2. She has no diet restrictions or trouble swallowing. No reported falls or trauma. Takes Eliquis regularly. Son and DIL deny any allergies other than bee venom. Patient reports feeling much better since being at the hospital. Discharge Exam Constitutional WD/WN, vitals as above Eyes PERRL, conjunctivae normal, anicteric sclerae Respiratory breathing unlabored Cardiovascular well perfused Skin no rashes, warm and dry Psychiatric A+Ox3, euthymic affect Discharge Plan Discharge Items Patient Disposition: Personal Half-Way Reason For Visit: STROKE-LIKE SYPMTOMS Discharge Diagnosis: NSTEMI, Stroke like symptoms Activity: Resume your previous activity Non-emergency contact: Primary Care Provider and Credit Rating Checker Call non-emergency contact if: you have any medication questions and your symptoms worsen Follow-up/Referrals: Pro,Kevin Lyn MD [Primary Care Provider] - Diet: Heart Healthy Addtl Attending Provider Instructions: Ms. Arriola, You were recently hospitalized for concerning symptoms similar to a stroke. your stroke workup came back negative. You did experience an NSTEMI with your heart and cardiology aided to treat you supportively. You were evaluated by vascular surgery who had recommended no surgical intervention as well. You returned back to your baseline prior to discharge. Please see recommendations below regarding your discharge. 1. Please take Midodrine twice daily. - this is a new medication that helps your low blood pressure. 2. Please resume your metoprolol 25mg PO daily. If your heart rate is below 60 or your systolic blood pressure is less than a 100 please hold the dose. 3. The remainder of your medications you may resume. 4. Please follow up with cardiology outpatient. 5. Please follow up with vascular surgery outpatient. 6. Please follow up with your PCP within 1-2 weeks. If you develop any symptoms including worsened weakness, fever, chills, chest pain, or shortness of breath please report to the ER for further care. Sincerely, Cherrie Armendariz PA-C Pending Studies at Discharge: No Stand-Alone Forms: My [employer], Smoking Cessation Skilled Items Patient informed of condition?: Yes DNR: Yes Discharge Level of Care: Other Communicable Disease: No Discharge Prognosis: Improving Lines: None Urinary Catheter: No Medications and DC Order Prescriptions: New midodrine 2.5 mg Tablet 2.5 mg PO 0700,1400 Qty: 60 0RF Continued cholecalciferol (vitamin D3) [Vitamin D3] 125 mcg (5,000 unit) tablet 125 mcg PO QAM Qty: 30 5RF lamotrigine 100 mg tablet 100 mg PO BID 90 Days Qty: 180 3RF Eliquis 5 mg tablet 5 mg PO BID Qty: 180 1RF clopidogrel [Plavix] 75 mg tablet 75 mg PO QDL Qty: 30 1RF Rx Instructions: take daily at lunch time duloxetine [Cymbalta] 30 mg capsule,delayed release(DR/EC) 30 mg PO QAM Qty: 90 1RF epinephrine 0.3 mg/0.3 mL auto-injector 0.3 mg subcut ONCE PRN (Reason: anaphylaxis) Qty: 1 3RF acetaminophen 325 mg tablet 650 mg PO .COMPLEX PRN (Reason: fever or pain) Qty: 60 0RF Rx Instructions: Take 2 tablets (650)mg by mouth every 6 hours as needed for temp greater than 100 or pain 1-10 Max 3GM APAP/24 HRS atorvastatin 20 mg tablet 20 mg PO HS ferrous sulfate [FeroSul] 325 mg (65 mg iron) tablet 650 mg PO QAM cranberry extract [Cranberry Concentrate] 500 mg Capsule 1,000 mg PO QAM Rx Instructions: administer with meals metoprolol succinate 25 mg tablet extended release 24 hr 25 mg PO QAM Rx Instructions: Take 1 tablet by mouth once daily for HTN Hold for SBP less than 100 or Diastolic blood pressure less than 50 Saccharomyces boulardii 250 mg capsule 250 mg PO QAM mirtazapine 7.5 mg tablet 7.5 mg PO HS Rx Instructions: Take one tablet by mouth at bedtime "mood disorder" Discharge Orders: Discharge Order (Routine); Ordered 05/17/24 Ordered By: Cherrie Armendariz Admission Data Admit Date/Time: 05/13/24 23:54 Attending Provider: Clint Sales Admit Provider: Anuel Pretty Primary Care Provider: Kevin Fitzgerald Other Providers: Yolanda Duran; Veena Pino; Tone Duarte; [facility] Stay Data Consultations 05/13/24 22:03 ED Decision to Admit Stat 05/14/24 09:13 Consult Cardiology Routine 05/14/24 14:29 Consult Vascular Surgery Routine Diagnostic Imagining Performed 05/13/24 19:39 CT angio head w con Stat CT angio neck with con Stat CT head/brain wo con Stat 05/15/24 08:26 MR brain wo/w con Routine Pending Results Patient Have Any Pending Studies at Discharge: No Discharge Instructions Given to Patient (Per Discharging Provider) Ms. Arriola, Kike were recently hospitalized for concerning symptoms similar to a stroke. your stroke workup came back negative. You did experience an NSTEMI with your heart and cardiology aided to treat you supportively. You were evaluated by vascular surgery who had recommended no surgical intervention as well. You returned back to your baseline prior to discharge. Please see recommendations below regarding your discharge. 1. Please take Midodrine twice daily. - this is a new medication that helps your low blood pressure. 2. Please resume your metoprolol 25mg PO daily. If your heart rate is below 60 or your systolic blood pressure is less than a 100 please hold the dose. 3. The remainder of your medications you may resume. 4. Please follow up with cardiology outpatient. 5. Please follow up with vascular surgery outpatient. 6. Please follow up with your PCP within 1-2 weeks. If you develop any symptoms including worsened weakness, fever, chills, chest pain, or shortness of breath please report to the ER for further care. Sincerely, Cherrie Armendariz PA-C Total Time Total Time Spent Total Time Spent (In Minutes): 40 Total Time Includes: Examination of the Patient, Discharge Planning and Medication Reconciliation Coding Level of Care Code 88181 INP/OBS DISCH >30 MIN Diagnoses Stroke-like symptoms R29.90 Aspiration pneumonia of right lung, unspecified aspiration pneumonia type, unspecified part of lung J69.0 Pneumonia type: aspiration pneumonia Aspiration pneumonia type: unspecified Laterality: right Lung location: unspecified part of lung Atrial fibrillation I48.91 Atrial fibrillation type: unspecified Elevated troponin R79.89
[2024-05-17 17:31] VITALS: PULSE 77
== END 2024-05-17 18:35 | disposition home or self-care (01) | DRG 177 ==
LOC: ED 19:37 → 4W 23:54 → SUATTDRO 23:54 → 4W 05-14 01:21

== ENCOUNTER 2024-10-24 18:31 | Inpatient (IN) ==
[2024-10-24] MEDS: OPTIRAY 320 125ml IV ONE (18:34)
--- NOTE | 2024-10-24 18:36 | Emergency Department Note ---
Impression & Plan Altered mental status, History of seizure, History of CVA with residual deficit, Acute hypoxemic respiratory failure, Acute hyponatremia ED Provider Note NAME: CORNELL DE PAZ AGE: 83 SEX: F : 1940 ARRIVES VIA: Ambulance INFORMANT: Patient, ED PROVIDER(S): Koffi Navarro MD CHIEF COMPLAINT: Strokelike symptoms, change in mentation MEDICAL DECISION MAKING: Patient presents to concern for change in behavior. IV was established and blood work was obtained. Code stroke was initiated. I did speak with Dr. Muro and given that the patient is not a TNK candidate recommends holding any thinners until MRI brain is obtained. He will review for possible LVO on CT head CT angiography of the head neck. Patient was as low as low as 83% on room air was placed on oxime mask. Patient with a history of seizure disorder on Lamictal. Lamictal order was added but IV Keppra ordered to 1500 mg. With regard to the patient's exam at this time the patient did have weakness of the right leg but seem to have reasonable strength of the right upper extremity. Patient does have facial droop and expressive aphasia although can answer some questions appropriately on occasion he does follow commands. Patient's blood work showed a normal white count hemoglobin and platelet count. The patient's kidney function unremarkable. Mild hyponatremia 134. LFTs unremarkable. The patient's head neck and chest CTAs not show any significant acute findings. They do note the patient does have chronic left MCA territory infarcts. Patient does have patent stent of the right carotid with a focal area of 25 to 35% narrowing. I did rediscuss the patient's symptoms with the on-call teleneurologist who recommended MRI brain and to hold any anticoagulant medication until after the MRI. No acute need for transfer given no evidence of large vessel occlusion. Chest x-ray does not show significant pneumonia the patient was hypoxemic. The patient currently on 4 L. White count normal. Will defer any antibiotic treatment at this time. I did speak the on-call hospitalist service Dr. Colón the patient was admitted to the medicine service. Critical Care: I have personally spent 35 minutes of critical care time in direct management of this patient. This includes bedside care, interpretation of diagnostic studies, and testing, discussion with consultants, patient, and family members, and other require inpatient management activities. This 35 minutes is in excess of all separately billable procedures. Discussion w/ other healthcare providers: Dr. Parrish telestroke neurology [facility] Dr. Colón inpatient medicine service Prior /Outside records reviewed: I reviewed part of a primary care visit from May 27, 2024. The patient had been admitted at [facility] in April for strokelike symptoms. Patient has a prior history of stroke with residual right hemiparesis expressive aphasia and history of seizures. On chronic Eliquis known history of A-fib. Patient reportedly was found to be unresponsive at the time with family at the mouth by nursing staff. Patient also does have a prior history of a TCAR. Patient does have an old MCA infarct. I did review part of a discharge summary from Cherrie Collins from May 20, 2024. Patient with history of A-fib on chronic DOAC left MCA stroke in June 2023 with residual deficits who presented with strokelike symptoms. Review of prior ED visit from November 17 for show the patient had right upper and right lower extremity drift. Review of her medication shows that the patient is on Eliquis 5 twice daily atorvastatin 20 mg and 75 of Plavix daily. Differential diagnosis: TIA, stroke, seizure, infection, dehydration, metabolic abnormality, hypo/hyperglycemia, electrolyte imbalance, anemia, UTI, pneumonia, thyroid dysfunction among others were considered. Diagnostics, as interpreted by me: ECG: None Cardiac monitoring: An order was placed for continuous cardiac monitoring. The monitor shows a rate of 72 with sinus rhythm. Patient was placed on pulse oximetry Medical decision rules: None Imaging studies: I informally interpreted the patient's with chest x-ray does not show obvious pneumonia formal report to follow. HPI: Patient presents due to concern for a change in mentation. The patient reportedly was at dinner at 515 had slumped over and was not acting appropriately. Staff reported the patient had a right-sided facial droop as well as right-sided hemiparesis. EMS had reported that this was a new finding. Patient's vital signs and rounds 180/90 satting 92% on room air BSG was 138 with a heart rate of 74 breathing 20 times a minute. No reported falls or trauma. Review of the record shows that the patient does have history of expressive aphasia at baseline. Patient is able to finger count and follow commands at the bedside. Difficult for articulation of acute symptoms by the patient. PAST MEDICAL HISTORY: See Below PAST SURGICAL HISTORY: See Below SOCIAL HISTORY: See Below HOME MEDICATIONS: See Below ALLERGIES: See Below VITALS: See Below PHYSICAL EXAMINATION: GENERAL: Nontoxic, oxy mask in place. EYE EXAM: Normal conjunctiva. PERRL, no anisocoria and EOM's grossly intact w/o pain. OROPHARYNX: Moist mucus membranes, grossly normal dentition. NECK: Trachea midline, no stridor. LUNGS: Clear to auscultation. Normal chest wall mechanics. HEART: NSR, no MRG. ABDOMEN: Abdomen soft, non-tender, no masses, no rebound or guarding. BACK: No CVA TTP. SKIN: No rashes and no bruising. UPPER EXTREMITIES: Upper extremities are grossly normal. LOWER EXTREMITIES: Grossly normal, no edema. NEURO EXAM: Awake and alert does follow basic commands, cranial nerves II-XII grossly intact with exception of right side facial droop, occasional expressive aphasia, moves all 4 extremities but weakly moves the right lower extremity compared to left, able to raise the right arm off the bed and keep it up without issue. Past Med/Surg History Problem List (Updated 10/24/24 @ 22:24 by Koffi Navarro MD) Acute hyponatremia (Acute) Acute hypoxemic respiratory failure (Acute) History of CVA with residual deficit (Acute) History of seizure (Acute) Altered mental status (Acute) Hyponatremia Acute hypoxic respiratory failure Seizure disorder Aspiration pneumonia Non-STEMI (non-ST elevated myocardial infarction) Pneumonia (Acute) Stroke-like symptoms (Acute) Hypoxia (Acute) Elevated troponin Pneumonia Stroke-like symptoms Atrial fibrillation (Acute) Acute UTI (Acute) Vomiting (Acute) Fall (Acute) Weakness (Acute) Weakness (Acute) Symptomatic anemia (Acute) Anemia Current use of proton pump inhibitor Carotid stenosis, right R ICA stenosis Elevated BP without diagnosis of hypertension (Acute) Hemangioma (Acute) Seborrheic keratosis (Acute) Atrial fibrillation H/O: stroke with residual effects (Acute) Aphasia as late effect of cerebrovascular accident (Acute) Hemiparesis affecting dominant side as late effect of cerebrovascular accident Contact dermatitis Seizure as late effect of cerebrovascular accident (CVA) Constipation Hospital discharge follow-up History of stroke Multiple pulmonary nodules Hyperglycemia Chronic venous insufficiency (Acute) Hyperlipidemia (Acute) Vitamin D deficiency (Acute) Medical History 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 per neuro, likely 2/2 previous CVA. no recurrence since. Follows with [place] [facility]. 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 s/p mechanical thrombectomy (cause felt to be cardioembolic and pt had newly dx afib at the time). imaging of carotids at this time found R ICA stenosis Atrial fibrillation dx at time of CVA 06/2022; follows with Dr. Guajardo; on Eliquis and BB Surgical History History of surgery [place] [facility] [place] CVA History of eye surgery laser eye surgery [place] S/P tooth extraction Family History Sister Atrial fibrillation Stroke Muscular dystrophy Mother Diabetes Father Lung cancer Denies family history of Ovarian cancer Prostate cancer Myocardial infarction Breast cancer Colorectal cancer Social History Smoking Status: Unknown if ever smoked Tobacco Type: Cigarettes Age Started Using Tobacco: 22; Age Quit Using Tobacco: 53; packs per day: 0.5; Second Hand Exposure: No; Do You Dip or Chew Tobacco: No; Preferred Language: Kyrgyz Communication Ability: Impaired Communication Ability Comment: expressive aphasia Visual Impairment: No Limitations Hearing Ability: Normal [employer] Director Required: No Beliefs That Will Affect Care: None marital status: / Current Living Situation: Personal Care Facility Current Living Situation Comment: lives with her son and DIL current occupational status: retired Feels Safe at Home: Yes Childhood Exposure to Second-Hand Smoke: Yes Diet: regular caffeine: Yes Dental Care, Regularly: No Physical Activity Frequency: 1-2 Times per Week Physical Activity Frequency Comment: bird watching, puzzles and walking Seatbelt Use: always Sunscreen Use: No Assistive Devices: Walker Allergies Allergies Allergy/AdvReac Type Severity Reaction Status Date / Time bee venom protein (honey bee) Allergy Severe SHORTNESS Verified 10/24/24 20:28 OF BREATH latex Allergy Mild Redness of Verified 10/24/24 20:28 Skin Home Meds Home Medications Medication Instructions Recorded Confirmed Saccharomyces boulardii 250 mg 250 mg PO QAM 05/13/24 10/24/24 capsule ferrous sulfate 325 mg (65 mg 650 mg PO QAM 05/13/24 10/24/24 iron) tablet (FeroSul) mirtazapine 7.5 mg tablet 7.5 mg PO HS 05/13/24 10/24/24 acetaminophen 325 mg tablet 650 mg PO .COMPLEX PRN fever or 10/24/24 10/24/24 (Tylenol) pain Previous Rx's Medication Instructions Recorded epinephrine 0.3 mg/0.3 mL 0.3 mg (0.3 mL) subcut ONCE PRN 08/02/23 injection, auto-injector anaphylaxis #1 ea cholecalciferol (vitamin D3) 125 125 mcg PO QAM #30 tabs 10/21/23 mcg (5,000 unit) tablet (Vitamin D3) apixaban 5 mg tablet (Eliquis) 5 mg PO BID #180 tabs 03/26/24 cranberry extract 500 mg capsule 1,000 mg (2 x 500 mg) PO QAM #60 05/26/24 (Cranberry Concentrate) caps atorvastatin 20 mg tablet 20 mg PO HS #90 tabs 06/18/24 metoprolol succinate 25 mg 25 mg PO QAM #90 tabs 06/30/24 tablet,extended release 24 hr lamotrigine 100 mg tablet 100 mg PO BID 90 days #180 tabs 07/16/24 clopidogrel 75 mg tablet (Plavix) 75 mg PO QDL #30 tabs 08/10/24 duloxetine 30 mg capsule,delayed 30 mg PO QAM #90 caps 10/07/24 release (Cymbalta) Results & Data (ED) Vital Signs Vital Signs - 24 hr 10/24/24 18:43 10/24/24 18:44 10/24/24 18:45 Temperature Temperature Source Pulse Rate 86 83 Pulse Rate [Apical] Pulse Rate from SpO2 Sensor 83 Pulse Rhythm Pulse Strength Respiratory Rate 23 Respiratory Effort / Characteristics Respiratory Depth Respiratory Pattern Blood Pressure 185/110 H 167/96 H Blood Pressure [Right Arm] Blood Pressure Mean 133 119 Blood Pressure Mean [Right Arm] Blood Pressure Position Blood Pressure Position [Right Arm] Pulse Oximetry 84 L Oxygen Delivery Method Oxygen Flow Rate Sepsis Recent Fever Within 48 Hours Sepsis New/Unexplained Change in Mental Status Sepsis Action Taken by Nursing Oxygen Flow Rate - Titration Pulse Oximetry Post Tiitration 10/24/24 18:48 10/24/24 19:02 10/24/24 19:09 Temperature Temperature Source Pulse Rate 87 Pulse Rate [Apical] 74 Pulse Rate from SpO2 Sensor Pulse Rhythm Regular Pulse Strength Normal Respiratory Rate 18 24 Respiratory Effort / Characteristics Non-Labored Spontaneous Respiratory Depth Normal Respiratory Pattern Regular Blood Pressure 167/96 H Blood Pressure [Right Arm] 189/99 H Blood Pressure Mean 119 Blood Pressure Mean [Right Arm] 129 Blood Pressure Position Sitting Blood Pressure Position [Right Arm] Pulse Oximetry 96 84 L 95 Oxygen Delivery Method Room Air Oxymask Oxymask Oxygen Flow Rate 0 4 Sepsis Recent Fever Within 48 Hours No Sepsis New/Unexplained Change in Mental Status No Sepsis Action Taken by Nursing No Action Required Oxygen Flow Rate - Titration 4 Pulse Oximetry Post Tiitration 93 10/24/24 19:34 10/24/24 19:53 10/24/24 21:00 Temperature Temperature Source Pulse Rate Pulse Rate [Apical] 70 65 66 Pulse Rate from SpO2 Sensor Pulse Rhythm Pulse Strength Respiratory Rate 21 24 21 Respiratory Effort / Characteristics Non-Labored Spontaneous Non-Labored Spontaneous Respiratory Depth Respiratory Pattern Blood Pressure Blood Pressure [Right Arm] 188/98 H 171/109 H 175/90 H Blood Pressure Mean Blood Pressure Mean [Right Arm] 128 129 118 Blood Pressure Position Blood Pressure Position [Right Arm] Lying Pulse Oximetry 96 96 98 Oxygen Delivery Method Nasal Cannula Room Air Room Air Oxygen Flow Rate 4 Sepsis Recent Fever Within 48 Hours Sepsis New/Unexplained Change in Mental Status Sepsis Action Taken by Nursing Oxygen Flow Rate - Titration Pulse Oximetry Post Tiitration 10/24/24 21:00 10/24/24 22:05 10/24/24 22:13 Temperature 36.6 C Temperature Source Oral Pulse Rate Pulse Rate [Apical] 71 Pulse Rate from SpO2 Sensor Pulse Rhythm Pulse Strength Respiratory Rate 19 Respiratory Effort / Characteristics Non-Labored Spontaneous Respiratory Depth Respiratory Pattern Blood Pressure Blood Pressure [Right Arm] 169/92 H Blood Pressure Mean Blood Pressure Mean [Right Arm] 117 Blood Pressure Position Blood Pressure Position [Right Arm] Lying Pulse Oximetry 98 90 88 L Oxygen Delivery Method Nasal Cannula Room Air Room Air Nasal Cannula Oxygen Flow Rate 4 0 Sepsis Recent Fever Within 48 Hours Sepsis New/Unexplained Change in Mental Status Sepsis Action Taken by Nursing Oxygen Flow Rate - Titration 0 2 Pulse Oximetry Post Tiitration 94 99 Home Medications Current Medication List: was personally reviewed by me Laboratory Data Attestation: I reviewed the patient's lab results. 10/24/24 18:48 10/24/24 18:48 Lab Results 10/24/24 10/24/24 Range/Units 18:44 18:48 WBC 6.72 (4.8-10.8) K/ul RBC 4.06 L (4.20-5.40) M/uL Hgb 12.4 (12.0-16.0) g/dl Hct 38.4 (37.0-47.0) % MCV 94.6 (80.0-100.0) fL MCH 30.5 (25.0-34.0) pg MCHC 32.3 (32.0-36.0) g/dL RDW Std Deviation 46.2 (36.4-46.3) fL RDW Coeff of Rosa Elena 13.4 (11.5-14.5) % Plt Count 184 (130-400) K/uL MPV 9.8 (9.4-12.4) fL Immature Gran % (Auto) 0.7 % Neut % (Auto) 66.1 % Lymph % (Auto) 23.8 % [place] % (Auto) 6.5 % Eos % (Auto) 2.5 % Baso % (Auto) 0.4 % Neut # (Auto) 4.43 (1.40-6.50) K/uL Lymph # (Auto) 1.60 (1.20-3.40) K/uL [place] # (Auto) 0.44 (0.11-0.59) K/uL Eos # (Auto) 0.17 (0.00-0.50) K/uL Baso # (Auto) 0.03 (0.00-0.20) K/uL Immature Gran # (Auto) 0.05 (0.01-0.20) K/uL PT 11.2 (9.0-12.0) Seconds INR 1.0 (0.9-1.1) APTT 23 (21-31) Seconds PTT Ratio 0.9 Sodium 134 L (136-145) mmol/L Potassium 4.1 (3.5-5.1) mmol/L Chloride 100 (98-107) mmol/L Carbon Dioxide 27 (21-32) mmol/L Anion Gap 7 (3-11) BUN 21 (6-23) mg/dl Creatinine 0.87 (0.6-1.2) mg/dl Est Cr Clr Drug Dosing 53.8 ml/min eGFR 66.89 BUN/Creatinine Ratio 24.1 H (10-20) Glucose 144 H (70-99(Fasting)) mg/dl POC Glucose 112 H (70-99) mg/dl Calcium 8.7 (8.6-10.3) mg/dl Magnesium 1.7 (1.7-2.4) mg/dl Total Bilirubin 0.4 (0.2-1.0) mg/dl AST 23 (13-39) U/L ALT 19 (7-52) U/L Alkaline Phosphatase 71 (34-104) U/L Troponin I High Sens 9.3 (0-14) pg/ml Total Protein 6.8 (6.0-8.3) gm/dl Albumin 3.8 (3.4-5.0) gm/dl Globulin 3.0 (2.5-4.0) gm/dl Albumin/Globulin Ratio 1.3 (0.9-2) Administered Medications Discontinued Medications Ioversol (Optiray 320 125ml) 119 ml IV ONCE ONE Stop: 10/24/24 18:34 Last Admin: 10/24/24 18:34 Dose: 119 ml Documented By: TED Levetiracetam (Levetiracetam 500 Mg/5 Ml Vial) 1,500 mg IV NOW STA Stop: 10/24/24 18:50 Last Admin: 10/24/24 19:05 Dose: 1,500 mg Documented By: CHRIS Imaging Data Radiologist's Impression: Head CT 10/24/24 18:[address] without contrast CT angiogram of the neck CT angiogram of the brain with contrast Provided History: Neuro deficit Comparison: None Technique: HEAD CT: Using multidetector thin collimation helical acquisition technique, axial, coronal and sagittal CT images from the skull base to the vertex were obtained without intravenous contrast. HEAD and NECK CTA: During rapid bolus intravenous injection of nonionic contrast material, axial images were obtained using thin collimation multidetector helical technique from the base of the neck through the of vertex of the head. This CT angiogram data was reconstructed at thin intervals with mild overlap. 3D reconstructions were obtained. The axial source images, multiplanar reformations, 3D reconstructions in both maximum intensity projection display and volume rendered models were reviewed. Dose reduction techniques were achieved by using automatic exposure control and/or adjustment of mA and/or kV according to patient size and/or use of iterative reconstruction technique. Findings: Head CT: There is no intracranial hemorrhage, mass effect, or midline shift. There is a chronic, large left MCA territory infarct, otherwise the abdul/white matter differentiation in both cerebral hemispheres is preserved. Ventricles are proportionate to the cerebral sulci. Head CTA demonstrates no aneurysm or stenosis of the major intracranial arteries. Neck CTA demonstrates no large vessel occlusion. There is a stent traversing across the right distal common carotid artery, the carotid bulb, and the proximal internal carotid artery. At the level of the carotid bulb, there is focal narrowing, which appears to be due external compression from a prominent calcification with approximately 25 to 35% narrowing. Mild atherosclerotic disease again seen about the distal left common carotid artery resulting in mild, less than 25% stenosis. The origins of the great vessels from the aortic arch are patent. The normal distal right internal carotid artery measures 5 mm. The normal distal left internal carotid artery measures 5 mm. No mass is noted within the visualized portions of the cervical soft tissues or lung apices. Impression: 1. Head CTA demonstrates no aneurysm or stenosis of the major intracranial arteries, 2. Neck CTA demonstrates no large vessel occlusion. Patent stent of the right carotid artery, as above, with a focal area of approximately 25 to 35% narrowing due to extrinsic compression from calcification. 3. No intracranial hemorrhage on the noncontrast head CT. Chronic left MCA territory infarct again seen. Findings discussed with Dr. Navarro by Dr. Dang at 7:15 PM, 10/24/2024 Electronically signed by Michael Dang 10-24-2024 7:19 PM Head CTA 10/24/24 18:[address] without contrast CT angiogram of the neck CT angiogram of the brain with contrast Provided History: Neuro deficit Comparison: None Technique: HEAD CT: Using multidetector thin collimation helical acquisition technique, axial, coronal and sagittal CT images from the skull base to the vertex were obtained without intravenous contrast. HEAD and NECK CTA: During rapid bolus intravenous injection of nonionic contrast material, axial images were obtained using thin collimation multidetector helical technique from the base of the neck through the of vertex of the head. This CT angiogram data was reconstructed at thin intervals with mild overlap. 3D reconstructions were obtained. The axial source images, multiplanar reformations, 3D reconstructions in both maximum intensity projection display and volume rendered models were reviewed. Dose reduction techniques were achieved by using automatic exposure control and/or adjustment of mA and/or kV according to patient size and/or use of iterative reconstruction technique. Findings: Head CT: There is no intracranial hemorrhage, mass effect, or midline shift. There is a chronic, large left MCA territory infarct, otherwise the abdul/white matter differentiation in both cerebral hemispheres is preserved. Ventricles are proportionate to the cerebral sulci. Head CTA demonstrates no aneurysm or stenosis of the major intracranial arteries. Neck CTA demonstrates no large vessel occlusion. There is a stent traversing across the right distal common carotid artery, the carotid bulb, and the proximal internal carotid artery. At the level of the carotid bulb, there is focal narrowing, which appears to be due external compression from a prominent calcification with approximately 25 to 35% narrowing. Mild atherosclerotic disease again seen about the distal left common carotid artery resulting in mild, less than 25% stenosis. The origins of the great vessels from the aortic arch are patent. The normal distal right internal carotid artery measures 5 mm. The normal distal left internal carotid artery measures 5 mm. No mass is noted within the visualized portions of the cervical soft tissues or lung apices. Impression: 1. Head CTA demonstrates no aneurysm or stenosis of the major intracranial arteries, 2. Neck CTA demonstrates no large vessel occlusion. Patent stent of the right carotid artery, as above, with a focal area of approximately 25 to 35% narrowing due to extrinsic compression from calcification. 3. No intracranial hemorrhage on the noncontrast head CT. Chronic left MCA territory infarct again seen. Findings discussed with Dr. Navarro by Dr. Dang at 7:15 PM, 10/24/2024 Electronically signed by Michael Dang 10-24-2024 7:19 PM Neck CTA 10/24/24 18:[address] without contrast CT angiogram of the neck CT angiogram of the brain with contrast Provided History: Neuro deficit Comparison: None Technique: HEAD CT: Using multidetector thin collimation helical acquisition technique, axial, coronal and sagittal CT images from the skull base to the vertex were obtained without intravenous contrast. HEAD and NECK CTA: During rapid bolus intravenous injection of nonionic contrast material, axial images were obtained using thin collimation multidetector helical technique from the base of the neck through the of vertex of the head. This CT angiogram data was reconstructed at thin intervals with mild overlap. 3D reconstructions were obtained. The axial source images, multiplanar reformations, 3D reconstructions in both maximum intensity projection display and volume rendered models were reviewed. Dose reduction techniques were achieved by using automatic exposure control and/or adjustment of mA and/or kV according to patient size and/or use of iterative reconstruction technique. Findings: Head CT: There is no intracranial hemorrhage, mass effect, or midline shift. There is a chronic, large left MCA territory infarct, otherwise the abdul/white matter differentiation in both cerebral hemispheres is preserved. Ventricles are proportionate to the cerebral sulci. Head CTA demonstrates no aneurysm or stenosis of the major intracranial arteries. Neck CTA demonstrates no large vessel occlusion. There is a stent traversing across the right distal common carotid artery, the carotid bulb, and the proximal internal carotid artery. At the level of the carotid bulb, there is focal narrowing, which appears to be due external compression from a prominent calcification with approximately 25 to 35% narrowing. Mild atherosclerotic disease again seen about the distal left common carotid artery resulting in mild, less than 25% stenosis. The origins of the great vessels from the aortic arch are patent. The normal distal right internal carotid artery measures 5 mm. The normal distal left internal carotid artery measures 5 mm. No mass is noted within the visualized portions of the cervical soft tissues or lung apices. Impression: 1. Head CTA demonstrates no aneurysm or stenosis of the major intracranial arteries, 2. Neck CTA demonstrates no large vessel occlusion. Patent stent of the right carotid artery, as above, with a focal area of approximately 25 to 35% narrowing due to extrinsic compression from calcification. 3. No intracranial hemorrhage on the noncontrast head CT. Chronic left MCA territory infarct again seen. Findings discussed with Dr. Navarro by Dr. Dang at 7:15 PM, 10/24/2024 Electronically signed by Michael Dang 10-24-2024 7:19 PM Chest X-Ray 10/24/24 18:49 EXAM: XR chest 1V portable CLINICAL HISTORY: hypoxia. TECHNIQUE: An X-ray image of the chest is obtained in AP projection. COMPARISON: prior chest X-ray dated 05/13/2024 FINDINGS: Pulmonary Parenchyma: Resolution of the previously seen right upper lung airspace opacity. Stable bilaterally increased bronchovascular markings with diffuse reticulations, septal thickening and coarse interstitium. Elevated right diaphragmatic copula, unchanged. No evidence of pleural effusion or pleural thickening. Heart and Mediastinum: Mild cardiomegaly. No mediastinal widening or masses. No hilar or mediastinal lymphadenopathy. Aortic atherosclerotic wall calcifications. Bony Thorax: Bony thorax appears intact without fractures or deformities. Soft Tissues: Soft tissues overlying the chest wall are unremarkable. IMPRESSION: 1. Resolution of the previously seen right upper lung airspace opacity. 2. Stable bilaterally increased bronchovascular markings with diffuse reticulations, septal thickening and coarse interstitium, likely related to interstitial lung disease. Advise CT correlation. 3. Mild cardiomegaly. Electronically signed by Fei Godoy 10-24-2024 8:08 PM Discharge Plan Visit Data Chief Complaint: Stroke Alert Stated Complaint: STROKE ALERT ED Provider: Koffi Navarro Discharge Problem: Altered mental status, History of seizure, History of CVA with residual deficit, Acute hypoxemic respiratory failure, Acute hyponatremia Discharge Instructions Interventions: ED Discharge Assessment Last Done: 10/24/24 22:10 Forms Stand Alone Forms: My [facility] Martin Zonoff Prescriptions Prescriptions: No Action cholecalciferol (vitamin D3) [Vitamin D3] 125 mcg (5,000 unit) tablet 125 mcg PO QAM Qty: 30 5RF Eliquis 5 mg tablet 5 mg PO BID Qty: 180 1RF atorvastatin 20 mg tablet 20 mg PO HS Qty: 90 3RF metoprolol succinate 25 mg tablet extended release 24 hr 25 mg PO QAM Qty: 90 0RF Rx Instructions: Take 1 tablet by mouth once daily for HTN Hold for SBP less than 100 or Diastolic blood pressure less than 50 lamotrigine 100 mg tablet 100 mg PO BID 90 Days Qty: 180 3RF clopidogrel [Plavix] 75 mg tablet 75 mg PO QDL Qty: 30 5RF Rx Instructions: take daily at lunch time duloxetine [Cymbalta] 30 mg capsule,delayed release(DR/EC) 30 mg PO QAM Qty: 90 1RF epinephrine 0.3 mg/0.3 mL auto-injector 0.3 mg subcut ONCE PRN (Reason: anaphylaxis) Qty: 1 3RF cranberry extract [Cranberry Concentrate] 500 mg capsule 1,000 mg PO QAM Qty: 60 3RF Rx Instructions: administer with meals acetaminophen [Tylenol] 325 mg tablet 650 mg PO .COMPLEX PRN (Reason: fever or pain) Rx Instructions: Take 2 tablets (650)mg by mouth every 6 hours as needed for temp greater than 100 or pain 1-10 Max 3GM APAP/24 HRS ferrous sulfate [FeroSul] 325 mg (65 mg iron) tablet 650 mg PO QAM Saccharomyces boulardii 250 mg capsule 250 mg PO QAM mirtazapine 7.5 mg tablet 7.5 mg PO HS Rx Instructions: Take one tablet by mouth at bedtime "mood disorder" Referrals Referrals: Kevin Fitzgerald MD [Primary Care Provider] - Discharge Problem: Altered mental status Qualifiers: Altered mental status type: unspecified Qualified Code(s): R41.82 - Altered mental status, unspecified
[2024-10-24] MEDS: levETIRAcetam 500 MG/5 ML VIAL IV STA (19:05)
[2024-10-24 19:11] LABS: Basophils # (auto) 0.03 K/uL (0.00-0.20); Basophils % (auto) 0.4 %; Eosinophils # (auto) 0.17 K/uL (0.00-0.50); Eosinophils % (auto) 2.5 %; Hematocrit (blood only) 38.4 % (37.0-47.0); Hemoglobin 12.4 g/dl (12.0-16.0); Immature Granulocytes # (auto) 0.05 K/uL (0.01-0.20); Immature Granulocytes % (auto) 0.7 %; Lymphocytes % (auto) 23.8 %; Mean Corpuscular Hemoglobin 30.5 pg (25.0-34.0); Mean Corpuscular Hgb Conc 32.3 g/dL (32.0-36.0); Mean Corpuscular Volume 94.6 fL (80.0-100.0); Mean Platelet Volume 9.8 fL (9.4-12.4); Monocytes # (auto) 0.44 K/uL (0.11-0.59); Monocytes % (auto) 6.5 %; Neutrophils # (auto) 4.43 K/uL (1.40-6.50); Neutrophils % (auto) 66.1 %; Platelet Count 184 K/uL (130-400); RDW Coefficient of Variation 13.4 % (11.5-14.5); RDW Standard Deviation 46.2 fL (36.4-46.3); Red Blood Count 4.06 M/uL (4.20-5.40); White Blood Count 6.72 K/ul (4.8-10.8)
[2024-10-24 19:19] LABS: Albumin Globulin Ratio 1.3 (0.9-2); Albumin Level 3.8 gm/dl (3.4-5.0); BUN Creatinine Ratio 24.1 (10-20); Bilirubin,Total 0.4 mg/dl (0.2-1.0); Calcium 8.7 mg/dl (8.6-10.3); Creatinine Clr Calc Pharmacy 53.8 ml/min; Magnesium 1.7 mg/dl (1.7-2.4); Potassium 4.1 mmol/L (3.5-5.1); Total Protein 6.8 gm/dl (6.0-8.3)
--- NOTE | 2024-10-24 19:19 | CT Scan Report ---
Head CT without contrast CT angiogram of the neck CT angiogram of the brain with contrast Provided History: Neuro deficit Comparison: None Technique: HEAD CT: Using multidetector thin collimation helical acquisition technique, axial, coronal and sagittal CT images from the skull base to the vertex were obtained without intravenous contrast. HEAD and NECK CTA: During rapid bolus intravenous injection of nonionic contrast material, axial images were obtained using thin collimation multidetector helical technique from the base of the neck through the of vertex of the head. This CT angiogram data was reconstructed at thin intervals with mild overlap. 3D reconstructions were obtained. The axial source images, multiplanar reformations, 3D reconstructions in both maximum intensity projection display and volume rendered models were reviewed. Dose reduction techniques were achieved by using automatic exposure control and/or adjustment of mA and/or kV according to patient size and/or use of iterative reconstruction technique. Findings: Head CT: There is no intracranial hemorrhage, mass effect, or midline shift. There is a chronic, large left MCA territory infarct, otherwise the abdul/white matter differentiation in both cerebral hemispheres is preserved. Ventricles are proportionate to the cerebral sulci. Head CTA demonstrates no aneurysm or stenosis of the major intracranial arteries. Neck CTA demonstrates no large vessel occlusion. There is a stent traversing across the right distal common carotid artery, the carotid bulb, and the proximal internal carotid artery. At the level of the carotid bulb, there is focal narrowing, which appears to be due external compression from a prominent calcification with approximately 25 to 35% narrowing. Mild atherosclerotic disease again seen about the distal left common carotid artery resulting in mild, less than 25% stenosis. The origins of the great vessels from the aortic arch are patent. The normal distal right internal carotid artery measures 5 mm. The normal distal left internal carotid artery measures 5 mm. No mass is noted within the visualized portions of the cervical soft tissues or lung apices. Impression: 1. Head CTA demonstrates no aneurysm or stenosis of the major intracranial arteries, 2. Neck CTA demonstrates no large vessel occlusion. Patent stent of the right carotid artery, as above, with a focal area of approximately 25 to 35% narrowing due to extrinsic compression from calcification. 3. No intracranial hemorrhage on the noncontrast head CT. Chronic left MCA territory infarct again seen. Findings discussed with Dr. Navarro by Dr. Dang at 7:15 PM, 10/24/2024 Electronically signed by Michael Dang 10-24-2024 7:19 PM
[2024-10-24 19:27] LABS: Troponin I High Sensitivity 9.3 pg/ml (0-14)
[2024-10-24 19:28] LABS: Partial Thromboplastin Ratio 0.9; Partial Thromboplastin Time 23 Seconds (21-31); Prothrombin Time 11.2 Seconds (9.0-12.0)
--- NOTE | 2024-10-24 20:01 | History & Physical Report ---
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 ED evaluation reveals no leukocytosis, stable H&H, normal PT/INR, CMP with sodium 134, ratio 24.1, glucose 144, troponin 9.3, and lamotrigine level pending; head CT reveals no intracranial hemorrhage but does reveal chronic L MCA territory infarct; neck CTA demonstrates no large vessel occlusion with patent stent of the R carotid artery and focal area of approximately 25 to 30% narrowing due to extrinsic compression from calcification; head CT demonstrates no aneurysm or stenosis of the major intracranial arteries; CXR stable bilateral increased bronchovascular markings and diffuse reticulations, septal thickening and coarse interstitial and like related to ILD, mild cardiomegaly; EKG reveals NSR at 67 bpm. Provided with 1500 mg Keppra in ED. #Acute hypoxic respiratory failure Presenting w/ O2 sats 84% on RA on arrival; Unclear source of hypoxia; was requiring O2 but at time of admission w/o supplemental O2. Denying SOB/cough. - CBC WNL, CMP grossly WNL; CXR with stable bilateral increased bronchovascular markings and diffuse reticulations, septal thickening and coarse interstitial and like related to ILD, mild cardiomegaly - O2 prn; Wean as patient tolerates - No clear source hypoxia at time of admission - BioFire pending; CBC + BMP am #Seizure disorder/Stroke-like symptoms/? breakthrough seizure vs stroke H/o seizures, no recent seizures per Shira and patient has not missed dose of antiepileptics. H/o CVA (2021) s/p TCAR. Already on statin therapy, beta beto, and plavix. No recent trauma or falls. Son states that last seizure ~ 6 month ago. Very limited history and exam from patient given baseline mental state, but is responsive and able to follow basic commands. Unclear if episode 2/2 breakthrough seizure vs TIA/CVA vs different etiology. - CBC WNL; Pending lamotrigine levels; UA pending - CT head without acute findings; CTA head/neck without acute findings but does reveal chronic LMCA territory infarct (known) and patent stent in RCA with focal area of 25-30% narrowing 2/2 extrinsic compression - MRI head w seizure protocol pending - EKG NSR and rate controlled; troponin WNL; Echo (04/2024) with LVEF 65-705, elevated RVSP at 40-50mmHg and mild MR; pending repeat echo - Allow for permissive HTN given ? CVA - hold metoprolol at admission - Aspiration precautions placed from h/o aspiration PNA from similar episode - Keppra 1500 mg given in ED - Lorazepam 1mg IV q5 min x 3 for active seizures - Neuro consult placed- appreciate input + recs - PT/OT ordered- appreciate assistance #Hyponatremia H/o such. Overall asx. - Na 134, glucose 144; corrected 135 - BMP am - Promote hydration #PAF- On Eliquis, rate controlled at admission; metoprolol (held at admission) #Mood- Duloxetine, Mirtazapine Dispo: Admit, PCU VTE prophylaxis: On Eliquis This document was dictated utilizing Regalii. Please excuse any grammatical errors that may be secondary to use of this software. 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 I personally spoke with Lissette at [facility] for duration of 10 minutes at time of patient's admission. She states that at 1715 on the day of arrival, patient was eating dinner and suddenly stated "I am not feeling good" and then became very red in the face, started staring with very wide eyes, and was drooling. The individual was unable to tell me how long this lasted, just states that it was off from her baseline so she decided to call 911. Patient is unable to provide meaningful history, but is able to state no when asked if anything is bothering her and states no when asked if she is having difficulty breathing. Patient continues to respond "okay" when asked questions. When asked about what happened on the day of arrival, she states "I really do not know." ED evaluation reveals no leukocytosis, stable H&H, normal PT/INR, CMP with sodium 134, ratio 24.1, glucose 144, troponin 9.3, and lamotrigine level pending; head CT reveals no intracranial hemorrhage but does reveal chronic L MCA territory infarct; neck CTA demonstrates no large vessel occlusion with patent stent of the R carotid artery and focal area of approximately 25 to 30% narrowing due to extrinsic compression from calcification; head CT demonstrates no aneurysm or stenosis of the major intracranial arteries; CXR with stable bilateral increased bronchovascular markings and diffuse reticulations, septal thickening and coarse interstitial and like related to ILD, mild cardiomegaly; EKG reveals NSR at 67 bpm. Provided with 1500 mg Keppra in ED. Please see Dr. West's attestation for adjustments/additions to treatment plan. Allergies Allergy/AdvReac Type Severity Reaction Status Date / Time bee venom protein (honey bee) Allergy Severe SHORTNESS Verified 10/24/24 20:28 OF BREATH latex Allergy Mild Redness of Verified 10/24/24 20:28 Skin Home Medications Medication Instructions Recorded Confirmed Type epinephrine 0.3 mg/0.3 mL 0.3 mg (0.3 mL) subcut ONCE PRN 08/02/23 10/24/24 Rx injection, auto-injector anaphylaxis #1 ea cholecalciferol (vitamin D3) 125 125 mcg PO QAM #30 tabs 10/21/23 10/24/24 Rx mcg (5,000 unit) tablet (Vitamin D3) apixaban 5 mg tablet (Eliquis) 5 mg PO BID #180 tabs 03/26/24 10/24/24 Rx Saccharomyces boulardii 250 mg 250 mg PO QAM 05/13/24 10/24/24 History capsule ferrous sulfate 325 mg (65 mg 650 mg PO QAM 05/13/24 10/24/24 History iron) tablet (FeroSul) mirtazapine 7.5 mg tablet 7.5 mg PO HS 05/13/24 10/24/24 History cranberry extract 500 mg capsule 1,000 mg (2 x 500 mg) PO QAM #60 05/26/24 10/24/24 Rx (Cranberry Concentrate) caps atorvastatin 20 mg tablet 20 mg PO HS #90 tabs 06/18/24 10/24/24 Rx metoprolol succinate 25 mg 25 mg PO QAM #90 tabs 06/30/24 10/24/24 Rx tablet,extended release 24 hr lamotrigine 100 mg tablet 100 mg PO BID 90 days #180 tabs 07/16/24 10/24/24 Rx clopidogrel 75 mg tablet (Plavix) 75 mg PO QDL #30 tabs 08/10/24 10/24/24 Rx duloxetine 30 mg capsule,delayed 30 mg PO QAM #90 caps 10/07/24 10/24/24 Rx release (Cymbalta) acetaminophen 325 mg tablet 650 mg PO .COMPLEX PRN fever or 10/24/24 10/24/24 History (Tylenol) pain Past Med/Surg History Problem List (Updated 10/24/24 @ 22:24 by Koffi Navarro MD) Acute hyponatremia (Acute) Acute hypoxemic respiratory failure (Acute) History of CVA with residual deficit (Acute) History of seizure (Acute) Altered mental status (Acute) Hyponatremia Acute hypoxic respiratory failure Seizure disorder Aspiration pneumonia Non-STEMI (non-ST elevated myocardial infarction) Pneumonia (Acute) Stroke-like symptoms (Acute) Hypoxia (Acute) Elevated troponin Pneumonia Stroke-like symptoms Atrial fibrillation (Acute) Acute UTI (Acute) Vomiting (Acute) Fall (Acute) Weakness (Acute) Weakness (Acute) Symptomatic anemia (Acute) Anemia Current use of proton pump inhibitor Carotid stenosis, right R ICA stenosis Elevated BP without diagnosis of hypertension (Acute) Hemangioma (Acute) Seborrheic keratosis (Acute) Atrial fibrillation H/O: stroke with residual effects (Acute) Aphasia as late effect of cerebrovascular accident (Acute) Hemiparesis affecting dominant side as late effect of cerebrovascular accident Contact dermatitis Seizure as late effect of cerebrovascular accident (CVA) Constipation Hospital discharge follow-up History of stroke Multiple pulmonary nodules Hyperglycemia Chronic venous insufficiency (Acute) Hyperlipidemia (Acute) Vitamin D deficiency (Acute) Medical History 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 per neuro, likely 2/2 previous CVA. no recurrence since. Follows with [facility]. 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 s/p mechanical thrombectomy (cause felt to be cardioembolic and pt had newly dx afib at the time). imaging of carotids at this time found R ICA stenosis Atrial fibrillation dx at time of CVA 06/2022; follows with Dr. Guajardo; on Eliquis and BB Surgical History History of surgery thrombectomy [facility] 06/2022 CVA History of eye surgery laser eye surgery [facility] S/P tooth extraction Family History Sister Atrial fibrillation Stroke Muscular dystrophy Mother Diabetes Father Lung cancer Denies family history of Ovarian cancer Prostate cancer Myocardial infarction Breast cancer Colorectal cancer Social History Smoking Status: Unknown if ever smoked Tobacco Type: Cigarettes Age Started Using Tobacco: 22; Age Quit Using Tobacco: 53; packs per day: 0.5; Second Hand Exposure: No; Do You Dip or Chew Tobacco: No; Hx Alcohol Use: No Hx Substance Use: No Preferred Language: [place]ib[place]ian Communication Ability: Impaired Communication Ability Comment: expressive aphasia Visual Impairment: No Limitations Hearing Ability: Normal Software Applications Developer Required: No Beliefs That Will Affect Care: None marital status: / Current Living Situation: Personal Care Facility Current Living Situation Comment: lives with her son and DIL current occupational status: retired Feels Safe at Home: Yes Safety Concerns: Feels Safe At This Time Childhood Exposure to Second-Hand Smoke: Yes Diet: regular caffeine: Yes Dental Care, Regularly: No Physical Activity Frequency: 1-2 Times per Week Physical Activity Frequency Comment: bird watching, puzzles and walking Seatbelt Use: always Sunscreen Use: No Assistive Devices: Walker and Wheelchair Review of Systems Review of Systems: All systems reviewed & are unremarkable except as noted in Subjective Physical Exam Physical Exam: General: No acute distress Skin: Warm and dry Head: Normocephalic, atraumatic Eyes: PERRL, conjunctivae clear, sclera non-icteric ENT: External ear and ear canal without swelling; nose atraumatic; good dentition, tongue normal appearance, pharynx normal Neck: Supple, no LAD Cardio: RRR, no M/G/R, S1 and S2 normal Resp: No respiratory distress, Lungs CTA in all lobes bilaterally, no wheezes, rales, or rhonchi; wearing supplemental O2 via NC Abdomen: Soft, symmetric, nontender; No masses or hepatosplenomegaly; Bowel sounds normoactive MSK: No deformities; pulses palpable and equal; no edema. Neuro: Expressive aphasia. Neuro exam limited, patient responding but not following commands appropriately. At baseline per living facility. II- PERRL III, IV, - No deviation V- Grossly normal sensation in all locations VII- No asymmetry, no nasolabial fold flattening VIII- Normal hearing to speech IX, X- Normal palatal elevation, no ulnar deviation XI- Unable to follow command when asked XII- Unable to follow command when asked Motor: 4/5 strength throughout BLE/ Unable to assess in BUE Reflexes: WNL throughout Sensory: Grossly normal sensation throughout, no hemineglect Coordination: Unable to assess Gait: Unable to assess; no complaints Psych: Oriented to self, otherwise stating "okay" and laughing when asked questions. Results & Data Results & Data Vital Signs (Past 12 Hours) Vital Signs Pulse Pulse Resp BP BP Pulse Ox O2 Del Method 10/24/24 19:53 65 24 171/109 H 96 Room Air 10/24/24 19:34 70 21 188/98 H 96 Nasal Cannula 10/24/24 19:09 74 24 189/99 H 95 Oxymask 10/24/24 19:02 84 L Oxymask 10/24/24 18:48 87 18 167/96 H 96 Room Air 10/24/24 18:45 83 23 167/96 H 84 L 10/24/24 18:44 86 10/24/24 18:43 185/110 H O2 Flow Rate 10/24/24 19:53 10/24/24 19:34 4 10/24/24 19:09 4 10/24/24 19:02 0 10/24/24 18:48 10/24/24 18:45 10/24/24 18:44 10/24/24 18:43 Laboratory Results 10/24/24 10/24/24 18:48 18:44 WBC 6.72 RBC 4.06 L Hgb 12.4 Hct 38.4 MCV 94.6 MCH 30.5 MCHC 32.3 RDW Std Deviation 46.2 RDW Coeff of Rosa Elena 13.4 Plt Count 184 MPV 9.8 Immature Gran % (Auto) 0.7 Neut % (Auto) 66.1 Lymph % (Auto) 23.8 Vigo % (Auto) 6.5 Eos % (Auto) 2.5 Baso % (Auto) 0.4 Neut # (Auto) 4.43 Lymph # (Auto) 1.60 Vigo # (Auto) 0.44 Eos # (Auto) 0.17 Baso # (Auto) 0.03 Immature Gran # (Auto) 0.05 PT 11.2 INR 1.0 APTT 23 PTT Ratio 0.9 Sodium 134 L Potassium 4.1 Chloride 100 Carbon Dioxide 27 Anion Gap 7 BUN 21 Creatinine 0.87 Est Cr Clr Drug Dosing 53.8 eGFR 66.89 BUN/Creatinine Ratio 24.1 H Glucose 144 H POC Glucose 112 H Calcium 8.7 Magnesium 1.7 Total Bilirubin 0.4 AST 23 ALT 19 Alkaline Phosphatase 71 Troponin I High Sens 9.3 Total Protein 6.8 Albumin 3.8 Globulin 3.0 Albumin/Globulin Ratio 1.[address] 10/24/24 18:[address] without contrast CT angiogram of the neck CT angiogram of the brain with contrast Provided History: Neuro deficit Comparison: None Technique: HEAD CT: Using multidetector thin collimation helical acquisition technique, axial, coronal and sagittal CT images from the skull base to the vertex were obtained without intravenous contrast. HEAD and NECK CTA: During rapid bolus intravenous injection of nonionic contrast material, axial images were obtained using thin collimation multidetector helical technique from the base of the neck through the of vertex of the head. This CT angiogram data was reconstructed at thin intervals with mild overlap. 3D reconstructions were obtained. The axial source images, multiplanar reformations, 3D reconstructions in both maximum intensity projection display and volume rendered models were reviewed. Dose reduction techniques were achieved by using automatic exposure control and/or adjustment of mA and/or kV according to patient size and/or use of iterative reconstruction technique. Findings: Head CT: There is no intracranial hemorrhage, mass effect, or midline shift. There is a chronic, large left MCA territory infarct, otherwise the abdul/white matter differentiation in both cerebral hemispheres is preserved. Ventricles are proportionate to the cerebral sulci. Head CTA demonstrates no aneurysm or stenosis of the major intracranial arteries. Neck CTA demonstrates no large vessel occlusion. There is a stent traversing across the right distal common carotid artery, the carotid bulb, and the proximal internal carotid artery. At the level of the carotid bulb, there is focal narrowing, which appears to be due external compression from a prominent calcification with approximately 25 to 35% narrowing. Mild atherosclerotic disease again seen about the distal left common carotid artery resulting in mild, less than 25% stenosis. The origins of the great vessels from the aortic arch are patent. The normal distal right internal carotid artery measures 5 mm. The normal distal left internal carotid artery measures 5 mm. No mass is noted within the visualized portions of the cervical soft tissues or lung apices. Impression: 1. Head CTA demonstrates no aneurysm or stenosis of the major intracranial arteries, 2. Neck CTA demonstrates no large vessel occlusion. Patent stent of the right carotid artery, as above, with a focal area of approximately 25 to 35% narrowing due to extrinsic compression from calcification. 3. No intracranial hemorrhage on the noncontrast head CT. Chronic left MCA territory infarct again seen. Findings discussed with Dr. Navarro by Dr. Dang at 7:15 PM, 10/24/2024 Electronically signed by Michael Dang 10-24-2024 7:19 PM Head CTA 10/24/24 18:[address] without contrast CT angiogram of the neck CT angiogram of the brain with contrast Provided History: Neuro deficit Comparison: None Technique: HEAD CT: Using multidetector thin collimation helical acquisition technique, axial, coronal and sagittal CT images from the skull base to the vertex were obtained without intravenous contrast. HEAD and NECK CTA: During rapid bolus intravenous injection of nonionic contrast material, axial images were obtained using thin collimation multidetector helical technique from the base of the neck through the of vertex of the head. This CT angiogram data was reconstructed at thin intervals with mild overlap. 3D reconstructions were obtained. The axial source images, multiplanar reformations, 3D reconstructions in both maximum intensity projection display and volume rendered models were reviewed. Dose reduction techniques were achieved by using automatic exposure control and/or adjustment of mA and/or kV according to patient size and/or use of iterative reconstruction technique. Findings: Head CT: There is no intracranial hemorrhage, mass effect, or midline shift. There is a chronic, large left MCA territory infarct, otherwise the abdul/white matter differentiation in both cerebral hemispheres is preserved. Ventricles are proportionate to the cerebral sulci. Head CTA demonstrates no aneurysm or stenosis of the major intracranial arteries. Neck CTA demonstrates no large vessel occlusion. There is a stent traversing across the right distal common carotid artery, the carotid bulb, and the proximal internal carotid artery. At the level of the carotid bulb, there is focal narrowing, which appears to be due external compression from a prominent calcification with approximately 25 to 35% narrowing. Mild atherosclerotic disease again seen about the distal left common carotid artery resulting in mild, less than 25% stenosis. The origins of the great vessels from the aortic arch are patent. The normal distal right internal carotid artery measures 5 mm. The normal distal left internal carotid artery measures 5 mm. No mass is noted within the visualized portions of the cervical soft tissues or lung apices. Impression: 1. Head CTA demonstrates no aneurysm or stenosis of the major intracranial arteries, 2. Neck CTA demonstrates no large vessel occlusion. Patent stent of the right carotid artery, as above, with a focal area of approximately 25 to 35% narrowing due to extrinsic compression from calcification. 3. No intracranial hemorrhage on the noncontrast head CT. Chronic left MCA territory infarct again seen. Findings discussed with Dr. Navarro by Dr. Dang at 7:15 PM, 10/24/2024 Electronically signed by Michael Dang 10-24-2024 7:19 PM Neck CTA 10/24/24 18:[address] without contrast CT angiogram of the neck CT angiogram of the brain with contrast Provided History: Neuro deficit Comparison: None Technique: HEAD CT: Using multidetector thin collimation helical acquisition technique, axial, coronal and sagittal CT images from the skull base to the vertex were obtained without intravenous contrast. HEAD and NECK CTA: During rapid bolus intravenous injection of nonionic contrast material, axial images were obtained using thin collimation multidetector helical technique from the base of the neck through the of vertex of the head. This CT angiogram data was reconstructed at thin intervals with mild overlap. 3D reconstructions were obtained. The axial source images, multiplanar reformations, 3D reconstructions in both maximum intensity projection display and volume rendered models were reviewed. Dose reduction techniques were achieved by using automatic exposure control and/or adjustment of mA and/or kV according to patient size and/or use of iterative reconstruction technique. Findings: Head CT: There is no intracranial hemorrhage, mass effect, or midline shift. There is a chronic, large left MCA territory infarct, otherwise the abdul/white matter differentiation in both cerebral hemispheres is preserved. Ventricles are proportionate to the cerebral sulci. Head CTA demonstrates no aneurysm or stenosis of the major intracranial arteries. Neck CTA demonstrates no large vessel occlusion. There is a stent traversing across the right distal common carotid artery, the carotid bulb, and the proximal internal carotid artery. At the level of the carotid bulb, there is focal narrowing, which appears to be due external compression from a prominent calcification with approximately 25 to 35% narrowing. Mild atherosclerotic disease again seen about the distal left common carotid artery resulting in mild, less than 25% stenosis. The origins of the great vessels from the aortic arch are patent. The normal distal right internal carotid artery measures 5 mm. The normal distal left internal carotid artery measures 5 mm. No mass is noted within the visualized portions of the cervical soft tissues or lung apices. Impression: 1. Head CTA demonstrates no aneurysm or stenosis of the major intracranial arteries, 2. Neck CTA demonstrates no large vessel occlusion. Patent stent of the right carotid artery, as above, with a focal area of approximately 25 to 35% narrowing due to extrinsic compression from calcification. 3. No intracranial hemorrhage on the noncontrast head CT. Chronic left MCA territory infarct again seen. Findings discussed with Dr. Navarro by Dr. Dang at 7:15 PM, 10/24/2024 Electronically signed by Michael Dang 10-24-2024 7:19 PM Medications Administered Levetiracetam 1500 mg IV ECG Additional Comments: NSR, possible LAE 67 bpm, NJ 196, QRS 82, QT/QTc 416/439, PRT 60/-1/70 Code Status & VTE Plan Code Status DNR/DNI Patient unable to confirm; Spoke with staff at [facility] who states that she is full code. Son states DNR/DNI status but needs to review the patient's paperwork to confirm this is correct. Reviewed and confirmed- PATIENT IS DNR/DNI. Supervising Physician Co-Signing Physician Notes Attending addendum: I have physically seen this patient, have supervised the NORIS's activities, and agree with the H&P unless as otherwise noted. Assessment and Plan: The patient is an 83-year-old female with past medical history including CVA, with residual right hemiparesis, hyperlipidemia, atrial fibrillation on Eliquis, and hypertension. Who presents to the emergency department due to an episode of confusion, and concern regarding seizure versus TIA-CVA. Workup in the emergency department included CT scan of head which showed chronic large MCA infarct, CT angiography of head with no acute findings, and CT angiography neck with patent stent in the right distal common carotid artery, with focal area of approximately 25 to 30% narrowing due to extrinsic compression from calcification. The patient was referred to [facility] for further evaluation and treatment. From the ED he was given Keppra 1005 mg IV after discussion with neurology. #Seizure disorder- Residual right hemiparesis from previous seizure Status post 1500 mg IV bolus of Keppra from the ED and further management per neurology for possible breakthrough seizure CT angiography head with chronic left MCA infarct CT angiography head negative CT angiography of neck with right stent in the distal common carotid artery Continue lamotrigine 100 mg p.o. twice daily MRI of head seizure protocol Lorazepam 1 mg IV every 5 minutes as needed x 3 for 6 potential seizures Consulting PT/OT Chronic respiratory failure with hypoxia- BioFire pending Nasal cannula oxygen, titrating to keep pulse ox around 94% Atrial fibrillation/hypertension/carotid stenosis- Continuing apixaban, clopidogrel, metoprolol succinate Hyperlipidemia- Continue atorvastatin Check a fasting lipid panel and hemoglobin A1c PG Care Time/CCT Total # of Minutes Spent Total Time Spent with Patient: Total time spent is greater than 50% in coordination of care (as documented) at patient's floor/unit and/or counseling patient: Coding Level of Care Code 85112 INT INP/OBS CARE 3/75MIN Diagnoses Acute hypoxic respiratory failure J96.01 Seizure disorder G40.909 Stroke-like symptoms R29.90 Hyponatremia E87.1
--- NOTE | 2024-10-24 20:10 | XRay Report ---
EXAM: XR chest 1V portable CLINICAL HISTORY: hypoxia. TECHNIQUE: An X-ray image of the chest is obtained in AP projection. COMPARISON: prior chest X-ray dated 05/13/2024 FINDINGS: Pulmonary Parenchyma: Resolution of the previously seen right upper lung airspace opacity. Stable bilaterally increased bronchovascular markings with diffuse reticulations, septal thickening and coarse interstitium. Elevated right diaphragmatic copula, unchanged. No evidence of pleural effusion or pleural thickening. Heart and Mediastinum: Mild cardiomegaly. No mediastinal widening or masses. No hilar or mediastinal lymphadenopathy. Aortic atherosclerotic wall calcifications. Bony Thorax: Bony thorax appears intact without fractures or deformities. Soft Tissues: Soft tissues overlying the chest wall are unremarkable. IMPRESSION: 1. Resolution of the previously seen right upper lung airspace opacity. 2. Stable bilaterally increased bronchovascular markings with diffuse reticulations, septal thickening and coarse interstitium, likely related to interstitial lung disease. Advise CT correlation. 3. Mild cardiomegaly. Electronically signed by Fei Godoy 10-24-2024 8:08 PM
[2024-10-24] MEDS ORDERED: LORazepam 2 MG/1 ML VIAL IV PRN (22:46)
[2024-10-24] MEDS ORDERED: ONDANSETRON INJ 2 MG/ML 2 ML VIAL IV PRN (22:46)
[2024-10-24 23:12] LABS: Adenovirus PCR Not Detected (NotDetected); Bordetella parapertussis PCR Not Detected (NotDetected); Bordetella pertussis PCR Not Detected (NotDetected); Chlamydia pneumoniae PCR Not Detected (NotDetected); Coronavirus 229E PCR Not Detected (NotDetected); Coronavirus CoV-2 (COVID19)PCR Not Detected (NotDetected); Coronavirus HKU1 PCR Not Detected (NotDetected); Coronavirus NL63 PCR Not Detected (NotDetected); Coronavirus OC43PCR Not Detected (NotDetected); Human Metapneumovirus PCR Not Detected (NotDetected); Influenza A PCR Not Detected (NotDetected); Influenza B PCR Not Detected (NotDetected); Mycoplasma pneumoniae PCR Not Detected (NotDetected); Parainfluenza Virus 1 PCR Not Detected (NotDetected); Parainfluenza Virus 2 PCR Not Detected (NotDetected); Parainfluenza Virus 3 PCR Not Detected (NotDetected); Parainfluenza Virus 4 PCR Not Detected (NotDetected); Respiratory Syncytial VirusPCR Not Detected (NotDetected); Rhinovirus/Enterovirus PCR Not Detected (NotDetected)
[2024-10-25] MEDS: MIRTAZAPINE TAB 15 MG TAB PO SCH (00:02)
[2024-10-25] MEDS: ATORVASTATIN 20 MG TAB PO SCH (00:02)
[2024-10-25] MEDS: lamoTRIgine 100 MG TAB PO SCH (00:02)
[2024-10-25 06:20] LABS: Hematocrit (blood only) 37.9 % (37.0-47.0); Hemoglobin 12.5 g/dl (12.0-16.0); Mean Corpuscular Hemoglobin 30.6 pg (25.0-34.0); Mean Corpuscular Volume 92.9 fL (80.0-100.0); Mean Platelet Volume 9.6 fL (9.4-12.4); Platelet Count 177 K/uL (130-400); RDW Coefficient of Variation 13.2 % (11.5-14.5); RDW Standard Deviation 45.2 fL (36.4-46.3); Red Blood Count 4.08 M/uL (4.20-5.40); White Blood Count 6.69 K/ul (4.8-10.8)
[2024-10-25 06:51] LABS: BUN Creatinine Ratio 20.8 (10-20); Creatinine Clr Calc Pharmacy 56.3 ml/min
[2024-10-25 07:50] LABS: Appearance Urine Clear (Clear); Bacteria Urine Automated 4+ (None Seen); Bilirubin Urine Negative (Negative); Blood Urine 1+ (Negative); Cast Urine Automated 0-2 /lpf (0-2); Color Urine Yellow; Epithelial Cell Urine Auto 0-2 /hpf (0-2); Glucose Urine UA Negative (Negative); Ketones Urine Negative (Negative); Leukocyte Esterase Urine 2+ (Negative); Nitrite Urine Positive (Negative); Protein Urine Negative (Negative); Specific Gravity Urine 1.041 (1.000-1.030); Urobilinogen Urine Negative (Negative); WBC Urine Automated >50 /hpf (0-5)
--- NOTE | 2024-10-25 10:10 | Neurology Consultation ---
Date of Consultation October 25, 2024 Assessment & Plan (1) Acute hypoxemic respiratory failure: History of Present Illness Attending Physician: Helene Phan MD History of Present Illness S: 83 yo female with eipsode of confusion, this morning appears to be back to baseline. pt does have UTI. pt with prior hx of large left MCA stroke resulting in expressive and receptive aphasia. pt laos was hypoxic, pt on eliquis and plavix. chart reviewed. admission HPi: 83-year-old female PMHx CVA with R arm and R leg residual weakness and aphasia, HLD, A-fib on Eliquis, and HTN with most recent hospital admission 05/13/2024 until 05/17/2024 for pneumonia and strokelike symptoms presenting on the day of arrival via EMS for reported episode of altered mentation. ED evaluation reveals no leukocytosis, stable H&H, normal PT/INR, CMP with sodium 134, ratio 24.1, glucose 144, troponin 9.3, and lamotrigine level pending; head CT reveals no intracranial hemorrhage but does reveal chronic L MCA territory infarct; neck CTA demonstrates no large vessel occlusion with patent stent of the R carotid artery and focal area of approximately 25 to 30% narrowing due to extrinsic compression from calcification; head CT demonstrates no aneurysm or stenosis of the major intracranial arteries; CXR stable bilateral increased bronchovascular markings and diffuse reticulations, septal thickening and coarse interstitial and like related to ILD, mild cardiomegaly; EKG reveals NSR at 67 bpm. Provided with 1500 mg Keppra in ED. Allergies Allergy/AdvReac Type Severity Reaction Status Date / Time bee venom protein (honey bee) Allergy Severe SHORTNESS Verified 10/24/24 20:28 OF BREATH latex Allergy Mild Redness of Verified 10/24/24 20:28 Skin Home Medications Medication Instructions Recorded Confirmed Type epinephrine 0.3 mg/0.3 mL 0.3 mg (0.3 mL) subcut ONCE PRN 08/02/23 10/24/24 Rx injection, auto-injector anaphylaxis #1 ea cholecalciferol (vitamin D3) 125 125 mcg PO QAM #30 tabs 10/21/23 10/24/24 Rx mcg (5,000 unit) tablet (Vitamin D3) apixaban 5 mg tablet (Eliquis) 5 mg PO BID #180 tabs 03/26/24 10/24/24 Rx Saccharomyces boulardii 250 mg 250 mg PO QAM 05/13/24 10/24/24 History capsule ferrous sulfate 325 mg (65 mg 650 mg PO QAM 05/13/24 10/24/24 History iron) tablet (FeroSul) mirtazapine 7.5 mg tablet 7.5 mg PO HS 05/13/24 10/24/24 History cranberry extract 500 mg capsule 1,000 mg (2 x 500 mg) PO QAM #60 05/26/24 10/24/24 Rx (Cranberry Concentrate) caps atorvastatin 20 mg tablet 20 mg PO HS #90 tabs 06/18/24 10/24/24 Rx metoprolol succinate 25 mg 25 mg PO QAM #90 tabs 06/30/24 10/24/24 Rx tablet,extended release 24 hr lamotrigine 100 mg tablet 100 mg PO BID 90 days #180 tabs 07/16/24 10/24/24 Rx clopidogrel 75 mg tablet (Plavix) 75 mg PO QDL #30 tabs 08/10/24 10/24/24 Rx duloxetine 30 mg capsule,delayed 30 mg PO QAM #90 caps 10/07/24 10/24/24 Rx release (Cymbalta) acetaminophen 325 mg tablet 650 mg PO .COMPLEX PRN fever or 10/24/24 10/24/24 History (Tylenol) pain Patient History Medical History 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 per neuro, likely 2/2 previous CVA. no recurrence since. Follows with [facility]. 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 s/p mechanical thrombectomy (cause felt to be cardioemboli c and pt had newly dx afib at the time). imaging of carotids at this time found R ICA stenosis Atrial fibrillation dx at time of CVA 06/2022; follows with Dr. Guajardo; on Eliquis and BB Surgical History History of surgery thromb[place] [facility] [place]22 CVA History of eye surgery laser eye surgery [facility] S/P tooth extraction Family History Sister Atrial fibrillation Stroke Muscular dystrophy Mother Diabetes Father Lung cancer Denies family history of Ovarian cancer Prostate cancer Myocardial infarction Breast cancer Colorectal cancer Social History Smoking Status: Unknown if ever smoked Tobacco Type: Cigarettes Age Started Using Tobacco: 22; Age Quit Using Tobacco: 53; packs per day: 0.5; Second Hand Exposure: No; Do You Dip or Chew Tobacco: No; Hx Alcohol Use: No Hx Substance Use: No Preferred Language: Slovenian Communication Ability: Impaired Communication Ability Comment: expressive aphasia Visual Impairment: No Limitations Hearing Ability: Normal Culinary Assistant Required: No Beliefs That Will Affect Care: None marital status: / Current Living Situation: Personal Care Facility Current Living Situation Comment: lives with her son and DIL current occupational status: retired Feels Safe at Home: Yes Safety Concerns: Feels Safe At This Time Childhood Exposure to Second-Hand Smoke: Yes Diet: regular caffeine: Yes Dental Care, Regularly: No Physical Activity Frequency: 1-2 Times per Week Physical Activity Frequency Comment: bird watching, puzzles and walking Seatbelt Use: always Sunscreen Use: No Assistive Devices: Walker and Wheelchair Exam (Neuro) Physical Exam: HEENT: normocephalic grossly Neuro: Mental: Alert, nonfluent speech, normal comprehension for simple direction but does also have difficulty understanding at time (from prior old left MCA stroke), no apraxia, no neglect. CN: PERRL, Full EOM, symmetric face, midline T/U/P, grossly full ROM neck Motor: No abnormal movements, normal tone, 5/5 t/o bilaterally Coord: intact FNT b/l DTR: 2+ sym b/l Impression: 83 yo female with resolved transient confusion that is likely combination of UTI, hypoxia, maybe TIA (but less likely). pt appears to be stable and back to baseline now. Recommendations: continue eliquis and plavix as now. treat UTI supportive care and finish stroke work up as planned but likely UTI and hypoxic event contributed to the presenting symptoms. not much else to add avoid hypoxia and hypotension i do not feel she had seizure. continue same med as outpt. call again if new question Chart reviewed I have spent more than 50% educating patient about potential diagnosis and neurological evaluation and coordinating care with patient's treatment team. Total time spent (including chart review and coordination of care): 60 min (this includes chart review). Results & Data Vital Signs (Past 12 Hours) Vital Signs Temp Pulse Pulse Resp BP Pulse Ox Pulse Ox 10/25/24 08:31 36.3 C L 58 L 22 132/54 L 91 10/25/24 08:22 10/25/24 08:22 69 10/25/24 03:25 36.8 C 88 18 148/69 H 95 10/24/24 22:46 10/24/24 22:46 36.6 C 66 19 167/95 H 96 10/24/24 22:46 36.6 C 66 19 167/95 H 96 10/24/24 22:46 96 10/24/24 22:35 36.6 C 66 19 167/95 H 95 10/24/24 22:13 88 L O2 Del Method O2 Del Method O2 Flow Rate O2 Flow Rate 10/25/24 08:31 Room Air 10/25/24 08:22 Room Air, Nasal Cannula 10/25/24 08:22 10/25/24 03:25 Room Air 10/24/24 22:46 Nasal Cannula 2 10/24/24 22:46 Nasal Cannula 2 10/24/24 22:46 Nasal Cannula 2 10/24/24 22:46 Nasal Cannula 2 10/24/24 22:35 Nasal Cannula 2 10/24/24 22:13 Room Air, Nasal Cannula 0 PG Care Time/CCT Total # of Minutes Spent Total Time Spent with Patient: Total time spent is greater than 50% in coordination of care (as documented) at patient's floor/unit and/or counseling patient: Coding Level of Care Code 77911 IN/OBS CONSULT LVL 4,60M Diagnoses Acute hypoxemic respiratory failure J96.01
[2024-10-25] MEDS: DULoxetine HCL 30 MG CAP PO SCH (11:50)
[2024-10-25] MEDS: CLOPIDOGREL BISULFATE 75 MG TAB PO SCH (11:50)
[2024-10-25] MEDS: APIXABAN 5 MG TABLET PO SCH (11:50)
--- NOTE | 2024-10-25 11:53 | Hospitalist Progress Note ---
Date of Service October 25, 2024 Assessment & Plan (1) Seizure disorder: (2) UTI (urinary tract infection): (3) Stroke-like symptoms: (4) Hyponatremia: Plan 83-year-old female PMHx of large left MCA territory CVA with R arm and R leg residual weakness and aphasia, HLD, A-fib on Eliquis, and HTN with most recent hospital admission 05/13/2024 until 05/17/2024 for pneumonia and strokelike symptoms presenting on the day of arrival via EMS for reported episode of altered mentation that came on acutely and associated with staring, drooling, and hypoxia. Admitted for stroke workup and possible seizure. #Seizure disorder/Acute encephalopathy/Suspect breakthrough seizure-H/o seizures, no recent seizures per Kerry and patient has not missed dose of antiepileptics. H/o CVA (2021) and is s/p right TCAR. Already on statin therapy, beta beto, and plavix. No recent trauma or falls. Son states that last seizure ~ [address] head reveals no intracranial hemorrhage but does reveal chronic L MCA territory infarct; neck CTA demonstrates no large vessel occlusion with patent stent of the R carotid artery and focal area of approximately 25 to 30% narrowing due to extrinsic compression from calcification; CTA head negative. EKG and tele with reveals sinus rhythm at 67 bpm. MRI brain negative for acute CVA. Provided with 1500 mg IV Keppra in ED. Suspect seizure secondary to UTI -give Keppra 1000mg IV x 1 now and then resume home po lamictal once can take po-no need to change antiepileptics as per Neurology, but may need to increase dose I feel-consider discussing with Neurology second opinion on Saturday -lamictal level pending -treat UTI - Lorazepam 1mg IVprn active seizures #UTI-UA abnormal, urine culture pending. Likely contributed to seizure. Pt unable to tell me if she has symptoms -start Cefepime IV given previous resistance to ceftriaxone on past cultures -follow urine cx when available #Acute hypoxic respiratory failure-Presenting w/ O2 sats 84% on RA on arrival, was requiring O2 but at time of admission w/o supplemental O2. Denying SOB/cough. CXR stable bilateral increased bronchovascular markings and diffuse reticulations, septal thickening and coarse interstitial and like related to ILD, mild cardiomegaly. Now resolved and was likely 2/2 seizure. Has a h/o previous smoking. BioFire negative #PAF- in sinus rhythm here. -resume home Eliquis and metoprolol once can take po #Depression- Duloxetine, Mirtazapine Dispo:continued stay PCU, but likely back to [facility], await PT/OT evals VTE prophylaxis: resume Eliquis as soon as able to take po Admission and Anticipated Discharge Date Admission Date: October 24, 2024 Subjective Pt improved from previous as per nursing, more awake and alert, following commands, still with difficulty with expressive aphasia. Son reports her aphasia waxes and wanes. SHe failed her bedside swallow eval in the morning, but then later passed and was able to take pills. Tele with sinus alex, 1st degree AVB, PVCs, rates 50-60s Physical Exam Constitutional: WD/WN, vitals as above Eyes: PERRL, conjunctivae normal, anicteric sclerae ENMT: external ear and nose normal, oropharynx normal Respiratory: normal respiratory effort, lungs clear to auscultation Cardiovascular: RRR, no murmur, no edema Gastrointestinal (Abdomen): normal bowel sounds, soft, nontender, no hepatos plenomegaly Neurologic: + focal motor deficit (4/5 strength in R UE and RLE throughout,otherwise 5/5) with expressive aphasia, Frequently says "yes" while shaking head "no" or vice versa mild right facial droop Results & Data Results & Data Vital Signs (Past 12 Hours) Vital Signs Temp Pulse Pulse Resp BP Pulse Ox O2 Del Method 10/25/24 11:36 36.6 C 60 19 129/69 94 Nasal Cannula 10/25/24 08:31 36.3 C L 58 L 22 132/54 L 91 Room Air 10/25/24 08:22 Room Air, Nasal Cannula 10/25/24 08:22 69 10/25/24 03:25 36.8 C 88 18 148/69 H 95 Room Air O2 Flow Rate 10/25/24 11:36 2 10/25/24 08:31 10/25/24 08:22 10/25/24 08:22 10/25/24 03:25 Laboratory Results CBC, BMP reviewed Diagnostic Findings MRI brain reviewed PG Care Time/CCT Total # of Minutes Spent Total Time Spent with Patient: Total time spent is greater than 50% in coordination of care (as documented) at patient's floor/unit and/or counseling patient: Coding Level of Care Code 14294 SUB INP/OBS CARE 350MIN Diagnoses Seizure disorder G40.909 UTI (urinary tract infection) N39.0 Stroke-like symptoms R29.90 Hyponatremia E87.1
[2024-10-25] MEDS: GADOBUTROL 65ML VIAL IV ONE (13:04)
[2024-10-25] MEDS: CEFEPIME 2000MG 2,000 MG/20 ML SYR IV SCH (13:26)
[2024-10-25] MEDS: LACTATED RINGER'S 1,000 ML IV SCH (13:26)
[2024-10-25] MEDS: levETIRAcetam 500 MG/5 ML VIAL IV SCH (13:27)
--- NOTE | 2024-10-25 14:06 | Electrocardiogram Report ---
Test Reason : Blood Pressure : */* mmHG Vent. Rate : 77 BPM Atrial Rate : 77 BPM P-R Int : 190 ms QRS Dur : 82 ms QT Int : 386 ms P-R-T Axes : 83 3 77 degrees QTcB Int : 436 ms Normal sinus rhythm Cannot rule out Anterior infarct , age undetermined Abnormal ECG When compared with ECG of 15-May-2024 14:39, No significant change was found Confirmed by Veena Pino (Darrel) on 10/25/2024 2:05:51 PM Referred By: REFERRED SELF Confirmed By: Veena Pino
--- NOTE | 2024-10-25 14:19 | Magnetic Resonance Report ---
EXAM: MR brain seizure wo/w con CLINICAL HISTORY: Seizure vs CVA TECHNIQUE: MRI of the brain was performed without and with intravenous contrast administration acquiring multiple seqeunces. COMPARISON: CT 10/24/2024 FINDINGS: Brain Parenchyma: A large area of encephalomalacia is noted in the left temporoparietal cortical region, low in T1 and high in T2 and FLAIR, with signs of volume loss, evident by compensatory enlarged ipsilateral lateral ventricle. No diffusion restriction detected. Mild cortical post-contrast enhancement. Background of age-related atrophic changes No evidence of acute intracranial infarction or hemorrhage. Calvo-white matter differentiation is preserved. Post-Contrast Findings: No abnormal enhancement of the brain parenchyma or meninges. Ventricles and Sulci: No evidence of hydrocephalus. Sulci and cisternal spaces are age-appropriate. Brainstem and Cerebellum: The brainstem and cerebellum have a normal appearance without focal lesions or abnormal enhancement. Vessels: Intracranial vessels appear normal without evidence of vascular malformations or aneurysms. Skull and Calvarium: No evidence of skull vault lesions or abnormal marrow signal within the calvarium. IMPRESSION: 1. A large left MCA territory chronic infarction. 2. Age-related senile changes. 3. No acute infarction detected. 4. No significant interval changes. Electronically signed by Fei Godoy 10-25-2024 2:17 PM
[2024-10-26 07:47] LABS: Basophils # (auto) 0.03 K/uL (0.00-0.20); Basophils % (auto) 0.6 %; Eosinophils # (auto) 0.26 K/uL (0.00-0.50); Eosinophils % (auto) 4.8 %; Hematocrit (blood only) 37.7 % (37.0-47.0); Hemoglobin 12.2 g/dl (12.0-16.0); Immature Granulocytes # (auto) 0.01 K/uL (0.01-0.20); Immature Granulocytes % (auto) 0.2 %; Lymphocytes # (auto) 1.52 K/uL (1.20-3.40); Mean Corpuscular Hemoglobin 30.3 pg (25.0-34.0); Mean Corpuscular Hgb Conc 32.4 g/dL (32.0-36.0); Mean Corpuscular Volume 93.5 fL (80.0-100.0); Mean Platelet Volume 9.5 fL (9.4-12.4); Monocytes # (auto) 0.55 K/uL (0.11-0.59); Monocytes % (auto) 10.1 %; Neutrophils # (auto) 3.06 K/uL (1.40-6.50); Neutrophils % (auto) 56.3 %; Platelet Count 180 K/uL (130-400); RDW Coefficient of Variation 13.5 % (11.5-14.5); RDW Standard Deviation 45.8 fL (36.4-46.3); Red Blood Count 4.03 M/uL (4.20-5.40); White Blood Count 5.43 K/ul (4.8-10.8)
[2024-10-26 08:01] LABS: Calcium 8.8 mg/dl (8.6-10.3); Magnesium 1.8 mg/dl (1.7-2.4)
[2024-10-26 08:06] LABS: BUN Creatinine Ratio 20.5 (10-20); Creatinine Clr Calc Pharmacy 49.6 ml/min
[2024-10-26] MEDS: CHOLECALCIFEROL 125 MCG (5,000 UNITS) TAB PO SCH (09:03)
[2024-10-26] MEDS: METOPROLOL SUCC 25MG EXT REL TAB PO SCH (09:03)
--- NOTE | 2024-10-26 12:41 | Hospitalist Progress Note ---
Date of Service October 26, 2024 Assessment & Plan (1) Seizure disorder: Plan: She apparently had seizure activity that prompted this admission probably related to her acute UTI. Appreciate neurology consultation and recommendations. No change in anticonvulsant medications at this time (2) UTI (urinary tract infection): Plan: She remains on intravenous cefepime for now. Urine culture results are pending. Prior urine cultures grew ampicillin resistant E. coli. Probably home on ciprofloxacin 250 mg twice daily (3) Stroke-like symptoms: Plan: No acute CVA seen on brain MRI scan. Her symptoms probably are related to her seizure activity (4) Hyponatremia: Plan: Mild on admission. No intervention necessary (5) Acute hypoxemic respiratory failure: Plan: Present on admission. Now resolved. No evidence of CHF or pneumonia Plan [facility]ful return to [facility] tomorrow, October 27. Awaiting OT and PT evaluations Admission and Anticipated Discharge Date Admission Date: October 24, 2024 Subjective Alert and oriented. Awaiting OT and PT assessments. I spoke to the patient's sonRicco my phone and told him that she probably would probably be discharged tomorrow, October 27, on an oral antibiotic. Urine culture results are pending. She remains on intravenous cefepime. Neurology consultation appreciated. No change in anticonvulsant therapy indicated at this time. Review of Systems 2 Review of Systems: Constitutionalno fever or chills ENTno blurred vision, no double vision, no epistaxis, no sore throat Respiratoryno cough, no wheezing, no shortness of breath Cardiacno palpitations, no chest pain, no syncope Aidan nausea, vomiting, diarrhea, melena, hematochezia GUno urinary retention, no urinary incontinence, no dysuria, no hematuria Musculoskeletalno joint pain, no muscle tenderness Skinno bruising, no rashes, no pruritus Neurono isolated weakness, no paresthesia, no weakness Psychno depression, no anxiety Physical Exam 2 Physical Exam: General-alert and oriented x3, no fever, no chills HEENT-head atraumatic and normocephalic, pupils equal and reactive to light, extraocular muscles intact Neck-no lymphadenopathy or thyromegaly, trachea midline Chest-clear to auscultation. No rales, wheezing or rhonchi Cardiac-regular rate and rhythm, normal S1 and S2 Abdomen-normal bowel sounds, no hepatosplenomegaly Extremities-no cyanosis, clubbing, or edema Neuro-the patient has word finding difficulty. Mild right hemiparesis Psych-normal affect, normal mood Results & Data Results & Data Vital Signs (Past 12 Hours) Vital Signs Temp Pulse Pulse Resp BP Pulse Ox O2 Del Method 10/26/24 10:57 36.3 C L 74 17 124/68 92 Room Air 10/26/24 07:59 36.5 C 73 20 124/68 91 Room Air 10/26/24 07:00 65 10/26/24 02:19 36.8 C 78 18 137/58 L 91 Room Air Laboratory Results 10/26/24 07:26 10/26/24 07:26 PG Care Time/CCT Total # of Minutes Spent Total Time Spent with Patient: Total time spent is greater than 50% in coordination of care (as documented) at patient's floor/unit and/or counseling patient: Coding Level of Care Code 42229 SUB INP/OBS CARE 3/50MIN Diagnoses Seizure disorder G40.909 UTI (urinary tract infection) N39.0 Stroke-like symptoms R29.90 Hyponatremia E87.1 Acute hypoxemic respiratory failure J96.01
--- NOTE | 2024-10-26 14:06 | Electrocardiogram Report ---
Test Reason : Blood Pressure : */* mmHG Vent. Rate : 67 BPM Atrial Rate : 67 BPM P-R Int : 196 ms QRS Dur : 82 ms QT Int : 416 ms P-R-T Axes : 64 -1 70 degrees QTcB Int : 439 ms Normal sinus rhythm Left atrial enlargement Possible Old Anterior infarct (cited on or before 24-Oct-2024) Abnormal ECG When compared with ECG of 24-Oct-2024 18:47, No significant change was found Confirmed by Nick Gonsales ([id number]) on 10/26/2024 2:06:17 PM Referred By: REFERRED SELF Confirmed By: Nick Gonsales
[2024-10-27 06:13] LABS: Basophils # (auto) 0.04 K/uL (0.00-0.20); Basophils % (auto) 0.8 %; Eosinophils # (auto) 0.28 K/uL (0.00-0.50); Eosinophils % (auto) 5.5 %; Hematocrit (blood only) 39.4 % (37.0-47.0); Hemoglobin 12.8 g/dl (12.0-16.0); Immature Granulocytes # (auto) 0.03 K/uL (0.01-0.20); Immature Granulocytes % (auto) 0.6 %; Lymphocytes % (auto) 27.4 %; Mean Corpuscular Hgb Conc 32.5 g/dL (32.0-36.0); Mean Corpuscular Volume 92.5 fL (80.0-100.0); Mean Platelet Volume 9.6 fL (9.4-12.4); Monocytes # (auto) 0.56 K/uL (0.11-0.59); Neutrophils % (auto) 54.7 %; Platelet Count 184 K/uL (130-400); RDW Coefficient of Variation 13.3 % (11.5-14.5); RDW Standard Deviation 45.2 fL (36.4-46.3); Red Blood Count 4.26 M/uL (4.20-5.40); White Blood Count 5.11 K/ul (4.8-10.8)
[2024-10-27 06:29] LABS: BUN Creatinine Ratio 22.5 (10-20); Calcium 9.1 mg/dl (8.6-10.3); Creatinine Clr Calc Pharmacy 53.7 ml/min; Potassium 4.3 mmol/L (3.5-5.1)
[2024-10-27] MEDS: CIPROFLOXACIN 250 MG TAB PO SCH (09:38)
--- NOTE | 2024-10-27 10:36 | Discharge Summary ---
Discharge Summary Date of Service October 27, 2024 Principal Dx & Hospital Course #1 = Principal Diagnosis (1) Seizure disorder: She apparently had seizure activity that prompted this admission probably related to her acute UTI. No recurrent seizure activity while hospitalized. Appreciate neurology consultation and recommendations. No change in anticonvulsant medications at this time (2) UTI (urinary tract infection): Treated while hospitalized with intravenous cefepime. Urine culture growing E. coli. She will be discharged on Cipro 250 mg twice a day for 5 more days (3) Stroke-like symptoms: No acute CVA seen on brain MRI scan. Her symptoms probably were related to her seizure activity and are now resolved (4) Hyponatremia: Mild on admission. No intervention necessary (5) Acute hypoxemic respiratory failure: Present on admission. Now resolved. 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 I personally spoke with Lissette at [facility] for duration of 10 minutes at time of patient's admission. She states that at 1715 on the day of arrival, patient was eating dinner and suddenly stated "I am not feeling good" and then became very red in the face, started staring with very wide eyes, and was drooling. The individual was unable to tell me how long this lasted, just states that it was off from her baseline so she decided to call 911. Patient is unable to provide meaningful history, but is able to state no when asked if anything is bothering her and states no when asked if she is having difficulty breathing. Patient continues to respond "okay" when asked questions. When asked about what happened on the day of arrival, she states "I really do not know." ED evaluation reveals no leukocytosis, stable H&H, normal PT/INR, CMP with sodium 134, ratio 24.1, glucose 144, troponin 9.3, and lamotrigine level pending; head CT reveals no intracranial hemorrhage but does reveal chronic L MCA territory infarct; neck CTA demonstrates no large vessel occlusion with patent stent of the R carotid artery and focal area of approximately 25 to 30% narrowing due to extrinsic compression from calcification; head CT demonstrates no aneurysm or stenosis of the major intracranial arteries; CXR with stable bilateral increased bronchovascular markings and diffuse reticulations, septal thickening and coarse interstitial and like related to ILD, mild cardiomegaly; EKG reveals NSR at 67 bpm. Provided with 1500 mg Keppra in ED. Please see Dr. West's attestation for adjustments/additions to treatment plan. Discharge Exam General-alert and oriented x3, no fever, no chills HEENT-head atraumatic and normocephalic, pupils equal and reactive to light, extraocular muscles intact Neck-no lymphadenopathy or thyromegaly, trachea midline Chest-clear to auscultation. No rales, wheezing or rhonchi Cardiac-regular rate and rhythm, normal S1 and S2 Abdomen-normal bowel sounds, no hepatosplenomegaly Extremities-no cyanosis, clubbing, or edema Neuro-the patient has word finding difficulty. Mild right hemiparesis Psych-normal affect, normal mood Discharge Plan Discharge Items Patient Disposition: Personal [facility] Reason For Visit: STROKE LIKE SX Discharge Diagnosis: Recurrent seizure, UTI Activity: Resume your previous activity Non-emergency contact: Primary Care Provider Call non-emergency contact if: your symptoms worsen Follow-up/Referrals: ProKevin MD [Primary Care Provider] - Diet: Regular and Heart Healthy Addtl Attending Provider Instructions: Take Cipro 250 mg twice a day for 5 more days. All other medications remain the same Pending Studies at Discharge: No Stand-Alone Forms: My [employer], Smoking Cessation Skilled Items Patient informed of condition?: Yes DNR: Yes Discharge Level of Care: Other Communicable Disease: No Discharge Prognosis: Stable Lines: None Urinary Catheter: No Medications and DC Order Prescriptions: New ciprofloxacin HCl 250 mg Tablet 250 mg PO BID Qty: 10 0RF Continued cholecalciferol (vitamin D3) [Vitamin D3] 125 mcg (5,000 unit) tablet 125 mcg PO QAM Qty: 30 5RF Eliquis 5 mg tablet 5 mg PO BID Qty: 180 1RF atorvastatin 20 mg tablet 20 mg PO HS Qty: 90 3RF metoprolol succinate 25 mg tablet extended release 24 hr 25 mg PO QAM Qty: 90 0RF Rx Instructions: Take 1 tablet by mouth once daily for HTN Hold for SBP less than 100 or Diastolic blood pressure less than 50 lamotrigine 100 mg tablet 100 mg PO BID 90 Days Qty: 180 3RF clopidogrel [Plavix] 75 mg tablet 75 mg PO QDL Qty: 30 5RF Rx Instructions: take daily at lunch time duloxetine [Cymbalta] 30 mg capsule,delayed release(DR/EC) 30 mg PO QAM Qty: 90 1RF epinephrine 0.3 mg/0.3 mL auto-injector 0.3 mg subcut ONCE PRN (Reason: anaphylaxis) Qty: 1 3RF cranberry extract [Cranberry Concentrate] 500 mg capsule 1,000 mg PO QAM Qty: 60 3RF Rx Instructions: administer with meals acetaminophen [Tylenol] 325 mg tablet 650 mg PO .COMPLEX PRN (Reason: fever or pain) Rx Instructions: Take 2 tablets (650)mg by mouth every 6 hours as needed for temp greater than 100 or pain 1-10 Max 3GM APAP/24 HRS ferrous sulfate [FeroSul] 325 mg (65 mg iron) tablet 650 mg PO QAM Saccharomyces boulardii 250 mg capsule 250 mg PO QAM mirtazapine 7.5 mg tablet 7.5 mg PO HS Rx Instructions: Take one tablet by mouth at bedtime "mood disorder" Discharge Orders: Discharge Order (Routine); Ordered 10/27/24 Ordered By: Quentin José Admission Data Admit Date/Time: 10/24/24 20:31 Attending Provider: Quentin José Admit Provider: Tariq West Primary Care Provider: Kevin Fitzgerald Other Providers: Tariq West; Sarmad Thayer Hospital Stay Data Consultations 10/24/24 20:27 ED Decision to Admit Stat 10/24/24 22:46 Consult Neurology Routine Diagnostic Imagining Performed 10/24/24 18:29 CT angio head w con Stat CT angio neck with con Stat CT head/brain wo con Stat 10/25/24 12:00 MR brain seizure wo/w con Stat Pending Results Patient Have Any Pending Studies at Discharge: No Discharge Instructions Given to Patient (Per Discharging Provider) Take Cipro 250 mg twice a day for 5 more days. All other medications remain the same Total Time Total Time Spent Total Time Spent (In Minutes): 45 minutes Coding Level of Care Code 98516 INP/OBS DISCH >30 MIN Diagnoses Seizure disorder G40.909 UTI (urinary tract infection) N39.0 Stroke-like symptoms R29.90 Hyponatremia E87.1 Acute hypoxemic respiratory failure J96.01
[2024-10-27 11:14] VITALS: PULSE 64; RESP 17; TEMP 97.9; O2SAT 93
[2024-10-27 11:22] VITALS: BP 169/92
== END 2024-10-27 13:22 | disposition home or self-care (01) | DRG 689 ==
LOC: ED 18:31 → SUATTDRO 20:31 → 2E 20:31